=== PATIENT | female | born 1965 | race Caucasian/White ===

== ENCOUNTER 2017-07-11 16:28 | Inpatient (IN) | payer OTHER ==
[~2017-07-11] VITALS: Ht 149.9 cm; Wt 57.0 kg
[2017-07-11] MEDS ORDERED: LORAZEPAM 2 MG/ML 1 ML VIAL IM STA (17:05)
[2017-07-11] MEDS ORDERED: HALOPERIDOL LACTATE 5 MG/ML 1 ML VIAL IM STA (17:05)
[2017-07-11 18:19] LABS: HEMATOCRIT 48.8 % (37-47); HEMOGLOBIN 17.5 g/dL (12.0-16.0); MEAN CELL VOLUME 95.5 fL (80-100); MEAN CORPUSCULAR HEMOGLOBIN 34.2 pg (25-34); MEAN CORPUSCULAR HGB CONC 35.9 g/dl (32-36); MEAN PLATELET VOLUME 10.3 fL (7.4-10.4); PLATELET COUNT 168 K/uL (130-400); RED CELL DISTRIBUTION WIDTH CV 13.4 % (11.5-14.5); WHITE BLOOD COUNT 8.81 K/uL (4.8-10.8)
[2017-07-11 18:35] LABS: BLOOD UREA NITROGEN 8 mg/dl (7-18); CALCIUM 9.3 mg/dl (8.5-10.1); CARBON DIOXIDE 26 mmol/L (21-32); CREATININE 0.59 mg/dl (0.60-1.20); GLUCOSE 96 mg/dl (70-99); POTASSIUM 3.9 mmol/L (3.5-5.1); SODIUM 139 mmol/L (136-145)
[2017-07-11] MEDS ORDERED: QUET1TAB34 PO ×2 (18:37)
[2017-07-11 18:46] LABS: ALKALINE PHOSPHATASE 83 U/L (45-117); ALT/SGPT 88 U/L (12-78); AST/SGOT 80 U/L (15-37); TOTAL PROTEIN 8.6 gm/dl (6.4-8.2)
[2017-07-11] MEDS ORDERED: NURSING VERBAL MED ORDER ONE (19:15)
[2017-07-11 19:25] VITALS: O2SAT 98
[2017-07-11] MEDS ORDERED: SODIUM CHLORIDE 0.65% NA SOLN 45 ML (OCEAN) PRN (19:30)
[2017-07-11] MEDS ORDERED: BISMUTH SUBSALICYLATE PER ML OMNICELL CHARGE PO PRN (19:30)
[2017-07-11] MEDS ORDERED: ALUMINUM/MAGNESIUM SUSP 30 ML UDC PO PRN (19:30)
[2017-07-11] MEDS ORDERED: MAGNESIUM HYDROXIDE SUSP 30 ML UDC PO PRN (19:30)
[2017-07-11] MEDS ORDERED: BENZTROPINE MESYLATE 1 MG TAB PO PRN (19:30)
[2017-07-11] MEDS ORDERED: ACETAMINOPHEN 325 MG TAB PO PRN (19:30)
[2017-07-11 20:43] VITALS: BP 116/86; PULSE 88; TEMP 36.6; Ht 149.9 cm; Wt 57.0 kg
[2017-07-11] MEDS ORDERED: QUETIAPINE FUMARATE 300 MG TAB PO SCH (21:00)
--- NOTE | 2017-07-11 21:39 | EMERGENCY ROOM VISIT NOTE ---
History Report prepared by Marcelo: Librado Huizar Under the Supervision of: Dr. Julio Mooney M.D. First contact with patient: 16:31 Chief Complaint: MENTAL HEALTH EVALUATION Stated Complaint: [facility] History of Present Illness The patient is a 52 year old female who presents to the Emergency Room for constant psychosis and a mental health evaluation following a 302 petition occurring today. Per case work aide, the patient was brought in by police today following the 302 petition by her son. She notes that according to the petition , the patient was acting aggressive to and threatening her son, delusional, and agitated. She reports that the son is afraid that the patient is going to run into traffic. The patient denies any physical complaints. HPI limited secondary to altered mental status. Source of History: patient, other (case work aide) History Limited By: AMS Onset: today Position: other (global) Symptom Intensity: severe Quality: other (psychosis) Timing: constant Associated Symptoms: No headache, No chest pain, No abdominal pain Note: Per son, the patient has been aggressive, threatening, delusional, and agitated. Review of Systems ROS limited secondary to altered mental status. Past Medical & Surgical Medical Problems: (1) Hepatitis C (2) Schizoaffective disorder Family History No pertinent family history stated. Social History Smoking Status: Current Every Day Smoker Alcohol Use: none Drug Use: none Housing Status: other Current/Historical Medications Scheduled Quetiapine Fumarate (Seroquel), 200 MG PO HS Quetiapine Fumarate (Seroquel), 100 MG PO HS Allergies Coded Allergies: No Known Allergies (Unverified , 07/11/17) Physical Exam Vital Signs Date Time Temp Pulse Resp B/P (MAP) Pulse Ox O2 Delivery O2 Flow Rate FiO2 07/11/17 16:42 36.6 131 20 165/101 94 Room Air Physical Exam Constitutional: Vital signs reviewed. Eyes: Pupils are equal round reactive to light. Conjunctiva are noninjected. ENT: Pharynx is clear without erythema or exudate. Mucous membranes are moist. Neck supple without meningeal signs. Respiratory: Clear to auscultation bilaterally. Breath sounds are equal bilaterally. Cardiovascular: Regular rate and rhythm. No rubs or gallops. GI: Soft, nondistended and nontender. Bowel sounds are present. Musculoskeletal: No peripheral edema. No lower extremity tenderness. Integumentary: No cyanosis. Neurological: The patient is awake and alert. No focal deficits. Psychiatric: Delusional, flight of ideas, not redirectable. Medical Decision & Procedures Laboratory Results 07/11/17 17:28 07/11/17 17:28 Test 07/11/17 17:15 07/11/17 17:28 Urine Color YELLOW Urine Appearance CLEAR (CLEAR) Urine pH 5.0 (4.5-7.5) Urine Specific [place] 1.010 (1.000-1.030) Urine Protein NEG (NEG) Urine Glucose (UA) NEG (NEG) Urine Ketones NEG (NEG) Urine Occult Blood NEG (NEG) Urine Nitrite NEG (NEG) Urine Bilirubin NEG (NEG) Urine Urobilinogen NEG (NEG) Urine Leukocyte Esterase NEG (NEG) Urine Test NEG (NEG) Urine Opiates Screen NEG (NEG) Urine Methadone, Qualitative NEG (NEG) Urine Barbiturates NEG (NEG) Urine Phencyclidine (PCP) Level NEG (NEG) Ur Amphetamine/Methamphetamine NEG (NEG) MDMA (Ecstasy) Screen NEG (NEG) Urine Benzodiazepines Screen NEG (NEG) Urine Cocaine Metabolite NEG (NEG) Urine Marijuana (THC) NEG (NEG) Red Blood Count 5.11 M/uL (4.2-5.4) Mean Corpuscular Volume 95.5 fL (80-100) Mean Corpuscular Hemoglobin 34.2 pg (25-34) Mean Corpuscular Hemoglobin Concent 35.9 g/dl (32-36) RDW Standard Deviation 47.0 fL (36.4-46.3) RDW Coefficient of Variation 13.4 % (11.5-14.5) Mean Platelet Volume 10.3 fL (7.4-10.4) Anion Gap 9.0 mmol/L (3-11) Est Creatinine Clear Calc Drug Dose 85.8 ml/min Estimated GFR () 122.1 Estimated GFR (Non- 105.4 BUN/Creatinine Ratio 13.7 (10-20) Calcium Level 9.3 mg/dl (8.5-10.1) Total Bilirubin 0.3 mg/dl (0.2-1) Direct Bilirubin < 0.1 mg/dl (0-0.2) Aspartate Amino Transf (AST/SGOT) 80 U/L (15-37) Alanine Aminotransferase (ALT/SGPT) 88 U/L (12-78) Alkaline Phosphatase 83 U/L (45-117) Total Protein 8.6 gm/dl (6.4-8.2) Albumin 4.0 gm/dl (3.4-5.0) Thyroid Stimulating Hormone (TSH) 1.260 uIu/ml (0.300-4.500) Salicylates Level 4.9 mg/dl (2.8-20) Acetaminophen Level < 2 ug/ml (10-30) Ethyl Alcohol mg/dL < 3.0 mg/dl (0-3) Laboratory results as reviewed by me. Medications Administered Medications (Trade) Dose Ordered Sig/Seamus Route Start Time Stop Time Status Last Admin Dose Admin Haloperidol Lactate (Haldol Inj) 5 mg NOW STAT IM 07/11/17 17:05 07/11/17 17:06 DC 07/11/17 17:17 5 MG Lorazepam (Ativan Inj) 1 mg NOW STAT IM 07/11/17 17:05 07/11/17 17:06 DC 07/11/17 17:17 1 MG ED Course 1635: The patient was evaluated in room A7. A complete history and physical exam was performed. 1704: The patient is becoming aggressive and uncooperative. Security is at bedside and will give Ativan and Haldol if needed. 1705: Ativan Inj 1mg, Haldol Inj 5mg IM 1926: Upon reevaluation, the patient appears stable. I discussed the treatment plan with her and she agrees. The patient was admitted to [address] [place] [address] for further management and care. Medical Decision This is a 52-year-old female brought in for mental health evaluation under a 302 warrant. I did perform a limited focused review of portions of the patient' s old chart on the electronic medical record. The patient was last seen on May 12 of last year for psychosis and schizoaffective disorder. She was sent to [facility]. I did evaluate the patient as noted above. I did obtain history from the patient, case work aide and 302 petition. The patient has flight of ideas and is delusional. It is difficult to get any kind of cohesive history from her. According to her son and the patient has been very delusional and has been aggressive and threatening toward him and his brother. He is concerned for her safety as well. I did order and review the patient's blood work as noted in the electronic medical record. The patient was medically cleared. Patient was evaluated by 3 S. and admitted to the behavioral unit under 302 warrant. Medication Reconcilliation Current Medication List: was personally reviewed by me Blood Pressure Screening Patient's blood pressure: Normal blood pressure Blood pressure disposition: Did not require urgent referral Impression Primary Impression: Thought disorder Scribe Attestation The scribe's documentation has been prepared under my direct and personally reviewed by me in its entirety. I confirm that the note above accurately reflects all work, treatment, procedures, and medical decision making performed by me. Departure Information Dispostion Other (Admitted to [address] [place] [address]) Referrals No Doctor, Assigned (PCP) Patient Instructions My [facility]
[2017-07-12 06:56] VITALS: BP 103/74; PULSE 96; TEMP 36.6
[2017-07-12] MEDS: NICOTINE 21 MG/24 HR TDSY EXT SCH (09:29)
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
[2017-07-12] MEDS: HALOPERIDOL 5 MG TAB PO PRN (11:30)
[2017-07-12] MEDS: LORAZEPAM 2 MG TAB PO PRN (12:32)
[2017-07-12] MEDS ORDERED: QUET1TAB34 PO (13:10)
[2017-07-12] MEDS: QUETIAPINE FUMARATE 200 MG TAB PO SCH (21:23)
[2017-07-13 07:04] VITALS: BP 122/85; PULSE 80; TEMP 36.5
--- NOTE | 2017-07-13 09:16 | Psychiatric Progress Notes ---
Progress Note Date of Service Jul 13, 2017. Interval History Lisandra Barnes is a 52-year-old female with an unclear psychiatric history including a recent admission to an outside hospital behavioral health unit who was admitted on Jul 11, 2017 at 19:13 on an involuntary 302 commitment for psychosis , aggressive behavior, and threatening others. She recently moved to [place] from [place], and is utilizing [facility]. Her son was the petitioner. Chief Complaint "Fine". Subjective Patient was seen & assessed interval progress reviewed with Treatment Team. Staff report she remains hyperverbal and disorganized, talking about various topics and it is difficult to follow her train of thought. Her speech is difficult to understand, and she often closes her eyes and mumbles. She has not been able to attend or participate in groups. The social services technician attempted to meet with her, but she left abruptly, after an episode of fecal incontinence. She was able to shower and clean herself up independently. She requested Valium, stating "I don't do drugs on the outside, only in the hospital." She required staff intervention due to anxiety (focused on worry about her sons despite reassurance that staff had spoken to them and they were okay). At time she becomes very anxious, and received Haldol 5 mg and lorazepam 2 mg. Her son Ted was contacted for collateral information, and states he has guardianship paperwork, but has not yet faxed it to the unit. He stated that the patient has been mentally ill all of his life, and he has had to intervene for her safety many times. She has wandered into traffic, state outdoors when it is cold, and demonstrates poor judgment in general. She is often paranoid, disorganized and scattered, is constantly fearful, and has chronic noncompliance with oral medications. She has many delusions, and is unable to reality test them. She often sees him as "the bad shamir" because he has been the one to intervene to protect her. He also has a younger brother, Edmund, who is also mentally ill, but is able to work. Edmund was hit by a car 2 days ago, but was not injured. Ted was concerned because she has never been aggressive towards Edmund before, but was on the day of presentation. He reports that she did well on Invega Sustenna in the past when she lived in [place]. [facility] from [facility] was contacted and stated they would like the patient to be referred to [place]. My assessment today, the patient was seen with Tonio Pearson, MS 3. 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 She starts talking about Humberto, her uncle Kiel in [place], "cut my throat in 72." She says that being in the hospital has been helpful, "but I'm ready to go home now." Reviewed our treatment plan, including getting her on an appropriate medication for her psychotic symptoms, recommendations for long- acting injectable antipsychotic, and the need to refer her for outpatient mental health services. She does not feel she needs any of this, and says she could leave. She was advised of the plan for a 303 hearing tomorrow. She denies that she has a power of district attorney or guardian, and we still have not received paperwork from her son Ted. Sleep Information Total Hours of Sleep: 7.50 Meal Information Percent of Breakfast Consumed: 100 Percent of Lunch Consumed: 100 Percent of Dinner Consumed: 100 Mental Status Exam During interview pt is: cooperative, other (alert, oriented to self and place) Appearance: disheveled (hair is extremely tangled and disheveled), other ( seated crosslegged on her bed, eating breakfast and spilling food on herself) Eye contact is: fair Motor behavior is: no abnormal motor movements Speech: is pressured (hyperverbal) Affect: other (anxious, expansive, incongruent with stated mood) Mood is: other ("fine") Thought process: tangential, flight of ideas, looseness of associations, perseveration, other (extremely disorganized) Thought content: paranoid, delusions Suicidal thought are: denied Homicidal thoughts are: denied Hallucinations: denies auditory, denies visual Cognition: other (all spheres impaired due to psychosis) Intelligence estimated to be: below average Insight: severely impaired Judgement: severely impaired Summary of Past History Records from [facility] reviewed: Patient was admitted 05/12/2017 on referral from our emergency room for manic and psychotic symptoms. She was off her medications, was delusional, was hyperverbal with rapid pressured speech, flight of ideas, and was incoherent at times. She was jumping from topic to topic, and unable to answer basic questions. She reported being and 3 times, and said that she came to [place] from [place] to be with her children who live in [place]. She reported a long psychiatric history, previously following with a psychiatrist, Dr. Lomax, in [place], [place]. She reported numerous [facility], but could not give any details. She reported a history of crack cocaine use. She reported both parents were , and denied any other family members. She could not state how far she had gone in school or if she had worked in the past. She does not have any outpatient providers at the time. They diagnosed her with schizoaffective disorder bipolar type, and started her on quetiapine and lithium. 2 days later, Depakote was added. The next day, gabapentin was added for depression and anxiety. She was discharged on 05/19/2017, on Depakote 250 mg 3 times a day, gabapentin 100 mg 3 times a day, quetiapine 200 mg daily at bedtime and 100 mg twice a day, and lithium 300 mg twice a day. No aftercare was arranged. Medication Trials Invega Kady - her son, patient did well on this when living in [place]. Started on quetiapine, lithium, Depakote, and gabapentin during her [facility] hospitalization in May 2017. Other medications unknown Impression 52-year-old female who recently came to the area, has long history of psychosis , likely schizophrenia (chart mentions schizoaffective disorder, but no records to confirm), has been utilizing the local detention and hotels as she is homeless , and was admitted on a 302 involuntary commitment for worsening psychosis, aggressive behavior, and threats to others. Her sons reportedly also moved to [place] from [place] after the patient came here in response to delusions that she had relatives in the area, and states that she has been noncompliant with her oral antipsychotic, has been delusional and disorganized, with impaired judgment and inability to keep herself safe. She also became aggressive towards her sons on the day of presentation, which is out of character for her. Although she was hospitalized at [facility] in May for psychosis and alejandro , she does not have an outpatient psychiatrist, and we will need to set her up with outpatient mental health services. We are also recommending a long-acting injectable due to her history of noncompliance with oral medications. Plan (1) Schizoaffective disorder 07/12 - differential includes schizophrenia, schizoaffective disorder, bipolar disorder, and dementia or other organic causes. We will need to get information about past treatment, we'll request the records from [facility], and contact the patient's sons for collateral information. - Determine if she has an outpatient psychiatrist, leather case finisher or any other outpatient supports, and if not she will need to be set up with them. - Reported home dose of quetiapine is 300 mg daily at bedtime, and we will increase that to 400 mg daily at bedtime tonight to target psychosis and manic symptoms. If she does not improve over the next day or 2, consider switch to a more potent antipsychotic such as risperidone or olanzapine. Continue haloperidol 5 mg and lorazepam 2 mg as needed for psychosis or agitation. - Fasting labs ordered for tomorrow for monitoring on an atypical antipsychotic. 07/13 - working diagnosis for now is schizoaffective disorder, bipolar type, current episode manic with psychosis. - Records reviewed from [facility], diagnosis was schizoaffective disorder, bipolar type. - Increase quetiapine to 50mg qam and noon and 400mg qhs. Advised patient of recs for Invega Sustenna, as son reports she did well on it in the past, but she is refusing at this time. - Fasting lipid profile and glucose reviewed for monitoring on an atypical antipsychotic, all values within normal limits. - Awaiting paperwork from son to clarify whether he is indeed her guardian or POA. - Filed for 303 commitment hearing to be held tomorrow. Consider the need for an involuntary outpatient commitment given history of noncompliance. She will need a family meeting with sons when she is less psychotic. - Continue medically necessary private room for severe manic and psychotic symptoms, disorganized behavior, recent aggressive behavior, and place patient near the nurse's station for increased monitoring. (2) Hepatitis C 07/12 - LFTs elevated on admission, avoid hepatotoxic drugs and refer for outpatient care with PCP. Need to clarify whether or not she has a local physician. Visit Code E&M Code: 69428 Inventory Assets Strengths: Supportive sons, willing to take medication Needs: Housing, outpatient care, clarify diagnosis Risk Factors Assessment : Yes /single/: Yes Higher / Fall in social status: No Health problems: Yes Mental Health Diagnoses: Yes Substance use disorders: No Previous psychiatric stay: Yes Smoker: Yes Protective Factors Assessment : No Responsible for young children: No Employed: No Stable relationships: No Supportive family: Yes Good rapport with provider: No Data Vital Signs Last 24 Hrs: Date Time Temp Pulse Resp B/P (MAP) Pulse Ox O2 Delivery O2 Flow Rate FiO2 07/13/17 07:04 36.5 80 16 122/85 Meds Administered Last 24 Hrs: Meds Administered (Past 24Hrs) Medications (Trade) Dose Ordered Sig/Seamus Route Start Time Stop Time Status Last Admin Dose Admin Haloperidol Lactate (Haldol Inj) 5 mg NOW STAT IM 07/11/17 17:05 07/11/17 17:06 DC 07/11/17 17:17 5 MG Lorazepam (Ativan Inj) 1 mg NOW STAT IM 07/11/17 17:05 07/11/17 17:06 DC 07/11/17 17:17 1 MG Nicotine (Nicoderm Cq 21MG Patch) 1 patch QAM EXT 07/12/17 09:00 08/11/17 08:59 07/12/17 09:29 1 PATCH Quetiapine Fumarate (seroQUEL TAB) 300 mg HS PO 07/11/17 21:00 07/12/17 09:54 DC 07/11/17 22:58 300 MG Haloperidol (Haldol Tab) 5 mg Q4 PRN PO 07/11/17 19:30 08/10/17 19:29 07/12/17 11:30 5 MG Lorazepam (Ativan Tab) 2 mg Q4 PRN PO 07/11/17 19:30 08/10/17 19:29 07/12/17 12:32 2 MG Quetiapine Fumarate (seroQUEL TAB) 400 mg HS PO 07/12/17 22:00 08/10/17 20:59 07/12/17 21:23 400 MG Lab Results Last 24 Hrs: Last 24 Hours Test 07/13/17 08:05 Fasting Glucose 87 mg/dl Triglycerides Level 47 mg/dl Cholesterol Level 116 mg/dl HDL Cholesterol 43 mg/dl LDL Cholesterol, Calculated 64 mg/dl VLDL Cholesterol, Calculated 9 mg/dl Cholesterol/HDL Ratio 2.7
[2017-07-13] MEDS: NICOTINE 21 MG/24 HR TDSY EXT SCH (09:37)
[2017-07-13] MEDS: LORAZEPAM 2 MG TAB PO PRN (09:49)
[2017-07-13] MEDS: HALOPERIDOL 5 MG TAB PO PRN (10:31)
--- NOTE | 2017-07-13 10:42 | Medical Student: BHU Only ---
Psychiatric Progress Note SUBJECTIVE: Ms. Barnes is a 52yo female with medical history significant for hepatitis C and a prior diagnosis of schizoaffective disorder- bipolar type currently on day 2 of involuntary 302 commitment due to psychosis as well as aggressive and threatening behavior. Ms. Barnes was seen and assessed today, and progress was reviewed with nursing. The patient reports that she feels "good". Patient reports that she slept "OK" last night; noted to be for 7 hours by staff. Ms. Barnes stated that she believes that the hospital stay has been helpful; she reports that she has been mostly "eating and sleeping." Yesterday, patient talked to both of her sons, Edmund and Ted, by phone to check-in with them. Social work was able to confirm parts of Ms. Barnes's reported history with her son, Ted: she did move from [place] to [place], [place], but currently resides at "[facility]" in [place], [place]; her son, Edmund, was hit by a car , but is doing OK; Ted also reported that she did well on invega-sustenna ( paliperidone) in the past. Today, Ms. Barnes voiced a desire to leave the hospital and that her son, Ted, does not have power of youth program director. When patient was asked about invega-sustenna, she stated that she tried it in the past but did not like it. During Ms. Barnes's most recent hospitalization ( May 2017) at [facility], she was admitted for psychotic, delusional, and manic behavior. She was diagnosed with schizoaffective disorder- bipolar type and started on a medication regime of: Seroquel 100MG QAM and Noon, Seroquel 200MG QHS, Fromberg carbonate 300MG BID, Depakote (valproic acid) 250MG TID, and Neurotin 100MG TID. She was not compliant with taking these medications. ROS: Patient sleep 7hrs and has a good appetite. She is able to complete ADLs by herself. MSE: Appearance is that of a disheveled female who appears older than her stated age of 52yo. The patient is cooperative with the interview. Eye contact is fair (often closes her eyes). Motor behavior is normal. Speech: Normal volume, rapid, and slightly pressured but able to redirect. Affect: blunted. Mood: "good". Thought process: tangential, FOI, TAURUS, preservations (slavery), incoherence. Thought content: preoccupation, delusions. Perception: denies auditory and visual hallucinations. Cognition: The patient is oriented to year, month, and date as well as city and location (i.e. hospital). Scored 8/30 on MOCA. Insight is estimated to be limited. ASSESSMENT: Ms. Barnes is a 52yo female with medical history significant for hepatitis C and a prior diagnosis of schizoaffective disorder- bipolar type currently on day 2 of involuntary 302 commitment due to psychosis as well as aggressive and threatening behavior. She has improved with a total daily dose of 400MG of Seroquel as well as getting some sleep. Given the initial presentation of acute alejandro (no sleep for 304 days) with psychotic features and non-bizarre delusions, the DDx includes schizoaffective disorder- bipolar type, BPI, and schizophrenia. Psychosis NOS and dementia are a less likely possibility given Ms. Barnes's reported long history of mental illness. [place] I: DDx: schizoaffective disorder- bipolar type; BPI; schizophrenia. [place] II: no known intellectual disability or personality disorder [place] III: Hepatitis C PLAN: 1. schizoaffective disorder- bipolar type; BPI; schizophrenia a. Current medication: Seroquel 400MG QHS; halperidol 5MG and lorazepam 2MG PRN for psychosis and agitation. b. Will consider a mood stabilizer (depakote, lamotrigine, lithium carbonate) in addition to an atypical antipsychotic; will consider patient's lack of compliance with medications in determining the best choice; perhaps a depot shot. Seroquel and lamotrigine may be an option. Invega-sustenna (paliperidone ) may be an alternative to Seroquel. 2. Hepatitis C a. monitor LFTs and avoid hepatotoxic medications 3. Aftercare Planning: a. Will need to consult sons during a family meeting about suitable aftercare. Need to establish outpatient provider and plan for optimal medication compliance. Date of Service: Jul 13, 2017.
[2017-07-13] MEDS: QUETIAPINE FUMARATE 25 MG TAB PO SCH (13:31)
[2017-07-13] MEDS ORDERED: COUGH DROP (SUGAR FREE) LOZ 24 LOZ/1 BOX PO PRN (15:15)
[2017-07-13] MEDS ORDERED: FLUTICASONE PROPIONATE NA SPR 16 GM BTL PRN (15:15)
[2017-07-13] MEDS: QUETIAPINE FUMARATE 200 MG TAB PO SCH (22:18)
[2017-07-14] MEDS: HALOPERIDOL 5 MG TAB PO PRN ×2 (02:52→13:29)
[2017-07-14 07:06] VITALS: BP 101/70; PULSE 92; TEMP 36.6
[2017-07-14] MEDS: QUETIAPINE FUMARATE 25 MG TAB PO SCH ×2 (07:29→13:29)
--- NOTE | 2017-07-14 08:20 | Psychiatric Progress Notes ---
Progress Note Date of Service Jul 14, 2017. Interval History Lisandra Barnes is a 52-year-old female with an unclear psychiatric history including a recent admission to an outside hospital behavioral health unit who was admitted on Jul 11, 2017 at 19:13 on an involuntary 302 commitment for psychosis , aggressive behavior, and threatening others. She recently moved to [place] from [place], and is utilizing [facility] for the homeless. Her son was the petitioner. Chief Complaint "(rambling incoherently)". Subjective Patient was seen & assessed interval progress reviewed with Nursing. Staff report she received haloperidol and Ativan prn for psychosis and agitation, is taking quetiapine as scheduled, and is not appropriate to attend groups. She has received both Haldol and lorazepam prn's daily since admission. She is not able to tolerate excessive stimuli, is easily confused and overwhelmed. She continues to be hyperverbal with flight of ideas, but her speech is less pressured than on admission. She required redirection with respect to intrusive behavior. Her sons have still not visited or sent in guardianship paperwork, and although her son Ted told staff he would attend her 303 hearing today and bring the paperwork with him, he did not come in. Prior authorization for Invega Sustenna was submitted to her insurance company, and was denied as they claimed no documentation was provided regarding her history of noncompliance with oral medications and attempts to educate her to improve compliance. This was specifically addressed on admission, as her outpatient supports report that she is chronically noncompliant with oral medications, and that she was started on multiple psychotropic medications during her hospitalization at [facility] in May 2017, and was noncompliant with all of them after discharge. The only medication that she is taking at all is quetiapine, and she is not taking it at the prescribed dose and often misses doses. Furthermore, her son reports a long-standing history of noncompliance with oral medications, which led to her being placed on a long-acting injectable antipsychotic (Invega Sustenna) when she lived in [place], and she did well on it at that time. Today Lisandra was seen with Tonio Pearson, MS3. She attended her 303 hearing and was talking throughout, despite being repeatedly advised not to speak when others were testifying. She rambled incoherently about various topics and was mumbling, so was very difficult to understand. She is unable to participate in the discussion of treatment recommendations, as she frequently interrupts or response with unrelated information. She does continue to refuse recommendations for a long-acting injectable, but cannot verbalize her concerns. After the hearing, she was checking the unit doors, so has been placed on elopement precautions. Review of Systems Attempted review of systems, however the patient did not respond with related information. Sleep Information Total Hours of Sleep: 7.50 Meal Information Percent of Breakfast Consumed: 100 Percent of Lunch Consumed: 100 Percent of Dinner Consumed: 100 Mental Status Exam During interview pt is: cooperative, other (oriented to self and place) Appearance: disheveled (hair is extremely tangled and disheveled), other ( appears older than stated age) Eye contact is: poor (eyes closed much of the time) Motor behavior is: steady gait & station, no abnormal motor movements Speech: is pressured (hyperverbal, interrupting, mumbling) Affect: other (anxious, expansive, irritable, incongruent with stated mood) Mood is: other (swers with unrelated information) Thought process: tangential, flight of ideas, looseness of associations, other (disorganized) Thought content: preoccupation, paranoid, delusions Suicidal thought are: denied Homicidal thoughts are: denied Hallucinations: denies auditory, denies visual Cognition: other (all spheres impaired due to psychosis) Intelligence estimated to be: below average Insight: severely impaired Judgement: severely impaired Scored 8/30 on MOCA on 07/12/17. Summary of Past History Records from [facility] reviewed: Patient was admitted 05/12/2017 on referral from our emergency room for manic and psychotic symptoms. She was off her medications, was delusional, was hyperverbal with rapid pressured speech, flight of ideas, and was incoherent at times. She was jumping from topic to topic, and unable to answer basic questions. She reported being and 3 times, and said that she came to [place] from [place] to be with her children who live in [place]. She reported a long psychiatric history, previously following with a psychiatrist, Dr. Lomax, in [place], [place]. She reported numerous past psychiatric admissions in other states, but could not give any details. She reported a history of crack cocaine use. She reported both parents were , and denied any other family members. She could not state how far she had gone in school or if she had worked in the past. She does not have any outpatient providers at the time. They diagnosed her with schizoaffective disorder bipolar type, and started her on quetiapine and lithium. 2 days later, Depakote was added. The next day, gabapentin was added for depression and anxiety. She was discharged on 05/19/2017, on Depakote 250 mg 3 times a day, gabapentin 100 mg 3 times a day, quetiapine 200 mg daily at bedtime and 100 mg twice a day, and lithium 300 mg twice a day. No aftercare was arranged. Medication Trials Invega Sustenna - her son, patient did well on this when living in [place]. Started on quetiapine, lithium, Depakote, and gabapentin during her [facility] hospitalization in May 2017. Other medications unknown Impression 52-year-old female who recently came to the area, has long history of psychosis , previous diagnosis of schizoaffective disorder, bipolar type, has been utilizing the local senior living and hotels as she is homeless, and was admitted on a 302 involuntary commitment for worsening psychosis, aggressive behavior, and threats to others. She is on a 303 commitment as of 07/14/2017. Her sons reportedly also moved to [place] from [place] after the patient came here in response to delusions that she had relatives in the area, and states that she has been noncompliant with her oral antipsychotic, has been delusional and disorganized, with impaired judgment and inability to keep herself safe. She also became aggressive towards her sons on the day of presentation, which is out of character for her. Although she was hospitalized at [facility] in May for psychosis and alejandro, she was noncompliant with her psychotropic medications after discharge, and does not have any outpatient mental health services. We are also recommending a long-acting injectable due to her history of noncompliance with oral medications, and per son she previously did well on Invega Sustenna. Plan (1) Schizoaffective disorder 07/12 - differential includes schizophrenia, schizoaffective disorder, bipolar disorder, and dementia or other organic causes. We will need to get information about past treatment, we'll request the records from [facility], and contact the patient's sons for collateral information. - Determine if she has an outpatient psychiatrist, complex case manager or any other outpatient supports, and if not she will need to be set up with them. - Reported home dose of quetiapine is 300 mg daily at bedtime, and we will increase that to 400 mg daily at bedtime tonight to target psychosis and manic symptoms. If she does not improve over the next day or 2, consider switch to a more potent antipsychotic such as risperidone or olanzapine. Continue haloperidol 5 mg and lorazepam 2 mg as needed for psychosis or agitation. - Fasting labs ordered for tomorrow for monitoring on an atypical antipsychotic. 07/13 - working diagnosis for now is schizoaffective disorder, bipolar type, current episode manic with psychosis. - Records reviewed from [facility], diagnosis was schizoaffective disorder, bipolar type. - Increase quetiapine to 50mg qam and noon and 400mg qhs. Advised patient of recs for Invega Sustenna, as son reports she did well on it in the past, but she is refusing at this time. - Fasting lipid profile and glucose reviewed for monitoring on an atypical antipsychotic, all values within normal limits. - Awaiting paperwork from son to clarify whether he is indeed her guardian or POA. - Filed for 303 commitment hearing to be held tomorrow. Consider the need for an involuntary outpatient commitment given history of noncompliance. She will need a family meeting with sons when she is less psychotic. - Continue medically necessary private room for severe manic and psychotic symptoms, disorganized behavior, recent aggressive behavior, and place patient near the nurse's station for increased monitoring. 07/14 - 303 hearing held and granted; start elopement precautions as patient is checking unit doors and attempting to leave the unit. - Continue medically necessary private room due to severity of psychotic and manic symptoms. - Initiate cross taper from quetiapine to paliperidone, with a plan to get her back on Invega Sustenna given her chronic noncompliance with oral medications. Will taper slowly off of quetiapine to allow her time to readapt to the withdrawal of blocking cholinergic, histaminergic, and alpha-1 receptors. Decrease quetiapine to 300 mg daily at bedtime, and decreased by another 100 mg every 3 days (taper order written). Can continue 50 mg twice a day in the morning and afternoon for now, but can taper off of this over the next week or 2. Start paliperidone 3 mg daily. When she demonstrates tolerability and efficacy, can start Invega Sustenna. - She may require medications over objection, as she has repeatedly refused recommendations to go back on Invega Sustenna, although she cannot state her reasons. She reportedly did well on this medication in the past, and her manic and psychotic symptoms have not been well controlled with quetiapine. I don't think she is a good candidate for lithium or Depakote, as they require good compliance and willingness for regular lab work, and she has demonstrated unwillingness/inability to follow through with this. She can be seen by a second physician tomorrow for a second opinion for medications over objection if needed. (2) Hepatitis C 07/12 - LFTs elevated on admission, avoid hepatotoxic drugs and refer for outpatient care with PCP. Need to clarify whether or not she has a local physician. Visit Code E&M Code: 26997 Inventory Assets Strengths: Supportive sons, willing to take medication Needs: Housing, outpatient care, past treatment history Risk Factors Assessment : Yes /single/: Yes Higher / Fall in social status: No Health problems: Yes Mental Health Diagnoses: Yes Substance use disorders: No Previous psychiatric stay: Yes Smoker: Yes Protective Factors Assessment : No Responsible for young children: No Employed: No Stable relationships: No Supportive family: Yes Good rapport with provider: No Data Vital Signs Last 24 Hrs: Date Time Temp Pulse Resp B/P (MAP) Pulse Ox O2 Delivery O2 Flow Rate FiO2 07/14/17 07:06 36.6 92 16 101/70 Meds Administered Last 24 Hrs: Meds Administered (Past 24Hrs) Medications (Trade) Dose Ordered Sig/Seamus Route Start Time Stop Time Status Last Admin Dose Admin Nicotine (Nicoderm Cq 21MG Patch) 1 patch QAM EXT 07/12/17 09:00 08/11/17 08:59 07/13/17 09:37 1 PATCH Quetiapine Fumarate (seroQUEL TAB) 400 mg HS PO 07/12/17 22:00 08/10/17 20:59 07/13/17 22:18 400 MG Quetiapine Fumarate (seroQUEL TAB) 50 mg [id number] PO 07/13/17 14:00 08/12/17 13:59 07/14/17 07:29 50 MG Menthol (Nice Vy) 1 vy Q2H PRN PO 07/13/17 15:15 08/12/17 15:14 07/13/17 18:21 1 VY
[2017-07-14] MEDS: NICOTINE 21 MG/24 HR TDSY EXT SCH (08:34)
[2017-07-14] MEDS ORDERED: PALIPERIDONE 3 MG TABCR PO ONE (10:19)
[2017-07-14] MEDS: LORAZEPAM 2 MG TAB PO PRN (13:29)
[2017-07-14] MEDS: QUETIAPINE FUMARATE 100 MG TAB PO SCH (21:51)
[2017-07-15] MEDS: hydrOXYzine HCL 25 MG TAB PO PRN (00:35)
[2017-07-15] MEDS: FLUTICASONE PROPIONATE NA SPR 16 GM BTL PRN (00:37)
[2017-07-15 06:51] VITALS: BP_SYST 110; BP_SYST 113; BP_DIAS 74; BP_DIAS 79; PULSE 85; TEMP 36.5
[2017-07-15] MEDS ORDERED: PALIPERIDONE 3 MG TABCR PO SCH (09:00)
[2017-07-15] MEDS: NICOTINE 21 MG/24 HR TDSY EXT SCH (09:02)
[2017-07-15] MEDS: QUETIAPINE FUMARATE 25 MG TAB PO SCH ×2 (09:03→14:00)
--- NOTE | 2017-07-15 11:00 | Psychiatric Progress Notes ---
Progress Note Date of Service Jul 15, 2017. Interval History Lisandra Barnes is a 52-year-old female with an unclear psychiatric history including a recent admission to an outside hospital behavioral health unit who was admitted on Jul 11, 2017 at 19:13 on an involuntary 302 commitment for psychosis , aggressive behavior, and threatening others. She recently moved to [place] from [place], and is utilizing [facility]. Her son was the petitioner. Chief Complaint "My son was kidnapped by this girl and taken to [place].". Subjective Patient was seen & assessed interval progress reviewed with Treatment Team. The patient is resting when retrieved for the interview. She awakens to verbal is immediately hyperverbal talking about her son's, one of whom she believes to have been kidnapped, burned and cut. She rambles on and I do not understand all that she has to say due to dysarthria from no teeth. She has no insight and does not believe that her thoughts could be a function of her mental illness. She asks again to be prescribed valium "just to make me feel good for a few days". She denies aud/vis hallucinations. Denies side effects to meds. She believes that the Invega is helping and is requesting a higher dose. We discuss starting the Sustenna injections tomorrow, to which she agrees. Review of Systems Constitutional: No fever, No chills, No sweats, No weight loss, No weakness, No fatigue, No problem reported ENT: + problem reported (edentulous) Respiratory: No cough, No sputum, No wheezing, No shortness of breath, No dyspnea on exertion, No dyspnea at rest, No hemoptysis, No problem reported Cardiovascular: No chest pain, No orthopnea, No PND, No edema, No claudication , No palpitations, No problem reported Abdomen: No pain, No nausea, No vomiting, No diarrhea, No constipation, No GI bleeding, No problem reported Musculoskeletal: No joint pain, No muscle pain, No swelling, No calf pain, No problem reported Neurologic: No memory loss, No paralysis, No weakness, No numbness/tingling, No vertigo, No balance problems, No problem reported Psychiatric: + problem reported (rambling and disorganized) Integumentary: No rash, No itch, No new/changing skin lesions, No color change , No bleeding, No problem reported Sleep Information Total Hours of Sleep: 9.50 Meal Information Percent of Breakfast Consumed: 100 Percent of Lunch Consumed: 75 Percent of Dinner Consumed: 100 Mental Status Exam During interview pt is: cooperative, other (oriented to self and place) Appearance: disheveled (hair is extremely tangled and disheveled), other ( appears older than stated age) Eye contact is: fair Motor behavior is: steady gait & station, no abnormal motor movements Speech: is pressured (hyperverbal, interrupting, mumbling) Affect: other (anxious, expansive, irritable, incongruent with stated mood) Mood is: anxious Thought process: tangential, flight of ideas, looseness of associations, other (disorganized) Thought content: preoccupation, paranoid, delusions Suicidal thought are: denied Homicidal thoughts are: denied Hallucinations: denies auditory, denies visual Cognition: other (all spheres impaired due to psychosis) Intelligence estimated to be: below average Insight: severely impaired Judgement: severely impaired Scored 8/30 on MOCA on 07/12/17. Summary of Past History Records from [facility] reviewed: Patient was admitted 05/12/2017 on referral from our emergency room for manic and psychotic symptoms. She was off her medications, was delusional, was hyperverbal with rapid pressured speech, flight of ideas, and was incoherent at times. She was jumping from topic to topic, and unable to answer basic questions. She reported being and 3 times, and said that she came to [place] from [place] to be with her children who live in [place]. She reported a long psychiatric history, previously following with a psychiatrist, Dr. Lomax, in [place], [place]. She reported numerous past psychiatric admissions in other states, but could not give any details. She reported a history of crack cocaine use. She reported both parents were , and denied any other family members. She could not state how far she had gone in school or if she had worked in the past. She does not have any outpatient providers at the time. They diagnosed her with schizoaffective disorder bipolar type, and started her on quetiapine and lithium. 2 days later, Depakote was added. The next day, gabapentin was added for depression and anxiety. She was discharged on 05/19/2017, on Depakote 250 mg 3 times a day, gabapentin 100 mg 3 times a day, quetiapine 200 mg daily at bedtime and 100 mg twice a day, and lithium 300 mg twice a day. No aftercare was arranged. Medication Trials Invega Sustenna - her son, patient did well on this when living in [place]. Started on quetiapine, lithium, Depakote, and gabapentin during her [facility] hospitalization in May 2017. Other medications unknown Impression The patient has made some progress, but remains paranoid, rambling, pressured. Will increase Invega today to 6 mg. daily and if tolerated will initiate Sustenna tomorrow. 234 mg IM on 07/16 with second injection on 07/19 156 mg IM. Plan (1) Schizoaffective disorder 07/12 - differential includes schizophrenia, schizoaffective disorder, bipolar disorder, and dementia or other organic causes. We will need to get information about past treatment, we'll request the records from [facility], and contact the patient's sons for collateral information. - Determine if she has an outpatient psychiatrist, renal case manager or any other outpatient supports, and if not she will need to be set up with them. - Reported home dose of quetiapine is 300 mg daily at bedtime, and we will increase that to 400 mg daily at bedtime tonight to target psychosis and manic symptoms. If she does not improve over the next day or 2, consider switch to a more potent antipsychotic such as risperidone or olanzapine. Continue haloperidol 5 mg and lorazepam 2 mg as needed for psychosis or agitation. - Fasting labs ordered for tomorrow for monitoring on an atypical antipsychotic. 07/13 - working diagnosis for now is schizoaffective disorder, bipolar type, current episode manic with psychosis. - Records reviewed from [facility], diagnosis was schizoaffective disorder, bipolar type. - Increase quetiapine to 50mg qam and noon and 400mg qhs. Advised patient of recs for Invega Sustenna, as son reports she did well on it in the past, but she is refusing at this time. - Fasting lipid profile and glucose reviewed for monitoring on an atypical antipsychotic, all values within normal limits. - Awaiting paperwork from son to clarify whether he is indeed her guardian or POA. - Filed for 303 commitment hearing to be held tomorrow. Consider the need for an involuntary outpatient commitment given history of noncompliance. She will need a family meeting with sons when she is less psychotic. - Continue medically necessary private room for severe manic and psychotic symptoms, disorganized behavior, recent aggressive behavior, and place patient near the nurse's station for increased monitoring. 07/14 - 303 hearing held and granted; start elopement precautions as patient is checking unit doors and attempting to leave the unit. - Continue medically necessary private room due to severity of psychotic and manic symptoms. - Initiate cross taper from quetiapine to paliperidone, with a plan to get her back on Invega Sustenna given her chronic noncompliance with oral medications. Will taper slowly off of quetiapine to allow her time to readapt to the withdrawal of blocking cholinergic, histaminergic, and alpha-1 receptors. Decrease quetiapine to 300 mg daily at bedtime, and decreased by another 100 mg every 3 days (taper order written). Can continue 50 mg twice a day in the morning and afternoon for now, but can taper off of this over the next week or 2. Start paliperidone 3 mg daily. When she demonstrates tolerability and efficacy, can start Invega Sustenna. - She may require medications over objection, as she has repeatedly refused recommendations to go back on Invega Sustenna, although she cannot state her reasons. She reportedly did well on this medication in the past, and her manic and psychotic symptoms have not been well controlled with quetiapine. I don't think she is a good candidate for lithium or Depakote, as they require good compliance and willingness for regular lab work, and she has demonstrated unwillingness/inability to follow through with this. She can be seen by a second physician tomorrow for a second opinion for medications over objection if needed. 07/15 - Increase Invega to 6 mg. today - Start Sustenna tomorrow 234 mg IM with second injection on 07/19 156 mg. IM. Has been preauth'd with her insurance (2) Hepatitis C 07/12 - LFTs elevated on admission, avoid hepatotoxic drugs and refer for outpatient care with PCP. Need to clarify whether or not she has a local physician. Discharge / Aftercare Planning Primary Care Physician: Name: I don't know who, I missed my appt Camp Dishwasher: Name: "I don't need one." Visit Code E&M Code: 44241 Inventory Assets Strengths: Supportive sons, willing to take medication Needs: Housing, outpatient care, past treatment history Risk Factors Assessment : Yes /single/: Yes Higher / Fall in social status: No Health problems: Yes Mental Health Diagnoses: Yes Substance use disorders: No Previous psychiatric stay: Yes Smoker: Yes Protective Factors Assessment : No Responsible for young children: No Employed: No Stable relationships: No Supportive family: Yes Good rapport with provider: No Data Vital Signs Last 24 Hrs: Date Time Temp Pulse Resp B/P (MAP) Pulse Ox O2 Delivery O2 Flow Rate FiO2 07/15/17 06:51 36.5 85 16 110/74 113/79 Meds Administered Last 24 Hrs: Meds Administered (Past 24Hrs) Medications (Trade) Dose Ordered Sig/Seamus Route Start Time Stop Time Status Last Admin Dose Admin Quetiapine Fumarate (seroQUEL TAB) 50 mg [id number] PO 07/13/17 14:00 08/12/17 13:59 07/15/17 09:03 50 MG Menthol (Nice Vy) 1 vy Q2H PRN PO 07/13/17 15:15 08/12/17 15:14 07/13/17 18:21 1 VY Fluticasone Propionate (Flonase Nasal [place]) 2 sprays DAILY PRN NA 07/13/17 15:45 08/12/17 15:14 07/15/17 00:37 2 SPRAYS Quetiapine Fumarate (seroQUEL TAB) 300 mg Taper HS PO 07/14/17 22:00 07/26/17 21:59 07/14/17 21:51 300 MG Paliperidone (Invega) 3 mg DAILY PO 07/15/17 09:00 08/14/17 08:59 07/15/17 09:02 3 MG Paliperidone (Invega) 3 mg 1019 ONCE PO 07/14/17 10:19 07/14/17 10:23 DC 07/14/17 12:15 3 MG Lab Results Last 24 Hrs: 07/11/17 17:28 07/11/17 17:28 Test 07/11/17 17:15 07/11/17 17:28 07/13/17 08:05 Urine Color YELLOW Urine Appearance CLEAR (CLEAR) Urine pH 5.0 (4.5-7.5) Urine Specific [place] 1.010 (1.000-1.030) Urine Protein NEG (NEG) Urine Glucose (UA) NEG (NEG) Urine Ketones NEG (NEG) Urine Occult Blood NEG (NEG) Urine Nitrite NEG (NEG) Urine Bilirubin NEG (NEG) Urine Urobilinogen NEG (NEG) Urine Leukocyte Esterase NEG (NEG) Urine Test NEG (NEG) Urine Opiates Screen NEG (NEG) Urine Methadone, Qualitative NEG (NEG) Urine Barbiturates NEG (NEG) Urine Phencyclidine (PCP) Level NEG (NEG) Ur Amphetamine/Methamphetamine NEG (NEG) MDMA (Ecstasy) Screen NEG (NEG) Urine Benzodiazepines Screen NEG (NEG) Urine Cocaine Metabolite NEG (NEG) Urine Marijuana (THC) NEG (NEG) Red Blood Count 5.11 M/uL (4.2-5.4) Mean Corpuscular Volume 95.5 fL (80-100) Mean Corpuscular Hemoglobin 34.2 pg (25-34) Mean Corpuscular Hemoglobin Concent 35.9 g/dl (32-36) RDW Standard Deviation 47.0 fL (36.4-46.3) RDW Coefficient of Variation 13.4 % (11.5-14.5) Mean Platelet Volume 10.3 fL (7.4-10.4) Anion Gap 9.0 mmol/L (3-11) Est Creatinine Clear Calc Drug Dose 85.8 ml/min Estimated GFR () 122.1 Estimated GFR (Non- 105.4 BUN/Creatinine Ratio 13.7 (10-20) Calcium Level 9.3 mg/dl (8.5-10.1) Total Bilirubin 0.3 mg/dl (0.2-1) Direct Bilirubin < 0.1 mg/dl (0-0.2) Aspartate Amino Transf (AST/SGOT) 80 U/L (15-37) Alanine Aminotransferase (ALT/SGPT) 88 U/L (12-78) Alkaline Phosphatase 83 U/L (45-117) Total Protein 8.6 gm/dl (6.4-8.2) Albumin 4.0 gm/dl (3.4-5.0) Thyroid Stimulating Hormone (TSH) 1.260 uIu/ml (0.300-4.500) Salicylates Level 4.9 mg/dl (2.8-20) Acetaminophen Level < 2 ug/ml (10-30) Ethyl Alcohol mg/dL < 3.0 mg/dl (0-3) Fasting Glucose 87 mg/dl (70-99) Triglycerides Level 47 mg/dl (0-150) Cholesterol Level 116 mg/dl (0-200) HDL Cholesterol 43 mg/dl LDL Cholesterol, Calculated 64 mg/dl VLDL Cholesterol, Calculated 9 mg/dl Cholesterol/HDL Ratio 2.7
[2017-07-15] MEDS ORDERED: PALIPERIDONE 3 MG TABCR PO ONE (11:45)
[2017-07-15] MEDS: LORAZEPAM 2 MG TAB PO PRN (14:27)
[2017-07-15] MEDS: QUETIAPINE FUMARATE 100 MG TAB PO SCH (21:00)
[2017-07-16] MEDS: QUETIAPINE FUMARATE 25 MG TAB PO SCH ×2 (06:53→14:26)
[2017-07-16 07:01] VITALS: BP_SYST 116; BP_SYST 136; BP_DIAS 81; BP_DIAS 99; PULSE 72; PULSE 90; TEMP 36.6
[2017-07-16] MEDS ORDERED: INVEGA SUSTENNA 234 MG/ML 1.5 ML SYR IM SCH (09:00)
--- NOTE | 2017-07-16 09:34 | Psychiatric Progress Notes ---
Progress Note Date of Service Jul 16, 2017. Interval History Lisandra Barnes is a 52-year-old female with an unclear psychiatric history including a recent admission to an outside hospital behavioral health unit who was admitted on Jul 11, 2017 at 19:13 on an involuntary 302 commitment for psychosis , aggressive behavior, and threatening others. She recently moved to [place] from [place], and is utilizing [facility]. Her son was the petitioner. Chief Complaint "I got to get out of here or I'm going to lose my job". Subjective Patient was seen & assessed interval progress reviewed with Nursing. Tolerated increase in Invega. Did accept an Ativan prn, staff are unsure how effective it has been. Remains on MNPR as not tolerating groups well due to disorganized behavior. She seems confused due to her preoccupations on her job and coat and is frequently at the nurses station requesting things. Review of Systems Psych: denies symptoms other than stated above Constitutional: denied Cardiovascular: denied GI: denied Neurologic: denied Remainder of 10 body systems also reviewed and denied other than noted above. Sleep Information Total Hours of Sleep: 8.00 Meal Information Percent of Breakfast Consumed: 100 Percent of Lunch Consumed: 100 Percent of Dinner Consumed: 100 Mental Status Exam During interview pt is: other (oriented to self and place) Appearance: disheveled (hair is extremely tangled and disheveled), other ( appears older than stated age) Eye contact is: poor Motor behavior is: no abnormal motor movements Speech: other (poorly articulated) Affect: blunted Mood is: anxious Thought process: tangential, looseness of associations, other (disorganized) Thought content: preoccupation, paranoid Suicidal thought are: denied Homicidal thoughts are: denied Hallucinations: denies auditory, denies visual Cognition: other (all spheres impaired due to psychosis) Intelligence estimated to be: below average Insight: severely impaired Judgement: severely impaired Scored 8/30 on MOCA on 07/12/17. Summary of Past History Records from [facility] reviewed: Patient was admitted 05/12/2017 on referral from our emergency room for manic and psychotic symptoms. She was off her medications, was delusional, was hyperverbal with rapid pressured speech, flight of ideas, and was incoherent at times. She was jumping from topic to topic, and unable to answer basic questions. She reported being and 3 times, and said that she came to [place] from [place] to be with her children who live in [place]. She reported a long psychiatric history, previously following with a psychiatrist, Dr. Lomax, in [place], [place]. She reported numerous past psychiatric admissions in other states, but could not give any details. She reported a history of crack cocaine use. She reported both parents were , and denied any other family members. She could not state how far she had gone in school or if she had worked in the past. She does not have any outpatient providers at the time. They diagnosed her with schizoaffective disorder bipolar type, and started her on quetiapine and lithium. 2 days later, Depakote was added. The next day, gabapentin was added for depression and anxiety. She was discharged on 05/19/2017, on Depakote 250 mg 3 times a day, gabapentin 100 mg 3 times a day, quetiapine 200 mg daily at bedtime and 100 mg twice a day, and lithium 300 mg twice a day. No aftercare was arranged. Medication Trials Invega Kady - her son, patient did well on this when living in [place]. Started on quetiapine, lithium, Depakote, and gabapentin during her [facility] hospitalization in May 2017. Other medications unknown Impression The patient remains disorganized but less pressured with increase in Invega, 234 mg IM on 07/16 with second injection on 07/19 156 mg IM. The patient continues to lack insight and remain focussed on discharge. Plan (1) Schizoaffective disorder 07/12 - differential includes schizophrenia, schizoaffective disorder, bipolar disorder, and dementia or other organic causes. We will need to get information about past treatment, we'll request the records from [facility], and contact the patient's sons for collateral information. - Determine if she has an outpatient psychiatrist, telehealth case manager or any other outpatient supports, and if not she will need to be set up with them. - Reported home dose of quetiapine is 300 mg daily at bedtime, and we will increase that to 400 mg daily at bedtime tonight to target psychosis and manic symptoms. If she does not improve over the next day or 2, consider switch to a more potent antipsychotic such as risperidone or olanzapine. Continue haloperidol 5 mg and lorazepam 2 mg as needed for psychosis or agitation. - Fasting labs ordered for tomorrow for monitoring on an atypical antipsychotic. 07/13 - working diagnosis for now is schizoaffective disorder, bipolar type, current episode manic with psychosis. - Records reviewed from [facility], diagnosis was schizoaffective disorder, bipolar type. - Increase quetiapine to 50mg qam and noon and 400mg qhs. Advised patient of recs for Invega Sustenna, as son reports she did well on it in the past, but she is refusing at this time. - Fasting lipid profile and glucose reviewed for monitoring on an atypical antipsychotic, all values within normal limits. - Awaiting paperwork from son to clarify whether he is indeed her guardian or POA. - Filed for 303 commitment hearing to be held tomorrow. Consider the need for an involuntary outpatient commitment given history of noncompliance. She will need a family meeting with sons when she is less psychotic. - Continue medically necessary private room for severe manic and psychotic symptoms, disorganized behavior, recent aggressive behavior, and place patient near the nurse's station for increased monitoring. 07/14 - 303 hearing held and granted; start elopement precautions as patient is checking unit doors and attempting to leave the unit. - Continue medically necessary private room due to severity of psychotic and manic symptoms. - Initiate cross taper from quetiapine to paliperidone, with a plan to get her back on Invega Sustenna given her chronic noncompliance with oral medications. Will taper slowly off of quetiapine to allow her time to readapt to the withdrawal of blocking cholinergic, histaminergic, and alpha-1 receptors. Decrease quetiapine to 300 mg daily at bedtime, and decreased by another 100 mg every 3 days (taper order written). Can continue 50 mg twice a day in the morning and afternoon for now, but can taper off of this over the next week or 2. Start paliperidone 3 mg daily. When she demonstrates tolerability and efficacy, can start Invega Sustenna. - She may require medications over objection, as she has repeatedly refused recommendations to go back on Invega Sustenna, although she cannot state her reasons. She reportedly did well on this medication in the past, and her manic and psychotic symptoms have not been well controlled with quetiapine. I don't think she is a good candidate for lithium or Depakote, as they require good compliance and willingness for regular lab work, and she has demonstrated unwillingness/inability to follow through with this. She can be seen by a second physician tomorrow for a second opinion for medications over objection if needed. 07/15 - Increase Invega to 6 mg. today - Start Sustenna tomorrow 234 mg IM with second injection on 07/19 156 mg. IM. Has been preauth'd with her insurance 07/16--patient remains agreeable to injection, mainly to facilitate discharge. If she were to refuse medications, it is my medical opinion that she would decompensate further and meds over objection is best treatment to maintain her safety and restore function/dignity. I concur with Dr. Rodriguez's medical opinion. Will benefit from 304 outpatient commitment. (2) Hepatitis C 07/12 - LFTs elevated on admission, avoid hepatotoxic drugs and refer for outpatient care with PCP. Need to clarify whether or not she has a local physician. Discharge / Aftercare Planning Primary Care Physician: Name: I don't know who, I missed my appt Fire Services Plumber: Name: "I don't need one." Visit Code E&M Code: 93410 Inventory Assets Strengths: Supportive sons, willing to take medication Needs: Housing, outpatient care, past treatment history Risk Factors Assessment : Yes /single/: Yes Higher / Fall in social status: No Health problems: Yes Mental Health Diagnoses: Yes Substance use disorders: No Previous psychiatric stay: Yes Smoker: Yes Protective Factors Assessment : No Responsible for young children: No Employed: No Stable relationships: No Supportive family: Yes Good rapport with provider: No Data Vital Signs Last 24 Hrs: Date Time Temp Pulse Resp B/P (MAP) Pulse Ox O2 Delivery O2 Flow Rate FiO2 07/16/17 07:01 36.6 72 20 116/81 90 136/99 Meds Administered Last 24 Hrs: Meds Administered (Past 24Hrs) Medications (Trade) Dose Ordered Sig/Seamus Route Start Time Stop Time Status Last Admin Dose Admin Quetiapine Fumarate (seroQUEL TAB) 300 mg Taper HS PO 07/14/17 22:00 07/26/17 21:59 07/15/17 21:00 300 MG Paliperidone (Invega) 3 mg DAILY PO 07/15/17 09:00 07/15/17 11:03 DC 1/12/18 09:02 3 MG Paliperidone (Invega) 3 mg 1019 ONCE PO 07/14/17 10:19 07/14/17 10:23 DC 07/14/17 12:15 3 MG Paliperidone (Invega) 3 mg 1145 ONCE PO 07/15/17 11:45 07/15/17 11:46 DC 07/15/17 11:46 3 MG
[2017-07-16] MEDS: NICOTINE 21 MG/24 HR TDSY EXT SCH (09:51)
[2017-07-16] MEDS: PALIPERIDONE 3 MG TABCR PO SCH (09:52)
[2017-07-16] MEDS: HALOPERIDOL 5 MG TAB PO PRN (12:00)
[2017-07-16] MEDS: LORAZEPAM 2 MG TAB PO PRN (12:00)
[2017-07-16] MEDS: QUETIAPINE FUMARATE 100 MG TAB PO SCH (21:51)
[2017-07-17] MEDS: QUETIAPINE FUMARATE 25 MG TAB PO SCH ×2 (06:43→13:58)
[2017-07-17 06:52] VITALS: BP_SYST 87; BP_SYST 89; BP_DIAS 57; BP_DIAS 60; PULSE 89; PULSE 99; TEMP 36.4
[2017-07-17] MEDS: PALIPERIDONE 3 MG TABCR PO SCH (09:34)
[2017-07-17] MEDS: NICOTINE 21 MG/24 HR TDSY EXT SCH (09:34)
--- NOTE | 2017-07-17 09:59 | Psychiatric Progress Notes ---
Progress Note Date of Service Jul 17, 2017. Interval History Lisandra Barnes is a 52-year-old female with an unclear psychiatric history including a recent admission to an outside hospital behavioral health unit who was admitted on Jul 11, 2017 at 19:13 on an involuntary 302 commitment for psychosis , aggressive behavior, and threatening others. She recently moved to [place] from [place], and is utilizing [facility]. Her son was the petitioner. Chief Complaint "my son isn't right". Subjective Patient was seen & assessed interval progress reviewed with Nursing. She called 911 yesterday telling police that we are holding her hostage/making her take meds. Haldol and Ativan prns remain helpful per staff. Tolerated Invega IM. Review of Systems Psych: denies symptoms other than stated above Constitutional: denied Cardiovascular: denied GI: denied Neurologic: denied Remainder of 10 body systems also reviewed and denied other than noted above. Sleep Information Total Hours of Sleep: 6.50 Meal Information Percent of Breakfast Consumed: 100 Percent of Lunch Consumed: 100 Percent of Dinner Consumed: 75 Mental Status Exam During interview pt is: other (oriented to self and place) Appearance: disheveled (hair is extremely tangled and disheveled), other ( appears older than stated age) Eye contact is: fair Motor behavior is: no abnormal motor movements Speech: other (poorly articulated) Affect: blunted Mood is: irritable Thought process: looseness of associations, other (disorganized) Thought content: preoccupation, paranoid Suicidal thought are: denied Homicidal thoughts are: denied Hallucinations: denies auditory, denies visual Cognition: other (all spheres impaired due to psychosis) Intelligence estimated to be: below average Insight: severely impaired Judgement: severely impaired Scored 8/30 on MOCA on 07/12/17. Summary of Past History Records from [facility] reviewed: Patient was admitted 05/12/2017 on referral from our emergency room for manic and psychotic symptoms. She was off her medications, was delusional, was hyperverbal with rapid pressured speech, flight of ideas, and was incoherent at times. She was jumping from topic to topic, and unable to answer basic questions. She reported being and 3 times, and said that she came to [place] from [place] to be with her children who live in [place]. She reported a long psychiatric history, previously following with a psychiatrist, Dr. Lomax, in [place], [place]. She reported numerous past psychiatric admissions in other states, but could not give any details. She reported a history of crack cocaine use. She reported both parents were , and denied any other family members. She could not state how far she had gone in school or if she had worked in the past. She does not have any outpatient providers at the time. They diagnosed her with schizoaffective disorder bipolar type, and started her on quetiapine and lithium. 2 days later, Depakote was added. The next day, gabapentin was added for depression and anxiety. She was discharged on 05/19/2017, on Depakote 250 mg 3 times a day, gabapentin 100 mg 3 times a day, quetiapine 200 mg daily at bedtime and 100 mg twice a day, and lithium 300 mg twice a day. No aftercare was arranged. Medication Trials Invega Sustenna - her son, patient did well on this when living in [place]. Started on quetiapine, lithium, Depakote, and gabapentin during her [facility] hospitalization in May 2017. Other medications unknown Impression The patient remains disorganized but less pressured with increase in Invega, 234 mg IM on 07/16 with second injection on 07/19 156 mg IM. The patient continues to lack insight and remain focussed on discharge. Plan (1) Schizoaffective disorder 07/12 - differential includes schizophrenia, schizoaffective disorder, bipolar disorder, and dementia or other organic causes. We will need to get information about past treatment, we'll request the records from [facility], and contact the patient's sons for collateral information. - Determine if she has an outpatient psychiatrist, skilled nursing case manager or any other outpatient supports, and if not she will need to be set up with them. - Reported home dose of quetiapine is 300 mg daily at bedtime, and we will increase that to 400 mg daily at bedtime tonight to target psychosis and manic symptoms. If she does not improve over the next day or 2, consider switch to a more potent antipsychotic such as risperidone or olanzapine. Continue haloperidol 5 mg and lorazepam 2 mg as needed for psychosis or agitation. - Fasting labs ordered for tomorrow for monitoring on an atypical antipsychotic. 07/13 - working diagnosis for now is schizoaffective disorder, bipolar type, current episode manic with psychosis. - Records reviewed from [facility], diagnosis was schizoaffective disorder, bipolar type. - Increase quetiapine to 50mg qam and noon and 400mg qhs. Advised patient of recs for Invega Sustenna, as son reports she did well on it in the past, but she is refusing at this time. - Fasting lipid profile and glucose reviewed for monitoring on an atypical antipsychotic, all values within normal limits. - Awaiting paperwork from son to clarify whether he is indeed her guardian or POA. - Filed for 303 commitment hearing to be held tomorrow. Consider the need for an involuntary outpatient commitment given history of noncompliance. She will need a family meeting with sons when she is less psychotic. - Continue medically necessary private room for severe manic and psychotic symptoms, disorganized behavior, recent aggressive behavior, and place patient near the nurse's station for increased monitoring. 07/14 - 303 hearing held and granted; start elopement precautions as patient is checking unit doors and attempting to leave the unit. - Continue medically necessary private room due to severity of psychotic and manic symptoms. - Initiate cross taper from quetiapine to paliperidone, with a plan to get her back on Invega Sustenna given her chronic noncompliance with oral medications. Will taper slowly off of quetiapine to allow her time to readapt to the withdrawal of blocking cholinergic, histaminergic, and alpha-1 receptors. Decrease quetiapine to 300 mg daily at bedtime, and decreased by another 100 mg every 3 days (taper order written). Can continue 50 mg twice a day in the morning and afternoon for now, but can taper off of this over the next week or 2. Start paliperidone 3 mg daily. When she demonstrates tolerability and efficacy, can start Invega Sustenna. - She may require medications over objection, as she has repeatedly refused recommendations to go back on Invega Sustenna, although she cannot state her reasons. She reportedly did well on this medication in the past, and her manic and psychotic symptoms have not been well controlled with quetiapine. I don't think she is a good candidate for lithium or Depakote, as they require good compliance and willingness for regular lab work, and she has demonstrated unwillingness/inability to follow through with this. She can be seen by a second physician tomorrow for a second opinion for medications over objection if needed. 07/15 - Increase Invega to 6 mg. today - Start Sustenna tomorrow 234 mg IM with second injection on 07/19 156 mg. IM. Has been preauth'd with her insurance 07/16--patient remains agreeable to injection, mainly to facilitate discharge. If she were to refuse medications, it is my medical opinion that she would decompensate further and meds over objection is best treatment to maintain her safety and restore function/dignity. I concur with Dr. Rodriguez's medical opinion. Will benefit from 304 outpatient commitment. 07/17--continue PO Invega pending 2nd injection, appears to be improving but ongoing disorganization (2) Hepatitis C 07/12 - LFTs elevated on admission, avoid hepatotoxic drugs and refer for outpatient care with PCP. Need to clarify whether or not she has a local physician. Discharge / Aftercare Planning Primary Care Physician: Name: I don't know who, I missed my appt Retail Service Specialist: Name: "I don't need one." Visit Code E&M Code: 75857 Inventory Assets Strengths: Supportive sons, willing to take medication Needs: Housing, outpatient care, past treatment history Risk Factors Assessment : Yes /single/: Yes Higher / Fall in social status: No Health problems: Yes Mental Health Diagnoses: Yes Substance use disorders: No Previous psychiatric stay: Yes Smoker: Yes Protective Factors Assessment : No Responsible for young children: No Employed: No Stable relationships: No Supportive family: Yes Good rapport with provider: No Data Vital Signs Last 24 Hrs: Date Time Temp Pulse Resp B/P (MAP) Pulse Ox O2 Delivery O2 Flow Rate FiO2 07/17/17 06:52 36.4 89 20 89/57 99 87/60 Meds Administered Last 24 Hrs: Meds Administered (Past 24Hrs) Medications (Trade) Dose Ordered Sig/Seamus Route Start Time Stop Time Status Last Admin Dose Admin Paliperidone (Invega) 6 mg QAM PO 07/16/17 09:00 08/15/17 08:59 07/17/17 09:34 6 MG Paliperidone (Invega) 3 mg 1145 ONCE PO 07/15/17 11:45 07/15/17 11:46 DC 07/15/17 11:46 3 MG Paliperidone Palmitate (Invega Sustenna) 234 mg TODAY@0900 IM 07/16/17 09:00 07/16/17 12:00 DC 07/16/17 09:52 234 MG
[2017-07-17] MEDS: LORAZEPAM 2 MG TAB PO PRN ×2 (11:12→20:46)
[2017-07-17] MEDS: HALOPERIDOL 5 MG TAB PO PRN ×2 (11:12→20:46)
[2017-07-17] MEDS: FLUTICASONE PROPIONATE NA SPR 16 GM BTL PRN (19:36)
[2017-07-17] MEDS: QUETIAPINE FUMARATE 100 MG TAB PO SCH (20:47)
[2017-07-18] MEDS: QUETIAPINE FUMARATE 25 MG TAB PO SCH ×2 (06:45→13:04)
[2017-07-18 06:50] VITALS: BP_SYST 132; BP_SYST 133; BP_DIAS 81; BP_DIAS 87; PULSE 102; PULSE 103; TEMP 36.8
[2017-07-18] MEDS: PALIPERIDONE 3 MG TABCR PO SCH (07:49)
[2017-07-18] MEDS: NICOTINE 21 MG/24 HR TDSY EXT SCH (07:49)
--- NOTE | 2017-07-18 09:24 | Psychiatric Progress Notes ---
Progress Note Date of Service Jul 18, 2017. Interval History Lisandra Barnes is a 52-year-old female with an unclear psychiatric history including a recent admission to an outside hospital behavioral health unit who was admitted on Jul 11, 2017 at 19:13 on an involuntary 302 commitment for psychosis , aggressive behavior, and threatening others. She recently moved to [place] from [place], and is utilizing [facility]. Her son was the petitioner. Chief Complaint "Can I take the medicine today, so I can leave?" Subjective Patient was seen & assessed interval progress reviewed with Treatment Team. Staff report she had a visit from her son Edmund over the weekend, as he decided to return to [place] and came to say goodbye. She was initially very distraught about this, but after speaking with him felt better, and stated she also plans to return to [place] eventually, although she will be staying in the [facility] for at least a little while after discharge. She received her first Invega Sustenna loading injection on 07/16/16. She was hyperverbal, disorganized, and unable to tolerate groups. She said the only reason she is in the hospital is that her son was in car accident. She has been requesting to leave, and is unable to participate in reality testing. She received multiple doses of haloperidol 5mg and lorazepam 2mg yesterday for psychosis, and has been getting prns daily. Today she was seen with Tonio Pearson, MS3. She perseverates on wanting to get her second Invega loading injection so that she can leave the hospital [facility], saying she wants to go see her son Edmund before he leaves on the bus. She asks if she can leave the hospital today and come back later to get her next injection. She is unable to engage in discussion about her injection and treatment recommendations, just repeating that she needs to leave. She is worried about losing her job. 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 Sleep Information Total Hours of Sleep: 8.25 Meal Information Percent of Breakfast Consumed: 100 Percent of Lunch Consumed: 75 Percent of Dinner Consumed: 100 Mental Status Exam During interview pt is: alert and oriented Appearance: disheveled (hair is extremely tangled and disheveled, limited grooming), other (appears older than stated age) Eye contact is: fair Motor behavior is: steady gait & station, no abnormal motor movements Speech: is pressured, other (poorly articulated, mumbles at times, difficult to understand) Affect: blunted Mood is: irritable Thought process: looseness of associations, perseveration (on discharge), other (disorganized) Thought content: preoccupation Suicidal thought are: denied Homicidal thoughts are: denied Hallucinations: denies auditory, denies visual Cognition: other (all spheres impaired due to psychosis) Intelligence estimated to be: below average Insight: severely impaired Judgement: severely impaired Scored 8/30 on MOCA on 07/12/17. Summary of Past History Records from [facility] reviewed: Patient was admitted 05/12/2017 on referral from our emergency room for manic and psychotic symptoms. She was off her medications, was delusional, was hyperverbal with rapid pressured speech, flight of ideas, and was incoherent at times. She was jumping from topic to topic, and unable to answer basic questions. She reported being and 3 times, and said that she came to [place] from [place] to be with her children who live in [place]. She reported a long psychiatric history, previously following with a psychiatrist, Dr. Lomax, in [place], [place]. She reported numerous past psychiatric admissions in other states, but could not give any details. She reported a history of crack cocaine use. She reported both parents were , and denied any other family members. She could not state how far she had gone in school or if she had worked in the past. She does not have any outpatient providers at the time. They diagnosed her with schizoaffective disorder bipolar type, and started her on quetiapine and lithium. 2 days later, Depakote was added. The next day, gabapentin was added for depression and anxiety. She was discharged on 05/19/2017, on Depakote 250 mg 3 times a day, gabapentin 100 mg 3 times a day, quetiapine 200 mg daily at bedtime and 100 mg twice a day, and lithium 300 mg twice a day. No aftercare was arranged. Medication Trials Invega Kady - her son, patient did well on this when living in [place]. Started on quetiapine, lithium, Depakote, and gabapentin during her [facility] hospitalization in May 2017. Other medications unknown Impression The patient remains disorganized but less pressured with increase in Invega, 234 mg IM on 07/16 with second injection on 07/19 156 mg IM. The patient continues to lack insight and remain focussed on discharge. She remains unable to provide for her own basic needs without the care and assistance of others. We still have not had a meeting with her son Ted, who initially told staff he was her guardian, but he did not show up for her commitment hearing and never brought in guardianship or POA paperwork. He has not responded to staff's phone calls. She is on a 303 commitment and requires continued inpatient care due to her inability to provider for her own basic needs due to her mental illness, and we are in the process of placing her on a RAMOS antipsychotic and tapering oral meds. Plan (1) Schizoaffective disorder 07/12 - differential includes schizophrenia, schizoaffective disorder, bipolar disorder, and dementia or other organic causes. We will need to get information about past treatment, we'll request the records from [facility], and contact the patient's sons for collateral information. - Determine if she has an outpatient psychiatrist, casework supervisor or any other outpatient supports, and if not she will need to be set up with them. - Reported home dose of quetiapine is 300 mg daily at bedtime, and we will increase that to 400 mg daily at bedtime tonight to target psychosis and manic symptoms. If she does not improve over the next day or 2, consider switch to a more potent antipsychotic such as risperidone or olanzapine. Continue haloperidol 5 mg and lorazepam 2 mg as needed for psychosis or agitation. - Fasting labs ordered for tomorrow for monitoring on an atypical antipsychotic. 07/13 - working diagnosis for now is schizoaffective disorder, bipolar type, current episode manic with psychosis. - Records reviewed from [facility], diagnosis was schizoaffective disorder, bipolar type. - Increase quetiapine to 50mg qam and noon and 400mg qhs. Advised patient of recs for Invega Sustenna, as son reports she did well on it in the past, but she is refusing at this time. - Fasting lipid profile and glucose reviewed for monitoring on an atypical antipsychotic, all values within normal limits. - Awaiting paperwork from son to clarify whether he is indeed her guardian or POA. - Filed for 303 commitment hearing to be held tomorrow. Consider the need for an involuntary outpatient commitment given history of noncompliance. She will need a family meeting with sons when she is less psychotic. - Continue medically necessary private room for severe manic and psychotic symptoms, disorganized behavior, recent aggressive behavior, and place patient near the nurse's station for increased monitoring. 07/14 - 303 hearing held and granted; start elopement precautions as patient is checking unit doors and attempting to leave the unit. - Continue medically necessary private room due to severity of psychotic and manic symptoms. - Initiate cross taper from quetiapine to paliperidone, with a plan to get her back on Invega Sustenna given her chronic noncompliance with oral medications. Will taper slowly off of quetiapine to allow her time to readapt to the withdrawal of blocking cholinergic, histaminergic, and alpha-1 receptors. Decrease quetiapine to 300 mg daily at bedtime, and decreased by another 100 mg every 3 days (taper order written). Can continue 50 mg twice a day in the morning and afternoon for now, but can taper off of this over the next week or 2. Start paliperidone 3 mg daily. When she demonstrates tolerability and efficacy, can start Invega Sustenna. - She may require medications over objection, as she has repeatedly refused recommendations to go back on Invega Sustenna, although she cannot state her reasons. She reportedly did well on this medication in the past, and her manic and psychotic symptoms have not been well controlled with quetiapine. I don't think she is a good candidate for lithium or Depakote, as they require good compliance and willingness for regular lab work, and she has demonstrated unwillingness/inability to follow through with this. She can be seen by a second physician tomorrow for a second opinion for medications over objection if needed. 07/15 - Increase Invega to 6 mg. today - Start Sustenna tomorrow 234 mg IM with second injection on 07/19 156 mg. IM. Has been preauth'd with her insurance 07/16--patient remains agreeable to injection, mainly to facilitate discharge. If she were to refuse medications, it is my medical opinion that she would decompensate further and meds over objection is best treatment to maintain her safety and restore function/dignity. I concur with Dr. Rodriguez's medical opinion. Will benefit from 304 outpatient commitment. 07/17--continue PO Invega pending 2nd injection, appears to be improving but ongoing disorganization. 07/18 - continue oral paliperidone 6 mg daily, and plan for second Invega Sustenna injection tomorrow, at which point the oral medication can be discontinued. Continue quetiapine taper, and decrease prn lorazepam to 1 mg, as she is getting multiple doses daily and this will not be continued outside of the hospital. - Social work to refer her for outpatient case management and psychiatric services. - Continue to gather information and assess the need for a 304 outpatient commitment versus discharge to outpatient care. She is very anxious for discharge, and is now stating that she will follow up with outpatient providers and to get her monthly injections. It would be helpful to talk with her son Ted, but he has not responded to multiple attempts to contact him and involve him in treatment. (2) Hepatitis C 07/12 - LFTs elevated on admission, avoid hepatotoxic drugs and refer for outpatient care with PCP. Need to clarify whether or not she has a local physician. Discharge / Aftercare Planning Primary Care Physician: Name: I don't know who, I missed my appt Nurse Anesthetist: Name: "I don't need one." Visit Code E&M Code: 66013 Inventory Assets Strengths: Supportive sons, willing to take medication Needs: Housing, outpatient care, past treatment history Risk Factors Assessment : Yes /single/: Yes Higher / Fall in social status: No Access to guns: No Health problems: Yes Mental Health Diagnoses: Yes Substance use disorders: No Previous psychiatric stay: Yes Hopelessness: No Smoker: Yes Protective Factors Assessment Amish beliefs: No : No Responsible for young children: No Employed: No Stable relationships: No Supportive family: Yes Good rapport with provider: No Data Vital Signs Last 24 Hrs: Date Time Temp Pulse Resp B/P (MAP) Pulse Ox O2 Delivery O2 Flow Rate FiO2 07/18/17 06:50 36.8 102 16 132/81 103 133/87
[2017-07-18] MEDS ORDERED: LORAZEPAM 1 MG TAB PO PRN (09:30)
[2017-07-18] MEDS: HALOPERIDOL 5 MG TAB PO PRN (13:04)
--- NOTE | 2017-07-18 15:50 | Medical Student: BHU Only ---
Psychiatric Progress Note Identifying Information: Ms. Barnes is a 52yo female with medical history significant for hepatitis C and a prior diagnosis of schizoaffective disorder- bipolar type currently on day 7 of involuntary 303 commitment (Her son was the petitioner of the initial involuntary 302 commitment) due to psychosis as well as aggressive and threatening behavior. CC: "can I leave, I will come back for my shot" SUBJECTIVE: Ms. Barnes was seen and assessed today, and progress was reviewed with nursing. The patient reports that she feels "good". Patient reports that she slept more than 12hrs last night. Staff reports daily Haldol and Ativan PRNs (requested by Lisandra). Lisandra has been unable to attend groups due to disorganized speech and behavior, but she is improving. She scored a 20/30 on the MoCA today (prior score of 8/30 on 07/12/17). It was difficult to gather further information because Lisandra is preoccupied with leaving the hospital; she is intent on leaving the hospital, but states she would "come back for the shot." ROS: Patient sleep 12hrs and has a good appetite. She is able to complete ADLs by herself. MSE: Appearance is that of a disheveled female who appears older than her stated age of 52yo. The patient is cooperative with the interview. Eye contact is fair (often closes her eyes). Motor behavior is normal. Speech: Normal volume and rate; slightly pressured but able to redirect. Affect : blunted. Mood: "good". Thought process: tangential, perseveration (leaving the hospital to visit son) Thought content: preoccupation, delusions. Perception: denies auditory and visual hallucinations. Cognition: The patient is oriented to year, month, and date as well as city and location (i.e. hospital). Scored 20/30 on MOCA (scored a 8/20 on ). Insight is estimated to be limited. Judgement is poor. ASSESSMENT: Ms. Barnes is a 52yo female with medical history significant for hepatitis C and a prior diagnosis of schizoaffective disorder- bipolar type currently on day 7 of involuntary 303 commitment due to psychosis as well as aggressive and threatening behavior. Given the initial presentation of acute alejandro (no sleep for 3-4 days) with psychotic features and non-bizarre delusions, the DDx includes schizoaffective disorder- bipolar type, bipolar I disorder, and schizophrenia. Psychosis NOS and dementia are a less likely possibility given Ms. Barnes's reported long history of mental illness. The working diagnosis is still schizoaffective disorder- bipolar type, but we are lacking adequate information of her past mental health history. [place] I: schizoaffective disorder- bipolar type [place] II: no known intellectual disability or personality disorder [place] III: Hepatitis C PLAN: 1. schizoaffective disorder- bipolar a. Current medication: PO invega 6MG QAM; halperidol 5MG and lorazepam 1MG ( decreased from 1MG) PRN for psychosis and agitation. b. first Invega-sustenna (paliperidone) injection was on 07/16/17; next injection is 07/19/17 c. quetiapine taper 200MG taper QHS 2. Hepatitis C a. monitor LFTs and avoid hepatotoxic medications 3. Aftercare Planning: a. Will need to consult sons during a family meeting about suitable aftercare. Need to establish outpatient provider and plan for optimal medication compliance; 304 commitment. Date of Service: Jul 18, 2017.
[2017-07-18] MEDS: QUETIAPINE FUMARATE 100 MG TAB PO SCH (21:15)
[2017-07-18] MEDS: hydrOXYzine HCL 25 MG TAB PO PRN (23:41)
[2017-07-19 06:54] VITALS: BP_SYST 105; BP_SYST 111; BP_DIAS 73; BP_DIAS 80; PULSE 79; PULSE 91; TEMP 36.6
[2017-07-19] MEDS: QUETIAPINE FUMARATE 25 MG TAB PO SCH ×2 (08:44→13:48)
[2017-07-19] MEDS: PALIPERIDONE 3 MG TABCR PO SCH (08:44)
[2017-07-19] MEDS: NICOTINE 21 MG/24 HR TDSY EXT SCH (08:44)
[2017-07-19] MEDS ORDERED: INVEGA SUSTENNA 156 MG/ML 1 ML SYR IM SCH (09:00)
--- NOTE | 2017-07-19 10:50 | Psychiatric Progress Notes ---
Progress Note Date of Service Jul 19, 2017. Interval History Lisandra Barnes is a 52-year-old female with an unclear psychiatric history including a recent admission to an outside hospital behavioral health unit who was admitted on Jul 11, 2017 at 19:13 on an involuntary 302 commitment for psychosis , aggressive behavior, and threatening others. She recently moved to [place] from [place], and is utilizing [facility]. Her son was the petitioner. Chief Complaint "I'm excited because I'm going home.". Subjective Patient was seen & assessed interval progress reviewed with Treatment Team. Viri Mckeon PA-C observing with patient's permission. The patient is under the assumption that because she had her 2nd Sustenna injection today, that she will be discharged. She says that she is excited to get a house and a job for her family. 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 Her conversation is somewhat rambling, but much improved over the last week, able to be silent for periods of time. 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 At times her conversation diverges, talking about needles in peoples arms, drugs, not wanting to be around those people, none of which can I put together into a coherent story. She reports good sleep and appetite. Denies aud/vis hallucinations. Denies racing thoughts, but does still have "a lot" of energy. She denies side effects to meds. Nursing reports that she has been asking for a lot of prns. She rates her mood 8/10 today. Review of Systems Constitutional: No fever, No chills, No sweats, No weight loss, No weakness, No fatigue, No problem reported ENT: No hearing loss, No unusual epistaxis, No nasal symptoms, No sore throat, No tinnitus, No dental problems, No trouble swallowing, No problem reported Respiratory: No cough, No sputum, No wheezing, No shortness of breath, No dyspnea on exertion, No dyspnea at rest, No hemoptysis, No problem reported Cardiovascular: No chest pain, No orthopnea, No PND, No edema, No claudication , No palpitations, No problem reported Abdomen: No pain, No nausea, No vomiting, No diarrhea, No constipation, No GI bleeding, No problem reported Musculoskeletal: No joint pain, No muscle pain, No swelling, No calf pain, No problem reported Neurologic: No memory loss, No paralysis, No weakness, No numbness/tingling, No vertigo, No balance problems, No problem reported Psychiatric: + problem reported (elevated energy) Integumentary: No rash, No itch, No new/changing skin lesions, No color change , No bleeding, No problem reported Sleep Information Total Hours of Sleep: 8.25 Meal Information Percent of Breakfast Consumed: 100 Percent of Lunch Consumed: 100 Percent of Dinner Consumed: 100 Mental Status Exam During interview pt is: alert and oriented Appearance: disheveled (hair is extremely tangled and disheveled, limited grooming), other (appears older than stated age) Eye contact is: good Motor behavior is: steady gait & station, no abnormal motor movements Speech: other (poorly articulated, rate fast, but not pressured) Affect: blunted Mood is: other ("excited") Thought process: perseveration (on discharge), other (disorganized) Thought content: preoccupation Suicidal thought are: denied Homicidal thoughts are: denied Hallucinations: denies auditory, denies visual Cognition: other (all spheres impaired due to psychosis) Intelligence estimated to be: below average Insight: severely impaired Judgement: severely impaired Scored 8/30 on MOCA on 07/12/17. Summary of Past History Records from [facility] reviewed: Patient was admitted 05/12/2017 on referral from our emergency room for manic and psychotic symptoms. She was off her medications, was delusional, was hyperverbal with rapid pressured speech, flight of ideas, and was incoherent at times. She was jumping from topic to topic, and unable to answer basic questions. She reported being and 3 times, and said that she came to [place] from [place] to be with her children who live in [place]. She reported a long psychiatric history, previously following with a psychiatrist, Dr. Lomax, in [place], [place]. She reported numerous past psychiatric admissions in other states, but could not give any details. She reported a history of crack cocaine use. She reported both parents were , and denied any other family members. She could not state how far she had gone in school or if she had worked in the past. She does not have any outpatient providers at the time. They diagnosed her with schizoaffective disorder bipolar type, and started her on quetiapine and lithium. 2 days later, Depakote was added. The next day, gabapentin was added for depression and anxiety. She was discharged on 05/19/2017, on Depakote 250 mg 3 times a day, gabapentin 100 mg 3 times a day, quetiapine 200 mg daily at bedtime and 100 mg twice a day, and lithium 300 mg twice a day. No aftercare was arranged. Medication Trials Invega Sustenna - her son, patient did well on this when living in [place]. Started on quetiapine, lithium, Depakote, and gabapentin during her [facility] hospitalization in May 2017. Other medications unknown Impression Received second injection of Sustenna today. Overall is making progress, is less disorganized, speech slower, able to tolerate periods of silence. When son visited last, he reported she looked close to baseline. We will try to firm up discharge arrangements, including her reports that she may be able to stay at the [facility]. Plan (1) Schizoaffective disorder 07/12 - differential includes schizophrenia, schizoaffective disorder, bipolar disorder, and dementia or other organic causes. We will need to get information about past treatment, we'll request the records from [facility], and contact the patient's sons for collateral information. - Determine if she has an outpatient psychiatrist, shoe parts caser or any other outpatient supports, and if not she will need to be set up with them. - Reported home dose of quetiapine is 300 mg daily at bedtime, and we will increase that to 400 mg daily at bedtime tonight to target psychosis and manic symptoms. If she does not improve over the next day or 2, consider switch to a more potent antipsychotic such as risperidone or olanzapine. Continue haloperidol 5 mg and lorazepam 2 mg as needed for psychosis or agitation. - Fasting labs ordered for tomorrow for monitoring on an atypical antipsychotic. 07/13 - working diagnosis for now is schizoaffective disorder, bipolar type, current episode manic with psychosis. - Records reviewed from [facility], diagnosis was schizoaffective disorder, bipolar type. - Increase quetiapine to 50mg qam and noon and 400mg qhs. Advised patient of recs for Invega Sustenna, as son reports she did well on it in the past, but she is refusing at this time. - Fasting lipid profile and glucose reviewed for monitoring on an atypical antipsychotic, all values within normal limits. - Awaiting paperwork from son to clarify whether he is indeed her guardian or POA. - Filed for 303 commitment hearing to be held tomorrow. Consider the need for an involuntary outpatient commitment given history of noncompliance. She will need a family meeting with sons when she is less psychotic. - Continue medically necessary private room for severe manic and psychotic symptoms, disorganized behavior, recent aggressive behavior, and place patient near the nurse's station for increased monitoring. 07/14 - 303 hearing held and granted; start elopement precautions as patient is checking unit doors and attempting to leave the unit. - Continue medically necessary private room due to severity of psychotic and manic symptoms. - Initiate cross taper from quetiapine to paliperidone, with a plan to get her back on Invega Sustenna given her chronic noncompliance with oral medications. Will taper slowly off of quetiapine to allow her time to readapt to the withdrawal of blocking cholinergic, histaminergic, and alpha-1 receptors. Decrease quetiapine to 300 mg daily at bedtime, and decreased by another 100 mg every 3 days (taper order written). Can continue 50 mg twice a day in the morning and afternoon for now, but can taper off of this over the next week or 2. Start paliperidone 3 mg daily. When she demonstrates tolerability and efficacy, can start Invega Sustenna. - She may require medications over objection, as she has repeatedly refused recommendations to go back on Invega Sustenna, although she cannot state her reasons. She reportedly did well on this medication in the past, and her manic and psychotic symptoms have not been well controlled with quetiapine. I don't think she is a good candidate for lithium or Depakote, as they require good compliance and willingness for regular lab work, and she has demonstrated unwillingness/inability to follow through with this. She can be seen by a second physician tomorrow for a second opinion for medications over objection if needed. 07/15 - Increase Invega to 6 mg. today - Start Sustenna tomorrow 234 mg IM with second injection on 07/19 156 mg. IM. Has been preauth'd with her insurance 07/16--patient remains agreeable to injection, mainly to facilitate discharge. If she were to refuse medications, it is my medical opinion that she would decompensate further and meds over objection is best treatment to maintain her safety and restore function/dignity. I concur with Dr. Rodriguez's medical opinion. Will benefit from 304 outpatient commitment. 07/17--continue PO Invega pending 2nd injection, appears to be improving but ongoing disorganization. 07/18 - continue oral paliperidone 6 mg daily, and plan for second Invega Sustenna injection tomorrow, at which point the oral medication can be discontinued. Continue quetiapine taper, and decrease prn lorazepam to 1 mg, as she is getting multiple doses daily and this will not be continued outside of the hospital. - Social work to refer her for outpatient case management and psychiatric services. - Continue to gather information and assess the need for a 304 outpatient commitment versus discharge to outpatient care. She is very anxious for discharge, and is now stating that she will follow up with outpatient providers and to get her monthly injections. It would be helpful to talk with her son Ted, but he has not responded to multiple attempts to contact him and involve him in treatment. 07/19 -Will DC prn ativan and scheduled Invega today - Received second Sustenna shot today (2) Hepatitis C 07/12 - LFTs elevated on admission, avoid hepatotoxic drugs and refer for outpatient care with PCP. Need to clarify whether or not she has a local physician. Discharge / Aftercare Planning Primary Care Physician: Name: I don't know who, I missed my appt Psychiatrist: Name: RADHA Oliver Date of Appointment: Jul 29, 2017 Time of Appointment: 10:40 am Appointment Notes: [id number] [facility] [place] [id number] - if no show , they won't resched Therapist: Name: RADHA Sung Date of Appointment: Aug 02, 2017 Time of Appointment: 11:00 am Appointment Notes: [id number] [facility] [place] [address] - if no show, they won't resched Sanitary Aide: Name: "I don't need one." Visit Code E&M Code: 49232 (disorganized) Inventory Assets Strengths: Supportive sons, willing to take medication Needs: Housing, outpatient care, past treatment history Risk Factors Assessment : Yes /single/: Yes Higher / Fall in social status: No Access to guns: No Health problems: Yes Mental Health Diagnoses: Yes Substance use disorders: No Previous psychiatric stay: Yes Hopelessness: No Smoker: Yes Protective Factors Assessment Orthodoxy beliefs: No : No Responsible for young children: No Employed: No Stable relationships: No Supportive family: Yes Good rapport with provider: No Data Vital Signs Last 24 Hrs: Date Time Temp Pulse Resp B/P (MAP) Pulse Ox O2 Delivery O2 Flow Rate FiO2 07/19/17 06:54 36.6 79 16 105/73 91 111/80 Meds Administered Last 24 Hrs: Meds Administered (Past 24Hrs) Medications (Trade) Dose Ordered Sig/Seamus Route Start Time Stop Time Status Last Admin Dose Admin Paliperidone Palmitate (Invega Sustenna) 156 mg TODAY@0900 IM 07/19/17 09:00 07/19/17 12:00 07/19/17 09:10 156 MG Lorazepam (Ativan Tab) 1 mg Q4 PRN PO 07/18/17 09:30 08/10/17 19:29 07/18/17 13:04 1 MG Lab Results Last 24 Hrs: 07/11/17 17:28 07/11/17 17:28 Test 07/11/17 17:15 07/11/17 17:28 07/13/17 08:05 Urine Color YELLOW Urine Appearance CLEAR (CLEAR) Urine pH 5.0 (4.5-7.5) Urine Specific [place] 1.010 (1.000-1.030) Urine Protein NEG (NEG) Urine Glucose (UA) NEG (NEG) Urine Ketones NEG (NEG) Urine Occult Blood NEG (NEG) Urine Nitrite NEG (NEG) Urine Bilirubin NEG (NEG) Urine Urobilinogen NEG (NEG) Urine Leukocyte Esterase NEG (NEG) Urine Test NEG (NEG) Urine Opiates Screen NEG (NEG) Urine Methadone, Qualitative NEG (NEG) Urine Barbiturates NEG (NEG) Urine Phencyclidine (PCP) Level NEG (NEG) Ur Amphetamine/Methamphetamine NEG (NEG) MDMA (Ecstasy) Screen NEG (NEG) Urine Benzodiazepines Screen NEG (NEG) Urine Cocaine Metabolite NEG (NEG) Urine Marijuana (THC) NEG (NEG) Red Blood Count 5.11 M/uL (4.2-5.4) Mean Corpuscular Volume 95.5 fL (80-100) Mean Corpuscular Hemoglobin 34.2 pg (25-34) Mean Corpuscular Hemoglobin Concent 35.9 g/dl (32-36) RDW Standard Deviation 47.0 fL (36.4-46.3) RDW Coefficient of Variation 13.4 % (11.5-14.5) Mean Platelet Volume 10.3 fL (7.4-10.4) Anion Gap 9.0 mmol/L (3-11) Est Creatinine Clear Calc Drug Dose 85.8 ml/min Estimated GFR () 122.1 Estimated GFR (Non- 105.4 BUN/Creatinine Ratio 13.7 (10-20) Calcium Level 9.3 mg/dl (8.5-10.1) Total Bilirubin 0.3 mg/dl (0.2-1) Direct Bilirubin < 0.1 mg/dl (0-0.2) Aspartate Amino Transf (AST/SGOT) 80 U/L (15-37) Alanine Aminotransferase (ALT/SGPT) 88 U/L (12-78) Alkaline Phosphatase 83 U/L (45-117) Total Protein 8.6 gm/dl (6.4-8.2) Albumin 4.0 gm/dl (3.4-5.0) Thyroid Stimulating Hormone (TSH) 1.260 uIu/ml (0.300-4.500) Salicylates Level 4.9 mg/dl (2.8-20) Acetaminophen Level < 2 ug/ml (10-30) Ethyl Alcohol mg/dL < 3.0 mg/dl (0-3) Fasting Glucose 87 mg/dl (70-99) Triglycerides Level 47 mg/dl (0-150) Cholesterol Level 116 mg/dl (0-200) HDL Cholesterol 43 mg/dl LDL Cholesterol, Calculated 64 mg/dl VLDL Cholesterol, Calculated 9 mg/dl Cholesterol/HDL Ratio 2.7
[2017-07-19] MEDS: hydrOXYzine HCL 25 MG TAB PO PRN ×2 (13:25→23:31)
[2017-07-19] MEDS: HALOPERIDOL 5 MG TAB PO PRN (13:48)
--- NOTE | 2017-07-19 14:34 | Medical Student: BHU Only ---
Psychiatric Progress Note Identifying Information: Ms. Barnes is a 52yo female with medical history significant for hepatitis C and a prior diagnosis of schizoaffective disorder- bipolar type currently on day 7 of involuntary 303 commitment (Her son was the petitioner of the initial involuntary 302 commitment) due to psychosis as well as aggressive and threatening behavior. CC: "anxious to get out" SUBJECTIVE: Ms. Barnes was seen and assessed today, and progress was reviewed with treatment team. The patient reports that she feels "good, but anxious." When asked if she feels that she has improved during her hospital stay, Lisandra states that "there was nothing wrong when I came in." She continued to talk about how her son was hit by a car and that is why she came to the hospital. She said her son should be in the hospital and not her. 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 She went on to say that Fran was sitting in the bath, stuff that eats up the pipes, she put peanut butter on her face and went to penitentiary for that, didn't like the smell of drano. Lisandra has been unable to attend groups because her speech and behavior continue to be disorganized. Denies auditory and visual hallucinations. Denies SI/HI. ROS: Patient sleep 9hrs and has a good appetite. She is able to complete ADLs by herself. MSE: Appearance is that of a disheveled female who appears older than her stated age of 52yo. The patient is cooperative with the interview. Eye contact is good.. Motor behavior is normal. Speech: Normal volume; fast rate, but not pressured. Affect: anxious. Mood: "good". Thought process: disorganized, disjointed. FOI Thought content: delusions. Perception: denies auditory and visual hallucinations. Cognition: The patient is oriented to year, month, and date as well as city and location (i.e. hospital). Scored 20/30 on MOCA (scored a 8/20 on 07/12/17). Insight is estimated to be impaired. Judgement is poor. ASSESSMENT: Ms. Barnes is a 52yo female with medical history significant for hepatitis C and a prior diagnosis of schizoaffective disorder- bipolar type currently on day 8 of involuntary 303 commitment due to psychosis as well as aggressive and threatening behavior. Given the initial presentation of acute alejandro (no sleep for 3-4 days) with psychotic features and non-bizarre delusions, the DDx includes schizoaffective disorder- bipolar type, bipolar I disorder, and schizophrenia. Psychosis NOS and dementia are a less likely possibility given Ms. Barnes's reported long history of mental illness. The working diagnosis is still schizoaffective disorder- bipolar type, but we are lacking adequate information of her past mental health history. [place] I: schizoaffective disorder- bipolar type [place] II: no known intellectual disability or personality disorder [place] III: Hepatitis C PLAN: 1. schizoaffective disorder- bipolar 07/18 a. Current medication: PO invega 6MG QAM; halperidol 5MG and lorazepam 1MG ( decreased from 2MG) PRN for psychosis and agitation. b. first Invega-sustenna (paliperidone) injection was on 07/16/17; next injection is 07/19/17 c. quetiapine taper 200MG taper QHS 07/19 a. PO invega 6MG QAM and lorazepam 1MG d/c; halperidol 5MG and hydroxyzine PRN b. second Invega-sustenna (paliperidone) injection today c. quetiapine taper 200MG taper QHS 2. Hepatitis C a. monitor LFTs and avoid hepatotoxic medications 3. Aftercare Planning: a. Will need to consult sons during a family meeting about suitable aftercare. Need to establish outpatient provider and plan for optimal medication compliance; 304 commitment. Date of Service: Jul 19, 2017.
[2017-07-19] MEDS: QUETIAPINE FUMARATE 100 MG TAB PO SCH (21:36)
[2017-07-20 06:45] VITALS: BP_SYST 110; BP_SYST 115; BP_DIAS 64; BP_DIAS 75; PULSE 46; PULSE 80; TEMP 36.8
[2017-07-20] MEDS: QUETIAPINE FUMARATE 25 MG TAB PO SCH (06:56)
[2017-07-20] MEDS: NICOTINE 21 MG/24 HR TDSY EXT SCH (09:00)
[2017-07-20] MEDS ORDERED: QUET5TAB PO (09:22)
[2017-07-20] MEDS ORDERED: QUET1TAB34 PO (09:22)
[2017-07-20] MEDS ORDERED: PALI117I IM (09:22)
--- NOTE | 2017-07-20 09:38 | Discharge Instructions ---
Discharge Information Report Includes Report will include the: Discharge Instructions & Summary Admission Admission Date / Time: Jul 11, 2017 at 19:13 Reason for Admission: Psychosis Nos Discharge Discharge Diagnosis / Problem: Schizoaffective disorder Condition at Discharge: Fair Discharge Goals Goal(s): Increase independence, Improve disease control, Prevent Disease Progression Activity Recommendations Activity Limitations: resume your previous activity . Instructions / Follow-Up Instructions / Follow-Up . SPECIAL CARE INSTRUCTIONS: 1. Follow through with your scheduled aftercare appointments. If unable to keep an appointment, please call to reschedule. 2. Take your medication only as prescribed. Medication should not be changed or stopped without the approval of your doctor. In the event of worsening symptoms or concerns about side effects, contact your doctor immediately. 3. Utilize new healthy coping skills, anger management skills, and stress management skills learned during your hospitalization. Journal feelings and process them with a support person. Identify stressors or situations that may result in relapse, deterioration or inappropriate behaviors and develop a plan to deal with those issues. 4. If your coping skills are ineffective and you are in crisis, contact your outpatient providers for direction. If unable to reach your providers, please call the CAN HELP LINE AT or go to the closest Emergency Room. 5. Avoid alcohol and un-prescribed drugs. 6. You have been provided with the Mental Health Advance Directives Pamphlet for your review. AFTERCARE APPOINTMENTS: * Please call your insurance company prior to your scheduled appointment to confirm your aftercare providers are covered. Take your insurance information to your appointments. . Discharge / Aftercare Planning Primary Care Physician: Name: I don't know who, I missed my appt Psychiatrist: Name: RADHA Oliver Date of Appointment: Jul 29, 2017 Time of Appointment: 10:40 am Appointment Notes: [id number] [facility] [place] [id number] - if no show , they won't resched Therapist: Name Of Therapist: RADHA Sung Date of Appointment: Aug 02, 2017 Time of Appointment: 11:00 am Appointment Comments: [id number] [facility] [place] [id number] - if no show , they won't resched Coconut Boiler: Name: Laureen Talamantes if pt would agree, refused as of 07/20 . Follow-Up Care Plan for Follow-Up Care: The patient is scheduled for psychiatric care with [facility] Current Hospital Diet Patient's current hospital diet: Regular Diet Discharge Diet Recommended Diet: Regular Diet Procedures Procedures Performed: No Pending Studies Pending Studies at Discharge: No Medical Emergencies . Who to Call and When: Medical Emergencies: For questions or emergencies related to your hospital stay, please contact the Inpatient Behavioral Health Unit at [phone]. A shop hand is on-call 24/01 for the Behavioral Health Unit for emergencies At any time you feel your situation is an emergency, you may also call 911 immediately. . 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 Advance Directives Reason: Declines as Mental Health Visit. Discharge Summary Admission HPI Per the Admitting provider: According to records, the patient was brought to the emergency room yesterday by police on a 302 warrant. She was delusional and unable to engage in the assessment. She received Haldol 5 mg and Ativan 1 mg IM in the emergency room. Her son, Ted, completed the 302 petition which states that Lisandra has been "talking about random stuff," has not slept in 3-4 days, has been aggressive towards him and his brother, is delusional, and threatening people. He is concerned that she will walk in front of traffic, as she does not realize where she is or what she is doing. Emergency room staff got collateral information from Rayne at [facility]. She stated that the patient came to [place] from [place] about 2 months ago via bus based on a delusion that her grandmother lived in [place]. [place] sent her to [facility], and she has been in the [facility] since May. The patient contacted her sons in [place], who moved to [place] to be with her. One of them works at a local [employer] and the other volunteers at [facility]. She confirmed that the patient has not slept in 3-4 days. After arriving on the behavioral health unit, the patient took her bedtime dose of quetiapine, and went to sleep. Her only other episode of care at this facility was an emergency room visit on 05/12/2017, when she was dropped off at the emergency room by her son for psychosis. She was delusional, disoriented, and disorganized in her speech. She reported she had not been taking her quetiapine or haloperidol as she ran out of them, and had not been sleeping. She became agitated with staff in the emergency room, and ultimately was admitted to [facility] on a 302 involuntary commitment. On my assessment today, she is seen with Tonio Pearson, MS3. Lisandra talks rapidly and is very difficult to understand. She does not respond appropriately to questions, instead talking about someone raping and killing an 8 year old. She is not even able to stop her speech and respond to basic questions about herself (name, where she is from, etc), requiring extensive and repeated redirection. Eventually she was able to calm down and answer questions about her name, says she is from [place] and came here two months ago "for my family." She then starts talking about two uncles who were hitting someone. She later says her great grandfather lives in [place] and is retired from the railroad. She says she has been living [facility] the [facility] while looking for an apartment. She says her sons are also living in [place] [facility]. When asked why she was brought to the hospital, she says her son got hit by a car. She admits to a history of mental health problems, but can't state her diagnosis or medications. She denies that she has a psychiatrist, but says she had one in [place]. She denies feeling depressed, says her mood has been "good." She denies hallucinations. She answers most questions with unrelated information, repeatedly talking about sexual themes, child abuse. Admission Exam Per the Admitting provider: Scored 8/30 on [facility] on 07/12/17. Hospital Course (1) Schizoaffective disorder 07/12 - differential includes schizophrenia, schizoaffective disorder, bipolar disorder, and dementia or other organic causes. We will need to get information about past treatment, we'll request the records from [facility], and contact the patient's sons for collateral information. - Determine if she has an outpatient psychiatrist, case supervisor or any other outpatient supports, and if not she will need to be set up with them. - Reported home dose of quetiapine is 300 mg daily at bedtime, and we will increase that to 400 mg daily at bedtime tonight to target psychosis and manic symptoms. If she does not improve over the next day or 2, consider switch to a more potent antipsychotic such as risperidone or olanzapine. Continue haloperidol 5 mg and lorazepam 2 mg as needed for psychosis or agitation. - Fasting labs ordered for tomorrow for monitoring on an atypical antipsychotic. 07/13 - working diagnosis for now is schizoaffective disorder, bipolar type, current episode manic with psychosis. - Records reviewed from [facility], diagnosis was schizoaffective disorder, bipolar type. - Increase quetiapine to 50mg qam and noon and 400mg qhs. Advised patient of recs for Invega Sustenna, as son reports she did well on it in the past, but she is refusing at this time. - Fasting lipid profile and glucose reviewed for monitoring on an atypical antipsychotic, all values within normal limits. - Awaiting paperwork from son to clarify whether he is indeed her guardian or POA. - Filed for 303 commitment hearing to be held tomorrow. Consider the need for an involuntary outpatient commitment given history of noncompliance. She will need a family meeting with sons when she is less psychotic. - Continue medically necessary private room for severe manic and psychotic symptoms, disorganized behavior, recent aggressive behavior, and place patient near the nurse's station for increased monitoring. 07/14 - 303 hearing held and granted; start elopement precautions as patient is checking unit doors and attempting to leave the unit. - Continue medically necessary private room due to severity of psychotic and manic symptoms. - Initiate cross taper from quetiapine to paliperidone, with a plan to get her back on Invega Sustenna given her chronic noncompliance with oral medications. Will taper slowly off of quetiapine to allow her time to readapt to the withdrawal of blocking cholinergic, histaminergic, and alpha-1 receptors. Decrease quetiapine to 300 mg daily at bedtime, and decreased by another 100 mg every 3 days (taper order written). Can continue 50 mg twice a day in the morning and afternoon for now, but can taper off of this over the next week or 2. Start paliperidone 3 mg daily. When she demonstrates tolerability and efficacy, can start Invega Sustenna. - She may require medications over objection, as she has repeatedly refused recommendations to go back on Invega Sustenna, although she cannot state her reasons. She reportedly did well on this medication in the past, and her manic and psychotic symptoms have not been well controlled with quetiapine. I don't think she is a good candidate for lithium or Depakote, as they require good compliance and willingness for regular lab work, and she has demonstrated unwillingness/inability to follow through with this. She can be seen by a second physician tomorrow for a second opinion for medications over objection if needed. 07/15 - Increase Invega to 6 mg. today - Start Sustenna tomorrow 234 mg IM with second injection on 07/19 156 mg. IM. Has been preauth'd with her insurance 07/16--patient remains agreeable to injection, mainly to facilitate discharge. If she were to refuse medications, it is my medical opinion that she would decompensate further and meds over objection is best treatment to maintain her safety and restore function/dignity. I concur with Dr. Rodriguez's medical opinion. Will benefit from 304 outpatient commitment. 07/17--continue PO Invega pending 2nd injection, appears to be improving but ongoing disorganization. 07/18 - continue oral paliperidone 6 mg daily, and plan for second Invega Sustenna injection tomorrow, at which point the oral medication can be discontinued. Continue quetiapine taper, and decrease prn lorazepam to 1 mg, as she is getting multiple doses daily and this will not be continued outside of the hospital. - Social work to refer her for outpatient case management and psychiatric services. - Continue to gather information and assess the need for a 304 outpatient commitment versus discharge to outpatient care. She is very anxious for discharge, and is now stating that she will follow up with outpatient providers and to get her monthly injections. It would be helpful to talk with her son Ted, but he has not responded to multiple attempts to contact him and involve him in treatment. 07/19 -Will DC prn ativan and scheduled Invega today - Received second Sustenna shot today (2) Hepatitis C 07/12 - LFTs elevated on admission, avoid hepatotoxic drugs and refer for outpatient care with PCP. Need to clarify whether or not she has a local physician. Risk Factors Assessment : Yes /single/: Yes Higher / Fall in social status: No Access to guns: No Health problems: Yes Mental Health Diagnoses: Yes Substance use disorders: No Previous psychiatric stay: Yes Hopelessness: No Smoker: Yes Protective Factors Assessment Gnosticist beliefs: No : No Responsible for young children: No Employed: No Stable relationships: No Supportive family: Yes Good rapport with provider: No Day of Discharge Assessment COURSE OF HOSPITALIZATION: The patient has been on our unit for 9 days. She was admitted on a 302 and was further committed on a 303 involuntary commitment. We spent a great deal of time gathering data as the patient is relatively new to this area. Apparently she had been living in [place] and receiving treatment. She came to the [facility] saying that she had family members there which nobody could confirm. She was homeless and sent to the [facility] to participate in the [facility] and [facility]. She has 2 adult sons both of whom have their own mental health problems, who followed her here from [place]. 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 There was a triggering event reported that one of her sons had been hit by a car however did not sustain significant injury. This however was a theme throughout her stay when she would decompensate she would ramble on about her son having been injured in an accident. She was extremely hyperverbal and resistant to treatment on admission. She had not been taking her medications by mouth prior to admission. She had been on Seroquel however the need for a long acting injectable was obvious and so she was switched to Invega sustenna and then received 2 injections of Invega Sustenna the first on July 16, the second on July 19. She will be due for her next monthly injection on her about August 13. She took these willingly. We had some difficulty in communicating with her children. Her one son said that he was her POA and had paperwork however this paperwork never materialized. We were in contact with Rayne Blum from [facility] who agrees that the patient can continue to use their services for day programming. Her son says that he will be able to have her stay at the [facility] with him. The patient was generally poorly able to participate in group programming due to her disorganized thoughts. This improved to some degree over the course of her hospitalization, she was able to tolerate periods of silence and answer directed questions more appropriately. When stressed however she would decompensate back to rambling rapid speech that rarely made sense. [facility] cognitive testing was performed on which she initially scored an 8 out of 30, improving to a 20 out of 30 on July 19. Over the course for hospitalization she demonstrated her ability to take care of herself including showering, eating and doing her own laundry. She did have an elevated appetite throughout her stay. She denied having any auditory or visual hallucinations but did present with delusions and distorted thinking which were somewhat improved at the time of discharge. One of her sons was able to visit during her stay and felt that she looked at or very close to what he considers to be her baseline. The patient has very little insight into her illness or need for medications and remains at a relatively high risk for relapse however at this time we have mitigated his many risk factors as we can and we do not believe that further short-term inpatient stay will benefit her. DAY OF DISCHARGE ASSESSMENT: Today the patient is requesting discharge. 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 She denies suicidal or homicidal thoughts, denies auditory or visual hallucinations. Arrangements have been made for her follow-up and for someone to help her with transportation today. Today the patient is awakened for sleep and is somewhat disorganized. She is appropriately dressed. Eye contact is minimal but appropriate. Speech is still somewhat rapid but much slower than upon admission. She is able to be silent for periods of time. Affect is restricted. Thoughts are organized in response to questions. Recent and remote memory appear to be intact per conversation. Intelligence is estimated to be low average to average. Insight and judgment are improved over admission. Laboratory Test 07/11/17 17:15 07/11/17 17:28 07/13/17 08:05 Urine Color YELLOW Urine Appearance CLEAR Urine pH 5.0 Urine Specific Hurley 1.010 Urine Protein NEG Urine Glucose (UA) NEG Urine Ketones NEG Urine Occult Blood NEG Urine Nitrite NEG Urine Bilirubin NEG Urine Urobilinogen NEG Urine Leukocyte Esterase NEG Urine Test NEG Urine Opiates Screen NEG Urine Methadone, Qualitative NEG Urine Barbiturates NEG Urine Phencyclidine (PCP) Level NEG Ur Amphetamine/Methamphetamine NEG MDMA (Ecstasy) Screen NEG Urine Benzodiazepines Screen NEG Urine Cocaine Metabolite NEG Urine Marijuana (THC) NEG White Blood Count 8.81 Red Blood Count 5.11 Hemoglobin 17.5 Hematocrit 48.8 Mean Corpuscular Volume 95.5 Mean Corpuscular Hemoglobin 34.2 Mean Corpuscular Hemoglobin Concent 35.9 RDW Standard Deviation 47.0 RDW Coefficient of Variation 13.4 Platelet Count 168 Mean Platelet Volume 10.3 Sodium Level 139 Potassium Level 3.9 Chloride Level 104 Carbon Dioxide Level 26 Anion Gap 9.0 Blood Urea Nitrogen 8 Creatinine 0.59 Est Creatinine Clear Calc Drug Dose 85.8 Estimated GFR () 122.1 Estimated GFR (Non- 105.4 BUN/Creatinine Ratio 13.7 Random Glucose 96 Calcium Level 9.3 Total Bilirubin 0.3 Direct Bilirubin < 0.1 Aspartate Amino Transferase (AST) 80 Alanine Aminotransferase (ALT) 88 Alkaline Phosphatase 83 Total Protein 8.6 Albumin 4.0 Thyroid Stimulating Hormone (TSH) 1.260 Salicylates Level 4.9 Acetaminophen Level < 2 Ethyl Alcohol mg/dL < 3.0 Fasting Glucose 87 Triglycerides Level 47 Cholesterol Level 116 HDL Cholesterol 43 LDL Cholesterol, Calculated 64 VLDL Cholesterol, Calculated 9 Cholesterol/HDL Ratio 2.7 Total Time Total Time Spent (min): Greater than 30 minutes Total Time Included: examination of the patient, discharge planning, medication reconciliation, communication with other providers Tobacco Cessation at Discharge Smoking Status: Current Every Day Smoker FDA approved Prescription: declined med & out pt counseling Antipsychotic Meds Rationale The patient is on both Invega Sustenna injections as well as Seroquel. Seroquel is being tapered in favor of monotherapy with Invega Sustenna
[2017-07-20] MEDS: hydrOXYzine HCL 25 MG TAB PO PRN (09:52)
== END 2017-07-20 10:50 | disposition home or self-care (01) | DRG 885 ==
LOC: C.EDA 16:29 → C.MHU 19:13
PROVIDERS: ADMIT Psychiatry & Neurology Psychiatry; ATTEND Psychiatry & Neurology Psychiatry
DX: F25.0 Schizoaffective disorder, bipolar type (principal); B19.20 Unspecified viral hepatitis C without hepatic coma; F17.200 Nicotine dependence, unspecified, uncomplicated; Z79.899 Other long term (current) drug therapy

== ENCOUNTER 2017-07-24 15:40 | Emergency (ER) | payer OTHER ==
[~2017-07-24] VITALS: Ht 152.4 cm; Wt 58.2 kg
[~2017-07-24 15:40] MED LIST: PALI117I IM; QUET1TAB34 PO; QUET5TAB PO
[2017-07-24 15:47] VITALS: TEMP 36.8; Ht 152.4 cm; Wt 58.2 kg
--- NOTE | 2017-07-24 16:10 | EMERGENCY ROOM VISIT NOTE ---
ED Visit Note First contact with patient: 15:52 CHIEF COMPLAINT: Shoulder pain HISTORY OF PRESENT ILLNESS: This 52-year-old female patient presents to the emergency department, ambulatory, complaining of pain in the right shoulder for approximately one week. There is no limitation of motion of the arm because of the pain. The pain is moderate, constant and increases with motion of the hand and arm. The patient states the pain is constant, but worse at 4:00 in the morning and 10/10. The patient has taken one dose of Tylenol without relief of the pain. No previous significant previous shoulder disease or injury. No numbness or tingling. No neck or back pain. No chest pain or shortness of breath. No abdominal pain or nausea/vomiting. No cough. The patient denies specific injury, but states she has been caring a 70 pound bag, lifting it into and out of a van for a long time. She states she would like to see physical therapy, but has been unable to establish an appointment. She states the pain in her shoulder radiates down to her right foot. REVIEW OF SYSTEMS: A 6 system review of systems was performed with positives and pertinent negatives in the HPI. ALLERGIES: None MEDICATIONS: Seroquel, Invega PMH: Hepatitis C SOCIAL HISTORY: The patient lives locally with family. She denies drug, alcohol use. She states she does smoke approximately 1-2 packs of cigarettes per day PHYSICAL EXAM: Vital Signs: Reviewed nurse's notes, vital signs stable. GENERAL : This is a 52 year old female, in no acute distress, upright and walking around the room, well-developed, well-nourished. MUSCULOSKELETAL: There is no deformity in the contour of the right shoulder and there are no rahul deformities noted. There is no sulcus sign. There is tenderness over the superior aspect of the shoulder. The patient's range of motion is full. Supraspinatus strength 5/5. There is no clavicle tenderness. No tenderness of the humerus, elbow, wrist, or hand. Lighter strength 5/5. Radial pulse 2+. NECK: No tenderness to palpation over the cervical spine. HEART: Regular rate and rhythm without murmurs gallops or rubs. LUNGS: Clear to auscultation bilaterally without wheezes, rales or rhonchi. No accessory muscle use. No retractions. NEURO: The patient is alert and oriented to person, place, and time. Normal sensation to light and sharp touch. Capillary refill less than 2 seconds. RADIOLOGY: R SHOULDER MIN 2 VIEWS ROUTINE HISTORY: 52 years-old Female right shoulder pain acute right shoulder pain COMPARISON: None available TECHNIQUE: 3 views of the right shoulder FINDINGS: Mild degenerative changes of the right AC joint. No significant glenohumeral degenerative changes. There is no acute fracture or dislocation. Imaged lung cardenas appear clear. No opaque foreign body. IMPRESSION: Mild degenerative changes of the right AC joint without acute fracture or dislocation. The above report was generated using voice recognition software. It may contain grammatical, syntax or spelling errors. Electronically signed by: Edmund Olivas M.D. 07/24/2017 4:35 PM Dictated Date/Time: 07/24/2017 4:34 PM EMERGENCY DEPARTMENT COURSE: I examined the patient. An X-ray of the right shoulder was reviewed by myself and radiologist and shows no acute fracture, but mild degenerative change at the AC joint. The patient was given 30 mg Toradol for her pain. She did note improvement in her symptoms. She was given a prescription for Voltaren gel to use at home. Discharge instructions reviewed , and the patient was discharged home in good condition. I attest that I have personally reviewed the patient's current medication list. Patient was found to have normal blood pressure on screening and does not require follow-up. DIFFERENTIAL DIAGNOSIS: Shoulder pain, contusion, fracture, arthritic change, calcific tendinitis, malignancy, rotator cuff tear, sprain or strain, vascular, and others DIAGNOSIS: Shoulder pain Problem List Medical Problems: (1) Hepatitis C Status: Chronic (2) Schizoaffective disorder Status: Chronic Current/Historical Medications Scheduled Diclofenac Sodium (Topical) (Voltaren 1% Top Gel), 2 GM TD QID Paliperidone Palmitate (Invega Sustenna), 0.75 ML IM MONTHLY Quetiapine Fumarate (Seroquel), 100 MG PO DAILY Quetiapine Fumarate (Seroquel), 50 MG PO BID Allergies Coded Allergies: No Known Allergies (Unverified , 07/11/17) Vital Signs Date Time Temp Pulse Resp B/P (MAP) Pulse Ox O2 Delivery O2 Flow Rate FiO2 07/24/17 16:46 100 18 128/82 96 Room Air 07/24/17 15:47 36.8 116 16 116/79 95 Room Air Medications Administered Medications (Trade) Dose Ordered Sig/Seamus Route Start Time Stop Time Status Last Admin Dose Admin Ketorolac Tromethamine (Toradol Inj) 30 mg NOW STAT IM 07/24/17 16:34 07/24/17 16:35 DC 07/24/17 16:45 30 MG Departure Information Impression Primary Impression: Right shoulder pain Dispostion Home / Self-Care Condition GOOD Prescriptions Diclofenac Sodium (Topical) (VOLTAREN 1% TOP GEL) 1 % Gel 2 GM TD QID, #1 TUBE Prov: Sophie Lopes, MANDA 07/24/17 Referrals No Doctor, Assigned (PCP) Patient Instructions ED Shoulder Pain THOR, [facility] Additional Instructions You were seen in the emergency department today for shoulder pain. X-rays were unrevealing for acute fracture or other bony injury. You were prescribed Voltaren gel to be used up to 4 times per day for pain. Ibuprofen(Motrin, Advil) may be used for fever or pain. Use 600mg every six hours as needed. Take with food. Avoid using more than 2400mg in a 24 hour period. Do not use 2400mg per day for more than three consecutive days without physician direction. Prolonged inappropriate use can lead to stomach upset or ulcers. (AND/OR) Acetaminophen(Tylenol) may be used for fever or pain. Use 1000mg every six hours as needed. Avoid using more than 3000mg in a 24 hour period. *Do not take these medications without direction by your PCP or provider who manages your Hepatitis C. Use ice for 20 minutes at a time with a barrier device between the ice pack and your skin for inflammation and pain. Please follow up with your primary care provider in 2-3 days for reevaluation and ongoing pain management. As discussed, if you're having difficulty sleeping at night, you can try melatonin as directed or diffusing lavender. Return to the emergency department for significant redness, swelling, worsening pain, drainage, or other concerning symptoms. Problem Qualifiers Primary Impression: Right shoulder pain Chronicity: acute Qualified Codes: M25.511 - Pain in right shoulder
[2017-07-24] MEDS ORDERED: KETOROLAC TROMETHAMINE 30 MG/ML VIAL IM STA (16:34)
--- NOTE | 2017-07-24 16:36 | DIAGNOSTIC IMAGING REPORT ---
R SHOULDER MIN 2 VIEWS ROUTINE HISTORY: 52 years-old Female right shoulder pain acute right shoulder pain COMPARISON: None available TECHNIQUE: 3 views of the right shoulder FINDINGS: Mild degenerative changes of the right AC joint. No significant glenohumeral degenerative changes. There is no acute fracture or dislocation. Imaged lung cardenas appear clear. No opaque foreign body. IMPRESSION: Mild degenerative changes of the right AC joint without acute fracture or dislocation. The above report was generated using voice recognition software. It may contain grammatical, syntax or spelling errors. Electronically signed by: Edmund Olivas M.D. 07/24/2017 4:35 PM Dictated Date/Time: 07/24/2017 4:34 PM
[2017-07-24 16:46] VITALS: BP 128/82; PULSE 100; O2SAT 96
[2017-07-24] MEDS ORDERED: DICL1GEL12 TD (17:11)
== END 2017-07-24 17:28 | disposition home or self-care (01) ==
LOC: C.EDB 15:42 → C.EDD 17:28
DX: M25.511 Pain in right shoulder (principal); M19.011 Primary osteoarthritis, right shoulder; Z87.828 Personal history of other (healed) physical injury and trauma; B19.20 Unspecified viral hepatitis C without hepatic coma; F25.9 Schizoaffective disorder, unspecified; Z79.899 Other long term (current) drug therapy

== ENCOUNTER 2021-01-04 20:05 | Inpatient (IN) ==
[2021-01-04] MEDS ORDERED: LORazepam 2 MG/4 ML VIAL IV STA (20:26)
[2021-01-04] MEDS ORDERED: HALOPERIDOL LACTATE 5 MG/ML 1 ML VIAL IV STA (20:26)
[2021-01-04] MEDS ORDERED: SODIUM CHLORIDE 0.9% 1000ML 1,000 ML IV ONE (20:50)
[2021-01-04 21:12] LABS: Basophils # (auto) 0.02 K/uL (0-0.2); Basophils % (auto) 0.3 %; Eosinophils # (auto) 0.06 K/uL (0-0.5); Eosinophils % (auto) 0.8 %; Hematocrit (blood only) 47.4 % (37-47); Immature Granulocytes # (auto) 0.01 K/uL (0.00-0.02); Immature Granulocytes % (auto) 0.1 %; Lymphocytes # (auto) 2.17 K/uL (1.2-3.4); Lymphocytes % (auto) 29.6 %; Mean Corpuscular Hemoglobin 34.4 pg (25-34); Mean Corpuscular Hgb Conc 33.8 g/dL (32-36); Mean Corpuscular Volume 101.9 fL (80-100); Mean Platelet Volume 10.7 fL (7.4-10.4); Monocytes % (auto) 9.5 %; Neutrophils # (auto) 4.37 K/uL (1.4-6.5); Neutrophils % (auto) 59.7 %; Platelet Count 156 K/uL (130-400); RDW Coefficient of Variation 14.8 % (11.5-14.5); RDW Standard Deviation 55.8 fL (36.4-46.3); Red Blood Count 4.65 M/uL (4.2-5.4); White Blood Count 7.33 K/uL (4.8-10.8)
[2021-01-04 21:31] LABS: Appearance Urine Clear (Clear); Bilirubin Urine Negative (Negative); Blood Urine Negative (Negative); Color Urine Yellow; Glucose Urine UA Negative (Negative); Ketones Urine Negative (Negative); Leukocyte Esterase Urine Negative (Negative); Nitrite Urine Negative (Negative); Protein Urine Negative (Negative); Specific Gravity Urine 1.004 (1.000-1.030); Urobilinogen Urine Negative (Negative)
[2021-01-04 21:31] LABS: Albumin Level 3.2 gm/dl (3.4-5.0); BUN Creatinine Ratio 9.2 (10-20); Creatinine Clr Calc Pharmacy 95.5 ml/min; Est GFR (African American) 116.4 ml/min; Est GFR (Non-African American) 100.5 ml/min; Potassium 3.7 mmol/L (3.5-5.1)
[2021-01-04 21:38] LABS: Acetaminophen < 2 ug/ml (10-30); Salicylate 4.3 mg/dl (2.8-20)
[2021-01-04 21:41] LABS: Albumin Globulin Ratio 0.6 (0.9-2); Bilirubin,Total 0.4 mg/dl (0.2-1); Globulin 5.3 gm/dl (2.5-4.0); Thyroid Stimulating Hormone 3.09 uIu/ml (0.300-4.500); Total Protein 8.5 gm/dl (6.4-8.2)
[2021-01-04 22:05] LABS: Amphetamines+Metham, Urine Neg (Neg); Barbiturates, Urine Neg (Neg); Benzodiazepine, Urine Neg (Neg); Cocaine, Urine Neg (Neg); MDMA (Ecstacy), Urine Neg (Neg); Methadone, Urine Neg (Neg); Opiate, Urine Neg (Neg); Phencyclidine, Urine Neg (Neg)
[2021-01-04] MEDS: SODIUM CHLORIDE 0.9% 1000ML 1,000 ML IV SCH (22:12)
--- NOTE | 2021-01-05 00:04 | Emergency Department Note ---
History of Present Illness General Chief complaint: Mental Health Evaluation Stated complaint: MENTAL HEALTH EVAL/ETOH Time Seen by Provider: 01/04/21 20:21 Source: RN notes reviewed Mode of arrival: EMS Limitations: no limitations History of Present Illness Provider complaint: Mental health evaluation This patient is a 55-year-old female who presents emergency department with EMS with delusional thinking, multiple phone calls to police today. Patient was apparently just released from an inpatient psychiatric facility several days ago. By report she is contacted 911 multiple times this evening. Police have attempted to redirect her however this has been unsuccessful. The patient is concerned about "Gaby" putting a knife perez in her door. She is making many tangential statements, she was found to have several joshua preciado MD in her apartment. Patient is not able to answer direct questions or follow commands. Home Medications Medication Instructions Recorded Confirmed Type haloperidol 5 mg tablet 5 mg PO BID #60 tab 10/21/20 12/19/20 Rx ipratropium 20 mcg-albuterol 100 1 puff INHALATION QID PRN #4 g 10/21/20 1 Rx mcg/actuation mist for inhalation pantoprazole 40 mg tablet,delayed 40 mg PO DAILY #90 tab 10/21/20 12/19/20 Rx release ipratropium 0.5 mg-albuterol 3 mg 3 ml INHALATION QID PRN #90 ml 11/12/20 12/19/20 Rx (2.5 mg base)/3 mL nebulization soln nebulizers #1 ea 11/12/20 12/19/20 Rx quetiapine 200 mg tablet 200 mg PO HS #30 tab 11/12/20 12/19/20 Rx cyclobenzaprine 5 mg tablet 5 mg PO TID PRN #30 tab 12/19/20 12/19/20 Rx Allergies Allergy/AdvReac Type Severity Reaction Status Date / Time No Known Allergies Allergy Verified 12/19/20 14:00 Past Med/Surg History Medical History Hepatitis C Schizoaffective disorder Surgical History S/P section Family History Aunt Breast cancer Mother Myocardial infarction Grandmother (Maternal) Ovarian cancer Denies family history of Prostate cancer Colorectal cancer Social History Smoking Status: Unknown if ever smoked Tobacco Type: Cigarettes Age Started Using Tobacco: 12; packs per day: 0.5; Second Hand Exposure: No; Hx Alcohol Use: Yes Alcohol type: beer Alcohol Intake Frequency: Monthly or Less Hx Substance Use: No Preferred Language: Ethiopian Communication Ability: Impaired Radio Station Engineer Required: No Beliefs That Will Affect Care: None marital status: Single Current Living Situation: Family current occupational status: unemployed Feels Safe at Home: Yes Childhood Exposure to Second-Hand Smoke: Yes Dental Care, Regularly: No Physical Activity Frequency: Does not Exercise Seatbelt Use: always Sunscreen Use: Yes Assistive Devices: None Review of Systems Unobtainable due to mental health condition Physical Exam Vital Signs Vital Signs - 24 hr 01/04/21 20:45 01/04/21 20:49 01/04/21 21:00 Pulse Rate 110 H 108 H 105 H Pulse Rate from SpO2 Sensor Respiratory Rate 14 15 16 Respiratory Effort / Characteristics Non-Labored Spontaneous Respiratory Depth Normal Blood Pressure 81/53 L 81/53 L 81/50 L Blood Pressure Mean 62 62 60 Pulse Oximetry 93 94 95 Oxygen Delivery Method Nasal Cannula Nasal Cannula Nasal Cannula Oxygen Flow Rate 2 2 2 Sepsis Recent Fever Within 48 Hours No Sepsis New/Unexplained Change in Mental Status N/A Sepsis Action Taken by Nursing Physician Notified 01/04/21 21:38 01/04/21 22:04 01/04/21 22:39 Pulse Rate 101 H 106 H 101 H Pulse Rate from SpO2 Sensor Respiratory Rate 15 20 18 Respiratory Effort / Characteristics Respiratory Depth Blood Pressure 85/48 L 123/88 93/72 L Blood Pressure Mean 60 99 79 Pulse Oximetry 96 95 94 Oxygen Delivery Method Nasal Cannula Nasal Cannula Nasal Cannula Oxygen Flow Rate 2 2 2 Sepsis Recent Fever Within 48 Hours Sepsis New/Unexplained Change in Mental Status Sepsis Action Taken by Nursing 01/04/21 23:01 01/04/21 23:20 01/04/21 23:31 Pulse Rate 100 H 101 H 99 H Pulse Rate from SpO2 Sensor 100 H 102 H 99 H Respiratory Rate 18 22 16 Respiratory Effort / Characteristics Respiratory Depth Blood Pressure 83/63 L Blood Pressure Mean 69 Pulse Oximetry 98 97 97 Oxygen Delivery Method Nasal Cannula Nasal Cannula Room Air Oxygen Flow Rate Sepsis Recent Fever Within 48 Hours Sepsis New/Unexplained Change in Mental Status Sepsis Action Taken by Nursing 01/04/21 23:33 01/04/21 23:50 01/05/21 00:00 Pulse Rate 100 H 99 H 98 H Pulse Rate from SpO2 Sensor 99 H 99 H 98 H Respiratory Rate 17 17 17 Respiratory Effort / Characteristics Respiratory Depth Blood Pressure 107/66 Blood Pressure Mean 79 Pulse Oximetry 97 96 95 Oxygen Delivery Method Nasal Cannula Oxygen Flow Rate Sepsis Recent Fever Within 48 Hours Sepsis New/Unexplained Change in Mental Status Sepsis Action Taken by Nursing 01/05/21 00:08 Pulse Rate 96 H Pulse Rate from SpO2 Sensor 98 H Respiratory Rate 20 Respiratory Effort / Characteristics Respiratory Depth Blood Pressure 125/84 Blood Pressure Mean 97 Pulse Oximetry 96 Oxygen Delivery Method Oxygen Flow Rate Sepsis Recent Fever Within 48 Hours Sepsis New/Unexplained Change in Mental Status Sepsis Action Taken by Nursing Vital signs reviewed. General: Disheveled and anxious appearing [id number], agitated and pacing, yelling in the room. HEENT: No scleral icterus, PERRLA, neck supple. Atraumatic. Cardiovascular: Regular rate and rhythm, no extra sounds. Pulmonary: Clear to auscultation bilaterally, normal work of breathing. Abdomen: Soft, nontender, nondistended, positive bowel sounds. Musculoskeletal: Atraumatic, no peripheral edema. Neurologic: Patient awake alert but unable to give any direct answers. Unable to answer questions regarding orientation. She is unable to follow commands. Psych:. Unable to assess SI, HI but agitated, tangential and yelling. swearing at security making threats Skin: Warm, dry, no rash Course Administered Medications Sodium Chloride (Nss 1000ml) 1,000 mls @ 250 mls/hr IV .Q4H MICAH Stop: 02/03/21 22:14 Last Admin: 01/04/21 22:12 Dose: 250 mls/hr Documented by: [id number] Discontinued Medications Haloperidol Lactate (Haloperidol Lactate 5 Mg/Ml 1 Ml Vial) 5 mg IV NOW STA Stop: 01/04/21 20:27 Last Admin: 01/04/21 20:30 Dose: 5 mg Documented by: [id number] Lorazepam (Ativan) 2 mg in 4 mls @ 4 mls/min IV NOW STA Stop: 01/04/21 20:27 Last Admin: 01/04/21 20:30 Dose: 4 mls/min Documented by: [id number] Sodium Chloride (Nss 1000ml) 1,000 mls @ 999 mls/hr IV .Q1H1M ONE Stop: 01/04/21 21:50 Last Infusion: 01/04/21 22:05 Dose: 0 mls/hr Documented by: [id number] Admin: 01/04/21 20:50 Dose: 999 mls/hr Documented by: [id number] Critical Care Time Critical Care Time: Yes Total Critical Care Time: 35 I have personally spent 35 minutes of critical care time in the direct management of this patient. This was a life/limb threatening event. This 35 minutes is in excess of all separately billable procedures. Medical Decision Making Differential Diagnosis Mood disorder, infection, hypoglycemia, electrolyte abnormalities, cardiac sources, intracerebral event, toxicologic, trauma, neurologic, as well as other pathologies. Medical Records Attestation: I reviewed the patient's medical records. Home Medications Current Medication List: was personally reviewed by me Laboratory Data Attestation: I reviewed the patient's lab results. Result diagrams: 01/04/21 20:54 01/04/21 20:54 Lab Results 01/04/21 01/04/21 01/04/21 Range/Units 20:15 20:15 20:54 WBC 7.33 (4.8-10.8) K/uL RBC 4.65 (4.2-5.4) M/uL Hgb 16.0 (12.0-16.0) g/dL Hct 47.4 H (37-47) % MCV 101.9 H (80-100) fL MCH 34.4 H (25-34) pg MCHC 33.8 (32-36) g/dL RDW Std Deviation 55.8 H (36.4-46.3) fL RDW Coeff of Crispin 14.8 H (11.5-14.5) % Plt Count 156 (130-400) K/uL MPV 10.7 H (7.4-10.4) fL Immature Gran % (Auto) 0.1 % Neut % (Auto) 59.7 % Lymph % (Auto) 29.6 % Robeson % (Auto) 9.5 % Eos % (Auto) 0.8 % Baso % (Auto) 0.3 % Neut # (Auto) 4.37 (1.4-6.5) K/uL Lymph # (Auto) 2.17 (1.2-3.4) K/uL Robeson # (Auto) 0.70 H (0.11-0.59) K/uL Eos # (Auto) 0.06 (0-0.5) K/uL Baso # (Auto) 0.02 (0-0.2) K/uL Immature Gran # (Auto) 0.01 (0.00-0.02) K/uL Sodium (136-145) mmol/L Potassium (3.5-5.1) mmol/L Chloride (98-107) mmol/L Carbon Dioxide (21-32) mmol/L Anion Gap (3-11) BUN (7-18) mg/dl Creatinine (0.6-1.2) mg/dl Est Cr Clr Drug Dosing ml/min Est GFR ( Amer) ml/min Est GFR (Non-Af Amer) ml/min BUN/Creatinine Ratio (10-20) Glucose (70-99) mg/dl Calcium (8.5-10.1) mg/dl Total Bilirubin (0.2-1) mg/dl AST (15-37) U/L ALT (12-78) U/L Alkaline Phosphatase (45-117) U/L Total Protein (6.4-8.2) gm/dl Albumin (3.4-5.0) gm/dl Globulin (2.5-4.0) gm/dl Albumin/Globulin Ratio (0.9-2) TSH (0.300-4.500) uIu/ml Urine Color Yellow Urine Appearance Clear (Clear) Urine pH 5.0 (4.5-7.5) Ur Specific [place] 1.004 (1.000-1.030) Urine Protein Negative (Negative) Urine Glucose (UA) Negative (Negative) Urine Ketones Negative (Negative) Urine Blood Negative (Negative) Urine Nitrite Negative (Negative) Urine Bilirubin Negative (Negative) Urine Urobilinogen Negative (Negative) Ur Leukocyte Esterase Negative (Negative) Salicylates (2.8-20) mg/dl Urine Opiates Screen Neg (Neg) Ur Methadone, Qual Neg (Neg) Acetaminophen (10-30) ug/ml Urine Barbiturates Neg (Neg) Ur Phencyclidine (PCP) Neg (Neg) U Amphetamin/Meth Scrn Neg (Neg) MDMA (Ecstasy) Screen Neg (Neg) U Benzodiazepines Scrn Neg (Neg) Ur Cocaine Metabolite Neg (Neg) U Marijuana (THC) Screen Neg (Neg) Ethyl Alcohol mg/dL (0-3) mg/dl COVID-19 Eval Order SARS-CoV-2 (PCR) (Negative) 01/04/21 01/04/21 01/04/21 Range/Units 20:54 20:54 20:54 WBC (4.8-10.8) K/uL RBC (4.2-5.4) M/uL Hgb (12.0-16.0) g/dL Hct (37-47) % MCV (80-100) fL MCH (25-34) pg MCHC (32-36) g/dL RDW Std Deviation (36.4-46.3) fL RDW Coeff of Crispin (11.5-14.5) % Plt Count (130-400) K/uL MPV (7.4-10.4) fL Immature Gran % (Auto) % Neut % (Auto) % Lymph % (Auto) % Robeson % (Auto) % Eos % (Auto) % Baso % (Auto) % Neut # (Auto) (1.4-6.5) K/uL Lymph # (Auto) (1.2-3.4) K/uL [place] # (Auto) (0.11-0.59) K/uL Eos # (Auto) (0-0.5) K/uL Baso # (Auto) (0-0.2) K/uL Immature Gran # (Auto) (0.00-0.02) K/uL Sodium 141 (136-145) mmol/L Potassium 3.7 (3.5-5.1) mmol/L Chloride 108 H (98-107) mmol/L Carbon Dioxide 25 (21-32) mmol/L Anion Gap 8.0 (3-11) BUN 6 L (7-18) mg/dl Creatinine 0.64 (0.6-1.2) mg/dl Est Cr Clr Drug Dosing 95.5 ml/min Est GFR ( Amer) 116.4 ml/min Est GFR (Non-Af Amer) 100.5 ml/min BUN/Creatinine Ratio 9.2 L (10-20) Glucose 101 H (70-99) mg/dl Calcium 9.0 (8.5-10.1) mg/dl Total Bilirubin 0.4 (0.2-1) mg/dl AST 219 H (15-37) U/L ALT 191 H (12-78) U/L Alkaline Phosphatase 112 (45-117) U/L Total Protein 8.5 H (6.4-8.2) gm/dl Albumin 3.2 L (3.4-5.0) gm/dl Globulin 5.3 H (2.5-4.0) gm/dl Albumin/Globulin Ratio 0.6 L (0.9-2) TSH 3.090 (0.300-4.500) uIu/ml Urine Color Urine Appearance (Clear) Urine pH (4.5-7.5) Ur Specific [place] (1.000-1.030) Urine Protein (Negative) Urine Glucose (UA) (Negative) Urine Ketones (Negative) Urine Blood (Negative) Urine Nitrite (Negative) Urine Bilirubin (Negative) Urine Urobilinogen (Negative) Ur Leukocyte Esterase (Negative) Salicylates 4.3 (2.8-20) mg/dl Urine Opiates Screen (Neg) Ur Methadone, Qual (Neg) Acetaminophen < 2 L (10-30) ug/ml Urine Barbiturates (Neg) Ur Phencyclidine (PCP) (Neg) U Amphetamin/Meth Scrn (Neg) MDMA (Ecstasy) Screen (Neg) U Benzodiazepines Scrn (Neg) Ur Cocaine Metabolite (Neg) U Marijuana (THC) Screen (Neg) Ethyl Alcohol mg/dL 145.7 H (0-3) mg/dl COVID-19 Eval Order SARS-CoV-2 (PCR) (Negative) 01/04/21 01/04/21 Range/Units 21:13 21:13 WBC (4.8-10.8) K/uL RBC (4.2-5.4) M/uL Hgb (12.0-16.0) g/dL Hct (37-47) % MCV (80-100) fL MCH (25-34) pg MCHC (32-36) g/dL RDW Std Deviation (36.4-46.3) fL RDW Coeff of Crispin (11.5-14.5) % Plt Count (130-400) K/uL MPV (7.4-10.4) fL Immature Gran % (Auto) % Neut % (Auto) % Lymph % (Auto) % Robeson % (Auto) % Eos % (Auto) % Baso % (Auto) % Neut # (Auto) (1.4-6.5) K/uL Lymph # (Auto) (1.2-3.4) K/uL [place] # (Auto) (0.11-0.59) K/uL Eos # (Auto) (0-0.5) K/uL Baso # (Auto) (0-0.2) K/uL Immature Gran # (Auto) (0.00-0.02) K/uL Sodium (136-145) mmol/L Potassium (3.5-5.1) mmol/L Chloride (98-107) mmol/L Carbon Dioxide (21-32) mmol/L Anion Gap (3-11) BUN (7-18) mg/dl Creatinine (0.6-1.2) mg/dl Est Cr Clr Drug Dosing ml/min Est GFR ( Amer) ml/min Est GFR (Non-Af Amer) ml/min BUN/Creatinine Ratio (10-20) Glucose (70-99) mg/dl Calcium (8.5-10.1) mg/dl Total Bilirubin (0.2-1) mg/dl AST (15-37) U/L ALT (12-78) U/L Alkaline Phosphatase (45-117) U/L Total Protein (6.4-8.2) gm/dl Albumin (3.4-5.0) gm/dl Globulin (2.5-4.0) gm/dl Albumin/Globulin Ratio (0.9-2) TSH (0.300-4.500) uIu/ml Urine Color Urine Appearance (Clear) Urine pH (4.5-7.5) Ur Specific [place] (1.000-1.030) Urine Protein (Negative) Urine Glucose (UA) (Negative) Urine Ketones (Negative) Urine Blood (Negative) Urine Nitrite (Negative) Urine Bilirubin (Negative) Urine Urobilinogen (Negative) Ur Leukocyte Esterase (Negative) Salicylates (2.8-20) mg/dl Urine Opiates Screen (Neg) Ur Methadone, Qual (Neg) Acetaminophen (10-30) ug/ml Urine Barbiturates (Neg) Ur Phencyclidine (PCP) (Neg) U Amphetamin/Meth Scrn (Neg) MDMA (Ecstasy) Screen (Neg) U Benzodiazepines Scrn (Neg) Ur Cocaine Metabolite (Neg) U Marijuana (THC) Screen (Neg) Ethyl Alcohol mg/dL (0-3) mg/dl COVID-19 Eval Order Covid19 at [facility] SARS-CoV-2 (PCR) NEGATIVE (Negative) Imaging Data Attestation: I personally reviewed and interpreted this imaging study as follows: My Impression: Chest x-ray to my interpretation reveals no evidence of focal lung consolidation or failure. There is concern for a R shoulder sublux, left shoulder postsurgical change noted. Right shoulder x-ray to my interpretation radiology no evidence of fracture or dislocation. Blood Pressure Blood Pressure Findings: Low blood pressure Blood Pressure Disposition: elevated BP felt to be situational MDM Narrative This patient was evaluated and appeared to be agitated and unable to be redi rected. She was hyperverbal and tangential. Patient did require sedation with IV Haldol 5 mg and Ativan 2 mg. Patient's blood alcohol was reported at 154. I did reevaluate the patient several times. She had several hypotensive blood pressures documented however she was lying on her side with the blood pressure cuff up. When the patient was placed on her back and the blood pressure cuff was properly positioned, the patient had a normal blood pressure. She did receive 1 L of IV normal saline solution. Chest x-ray was performed due to a repetitive cough however to my interpretation this study significant for interstitial prominence without focal lung consolidation. There is evidence of postsurgical change in the left shoulder and possible subluxation of the right shoulder. Follow-up x-ray of the right shoulder was performed and was negative. The police have petitioned a 302. Once the patient is clear from a mental status standpoint she will be assessed by the mental health family caseworker to determine final disposition. Case has been signed out to Dr. Dominguez. Patient at the change of shift. Impression & Plan Schizoaffective disorder, Alcohol intoxication, Delirium Discharge Plan Visit Data Chief Complaint: Mental Health Evaluation Stated Complaint: MENTAL HEALTH EVAL/ETOH ED Provider: Wendy Diallo Discharge Problem: Schizoaffective disorder, Alcohol intoxication, Delirium Forms Stand Alone Forms: My [facility], Suicide Prevention Resources Prescriptions Prescriptions: No Action pantoprazole [Protonix] 40 mg tablet,delayed release (DR/EC) 40 mg PO DAILY Qty: 90 RF: 1 Combivent Respimat 20-100 mcg/actuation mist 1 puff inhalation QID PRN (Reason: shortness of breath or wheezing) Qty: 4 RF: 2 haloperidol 5 mg tablet 5 mg PO BID Qty: 60 RF: 0 cyclobenzaprine 5 mg tablet 5 mg PO TID PRN (Reason: Spasms) Qty: 30 RF: 0 quetiapine [Seroquel] 200 mg tablet 200 mg PO HS Qty: 30 RF: 2 (DME) nebulizers Misc See Rx Instructions .ROUTE .MEDSUPPLY Qty: 1 RF: 0 ipratropium-albuterol 0.5 mg-3 mg(2.5 mg base)/3 mL solution for nebulization 3 ml inhalation QID PRN (Reason: wheezing) Qty: 90 RF: 4 Discharge Problem: Schizoaffective disorder Qualifiers: Schizoaffective disorder type: unspecified Qualified Code(s): F25.9 - Schizoaffective disorder, unspecified Alcohol intoxication Qualifiers: Complication of substance-induced condition: with delirium Qualified Code(s): F10.921 - Alcohol use, unspecified with intoxication delirium
--- NOTE | 2021-01-05 01:10 | Emergency Department Note ---
ED Visit Note This case was signed out to me at change of shift. We are awaiting the patient to wake up from her sedation. At that time she will be formally evaluated and bed search will be resumed for inpatient psychiatric care placement. 0255: The patient remains asleep at this time. Nursing staff have woken her up to take vital signs but she is not awake enough to have a coherent conversation about her mental health issues. 0335: The ED psychiatric client service and consulting manager was able to wake up the patient. He described her as extremely paranoid with a tangential thought process. the delegate will come to the emergency department to initiate the bed search. 0630: The case will be signed out to Dr. Connolly at change of shift awaiting bed placement. . : Schizoaffective disorder Qualifiers: Schizoaffective disorder type: unspecified Qualified Code(s): F25.9 - Schizoaffective disorder, unspecified Alcohol intoxication Qualifiers: Complication of substance-induced condition: with delirium Qualified Code(s): F10.921 - Alcohol use, unspecified with intoxication delirium
[2021-01-05] MEDS: SODIUM CHLORIDE 0.9% 1000ML 1,000 ML IV SCH ×2 (06:42→13:08)
--- NOTE | 2021-01-05 08:19 | Emergency Department Note ---
ED Visit Note Received patient in signout. History and physical verified by me. Patient is here under 302 warrant. Patient accepted to 3 S. . : Schizoaffective disorder Qualifiers: Schizoaffective disorder type: unspecified Qualified Code(s): F25.9 - Schizoaffective disorder, unspecified Alcohol intoxication Qualifiers: Complication of substance-induced condition: with delirium Qualified Code(s): F10.921 - Alcohol use, unspecified with intoxication delirium
--- NOTE | 2021-01-05 08:50 | XRay Report ---
XR shoulder RT min 2V routine CLINICAL HISTORY: Abnormal chest x-ray. Right shoulder pain COMPARISON STUDY: Chest 01/04/2021. FINDINGS: No fracture or dislocation within the right shoulder. The right clavicle is intact. Soft ti ssues are unremarkable. IMPRESSION: No fractures within the right shoulder. ACT 112: Negative or not required by law. Electronically signed by: Efrem Corea M.D. 01/05/2021 8:48 AM
--- NOTE | 2021-01-05 09:05 | XRay Report ---
XR chest 1V portable HISTORY: Cough COMPARISON: Chest 12/20/2017. FINDINGS: There are low lung volumes. No pneumothorax. No pleural effusions. The heart is normal in s ize. Postoperative changes again noted within the proximal left humerus. No new focal lung consolidat ions to suggest pneumonia. There is mild diffuse interstitial thickening which has slightly progresse d. IMPRESSION: Mild diffuse interstitial thickening which has slightly progressed. This could be chronic or represen t mild congestive change. ACT 112: Negative or not required by law. Electronically signed by: Efrem Corea M.D. 01/05/2021 9:03 AM
[2021-01-05] MEDS ORDERED: ACETAMINOPHEN 325 MG TAB PO PRN (13:12)
[2021-01-05] MEDS ORDERED: ALUMINUM/MAGNESIUM SUSP 30 ML UDC PO PRN (13:12)
[2021-01-05] MEDS ORDERED: NICOTINE POLACRILEX 2 MG GUM MT PRN (13:12)
[2021-01-05] MEDS ORDERED: MAGNESIUM HYDROXIDE SUSP 30 ML UDC PO PRN (13:12)
[2021-01-05] MEDS ORDERED: hydrOXYzine HCl 25 MG TAB PO PRN (13:12)
[2021-01-05] MEDS ORDERED: SODIUM CHLORIDE 0.65% NA SOLN 45 ML (OCEAN) PRN (13:12)
[2021-01-05] MEDS ORDERED: BISMUTH SUBSALICYLATE LIQD 236 ML PO PRN (13:12)
[2021-01-05] MEDS ORDERED: IPRATROPIUM BROMIDE/ALBUTEROL respimat INH INH PRN (13:14)
[2021-01-05] MEDS ORDERED: CYCLOBENZAPRINE HCL 5 MG TAB PO PRN (13:14)
[2021-01-05] MEDS ORDERED: ALBUT/IPRATROP 3MG/0.5MG NEB 3 ML VIAL INH PRN (13:14)
[2021-01-05] MEDS ORDERED: haloperidoL 5 MG TAB PO PRN (13:15)
[2021-01-05] MEDS ORDERED: LORazepam 1 MG TAB PO PRN ×2 (13:15→14:27)
[2021-01-05] MEDS ORDERED: Albuterol HFA 8 GM Inhaler (Combivent Respimat P&T Subs) INH PRN (13:23)
[2021-01-05] MEDS ORDERED: Ipratropium HFA Inhaler (Combivent Respimat P&T Subs) INH PRN (13:24)
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
[2021-01-05] MEDS ORDERED: OLANZapine 5 MG TABLET PO PRN (15:07)
[2021-01-05] MEDS: LURASIDONE HCL 40 MG TAB PO SCH (17:09)
[2021-01-05] MEDS: NICOTINE 21 MG/24 HR TDSY TD SCH (17:12)
[2021-01-05] MEDS: ZOLPIDEM TARTRATE 10 MG TAB PO PRN (20:28)
[2021-01-05] MEDS ORDERED: haloperidoL 5 MG TAB PO SCH (21:00)
[2021-01-05] MEDS: hydrOXYzine HCl 25 MG TAB PO PRN (23:55)
[2021-01-06] MEDS ORDERED: cloNIDine HCL 0.1 MG TAB PO ONE (08:12)
[2021-01-06 08:53] LABS: Glucose Fasting 93 mg/dl (70-99)
[2021-01-06 08:59] LABS: Chol HDL Ratio 6; Cholesterol 116 mg/dl (0-200); HDL Cholesterol 18 mg/dl; LDL Cholesterol Calculated 78 mg/dl; Triglycerides 99 mg/dl (0-150); VLDL Cholesterol 20 mg/dl
[2021-01-06] MEDS: PANTOprazole 40 MG TAB PO SCH (09:01)
[2021-01-06] MEDS: NICOTINE 21 MG/24 HR TDSY TD SCH (09:04)
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
[2021-01-06] MEDS: ALBUTEROL HFA 8 GM INHALER INH SCH ×2 (11:24→19:23)
[2021-01-06] MEDS: guaiFENesin SUGAR FREE 200 MG/10 ML UDC PO PRN (11:24)
[2021-01-06] MEDS: COUGH DROP (SUGAR FREE) LOZ 24 LOZ/1 BOX BUCCAL PRN (16:08)
[2021-01-06] MEDS: LURASIDONE HCL 40 MG TAB PO SCH (17:24)
[2021-01-06] MEDS: ZOLPIDEM TARTRATE 10 MG TAB PO PRN (21:47)
--- NOTE | 2021-01-07 06:35 | Electrocardiogram Report ---
Test Reason : Blood Pressure : / mmHG Vent. Rate : 112 BPM Atrial Rate : 112 BPM P-R Int : 136 ms QRS Dur : 066 ms QT Int : 322 ms P-R-T Axes : 070 050 069 degrees QTc Int : 439 ms Sinus tachycardia Right atrial enlargement Borderline ECG When compared with ECG of 23-JUL-2020 22:39, No significant change was found Confirmed by Vickey Walsh ([id number]) on 01/07/2021 6:34:38 AM Referred By: REFERRED SELF Confirmed By:Vickey Walsh
[2021-01-07] MEDS: PANTOprazole 40 MG TAB PO SCH (08:43)
[2021-01-07] MEDS: ALBUTEROL HFA 8 GM INHALER INH SCH ×2 (08:48→21:08)
[2021-01-07] MEDS: NICOTINE 21 MG/24 HR TDSY TD SCH (08:48)
[2021-01-07] MEDS: guaiFENesin SUGAR FREE 200 MG/10 ML UDC PO PRN (11:10)
[2021-01-07] MEDS: COUGH DROP (SUGAR FREE) LOZ 24 LOZ/1 BOX BUCCAL PRN ×2 (12:59→21:08)
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
[2021-01-07] MEDS: LURASIDONE HCL 40 MG TAB PO SCH (17:55)
[2021-01-07] MEDS: BENZTROPINE MESYLATE 1 MG TAB PO PRN (20:06)
[2021-01-07] MEDS: QUEtiapine FUMARATE 100 MG TABLET PO PRN (20:06)
[2021-01-07] MEDS: ZOLPIDEM TARTRATE 10 MG TAB PO PRN (21:08)
[2021-01-08] MEDS: NICOTINE 21 MG/24 HR TDSY TD SCH (08:55)
[2021-01-08] MEDS: ALBUTEROL HFA 8 GM INHALER INH SCH ×2 (08:55→20:44)
[2021-01-08] MEDS: PANTOprazole 40 MG TAB PO SCH (08:56)
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
[2021-01-08] MEDS: LURASIDONE HCL 40 MG TAB PO SCH (17:20)
[2021-01-08] MEDS: QUEtiapine FUMARATE 100 MG TABLET PO PRN (19:55)
[2021-01-08] MEDS: ZOLPIDEM TARTRATE 10 MG TAB PO PRN (22:24)
[2021-01-09] MEDS: PANTOprazole 40 MG TAB PO SCH (09:32)
[2021-01-09] MEDS: ALBUTEROL HFA 8 GM INHALER INH SCH ×2 (09:34→20:20)
[2021-01-09] MEDS: NICOTINE 21 MG/24 HR TDSY TD SCH (09:38)
--- NOTE | 2021-01-09 15:09 | Psychiatric Progress Note ---
Date of Service January 09, 2021 Impression / Recommendations Impression 55 yo female with schizoaffective disorder admit with paranoid and persecutory delusions with accompanying alejandro. Some early response to restart Latuda but remains very disorganized, need for a private room and unable to care for herself outside of the hospital. (1) Schizoaffective disorder: 01/08/21--increase Latuda 80 mg with evening meal. 303 hearing 01/09/21--11 am. 01/07/21--likely increase Latuda tomorrow. Seroquel [address] of Zyprexa (patient preference), need to engage family. 303 paperwork filed. 01/06/21--continue Latuda trial. labs reviewed. manic likely cause of tachy but will rx with clonidine prn or standing beta garry for restlessness. Patient unaffected at this time. confirm last EKG. 01/05/21--The patient was admitted to the [facility] ([facility]) on q15 min checks (behavioral) for safety. The patient will participate in group, recreational, and milieu therapies and will be offered additional individual and family sessions as clinically appropriate. Risks/benefits/alternatives were reviewed re: antipsychotics for mood and/or psychosis. Discussion included but was not limited to metabolic side effects, risks of TD and suicidal thoughts. She exhibits oral dyskinesias, mild, unaware, at baseline, could appear worse due to withdrawal from antipsychotics due to noncompliance. Will minimize exposure to Haldol and will not restart and utilize Zyprexa 5 mg as prn. Resume Latuda trial, increasing to 60 mg this pm with food. Fasting glucose and lipid panel ordered for baseline monitoring. (2) Elevated LFTs: 01/05/21: persistent presumably due to hx of Hep C, has lymphoma dx with ongoing need for work up of breast lump. Staff to facilitate rescheduling of mammogram. Risk Factors Assessment Do You Have Access To A Gun?: No Protective Factors Assessment Employed: No Interval History Chief Complaint "I do not have schizophrenia I have schizophrenic symptoms". Review of Systems Sleep Information Total Hours of Sleep: 7.25 Sleep Comments: pt given vistaril per rn. pt on q-15 minute checks Meal Information Percent Meal Consumed - Breakfast: 100 Percent Meal Consumed - Lunch: 75 Percent Meal Consumed - Dinner: 100 Subjective Subjective Patient was seen & assessed and interval progress reviewed with treatment team nursing and social work. Patient states that she is not schizophrenic and does not need to be in the hospital any longer. The treatment plan was reviewed with the patient to which she expressed agreement however she did become a little bit irate during the court hearing process when her symptoms had to be read aloud to the life cycle assessment analyst. Patient was able to be calmed down although given the option will continue on a long tirade about how she is not guilty and that it is the girlfriend of her son who should be in the hospital. Patient continues to minimize her symptoms and at times speaks so tangentially that it becomes illogical. Patient reportedly slept 7 hours last night, is eating her meals fully with a strong appetite. Denies any side effects of the medication, none observed. Physical Exam Psychiatric Orientation: alert, oriented to person and oriented to place Apperance: appropriately groomed and + disheveled Eye Contact: + fair eye contact and + poor eye contact Motor Behavior: steady gait and station and + psychomotor agitation Speech: + pressured speech (less so, fast at times.); + abnormal rate/rhythm/volume of speech (hyperverbal but redirectible) Affect: + labile affect and + constricted affect Mood: + anxious mood Thought Process: + tangential thought process Thought Content: + paranoid, + delusions and + persecution Suicidal Thoughts: denies suicidal thoughts Homicidal Thoughts: denies homicidal thoughts Hallucinations: no auditory hallucinations and no visual hallucinations Cognition: + attention not intact Estimated Intelligence: + below average estimated intelligence Insight: + severely impaired insight Judgement: + severely impaired judgement Vital Signs (Past 24 Hours) Last Vital Signs Temp 36.5 C 01/09/21 06:00 Pulse 99 H 01/09/21 06:40 Resp 18 01/09/21 06:00 BP 127/87 01/09/21 06:40 Pulse Ox 96 01/07/21 18:00 Results & Data ([facility]) Current Inpatient Medications Current Inpatient Medications: Current Inpatient Medications Acetaminophen (Acetaminophen 325 Mg Tab) 650 mg PO Q4H PRN PRN Reason: Headache or Minor Fever Stop: 02/04/21 13:11 Al Hydrox/Mg Hydrox/Simethicone (Aluminum/Magnesium Susp 30 Ml Udc) 30 ml PO Q4H PRN PRN Reason: GI Upset Stop: 02/04/21 13:11 Albuterol (Albut/Ipratrop 3mg/0.5mg Neb 3 Ml Vial) 3 ml INH QID PRN PRN Reason: wheezing Stop: 02/04/21 13:13 Albuterol (Albuterol Hfa 8 Gm Inhaler (Combivent Respimat P&T Subs)) 1 puffs INH QIDR PRN PRN Reason: Shortness Of Breath Stop: 02/04/21 13:22 Albuterol (Albuterol Hfa 8 Gm Inhaler) 2 puffs INH BID MICAH Stop: 02/05/21 10:14 Last Admin: 01/09/21 09:34 Dose: 2 puffs Documented by: Benztropine Mesylate (Benztropine Mesylate 1 Mg Tab) 1 mg PO Q6H PRN PRN Reason: Muscle Spasm Stop: 02/04/21 15:06 Last Admin: 01/07/21 20:06 Dose: 1 mg Documented by: Bismuth Subsalicylate (Bismuth Subsalicylate Liqd 236 Ml) 15 ml PO PRN PRN PRN Reason: Loose Stool Stop: 02/04/21 13:11 Cyclobenzaprine HCl (Cyclobenzaprine Hcl 5 Mg Tab) 5 mg PO TID PRN PRN Reason: Spasms Stop: 02/04/21 13:13 Guaifenesin (Guaifenesin Sugar Free 200 Mg/10 Ml Udc) 200 mg PO Q6H PRN PRN Reason: Cough Stop: 02/05/21 10:11 Last Admin: 01/07/21 11:10 Dose: 200 mg Documented by: Hydroxyzine HCl (Hydroxyzine Hcl 25 Mg Tab) 50 mg PO HSZ PRN PRN Reason: Insomnia Stop: 02/04/21 13:11 Last Admin: 01/05/21 23:55 Dose: 50 mg Documented by: Hydroxyzine HCl (Hydroxyzine Hcl 25 Mg Tab) 25 mg PO Q4H PRN PRN Reason: Anxiety Stop: 02/04/21 13:11 Ipratropium [place] (Ipratropium Hfa Inhaler (Combivent Respimat P&T Subs)) 1 puffs INH QIDR PRN PRN Reason: Shortness Of Breath Stop: 02/04/21 13:23 Lorazepam (Lorazepam 1 Mg Tab) 1 mg PO Q6 PRN PRN Reason: Anxiety/Agitation Stop: 02/04/21 13:14 Lorazepam (Lorazepam 1 Mg Tab) 1 mg PO ONE PRN; Protocol PRN Reason: EtoH Withdrawal AWSS 6-10 Lurasidone HCl (Lurasidone Hcl 40 Mg Tab) 80 mg PO DAILYBD MICAH Stop: 02/07/21 17:14 Last Admin: 01/08/21 17:20 Dose: 80 mg Documented by: Magnesium Hydroxide (Magnesium Hydroxide Susp 30 Ml Udc) 30 ml PO DAILY PRN PRN Reason: Constipation Stop: 02/04/21 13:11 Menthol (Cough Drop (Sugar Free) Vy 24 Vy/1 Box) 1 vy BUCCAL Q2HWA PRN PRN Reason: Sore Throat Stop: 02/05/21 10:11 Last Admin: 01/07/21 21:08 Dose: 1 vy Documented by: Miscellaneous (Remove Nicoderm Patch) 1 ea N/A DAILY@0859 [facility] Stop: 02/05/21 08:58 Last Admin: 01/09/21 09:31 Dose: 1 ea Documented by: Nicotine (Nicotine 21 Mg/24 Hr Tdsy) 21 mg TD QAM [facility] Stop: 02/04/21 14:14 Last Admin: 01/09/21 09:38 Dose: 21 mg Documented by: Nicotine Polacrilex (Nicotine Polacrilex 2 Mg Gum) 1 piece MT PRN PRN PRN Reason: Nicotine Withdrawal Stop: 02/04/21 13:11 Pantoprazole Sodium (Pantoprazole 40 Mg Tab) 40 mg PO DAILY [facility] Stop: 02/05/21 08:59 Last Admin: 01/09/21 09:32 Dose: 40 mg Documented by: Quetiapine Fumarate (Quetiapine Fumarate 100 Mg Tablet) 100 mg PO Q8 PRN PRN Reason: Anxiety/Agitation Stop: 02/06/21 13:59 Last Admin: 01/08/21 19:55 Dose: 100 mg Documented by: Sodium Chloride (Sodium Chloride 0.65% Na Soln 45 Ml ([place])) 1 - 2 sprays NA PRN PRN PRN Reason: Nasal Dryness/Congestion Stop: 02/04/21 13:11 Last Admin: 01/07/21 14:17 Dose: 2 sprays Documented by: Zolpidem Tartrate (Zolpidem Tartrate 10 Mg Tab) 10 mg PO HS PRN PRN Reason: Sleep Stop: 02/04/21 15:06 Last Admin: 01/08/21 22:24 Dose: 10 mg Documented by: Mental Health & Subst Abuse Tx Psychiatrist Name of Psychiatrist: Angi Snider Psychiatrist's Date of Appointment with Psychiatrist: 01/19/21 Time of Appointment with Psychiatrist: 12:30pm Psychiatric Appointment Comment: [phone] Therapist Name of Therapist: Angi Therapist's Date of Therapist Appointment: 01/22/21 Time of Therapist Appointment: 1:30pm Therapy Appointment Comment: [phone] Clerical Administrator Name of Clerical Administrator: Randy Jean Post Discharge Appointments Primary Care Physician Name Of Family Doctor: VENKATA Solis Primary Care Provider Appointment Comment: [phone] [facility], [address] , [place] Contact Information Discharge Discharge Address: [address] [place] [address] (1) Schizoaffective disorder Schizoaffective disorder type: unspecified Qualified Code(s): F25.9 - Schizoaffective disorder, unspecified
[2021-01-09] MEDS: LURASIDONE HCL 40 MG TAB PO SCH (17:17)
[2021-01-09] MEDS: BENZTROPINE MESYLATE 1 MG TAB PO PRN (20:20)
[2021-01-09] MEDS: hydrOXYzine HCl 25 MG TAB PO PRN (20:20)
[2021-01-09] MEDS: QUEtiapine FUMARATE 100 MG TABLET PO PRN (20:25)
[2021-01-09] MEDS: ZOLPIDEM TARTRATE 10 MG TAB PO PRN (21:58)
[2021-01-10] MEDS: PANTOprazole 40 MG TAB PO SCH (08:46)
[2021-01-10] MEDS: NICOTINE 21 MG/24 HR TDSY TD SCH (08:46)
[2021-01-10] MEDS: ALBUTEROL HFA 8 GM INHALER INH SCH ×2 (08:47→20:28)
--- NOTE | 2021-01-10 14:47 | Psychiatric Progress Note ---
Date of Service January 10, 2021 Impression / Recommendations Impression 55 yo female with schizoaffective disorder admit with paranoid and persecutory delusions with accompanying alejandro. Some early response to restart Latuda but remains very disorganized, need for a private room and unable to care for herself outside of the hospital. (1) Schizoaffective disorder: 01/10/2021atient making incremental progress, although continues to be manic at this time 01/08/21--increase Latuda 80 mg with evening meal. 303 hearing 01/09/21--11 am. 01/07/21--likely increase Latuda tomorrow. Seroquel [address] of Zyprexa (patient preference), need to engage family. 303 paperwork filed. 01/06/21--continue Latuda trial. labs reviewed. manic likely cause of tachy but will rx with clonidine prn or standing beta garry for restlessness. Patient unaffected at this time. confirm last EKG. 01/05/21--The patient was admitted to the [facility] on q15 min checks (behavioral) for safety. The patient will participate in group, recreational, and milieu therapies and will be offered additional individual and family sessions as clinically appropriate. Risks/benefits/alternatives were reviewed re: antipsychotics for mood and/or psychosis. Discussion included but was not limited to metabolic side effects, risks of TD and suicidal thoughts. She exhibits oral dyskinesias, mild, unaware, at baseline, could appear worse due to withdrawal from antipsychotics due to noncompliance. Will minimize exposure to Haldol and will not restart and utilize Zyprexa 5 mg as prn. Resume Latuda trial, increasing to 60 mg this pm with food. Fasting glucose and lipid panel ordered for baseline monitoring. (2) Elevated LFTs: 01/05/21: persistent presumably due to hx of Hep C, has lymphoma dx with ongoing need for work up of breast lump. Staff to facilitate rescheduling of mammogram. Risk Factors Assessment Do You Have Access To A Gun?: No Protective Factors Assessment Employed: No Interval History Chief Complaint "I'm okay". Review of Systems Sleep Information Total Hours of Sleep: 6 Sleep Comments: pt given vistaril per rn. pt on q-15 minute checks Meal Information Percent Meal Consumed - Breakfast: 100 Percent Meal Consumed - Lunch: 100 Percent Meal Consumed - Dinner: 90 Subjective Subjective Patient was seen & assessed and interval progress reviewed with treatment team nursing and social work Patient endorsing a good night of sleep and a strong appetite. She is engaging in groups and interacting appropriately with peers although at times remains intrusive. Patient sometimes are still present, although she seems less distressed by them. She continues to have paranoid delusions and will speak about them incessantly when questioned. She is however compliant with medication seems to be making incremental progress I spent 30 minutes with the patient, 50% of which was dedicated to counselling and coordination of care. Physical Exam Psychiatric Orientation: alert, oriented to person and oriented to place Apperance: appropriately groomed and + disheveled Eye Contact: + fair eye contact and + poor eye contact Motor Behavior: steady gait and station and + psychomotor agitation Speech: + pressured speech (less so, fast at times.); + abnormal rate/rhythm/volume of speech (hyperverbal but redirectible) Affect: + labile affect and + constricted affect Mood: + anxious mood Thought Process: + tangential thought process Thought Content: + paranoid, + delusions and + persecution Suicidal Thoughts: denies suicidal thoughts Homicidal Thoughts: denies homicidal thoughts Hallucinations: no auditory hallucinations and no visual hallucinations Cognition: + attention not intact Estimated Intelligence: + below average estimated intelligence Insight: + severely impaired insight Judgement: + severely impaired judgement Vital Signs (Past 24 Hours) Last Vital Signs Temp 36.6 C 01/10/21 06:32 Pulse 92 H 01/10/21 06:32 Resp 16 01/10/21 06:32 BP 98/68 L 01/10/21 06:32 Pulse Ox 96 01/07/21 18:00 Results & Data ([facility]) Current Inpatient Medications Current Inpatient Medications: Current Inpatient Medications Acetaminophen (Acetaminophen 325 Mg Tab) 650 mg PO Q4H PRN PRN Reason: Headache or Minor Fever Stop: 02/04/21 13:11 Al Hydrox/Mg Hydrox/Simethicone (Aluminum/Magnesium Susp 30 Ml Udc) 30 ml PO Q4H PRN PRN Reason: GI Upset Stop: 02/04/21 13:11 Albuterol (Albut/Ipratrop 3mg/0.5mg Neb 3 Ml Vial) 3 ml INH QID PRN PRN Reason: wheezing Stop: 02/04/21 13:13 Albuterol (Albuterol Hfa 8 Gm Inhaler (Combivent Respimat P&T Subs)) 1 puffs INH QIDR PRN PRN Reason: Shortness Of Breath Stop: 02/04/21 13:22 Albuterol (Albuterol Hfa 8 Gm Inhaler) 2 puffs INH BID MICAH Stop: 02/05/21 10:14 Last Admin: 01/10/21 08:47 Dose: 2 puffs Documented by: Benztropine Mesylate (Benztropine Mesylate 1 Mg Tab) 1 mg PO Q6H PRN PRN Reason: Muscle Spasm Stop: 02/04/21 15:06 Last Admin: 01/09/21 20:20 Dose: 1 mg Documented by: Bismuth Subsalicylate (Bismuth Subsalicylate Liqd 236 Ml) 15 ml PO PRN PRN PRN Reason: Loose Stool Stop: 02/04/21 13:11 Cyclobenzaprine HCl (Cyclobenzaprine Hcl 5 Mg Tab) 5 mg PO TID PRN PRN Reason: Spasms Stop: 02/04/21 13:13 Guaifenesin (Guaifenesin Sugar Free 200 Mg/10 Ml Udc) 200 mg PO Q6H PRN PRN Reason: Cough Stop: 02/05/21 10:11 Last Admin: 01/07/21 11:10 Dose: 200 mg Documented by: Hydroxyzine HCl (Hydroxyzine Hcl 25 Mg Tab) 50 mg PO HSZ PRN PRN Reason: Insomnia Stop: 02/04/21 13:11 Last Admin: 01/09/21 20:20 Dose: 50 mg Documented by: Hydroxyzine HCl (Hydroxyzine Hcl 25 Mg Tab) 25 mg PO Q4H PRN PRN Reason: Anxiety Stop: 02/04/21 13:11 Ipratropium [place] (Ipratropium Hfa Inhaler (Combivent Respimat P&T Subs)) 1 puffs INH QIDR PRN PRN Reason: Shortness Of Breath Stop: 02/04/21 13:23 Lorazepam (Lorazepam 1 Mg Tab) 1 mg PO Q6 PRN PRN Reason: Anxiety/Agitation Stop: 02/04/21 13:14 Lorazepam (Lorazepam 1 Mg Tab) 1 mg PO ONE PRN; Protocol PRN Reason: EtoH Withdrawal AWSS 6-10 Lurasidone HCl (Lurasidone Hcl 40 Mg Tab) 80 mg PO DAILYBD [facility] Stop: 02/07/21 17:14 Last Admin: 01/09/21 17:17 Dose: 80 mg Documented by: Magnesium Hydroxide (Magnesium Hydroxide Susp 30 Ml Udc) 30 ml PO DAILY PRN PRN Reason: Constipation Stop: 02/04/21 13:11 Menthol (Cough Drop (Sugar Free) Vy 24 Vy/1 Box) 1 vy BUCCAL Q2HWA PRN PRN Reason: Sore Throat Stop: 02/05/21 10:11 Last Admin: 01/07/21 21:08 Dose: 1 vy Documented by: Miscellaneous (Remove Nicoderm Patch) 1 ea N/A DAILY@0859 [facility] Stop: 02/05/21 08:58 Last Admin: 01/10/21 08:46 Dose: 1 ea Documented by: Nicotine (Nicotine 21 Mg/24 Hr Tdsy) 21 mg TD QAM [facility] Stop: 02/04/21 14:14 Last Admin: 01/10/21 08:46 Dose: 21 mg Documented by: Nicotine Polacrilex (Nicotine Polacrilex 2 Mg Gum) 1 piece MT PRN PRN PRN Reason: Nicotine Withdrawal Stop: 02/04/21 13:11 Pantoprazole Sodium (Pantoprazole 40 Mg Tab) 40 mg PO DAILY [facility] Stop: 02/05/21 08:59 Last Admin: 01/10/21 08:46 Dose: 40 mg Documented by: Quetiapine Fumarate (Quetiapine Fumarate 100 Mg Tablet) 100 mg PO Q8 PRN PRN Reason: Anxiety/Agitation Stop: 02/06/21 13:59 Last Admin: 01/09/21 20:25 Dose: 100 mg Documented by: Sodium Chloride (Sodium Chloride 0.65% Na Soln 45 Ml ([place])) 1 - 2 sprays NA PRN PRN PRN Reason: Nasal Dryness/Congestion Stop: 02/04/21 13:11 Last Admin: 01/07/21 14:17 Dose: 2 sprays Documented by: Zolpidem Tartrate (Zolpidem Tartrate 10 Mg Tab) 10 mg PO HS PRN PRN Reason: Sleep Stop: 02/04/21 15:06 Last Admin: 01/09/21 21:58 Dose: 10 mg Documented by: Mental Health & Subst Abuse Tx Psychiatrist Name of Psychiatrist: Angi Snider Psychiatrist's Date of Appointment with Psychiatrist: 01/19/21 Time of Appointment with Psychiatrist: 12:30pm Psychiatric Appointment Comment: [phone] Therapist Name of Therapist: Angi Therapist's Date of Therapist Appointment: 01/22/21 Time of Therapist Appointment: 1:30pm Therapy Appointment Comment: [phone] Production Team Manager Name of Production Team Manager: Randy Jean Post Discharge Appointments Primary Care Physician Name Of Family Doctor: VENKATA Solis Primary Care Provider Appointment Comment: [phone] [facility], [address], [place] Name of Specialist: [facility] Date of Appointment with Specialist: 01/16/21 Time of Appointment with Specialist: 11:15 a.m. Contact Information Discharge Discharge Address: [address] [place] [address] (1) Schizoaffective disorder Schizoaffective disorder type: unspecified Qualified Code(s): F25.9 - Schizoaffective disorder, unspecified
[2021-01-10] MEDS: LURASIDONE HCL 40 MG TAB PO SCH (17:36)
[2021-01-10] MEDS: QUEtiapine FUMARATE 100 MG TABLET PO PRN (20:27)
[2021-01-10] MEDS: ZOLPIDEM TARTRATE 10 MG TAB PO PRN (21:02)
[2021-01-11] MEDS: hydrOXYzine HCl 25 MG TAB PO PRN (00:28)
[2021-01-11] MEDS: TOPIRAMATE 25 MG TAB PO SCH (09:40)
[2021-01-11] MEDS: PANTOprazole 40 MG TAB PO SCH (09:40)
[2021-01-11] MEDS: NICOTINE 21 MG/24 HR TDSY TD SCH (09:41)
[2021-01-11] MEDS: ALBUTEROL HFA 8 GM INHALER INH SCH ×2 (09:41→21:06)
--- NOTE | 2021-01-11 09:54 | Psychiatric Progress Note ---
Date of Service January 11, 2021 Impression / Recommendations Impression 55 yo female with schizoaffective disorder admit with paranoid and persecutory delusions with accompanying alejandro. Some early response to restart Latuda but remains very disorganized, need for a private room and unable to care for herself outside of the hospital. (1) Schizoaffective disorder: 01/11/2021atient making incremental progress, less manic today and appears to be returning to baseline. 01/10/2021atient making incremental progress, although continues to be manic at this time 01/08/21--increase Latuda 80 mg with evening meal. 303 hearing 01/09/21--11 am. 01/07/21--likely increase Latuda tomorrow. Seroquel [address] of Zyprexa (patient preference), need to engage family. 303 paperwork filed. 01/06/21--continue Latuda trial. labs reviewed. manic likely cause of tachy but will rx with clonidine prn or standing beta garry for restlessness. Patient unaffected at this time. confirm last EKG. 01/05/21--The patient was admitted to the [facility] ([facility] health unit) on q15 min checks (behavioral) for safety. The patient will participate in group, recreational, and milieu therapies and will be offered additional individual and family sessions as clinically appropriate. Risks/benefits/alternatives were reviewed re: antipsychotics for mood and/or psychosis. Discussion included but was not limited to metabolic side effects, risks of TD and suicidal thoughts. She exhibits oral dyskinesias, mild, unaware, at baseline, could appear worse due to withdrawal from antipsychotics due to noncompliance. Will minimize exposure to Haldol and will not restart and utilize Zyprexa 5 mg as prn. Resume Latuda trial, increasing to 60 mg this pm with food. Fasting glucose and lipid panel ordered for baseline monitoring. (2) Elevated LFTs: 01/05/21: persistent presumably due to hx of Hep C, has lymphoma dx with ongoing need for work up of breast lump. Staff to facilitate rescheduling of mammogram. Risk Factors Assessment Do You Have Access To A Gun?: No Protective Factors Assessment Employed: No Interval History Chief Complaint "I am okay". Review of Systems Sleep Information Total Hours of Sleep: 7.75 Sleep Comments: pt given vistaril per rn. pt on q-15 minute checks Meal Information Percent Meal Consumed - Breakfast: 100 Percent Meal Consumed - Lunch: 100 Percent Meal Consumed - Dinner: 100 Nutrition Comment: per meal record Subjective Subjective Patient was seen & assessed and interval progress reviewed with treatment team nursing and social work Patient denies any side effects of the medication. Reports compliance. Does endorse feeling somewhat tired this morning, but states that she appreciated the extra sleep. Patient is eating her meals well and interacting appropriately with peers. Does still remain a little bit intrusive in groups, but seems to be making some improvement. Patient does express some delusions which appear to be chronic in nature, but seems less distressed by them. Physical Exam Psychiatric Orientation: alert, oriented to person and oriented to place Apperance: appropriately groomed and + disheveled Eye Contact: + fair eye contact and + poor eye contact Motor Behavior: steady gait and station and + psychomotor agitation Speech: + pressured speech (less so, fast at times.); + abnormal rate/rhythm/volume of speech (hyperverbal but redirectible) Affect: + labile affect and + constricted affect Mood: + anxious mood Thought Process: + tangential thought process Thought Content: + paranoid, + delusions and + persecution Suicidal Thoughts: denies suicidal thoughts Homicidal Thoughts: denies homicidal thoughts Hallucinations: no auditory hallucinations and no visual hallucinations Cognition: + attention not intact Estimated Intelligence: + below average estimated intelligence Insight: + severely impaired insight Judgement: + severely impaired judgement Vital Signs (Past 24 Hours) Last Vital Signs Temp 36.6 C 01/11/21 07:17 Pulse 112 H 01/11/21 07:17 Resp 16 01/11/21 07:17 BP 119/74 01/11/21 07:17 Pulse Ox 96 01/07/21 18:00 Results & Data ([facility]) Current Inpatient Medications Current Inpatient Medications: Current Inpatient Medications Acetaminophen (Acetaminophen 325 Mg Tab) 650 mg PO Q4H PRN PRN Reason: Headache or Minor Fever Stop: 02/04/21 13:11 Al Hydrox/Mg Hydrox/Simethicone (Aluminum/Magnesium Susp 30 Ml Udc) 30 ml PO Q4H PRN PRN Reason: GI Upset Stop: 02/04/21 13:11 Albuterol (Albut/Ipratrop 3mg/0.5mg Neb 3 Ml Vial) 3 ml INH QID PRN PRN Reason: wheezing Stop: 02/04/21 13:13 Albuterol (Albuterol Hfa 8 Gm Inhaler (Combivent Respimat P&T Subs)) 1 puffs INH QIDR PRN PRN Reason: Shortness Of Breath Stop: 02/04/21 13:22 Albuterol (Albuterol Hfa 8 Gm Inhaler) 2 puffs INH BID MICAH Stop: 02/05/21 10:14 Last Admin: 01/11/21 09:41 Dose: 2 puffs Documented by: Benztropine Mesylate (Benztropine Mesylate 1 Mg Tab) 1 mg PO Q6H PRN PRN Reason: Muscle Spasm Stop: 02/04/21 15:06 Last Admin: 01/09/21 20:20 Dose: 1 mg Documented by: Bismuth Subsalicylate (Bismuth Subsalicylate Liqd 236 Ml) 15 ml PO PRN PRN PRN Reason: Loose Stool Stop: 02/04/21 13:11 Cyclobenzaprine HCl (Cyclobenzaprine Hcl 5 Mg Tab) 5 mg PO TID PRN PRN Reason: Spasms Stop: 02/04/21 13:13 Guaifenesin (Guaifenesin Sugar Free 200 Mg/10 Ml Udc) 200 mg PO Q6H PRN PRN Reason: Cough Stop: 02/05/21 10:11 Last Admin: 01/07/21 11:10 Dose: 200 mg Documented by: Hydroxyzine HCl (Hydroxyzine Hcl 25 Mg Tab) 50 mg PO HSZ PRN PRN Reason: Insomnia Stop: 02/04/21 13:11 Last Admin: 01/11/21 00:28 Dose: 50 mg Documented by: Hydroxyzine HCl (Hydroxyzine Hcl 25 Mg Tab) 25 mg PO Q4H PRN PRN Reason: Anxiety Stop: 02/04/21 13:11 Ipratropium [place] (Ipratropium Hfa Inhaler (Combivent Respimat P&T Subs)) 1 puffs INH QIDR PRN PRN Reason: Shortness Of Breath Stop: 02/04/21 13:23 Lorazepam (Lorazepam 1 Mg Tab) 1 mg PO Q6 PRN PRN Reason: Anxiety/Agitation Stop: 02/04/21 13:14 Lorazepam (Lorazepam 1 Mg Tab) 1 mg PO ONE PRN; Protocol PRN Reason: EtoH Withdrawal AWSS 6-10 Lurasidone HCl (Lurasidone Hcl 40 Mg Tab) 80 mg PO [facility]ILYBD [facility] Stop: 02/07/21 17:14 Last Admin: 01/10/21 17:36 Dose: 80 mg Documented by: Magnesium Hydroxide (Magnesium Hydroxide Susp 30 Ml Udc) 30 ml PO DAILY PRN PRN Reason: Constipation Stop: 02/04/21 13:11 Menthol (Cough Drop (Sugar Free) Vy 24 Vy/1 Box) 1 vy BUCCAL Q2HWA PRN PRN Reason: Sore Throat Stop: 02/05/21 10:11 Last Admin: 01/07/21 21:08 Dose: 1 vy Documented by: Miscellaneous (Remove Nicoderm Patch) 1 ea N/A DAILY@0859 [facility] Stop: 02/05/21 08:58 Last Admin: 01/11/21 09:42 Dose: 1 ea Documented by: Nicotine (Nicotine 21 Mg/24 Hr Tdsy) 21 mg TD QAM [facility] Stop: 02/04/21 14:14 Last Admin: 01/11/21 09:41 Dose: 21 mg Documented by: Nicotine Polacrilex (Nicotine Polacrilex 2 Mg Gum) 1 piece MT PRN PRN PRN Reason: Nicotine Withdrawal Stop: 02/04/21 13:11 Pantoprazole Sodium (Pantoprazole 40 Mg Tab) 40 mg PO DAILY [facility] Stop: 02/05/21 08:59 Last Admin: 01/11/21 09:40 Dose: 40 mg Documented by: Quetiapine Fumarate (Quetiapine Fumarate 100 Mg Tablet) 100 mg PO Q8 PRN PRN Reason: Anxiety/Agitation Stop: 02/06/21 13:59 Last Admin: 01/10/21 20:27 Dose: 100 mg Documented by: Sodium Chloride (Sodium Chloride 0.65% Na Soln 45 Ml ([place])) 1 - 2 sprays NA PRN PRN PRN Reason: Nasal Dryness/Congestion Stop: 02/04/21 13:11 Last Admin: 01/07/21 14:17 Dose: 2 sprays Documented by: Topiramate (Topiramate 25 Mg Tab) 25 mg PO QAM [facility] Stop: 02/10/21 08:59 Last Admin: 01/11/21 09:40 Dose: 25 mg Documented by: Zolpidem Tartrate (Zolpidem Tartrate 10 Mg Tab) 10 mg PO HS PRN PRN Reason: Sleep Stop: 02/04/21 15:06 Last Admin: 01/10/21 21:02 Dose: 10 mg Documented by: Mental Health & Subst Abuse Tx Psychiatrist Name of Psychiatrist: Angi Snider Psychiatrist's Date of Appointment with Psychiatrist: 01/19/21 Time of Appointment with Psychiatrist: 12:30pm Psychiatric Appointment Comment: [phone] Therapist Name of Therapist: Angi Therapist's Date of Therapist Appointment: 01/22/21 Time of Therapist Appointment: 1:30pm Therapy Appointment Comment: [phone] Care Giver Name of Care Giver: Randy Jean Post Discharge Appointments Primary Care Physician Name Of Family Doctor: VENKATA Solis Primary Care Provider Appointment Comment: [phone] [facility], [address], [place] Name of Specialist: [facility] Date of Appointment with Specialist: 01/16/21 Time of Appointment with Specialist: 11:15 a.m. Contact Information Discharge Discharge Address: [address] [place] [address] (1) Schizoaffective disorder Schizoaffective disorder type: unspecified Qualified Code(s): F25.9 - Schizoaffective disorder, unspecified
[2021-01-11] MEDS: LURASIDONE HCL 40 MG TAB PO SCH (17:31)
[2021-01-11] MEDS: QUEtiapine FUMARATE 100 MG TABLET PO PRN (21:04)
[2021-01-11] MEDS: ZOLPIDEM TARTRATE 10 MG TAB PO PRN (21:05)
[2021-01-12] MEDS: NICOTINE 21 MG/24 HR TDSY TD SCH (08:11)
[2021-01-12] MEDS: PANTOprazole 40 MG TAB PO SCH (08:11)
[2021-01-12] MEDS: TOPIRAMATE 25 MG TAB PO SCH (08:12)
[2021-01-12] MEDS: ALBUTEROL HFA 8 GM INHALER INH SCH ×2 (08:12→19:59)
--- NOTE | 2021-01-12 14:19 | Psychiatric Progress Note ---
Date of Service January 12, 2021 Impression / Recommendations Impression 55 yo female with schizoaffective disorder admit with paranoid and persecutory delusions with accompanying alejandro. Some early response to restart Latuda but remains very disorganized, need for a private room and unable to care for herself outside of the hospital. (1) Schizoaffective disorder: 01/12/2021atient continues to make progress. States she likes the addition of Lamictal medication to her regimen. Denies any overt psychosis. 01/11/2021atient making incremental progress, less manic today and appears to be returning to baseline. 01/10/2021atient making incremental progress, although continues to be manic at this time 01/08/21--increase Latuda 80 mg with evening meal. 303 hearing 01/09/21--11 am. 01/07/21--likely increase Latuda tomorrow. Seroquel [address] of Zyprexa (patient preference), need to engage family. 303 paperwork filed. 01/06/21--continue Latuda trial. labs reviewed. manic likely cause of tachy but will rx with clonidine prn or standing beta garry for restlessness. Patient unaffected at this time. confirm last EKG. 01/05/21--The patient was admitted to the [facility] ([facility] health unit) on q15 min checks (behavioral) for safety. The patient will participate in group, recreational, and milieu therapies and will be offered additional individual and family sessions as clinically appropriate. Risks/benefits/alternatives were reviewed re: antipsychotics for mood and/or psychosis. Discussion included but was not limited to metabolic side effects, risks of TD and suicidal thoughts. She exhibits oral dyskinesias, mild, unaware, at baseline, could appear worse due to withdrawal from antipsychotics due to noncompliance. Will minimize exposure to Haldol and will not restart and utilize Zyprexa 5 mg as prn. Resume Latuda trial, increasing to 60 mg this pm with food. Fasting glucose and lipid panel ordered for baseline monitoring. (2) Elevated LFTs: 01/05/21: persistent presumably due to hx of Hep C, has lymphoma dx with ongoing need for work up of breast lump. Staff to facilitate rescheduling of mammogram. Risk Factors Assessment Do You Have Access To A Gun?: No Protective Factors Assessment Employed: No Interval History Chief Complaint "My son's girlfriend is the problem". Review of Systems Sleep Information Total Hours of Sleep: 7.5 Sleep Comments: pt given vistaril per rn. pt on q-15 minute checks Meal Information Percent Meal Consumed - Breakfast: 100 Percent Meal Consumed - Lunch: 100 Percent Meal Consumed - Dinner: 100 Nutrition Comment: per meal record Subjective Subjective Patient was seen & assessed and interval progress reviewed with treatment team nursing and social work Patient was seen in the day room. She was calm and cooperative upon evaluation. She stated that she ate her meals and took her medications without any issues. No side effects reported or observed. Patient is still somewhat concerned about her son's girlfriend but states that she is less distressed by this overall. She is looking forward to her discharge tomorrow. I spent 30 minutes with the patient, 50% of which was dedicated to counselling and coordination of care. Physical Exam Psychiatric Orientation: alert, oriented to person and oriented to place Apperance: appropriately groomed and + disheveled Eye Contact: + fair eye contact and + poor eye contact Motor Behavior: steady gait and station and + psychomotor agitation Speech: + pressured speech (less so, fast at times.); + abnormal rate/rhythm/volume of speech (hyperverbal but redirectible) Affect: + labile affect and + constricted affect Mood: + anxious mood Thought Process: + tangential thought process Thought Content: + paranoid, + delusions and + persecution Suicidal Thoughts: denies suicidal thoughts Homicidal Thoughts: denies homicidal thoughts Hallucinations: no auditory hallucinations and no visual hallucinations Cognition: + attention not intact Estimated Intelligence: + below average estimated intelligence Insight: + severely impaired insight Judgement: + severely impaired judgement Vital Signs (Past 24 Hours) Last Vital Signs Temp 36.7 C 01/12/21 07:13 Pulse 98 H 01/12/21 07:13 Resp 16 01/12/21 07:13 BP 133/81 01/12/21 07:13 Pulse Ox 96 01/07/21 18:00 Results & Data ([facility]) Current Inpatient Medications Current Inpatient Medications: Current Inpatient Medications Acetaminophen (Acetaminophen 325 Mg Tab) 650 mg PO Q4H PRN PRN Reason: Headache or Minor Fever Stop: 02/04/21 13:11 Al Hydrox/Mg Hydrox/Simethicone (Aluminum/Magnesium Susp 30 Ml Udc) 30 ml PO Q4H PRN PRN Reason: GI Upset Stop: 02/04/21 13:11 Albuterol (Albut/Ipratrop 3mg/0.5mg Neb 3 Ml Vial) 3 ml INH QID PRN PRN Reason: wheezing Stop: 02/04/21 13:13 Albuterol (Albuterol Hfa 8 Gm Inhaler (Combivent Respimat P&T Subs)) 1 puffs INH QIDR PRN PRN Reason: Shortness Of Breath Stop: 02/04/21 13:22 Albuterol (Albuterol Hfa 8 Gm Inhaler) 2 puffs INH BID MICAH Stop: 02/05/21 10:14 Last Admin: 01/12/21 08:12 Dose: 2 puffs Documented by: Benztropine Mesylate (Benztropine Mesylate 1 Mg Tab) 1 mg PO Q6H PRN PRN Reason: Muscle Spasm Stop: 02/04/21 15:06 Last Admin: 01/09/21 20:20 Dose: 1 mg Documented by: Bismuth Subsalicylate (Bismuth Subsalicylate Liqd 236 Ml) 15 ml PO PRN PRN PRN Reason: Loose Stool Stop: 02/04/21 13:11 Cyclobenzaprine HCl (Cyclobenzaprine Hcl 5 Mg Tab) 5 mg PO TID PRN PRN Reason: Spasms Stop: 02/04/21 13:13 Last Admin: 01/11/21 21:05 Dose: 5 mg Documented by: Guaifenesin (Guaifenesin Sugar Free 200 Mg/10 Ml Udc) 200 mg PO Q6H PRN PRN Reason: Cough Stop: 02/05/21 10:11 Last Admin: 01/07/21 11:10 Dose: 200 mg Documented by: Hydroxyzine HCl (Hydroxyzine Hcl 25 Mg Tab) 50 mg PO HSZ PRN PRN Reason: Insomnia Stop: 02/04/21 13:11 Last Admin: 01/11/21 00:28 Dose: 50 mg Documented by: Hydroxyzine HCl (Hydroxyzine Hcl 25 Mg Tab) 25 mg PO Q4H PRN PRN Reason: Anxiety Stop: 02/04/21 13:11 Ipratropium [place] (Ipratropium Hfa Inhaler (Combivent Respimat P&T Subs)) 1 puffs INH QIDR PRN PRN Reason: Shortness Of Breath Stop: 02/04/21 13:23 Lorazepam (Lorazepam 1 Mg Tab) 1 mg PO Q6 PRN PRN Reason: Anxiety/Agitation Stop: 02/04/21 13:14 Lorazepam (Lorazepam 1 Mg Tab) 1 mg PO ONE PRN; Protocol PRN Reason: EtoH Withdrawal AWSS 6-10 Lurasidone HCl (Lurasidone Hcl 40 Mg Tab) 80 mg PO DAILYBD [facility] Stop: 02/07/21 17:14 Last Admin: 01/11/21 17:31 Dose: 80 mg Documented by: Magnesium Hydroxide (Magnesium Hydroxide Susp 30 Ml Udc) 30 ml PO DAILY PRN PRN Reason: Constipation Stop: 02/04/21 13:11 Menthol (Cough Drop (Sugar Free) Vy 24 Vy/1 Box) 1 vy BUCCAL Q2HWA PRN PRN Reason: Sore Throat Stop: 02/05/21 10:11 Last Admin: 01/07/21 21:08 Dose: 1 vy Documented by: Miscellaneous (Remove Nicoderm Patch) 1 ea N/A DAILY@0859 [facility] Stop: 02/05/21 08:58 Last Admin: 01/12/21 08:12 Dose: 1 ea Documented by: Nicotine (Nicotine 21 Mg/24 Hr Tdsy) 21 mg TD QAM [facility] Stop: 02/04/21 14:14 Last Admin: 01/12/21 08:11 Dose: 21 mg Documented by: Nicotine Polacrilex (Nicotine Polacrilex 2 Mg Gum) 1 piece MT PRN PRN PRN Reason: Nicotine Withdrawal Stop: 02/04/21 13:11 Pantoprazole Sodium (Pantoprazole 40 Mg Tab) 40 mg PO DAILY [facility] Stop: 02/05/21 08:59 Last Admin: 01/12/21 08:11 Dose: 40 mg Documented by: Quetiapine Fumarate (Quetiapine Fumarate 100 Mg Tablet) 100 mg PO Q8 PRN PRN Reason: Anxiety/Agitation Stop: 02/06/21 13:59 Last Admin: 01/11/21 21:04 Dose: 100 mg Documented by: Sodium Chloride (Sodium Chloride 0.65% Na Soln 45 Ml ([place])) 1 - 2 sprays NA PRN PRN PRN Reason: Nasal Dryness/Congestion Stop: 02/04/21 13:11 Last Admin: 01/07/21 14:17 Dose: 2 sprays Documented by: Topiramate (Topiramate 25 Mg Tab) 25 mg PO QAM [facility] Stop: 02/10/21 08:59 Last Admin: 01/12/21 08:12 Dose: 25 mg Documented by: Zolpidem Tartrate (Zolpidem Tartrate 10 Mg Tab) 10 mg PO HS PRN PRN Reason: Sleep Stop: 02/04/21 15:06 Last Admin: 01/11/21 21:05 Dose: 10 mg Documented by: Mental Health & Subst Abuse Tx Psychiatrist Name of Psychiatrist: Angi Snider Psychiatrist's Date of Appointment with Psychiatrist: 01/19/21 Time of Appointment with Psychiatrist: 12:30pm Psychiatric Appointment Comment: [facility] transportation will pick you up at 11 a.m. Therapist Name of Therapist: Angi Therapist's Date of Therapist Appointment: 01/22/21 Time of Therapist Appointment: 1:30pm Therapy Appointment Comment: [facility] transportation will pick you up at 12 p.m. Core Winder Machine Operator Name of Core Winder Machine Operator: Randy Stone) Phone Number for Core Winder Machine Operator: [phone] Date of Appointment with Core Winder Machine Operator: 01/14/21 Time of Appointment with Core Winder Machine Operator: 1:30 p.m. Case Management Appointment Comment: Will come see you Post Discharge Appointments Primary Care Physician Name Of Family Doctor: VENKATA Solis [facility] Date of Appointment with PCP: 02/18/21 Time of Appointment with PCP: 2:40 p.m. Provider Appointment Comment: [phone], [address], [place] Name of Specialist: [facility] Date of Appointment with Specialist: 01/16/21 Time of Appointment with Specialist: 11:15 a.m. Specialty Appointment Comment: [facility] will pick you up at 10:15 a.m. Contact Information Discharge Discharge Address: [address] [place] [address], [facility], [place] (1) Schizoaffective disorder Schizoaffective disorder type: unspecified Qualified Code(s): F25.9 - Schizoaffective disorder, unspecified
[2021-01-12] MEDS: LURASIDONE HCL 40 MG TAB PO SCH (17:31)
[2021-01-12] MEDS: QUEtiapine FUMARATE 100 MG TABLET PO PRN (21:43)
[2021-01-12] MEDS: ZOLPIDEM TARTRATE 10 MG TAB PO PRN (23:06)
[2021-01-13] MEDS: ALBUTEROL HFA 8 GM INHALER INH SCH (08:43)
[2021-01-13] MEDS: PANTOprazole 40 MG TAB PO SCH (08:43)
[2021-01-13] MEDS: TOPIRAMATE 25 MG TAB PO SCH (08:47)
[2021-01-13] MEDS: NICOTINE 21 MG/24 HR TDSY TD SCH (08:48)
--- NOTE | 2021-01-13 12:15 | Discharge Summary ---
Date of Service January 13, 2021 History of Present Illness Lisandra is known to me from a previous admission in March 2018 where she walked into traffic due to paranoia after stopping her meds and becoming more disorganized. This presentation she believes she is being threatened by her son's girlfriend who lives in the same apartment complex and was calling police repeatedly due to belief she was going to "kill by baby". Son reported to police that mother manic, not eating or sleeping well or taking medication and that she had in fact brandished a knife earlier in the day stating that she had it for protection. Apparently in interactions with police and on arrival to ED she was yelling profranities, implying she may hurt the catalytic case operator there due to her delusions, and received Haldol 5 mg and Ativan 2 mg. She was able to sleep for remainder of ED course and remains delusional with pressured speech but clearly in better behavioral control this am. She continues to ask repeated to call the police but responds to verbal redirection. She is now very focussed on her health stating that she doesn't want to miss a mammogram ordered for later this week. She appears to have some mouth movements but does not attribute them to Haldol. States that she hasn't been taking Haldol for weeks or longer as "makes me not want to ride the bus", seemingly attributing it as a cause of her paranoia. She was to be taking Latuda in place of Seroquel based on a note from 12/22/20 from [facility] (prescriber Evie Snider) but ran out of the 7 day supply and randomly takes Seroquel 200 mg. She had admitted at her eval with Evie to taking up to 800 mg with no improvement in sleep. Recent alcohol use is unclear. She has experienced elevated BP and P in the ED which were felt to be related to her manic presentation. With regards to her behavior of acting like a chicken, clucking and strutting in the ED she recalls this and states she was trying to make a point that the son's girlfriend treats her like an animal and police weren't listening to her. She denies belief that she is an animal. Physical Exam Psychiatric Orientation: alert, oriented to person and oriented to place Apperance: appropriately groomed Eye Contact: + fair eye contact Motor Behavior: steady gait and station Speech: normal rate/rhythm/volume of speech (hyperverbal but redirectible) Affect: euthymic affect Mood: no depressed mood and no dysphoric mood Thought Process: linear/logical thought process Thought Content: reality based without delusions Suicidal Thoughts: denies suicidal thoughts Homicidal Thoughts: denies homicidal thoughts Hallucinations: no auditory hallucinations and no visual hallucinations Cognition: + attention not intact Estimated Intelligence: + below average estimated intelligence Insight: + fair insight Judgement: + fair judgement Vital Signs (Past 24 Hours) Last Vital Signs Temp 36.6 C 01/13/21 11:40 Pulse 103 H 01/13/21 11:40 Resp 16 01/13/21 11:40 BP 145/94 H 01/13/21 11:40 Pulse Ox 96 01/13/21 11:40 Principal Diagnosis Schizoaffective disorder Psychiatric Data See daily stay summary. In short, safety was maintained, and the patient was cooperative with care. Medication changes included uptitration of latuda and they tolerated this well. A family session was held and safety plan was completed prior to discharge. Day of Discharge Assessment Today the patient voices readiness for discharge. They note improvement in mood and deny thoughts to harm self or others. Thoughts remain organized and they are improved from admission. There is no evidence of psychosis. They agree to take medications as prescribed and keep follow-up appointments. They are stable for discharge to outpatient level of care. Transition of Care Transition Of Care Record: was reviewed with the patient Advance Directives Advance Directives Information Provided: Yes Advance Directives: No Mental Health Advance Directive: No Advance Directives on File: No Living Will: No Power of Glue Sprayer: No Advance Directives Reason:: Declines as Mental Health Visit. Risk Factors Assessment Male: No : Yes Do You Have Access To A Gun?: No Mental Health Diagnoses: Yes Protective Factors Assessment Employed: No Stable Relationships: Yes Supportive Family: Yes Tobacco Cessation at Discharge Tobacco Cessation Medication Prescribed at Discharge: Offered & Prescribed Total Time Total Time Spent: Greater Than 30 Minutes Total Time Includes: Examination of the patient, Discharge Planning and Medication Reconciliation Discharge Data Lab Results 01/04/21 01/04/21 01/04/21 20:15 20:15 20:54 WBC 7.33 RBC 4.65 Hgb 16.0 Hct 47.4 H MCV 101.9 H MCH 34.4 H MCHC 33.8 RDW Std Deviation 55.8 H RDW Coeff of Crispin 14.8 H Plt Count 156 MPV 10.7 H Immature Gran % (Auto) 0.1 Neut % (Auto) 59.7 Lymph % (Auto) 29.6 [place] % (Auto) 9.5 Eos % (Auto) 0.8 Baso % (Auto) 0.3 Neut # (Auto) 4.37 Lymph # (Auto) 2.17 [place] # (Auto) 0.70 H Eos # (Auto) 0.06 Baso # (Auto) 0.02 Immature Gran # (Auto) 0.01 Sodium Potassium Chloride Carbon Dioxide Anion Gap BUN Creatinine Est Cr Clr Drug Dosing Est GFR ( Amer) Est GFR (Non-Af Amer) BUN/Creatinine Ratio Glucose Fasting Glucose Calcium Total Bilirubin AST ALT Alkaline Phosphatase Total Protein Albumin Globulin Albumin/Globulin Ratio Triglycerides Cholesterol LDL Cholesterol, Calc VLDL Cholesterol, Calc HDL Cholesterol Cholesterol/HDL Ratio TSH Urine Color Yellow Urine Appearance Clear Urine pH 5.0 Ur Specific [place] 1.004 Urine Protein Negative Urine Glucose (UA) Negative Urine Ketones Negative Urine Blood Negative Urine Nitrite Negative Urine Bilirubin Negative Urine Urobilinogen Negative Ur Leukocyte Esterase Negative Salicylates Urine Opiates Screen Neg Ur Methadone, Qual Neg Acetaminophen Urine Barbiturates Neg Ur Phencyclidine (PCP) Neg U Amphetamin/Meth Scrn Neg MDMA (Ecstasy) Screen Neg U Benzodiazepines Scrn Neg Ur Cocaine Metabolite Neg U Marijuana (THC) Screen Neg Ethyl Alcohol mg/dL COVID-19 Eval Order SARS-CoV-2 (PCR) 01/04/21 01/04/21 01/04/21 20:54 20:54 20:54 WBC RBC Hgb Hct MCV MCH MCHC RDW Std Deviation RDW Coeff of Crispin Plt Count MPV Immature Gran % (Auto) Neut % (Auto) Lymph % (Auto) [place] % (Auto) Eos % (Auto) Baso % (Auto) Neut # (Auto) Lymph # (Auto) [place] # (Auto) Eos # (Auto) Baso # (Auto) Immature Gran # (Auto) Sodium 141 Potassium 3.7 Chloride 108 H Carbon Dioxide 25 Anion Gap 8.0 BUN 6 L Creatinine 0.64 Est Cr Clr Drug Dosing 95.5 Est GFR ( Amer) 116.4 Est GFR (Non-Af Amer) 100.5 BUN/Creatinine Ratio 9.2 L Glucose 101 H Fasting Glucose Calcium 9.0 Total Bilirubin 0.4 AST 219 H ALT 191 H Alkaline Phosphatase 112 Total Protein 8.5 H Albumin 3.2 L Globulin 5.3 H Albumin/Globulin Ratio 0.6 L Triglycerides Cholesterol LDL Cholesterol, Calc VLDL Cholesterol, Calc HDL Cholesterol Cholesterol/HDL Ratio TSH 3.090 Urine Color Urine Appearance Urine pH Ur Specific [place] Urine Protein Urine Glucose (UA) Urine Ketones Urine Blood Urine Nitrite Urine Bilirubin Urine Urobilinogen Ur Leukocyte Esterase Salicylates 4.3 Urine Opiates Screen Ur Methadone, Qual Acetaminophen < 2 L Urine Barbiturates Ur Phencyclidine (PCP) U Amphetamin/Meth Scrn MDMA (Ecstasy) Screen U Benzodiazepines Scrn Ur Cocaine Metabolite U Marijuana (THC) Screen Ethyl Alcohol mg/dL 145.7 H COVID-19 Eval Order SARS-CoV-2 (PCR) 01/04/21 01/04/21 01/06/21 21:13 21:13 08:09 WBC RBC Hgb Hct MCV MCH MCHC RDW Std Deviation RDW Coeff of Crispin Plt Count MPV Immature Gran % (Auto) Neut % (Auto) Lymph % (Auto) [place] % (Auto) Eos % (Auto) Baso % (Auto) Neut # (Auto) Lymph # (Auto) [place] # (Auto) Eos # (Auto) Baso # (Auto) Immature Gran # (Auto) Sodium Potassium Chloride Carbon Dioxide Anion Gap BUN Creatinine Est Cr Clr Drug Dosing Est GFR ( Amer) Est GFR (Non-Af Amer) BUN/Creatinine Ratio Glucose Fasting Glucose 93 Calcium Total Bilirubin AST ALT Alkaline Phosphatase Total Protein Albumin Globulin Albumin/Globulin Ratio Triglycerides 99 Cholesterol 116 LDL Cholesterol, Calc 78 VLDL Cholesterol, Calc 20 HDL Cholesterol 18 Cholesterol/HDL Ratio 6 TSH Urine Color Urine Appearance Urine pH Ur Specific [place] Urine Protein Urine Glucose (UA) Urine Ketones Urine Blood Urine Nitrite Urine Bilirubin Urine Urobilinogen Ur Leukocyte Esterase Salicylates Urine Opiates Screen Ur Methadone, Qual Acetaminophen Urine Barbiturates Ur Phencyclidine (PCP) U Amphetamin/Meth Scrn MDMA (Ecstasy) Screen U Benzodiazepines Scrn Ur Cocaine Metabolite U Marijuana (THC) Screen Ethyl Alcohol mg/dL COVID-19 Eval Order Covid19 at [facility] SARS-CoV-2 (PCR) NEGATIVE Hospital Course (1) Schizoaffective disorder: 01/12/2021atient continues to make progress. States she likes the addition of Lamictal medication to her regimen. Denies any overt psychosis. 01/11/2021atient making incremental progress, less manic today and appears to be returning to baseline. 01/10/2021atient making incremental progress, although continues to be manic at this time 01/08/21--increase Latuda 80 mg with evening meal. 303 hearing 01/09/21--11 am. 01/07/21--likely increase Latuda tomorrow. Seroquel [address] of Zyprexa (patient preference), need to engage family. 303 paperwork filed. 01/06/21--continue Latuda trial. labs reviewed. manic likely cause of tachy but will rx with clonidine prn or standing beta garry for restlessness. Patient unaffected at this time. confirm last EKG. 01/05/21--The patient was admitted to the [facility] ([facility] mental health unit) on q15 min checks (behavioral) for safety. The patient will participate in group, recreational, and milieu therapies and will be offered additional individual and family sessions as clinically appropriate. Risks/benefits/alternatives were reviewed re: antipsychotics for mood and/or psychosis. Discussion included but was not limited to metabolic side effects, risks of TD and suicidal thoughts. She exhibits oral dyskinesias, mild, unaware, at baseline, could appear worse due to withdrawal from antipsychotics due to noncompliance. Will minimize exposure to Haldol and will not restart and utilize Zyprexa 5 mg as prn. Resume Latuda trial, increasing to 60 mg this pm with food. Fasting glucose and lipid panel ordered for baseline monitoring. (2) Elevated LFTs: 01/05/21: persistent presumably due to hx of Hep C, has lymphoma dx with ongoing need for work up of breast lump. Staff to facilitate rescheduling of mammogram. Mental Health & Subst Abuse Tx Psychiatrist Name of Psychiatrist: Angi Snider Psychiatrist's Date of Appointment with Psychiatrist: 01/19/21 Time of Appointment with Psychiatrist: 12:30pm Psychiatric Appointment Comment: [facility] transportation will pick you up at 11 a.m. Psychiatrist Release of Information: Obtained, Reviewed and Signed Therapist Name of Therapist: Angi Therapist's Date of Therapist Appointment: 01/22/21 Time of Therapist Appointment: 1:30pm Therapy Appointment Comment: [facility] transportation will pick you up at 12 p.m. Therapist Release of Information: Obtained, Reviewed and Signed Agricultural Education Teacher Name of Agricultural Education Teacher: [place]ab[place] Stone) Phone Number for Agricultural Education Teacher: [phone] Date of Appointment with Agricultural Education Teacher: 01/14/21 Time of Appointment with Agricultural Education Teacher: 1:30 p.m. Case Management Appointment Comment: Will come see you Agricultural Education Teacher Release of Information: Obtained, Reviewed and Signed Post Discharge Appointments Primary Care Physician Name Of Family Doctor: VENKATA [facility] Date of Appointment with PCP: 02/18/21 Time of Appointment with PCP: 2:40 p.m. Provider Appointment Comment: [address] [employer] [facility], [address], [place] [facility] Release of Information: Obtained, Reviewed and Signed Specialist Name of Specialist: [facility] Date of Appointment with Specialist: 01/16/21 Time of Appointment with Specialist: 11:15 a.m. Specialty Appointment Comment: [facility] will pick you up at 10:15 a.m. Smoking Cessation Counseling Tobacco Cessation Medication Prescribed at Discharge: Offered & Prescribed Tobacco Cessation Counseling: Offered and Refused Contact Information Discharge Discharge Address: [address] [place] [address] Discharge Plan Discharge Items Patient Disposition: Home - Self-Care Reason For Visit: SCHIZOAFFECTIVE DISORDER Discharge Diagnosis: Schizoaffective Activity: Resume your previous activity Non-emergency contact: Primary Care Provider, Psychiatrist and Therapist Call non-emergency contact if: you have any medication questions Follow-up/Referrals: Socorro Solis MD [Primary Care Provider] - Diet: Regular Addtl Attending Provider Instructions: SPECIAL CARE INSTRUCTIONS: 1. Follow through with your scheduled aftercare appointments. If unable to keep an appointment, please call to reschedule. 2. Take your medication only as prescribed. Medication should not be changed or stopped without the approval of your doctor. In the event of worsening symptoms or concerns about side effects, contact your doctor immediately. 3. Utilize new healthy coping skills, anger management skills, and stress management skills learned during your hospitalization. Journal feelings and process them with a support person. Identify stressors or situations that may result in relapse, deterioration or inappropriate behaviors and develop a plan to deal with those issues. 4. If your coping skills are ineffective and you are in crisis, contact your outpatient providers for direction. If unable to reach your providers, please call the [facility] CRISIS LINE AT , go to the [facility] walk-in center at [address], [address], [place], or go to the closest Emergency Room. 5. Avoid alcohol and un-prescribed drugs. 6. You have been provided with the Mental Health Advance Directives Pamphlet for your review. AFTERCARE APPOINTMENTS: * Please call your insurance company prior to your scheduled appointment to confirm your aftercare providers are covered. Take your insurance information to your appointments. WHO TO CALL AND WHEN: Medical Emergencies: For questions or emergencies related to your hospital stay, please contact the Inpatient Behavioral Health Unit at [phone]. A intake clinician is on-call 24/01 for the Behavioral Health Unit for emergencies At any time you feel your situation is an emergency, you may also call 911 immediately. Pending Studies at Discharge: No Stand-Alone Forms: My [facility], Smoking Cessation Medications and DC Order Prescriptions: New nicotine [Nicoderm CQ] 21 mg/24 hr Patch 24 Hour 21 mg transdermal QAM PRN (Reason: smokin cravings) 30 Days RF: 0 Latuda 40 mg Tablet 80 mg PO DAILYBD Qty: 60 RF: 0 topiramate 25 mg Tablet 25 mg PO QAM 30 Days Qty: 30 RF: 0 zolpidem [Ambien] 10 mg Tablet 10 mg PO HS PRN (Reason: insomnia) Qty: 30 RF: 0 Continued cyclobenzaprine 5 mg tablet 5 mg PO TID PRN (Reason: Spasms) Qty: 30 RF: 0 ipratropium-albuterol 0.5 mg-3 mg(2.5 mg base)/3 mL solution for nebulization 3 ml inhalation QID PRN (Reason: wheezing) Qty: 90 RF: 4 pantoprazole 40 mg Tablet,Delayed Release (Dr/Ec) 40 mg PO DAILY RF: 0 Combivent Respimat 20-100 mcg/actuation Mist 1 puff INHALATION QID PRN (Reason: Shortness Of Breath) 30 Days RF: 0 Discontinued haloperidol 5 mg tablet 5 mg PO BID Qty: 60 RF: 0 quetiapine [Seroquel] 200 mg tablet 200 mg PO HS Qty: 30 RF: 2 hydroxyzine HCl 50 mg Tablet 50 mg PO DAILY PRN (Reason: Anxiety) RF: 0 Discharge Orders: Discharge Order (Routine); Ordered 01/13/21 Ordered By: Jaret Velazquez Admission Data Admit Date/Time: 01/05/21 13:12 Attending Provider: Jaret Velazquez Admit Provider: Angelic Angeles Primary Care Provider: Socorro Solis Other Interventions: Discharge Summary Assessment (RN) Last Done: 01/13/21 11:40 PSY Interdisciplinary Discharge Planning Last Done: 01/13/21 11:32 Coding Level of Care Code 63836 D/C day mgmt > 30 min Diagnoses Schizoaffective disorder F25.9 Schizoaffective disorder type: unspecified Elevated LFTs R79.89
== END 2021-01-13 12:31 | disposition home or self-care (01) | DRG 885 ==
LOC: ED 20:05 → SUATTDRO 01-05 13:12 → 3S 01-05 13:12

== ENCOUNTER 2021-08-05 19:30 | Inpatient (IN) ==
--- NOTE | 2021-08-05 19:47 | Emergency Department Note ---
Impression & Plan Nicky, COVID-19 ADMIT ED Provider Note HPI: The patient is a 56-year-old female with history of bipolar disorder, schizoaffective disorder, she presents as a 302 by her son for erratic and psychotic type behavior over the past several days. Patient is reportedly been calling the police for no reason, she is reportedly been making threats towards other individuals including her son's girlfriend referring to a knife and referring to harming this individual. On arrival here to the ED the patient is basically incoherent, she is very tangential in history, she is unable to tell me why she is here. She is cooperative on arrival, she is otherwise hemodynamically stable. ROS: -Psychiatric: Psychotic behavior, manic type behavior *10 point review systems was conducted and is otherwise negative unless stated above *Outpatient medications and allergy history reviewed PE: General: Alert, NAD HEENT: Normocephalic, atraumatic Eyes: Extraocular eye movement is intact, no scleral erythema Pulmonary: Clear to auscultation bilaterally, no wheezing Cardio: Regular rate and rhythm GI: Abdomen is soft, nontender : No suprapubic tenderness MSK: No evidence of trauma or malformation of the extremities, no edema Skin: No evidence of rash Neuro: Alert, no focal deficits Psychiatric: Tangential thought process, patient is cooperative with exam Medical Decision Making: Patient presented to the emergency department with manic and psychotic type behavior, she is a very tangential historian, and been able to get much history from her. She reportedly has been acting erratically at home and her son filed a 302 as there was concern she may hurt the son's girlfriend that she had been making threats. Patient denies this on my exam but she is very difficult to follow. Medical clearance was initiated, patient's lab work is largely unremarkable, she is hemodynamically stable here in the ED, she is saturating well on room air. Her COVID-19 test did return positive. I do not see any evidence of acute abnormalities on her chest x-ray. She is not hypoxic. Despite this, given that the patient did test positive for Covid she will require medical admission following my discussion with case management. [facility] hospitalist service was consulted for admission. The 302 is under petition pending medical clearance for COVID diagnosis. Diagnosis: 1. Manic behavior 2. Psychosis 3. COVID-19 infection 4. Schizoaffective disorder 5. Bipolar disorder 6. Homicidal threats, 302 Disposition: Admission Babatunde Walsh DO Emergency Medicine Past Med/Surg History Medical History Anxiety and depression Arthritis Bipolar disorder Chronic obstructive pulmonary disease Eustachian tube dysfunction GERD (gastroesophageal reflux disease) Hepatitis C History of anemia Left arm pain Non-Hodgkin lymphoma Post traumatic stress disorder Restless leg syndrome Schizoaffective disorder Surgical History History of section History of esophagogastroduodenoscopy (EGD) History of open reduction and internal fixation (ORIF) procedure History of tonsillectomy and adenoidectomy History of tooth extraction Family History Aunt Breast cancer Mother Myocardial infarction Grandmother (Maternal) Ovarian cancer Other No family history of adverse response to anesthesia Denies family history of Prostate cancer Colorectal cancer Social History Smoking Status: Current every day smoker Tobacco Type: Cigarettes Age Started Using Tobacco: 12; packs per day: 0.5; Cigarettes Per Day: 20 CIG DAILY; Second Hand Exposure: No; Hx Alcohol Use: Yes Alcohol type: beer Alcohol Intake Frequency: Monthly or Less Hx Substance Use: No Preferred Language: Italian 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: No Beliefs That Will Affect Care: None marital status: Single Current Living Situation: Alone current occupational status: unemployed Feels Safe at Home: Yes Childhood Exposure to Second-Hand Smoke: Yes Dental Care, Regularly: No Physical Activity Frequency: Does not Exercise Seatbelt Use: always Sunscreen Use: Yes Assistive Devices: Denture - Upper and Glasses Allergies Allergies Allergy/AdvReac Type Severity Reaction Status Date / Time No Known Allergies Allergy Verified 06/24/21 12:29 Home Meds Home Medications Medication Instructions Recorded Confirmed guaifenesin 100 mg/5 mL oral liquid 200 mg PO Q4H PRN 03/19/21 08/05/21 guaifenesin 600 mg tablet, 600 mg PO Q12H PRN 03/19/21 08/05/21 extended release 12 hr (Mucinex) pseudoephedrine HCl 30 mg tablet 30 mg PO Q6H PRN 03/19/21 08/05/21 (Sudafed) fluticasone propionate 50 1 spray INTRANASAL DAILY 04/13/21 08/05/21 mcg/actuation nasal spray,suspension melatonin 5 mg tablet 5 - 10 mg PO HS PRN 08/05/21 08/05/21 sofosbuvir 400 mg-velpatasvir 100 1 tab PO DAILY 08/05/21 08/05/21 mg tablet Previous Rx's Medication Instructions Recorded cyclobenzaprine 5 mg tablet 5 mg PO TID PRN #30 tab 05/12/21 benzonatate 200 mg capsule 200 mg PO TID PRN #30 cap 06/09/21 famotidine 20 mg tablet 20 mg PO DAILY PRN #30 tab 06/24/21 ipratropium 0.5 mg-albuterol 3 mg 3 ml INHALATION QID PRN #90 ml 06/24/21 (2.5 mg base)/3 mL nebulization soln ipratropium 20 mcg-albuterol 100 1 puff INHALATION QID PRN 30 Days 06/24/21 mcg/actuation mist for inhalation #4 g (Combivent Respimat) omeprazole 40 mg capsule,delayed 40 mg PO DAILY #30 cap 07/21/21 release hydroxyzine HCl 50 mg tablet 50 mg PO DAILY PRN #10 tab 07/24/21 lurasidone 80 mg tablet (Latuda) 80 mg PO DAILY #30 tab 07/24/21 perphenazine 2 mg tablet 2 mg PO DAILY PRN #10 tab 07/24/21 topiramate 25 mg tablet (Topamax) 25 mg PO DAILY #30 tab 07/24/21 trazodone 150 mg tablet 150 mg PO DAILY #30 tab 08/05/21 Results & Data (ED) Vital Signs Vital Signs - 24 hr 08/05/21 19:36 Temperature 36.8 C Temperature Source Oral Pulse Rate 116 H Respiratory Rate 18 Respiratory Effort / Characteristics Non-Labored Spontaneous Respiratory Depth Normal Respiratory Pattern Regular Blood Pressure 132/83 Blood Pressure Mean 99 Pulse Oximetry 95 Oxygen Delivery Method Room Air Sepsis Recent Fever Within 48 Hours No Sepsis New/Unexplained Change in Mental Status N/A Sepsis Action Taken by Nursing No Action Required Laboratory Data Result diagrams: 08/05/21 19:57 08/05/21 19:57 Lab Results 08/05/21 08/05/21 08/05/21 Range/Units 19:57 19:57 19:57 WBC 6.99 (4.8-10.8) K/uL RBC 4.43 (4.2-5.4) M/uL Hgb 15.2 (12.0-16.0) g/dL Hct 45.4 (37-47) % MCV 102.5 H (80-100) fL MCH 34.3 H (25-34) pg MCHC 33.5 (32-36) g/dL RDW Std Deviation 51.2 H (36.4-46.3) fL RDW Coeff of Crispin 13.7 (11.5-14.5) % Plt Count 142 (130-400) K/uL MPV 10.8 H (7.4-10.4) fL Immature Gran % (Auto) 0.1 % Neut % (Auto) 50.7 % Lymph % (Auto) 37.3 % [place] % (Auto) 10.7 % Eos % (Auto) 0.9 % Baso % (Auto) 0.3 % Neut # (Auto) 3.54 (1.4-6.5) K/uL Lymph # (Auto) 2.61 (1.2-3.4) K/uL [place] # (Auto) 0.75 H (0.11-0.59) K/uL Eos # (Auto) 0.06 (0-0.5) K/uL Baso # (Auto) 0.02 (0-0.2) K/uL Immature Gran # (Auto) 0.01 (0.00-0.02) K/uL Sodium 136 (136-145) mmol/L Potassium 3.5 (3.5-5.1) mmol/L Chloride 106 (98-107) mmol/L Carbon Dioxide 24 (21-32) mmol/L Anion Gap 6 (3-11) BUN 14 (6-23) mg/dl Creatinine 0.84 (0.6-1.2) mg/dl Est Cr Clr Drug Dosing 65.2 ml/min Est GFR ( Amer) 90.0 ml/min Est GFR (Non-Af Amer) 77.7 ml/min BUN/Creatinine Ratio 16.7 (10-20) Glucose 122 H (70-99(Fasting)) mg/dl Calcium 9.4 (8.5-10.1) mg/dl Total Bilirubin 0.8 (0.2-1.0) mg/dl AST 137 H (13-39) U/L ALT 119 H (7-52) U/L Alkaline Phosphatase 76 (34-104) U/L Total Protein 8.3 (6.0-8.3) gm/dl Albumin 3.5 (3.4-5.0) gm/dl Globulin 4.8 H (2.5-4.0) gm/dl Albumin/Globulin Ratio 0.7 L (0.9-2) TSH 5.351 H (0.300-4.500) uIu/ml Free T4 1.00 (0.61-1.60) ng/dl Salicylates (3.0-30) mg/dl Acetaminophen (10-30) ug/ml Ethyl Alcohol mg/dL (<10.0) mg/dl SARS-CoV-2, RNA, NAAT (NEGATIVE) 08/05/21 08/05/21 08/05/21 Range/Units 19:57 19:57 Unknown WBC (4.8-10.8) K/uL RBC (4.2-5.4) M/uL Hgb (12.0-16.0) g/dL Hct (37-47) % MCV (80-100) fL MCH (25-34) pg MCHC (32-36) g/dL RDW Std Deviation (36.4-46.3) fL RDW Coeff of Crispin (11.5-14.5) % Plt Count (130-400) K/uL MPV (7.4-10.4) fL Immature Gran % (Auto) % Neut % (Auto) % Lymph % (Auto) % [place] % (Auto) % Eos % (Auto) % Baso % (Auto) % Neut # (Auto) (1.4-6.5) K/uL Lymph # (Auto) (1.2-3.4) K/uL [place] # (Auto) (0.11-0.59) K/uL Eos # (Auto) (0-0.5) K/uL Baso # (Auto) (0-0.2) K/uL Immature Gran # (Auto) (0.00-0.02) K/uL Sodium (136-145) mmol/L Potassium (3.5-5.1) mmol/L Chloride (98-107) mmol/L Carbon Dioxide (21-32) mmol/L Anion Gap (3-11) BUN (6-23) mg/dl Creatinine (0.6-1.2) mg/dl Est Cr Clr Drug Dosing ml/min Est GFR ( Amer) ml/min Est GFR (Non-Af Amer) ml/min BUN/Creatinine Ratio (10-20) Glucose (70-99(Fasting)) mg/dl Calcium (8.5-10.1) mg/dl Total Bilirubin (0.2-1.0) mg/dl AST (13-39) U/L ALT (7-52) U/L Alkaline Phosphatase (34-104) U/L Total Protein (6.0-8.3) gm/dl Albumin (3.4-5.0) gm/dl Globulin (2.5-4.0) gm/dl Albumin/Globulin Ratio (0.9-2) TSH (0.300-4.500) uIu/ml Free T4 (0.61-1.60) ng/dl Salicylates < 3.0 L (3.0-30) mg/dl Acetaminophen < 3 L (10-30) ug/ml Ethyl Alcohol mg/dL < 10.0 (<10.0) mg/dl SARS-CoV-2, RNA, NAAT POSITIVE A* (NEGATIVE) Discharge Plan Visit Data Chief Complaint: Mental Health Evaluation ED Provider: Babatunde Walsh Discharge Problem: Nicky, COVID-19 Forms Stand Alone Forms: [facility], Suicide Prevention Resources Prescriptions Prescriptions: No Action cyclobenzaprine 5 mg tablet 5 mg PO TID PRN (Reason: Spasms) Qty: 30 RF: 0 Latuda 80 mg tablet 80 mg PO DAILY Qty: 30 RF: 0 topiramate [Topamax] 25 mg tablet 25 mg PO DAILY Qty: 30 RF: 0 hydroxyzine HCl 50 mg tablet 50 mg PO DAILY PRN (Reason: anxiety) Qty: 10 RF: 0 perphenazine 2 mg tablet 2 mg PO DAILY PRN (Reason: MOOD) Qty: 10 RF: 0 trazodone 150 mg tablet 150 mg PO DAILY Qty: 30 RF: 2 benzonatate 200 mg capsule 200 mg PO TID PRN (Reason: cough) Qty: 30 RF: 0 famotidine 20 mg tablet 20 mg PO DAILY PRN (Reason: REFLUX) Qty: 30 RF: 5 ipratropium-albuterol 0.5 mg-3 mg(2.5 mg base)/3 mL solution for nebulization 3 ml inhalation QID PRN (Reason: wheezing) Qty: 90 RF: 4 Combivent Respimat 20-100 mcg/actuation mist 1 puff INHALATION QID PRN (Reason: Shortness Of Breath) 30 Days Qty: 4 RF: 5 omeprazole 40 mg capsule,delayed release(DR/EC) 40 mg PO DAILY Qty: 30 RF: 0 sofosbuvir-velpatasvir 400-100 mg tablet 1 tab PO DAILY RF: 0 melatonin 5 mg tablet 5 - 10 mg PO HS PRN (Reason: sleep) RF: 0 guaifenesin [Robitussin] 100 mg/5 mL Liquid 200 mg PO Q4H PRN (Reason: Cold Symptoms) RF: 0 pseudoephedrine HCl [Sudafed] 30 mg Tablet 30 mg PO Q6H PRN (Reason: Congestion) RF: 0 guaifenesin [Mucinex] 600 mg Tablet Extended Release 12hr 600 mg PO Q12H PRN (Reason: Congestion) RF: 0 fluticasone propionate [Flonase] 50 mcg/actuation [place],Suspension 1 spray INTRANASAL DAILY RF: 0 Referrals Referrals: Socorro Solis MD [Primary Care Provider] -
[2021-08-05 20:08] LABS: Basophils # (auto) 0.02 K/uL (0-0.2); Basophils % (auto) 0.3 %; Eosinophils # (auto) 0.06 K/uL (0-0.5); Eosinophils % (auto) 0.9 %; Hematocrit (blood only) 45.4 % (37-47); Hemoglobin 15.2 g/dL (12.0-16.0); Immature Granulocytes # (auto) 0.01 K/uL (0.00-0.02); Immature Granulocytes % (auto) 0.1 %; Lymphocytes # (auto) 2.61 K/uL (1.2-3.4); Lymphocytes % (auto) 37.3 %; Mean Corpuscular Hemoglobin 34.3 pg (25-34); Mean Corpuscular Hgb Conc 33.5 g/dL (32-36); Mean Corpuscular Volume 102.5 fL (80-100); Mean Platelet Volume 10.8 fL (7.4-10.4); Monocytes # (auto) 0.75 K/uL (0.11-0.59); Monocytes % (auto) 10.7 %; Neutrophils # (auto) 3.54 K/uL (1.4-6.5); Neutrophils % (auto) 50.7 %; Platelet Count 142 K/uL (130-400); RDW Coefficient of Variation 13.7 % (11.5-14.5); RDW Standard Deviation 51.2 fL (36.4-46.3); Red Blood Count 4.43 M/uL (4.2-5.4); White Blood Count 6.99 K/uL (4.8-10.8)
[2021-08-05 20:29] LABS: Albumin Globulin Ratio 0.7 (0.9-2); Albumin Level 3.5 gm/dl (3.4-5.0); BUN Creatinine Ratio 16.7 (10-20); Bilirubin,Total 0.8 mg/dl (0.2-1.0); Calcium 9.4 mg/dl (8.5-10.1); Creatinine Clr Calc Pharmacy 65.2 ml/min; Est GFR (Non-African American) 77.7 ml/min; Globulin 4.8 gm/dl (2.5-4.0); Potassium 3.5 mmol/L (3.5-5.1); Total Protein 8.3 gm/dl (6.0-8.3)
[2021-08-05 20:30] LABS: Acetaminophen < 3 ug/ml (10-30); Salicylate < 3.0 mg/dl (3.0-30)
[2021-08-05 20:46] LABS: Thyroid Stimulating Hormone 5.351 uIu/ml (0.300-4.500)
--- NOTE | 2021-08-05 21:36 | History & Physical Report ---
Date of Service August 05, 2021 Assessment & Plan (1) Nicky: Plan: Nicky/bipolar disorder/schizoaffective disorder- 302 in affect by son Continue usual psychiatric medications: Hydroxyzine, lurasidone, perphenazine, topiramate and trazodone Consult psychiatry (2) COVID-19: Plan: No active signs of infection, therefore no active treatment Patient will be placed in Covid isolation (3) COPD with chronic bronchitis: Plan: Continue usual inhalers No active symptoms (4) Chronic gastroesophageal reflux disease: Plan: Continue famotidine (5) Hepatitis C: Plan: Continue sofosbuvir-velpatasvir (6) Schizoaffective disorder: Plan: See above (7) Bipolar disorder: Plan: See above (8) Arthritis: Plan: Continue cyclobenzaprine as needed History of Present Illness Chief Complaint: The patient presents to the emergency department as a 302 by her son due to erratic and psychotic behavior over the past several days Primary Care Provider: Socorro Solis MD The patient is a 56-year-old female with a past medical history including COPD with chronic bronchitis, chronic GERD, follicular lymphoma grade 1, bipolar disorder, schizoaffective disorder and hepatitis C. She presents to the emergency department as a 302 by her son, who reports that the patient was making threats against the son's girlfriend, and erratic behavior. Testing in the emergency department included COVID-19 positive screening test. For this reason, patient was referred to medical hospitalist service for admission and for consult to psychiatry, she has had multiple admissions in the past few years. Allergies Allergy/AdvReac Type Severity Reaction Status Date / Time No Known Allergies Allergy Verified 06/24/21 12:29 Home Medications Medication Instructions Recorded Confirmed Type guaifenesin 100 mg/5 mL oral liquid 200 mg PO Q4H PRN 03/19/21 08/05/21 History guaifenesin 600 mg tablet, 600 mg PO Q12H PRN 03/19/21 08/05/21 History extended release 12 hr (Mucinex) pseudoephedrine HCl 30 mg tablet 30 mg PO Q6H PRN 03/19/21 08/05/21 History (Sudafed) fluticasone propionate 50 1 spray INTRANASAL DAILY 04/13/21 08/05/21 History mcg/actuation nasal spray,suspension cyclobenzaprine 5 mg tablet 5 mg PO TID PRN #30 tab 05/12/21 08/05/21 Rx benzonatate 200 mg capsule 200 mg PO TID PRN #30 cap 06/09/21 08/05/21 Rx famotidine 20 mg tablet 20 mg PO DAILY PRN #30 tab 06/24/21 08/05/21 Rx ipratropium 0.5 mg-albuterol 3 mg 3 ml INHALATION QID PRN #90 ml 06/24/21 08/05/21 Rx (2.5 mg base)/3 mL nebulization soln ipratropium 20 mcg-albuterol 100 1 puff INHALATION QID PRN 30 Days 06/24/21 08/05/21 Rx mcg/actuation mist for inhalation #4 g (Combivent Respimat) omeprazole 40 mg capsule,delayed 40 mg PO DAILY #30 cap 07/21/21 08/05/21 Rx release hydroxyzine HCl 50 mg tablet 50 mg PO DAILY PRN #10 tab 07/24/21 08/05/21 Rx lurasidone 80 mg tablet (Latuda) 80 mg PO DAILY #30 tab 07/24/21 08/05/21 Rx perphenazine 2 mg tablet 2 mg PO DAILY PRN #10 tab 07/24/21 08/05/21 Rx topiramate 25 mg tablet (Topamax) 25 mg PO DAILY #30 tab 07/24/21 08/05/21 Rx melatonin 5 mg tablet 5 - 10 mg PO HS PRN 08/05/21 08/05/21 History sofosbuvir 400 mg-velpatasvir 100 1 tab PO DAILY 08/05/21 08/05/21 History mg tablet trazodone 150 mg tablet 150 mg PO DAILY #30 tab 08/05/21 08/05/21 Rx Past Med/Surg History Medical History (Updated 08/05/21 @ 22:47 by Pasquale Ramirez MD) Anxiety and depression Arthritis Bipolar disorder Chronic obstructive pulmonary disease LAST USED RESCUE INHALER LAST NIGHT Eustachian tube dysfunction GERD (gastroesophageal reflux disease) Hepatitis C History of anemia Left arm pain Non-Hodgkin lymphoma BEING MONITORED (FOLLOWS WITH TX ONCOLOGY) Post traumatic stress disorder Restless leg syndrome Schizoaffective disorder Surgical History History of section X 4 History of esophagogastroduodenoscopy (EGD) History of open reduction and internal fixation (ORIF) procedure RT LEG AND LEFT ARM (HARDWARE IN PLACE) History of tonsillectomy and adenoidectomy History of tooth extraction Family History Aunt Breast cancer Mother Myocardial infarction Grandmother (Maternal) Ovarian cancer Other No family history of adverse response to anesthesia Denies family history of Prostate cancer Colorectal cancer Social History Smoking Status: Current every day smoker Tobacco Type: Cigarettes Age Started Using Tobacco: 12; packs per day: 0.5; Cigarettes Per Day: 20 CIG DAILY; Second Hand Exposure: No; Hx Alcohol Use: Yes Alcohol type: beer Alcohol Intake Frequency: Monthly or Less Hx Substance Use: No Preferred Language: Turkish 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 HEENT--PERRL, EOMI, mucous membranes and oropharynx normal Neck--supple. No JVD. No bruits. Thyroid normal, trachea midline, no adenopathy. Heart--normal S1 and S2. No murmurs, rubs or gallops. Lungs--clear bilaterally, no respiratory distress, no accessory muscle use. Abdomen--normal bowel sounds and soft. Nontender. Nondistended. Extremities--no cyanosis or clubbing. No edema. Dermatologic--normal skin turgor, normal color, no abnormal lymph nodes, no rash. Neurologic--cranial nerves II through XII grossly intact. Rheumatologic--normal range of motion. Psychiatric--exhibiting psychotic behavior. Appears to be having intermittent manic episodes Results & Data Results & Data ([facility]) Vital Signs (Past 12 Hours) Vital Signs Temp Pulse Resp BP Pulse Ox 08/05/21 19:36 36.8 C 116 H 18 132/83 95 Laboratory Results Laboratory Results WBC 6.99 K/uL (4.8-10.8) 08/05/21 19:57 RBC 4.43 M/uL (4.2-5.4) 08/05/21 19:57 Hgb 15.2 g/dL (12.0-16.0) 08/05/21 19:57 Hct 45.4 % (37-47) 08/05/21 19:57 MCV 102.5 fL (80-100) H 08/05/21 19:57 MCH 34.3 pg (25-34) H 08/05/21 19:57 MCHC 33.5 g/dL (32-36) 08/05/21 19:57 RDW Std Deviation 51.2 fL (36.4-46.3) H 08/05/21 19:57 RDW Coeff of Crispin 13.7 % (11.5-14.5) 08/05/21 19:57 Plt Count 142 K/uL (130-400) 08/05/21 19:57 MPV 10.8 fL (7.4-10.4) H 08/05/21 19:57 Immature Gran % (Auto) 0.1 % 08/05/21 19:57 Neut % (Auto) 50.7 % 08/05/21 19:57 Lymph % (Auto) 37.3 % 08/05/21 19:57 [place] % (Auto) 10.7 % 08/05/21 19:57 Eos % (Auto) 0.9 % 08/05/21 19:57 Baso % (Auto) 0.3 % 08/05/21 19:57 Neut # (Auto) 3.54 K/uL (1.4-6.5) 08/05/21 19:57 Lymph # (Auto) 2.61 K/uL (1.2-3.4) 08/05/21 19:57 [place] # (Auto) 0.75 K/uL (0.11-0.59) H 08/05/21 19:57 Eos # (Auto) 0.06 K/uL (0-0.5) 08/05/21 19:57 Baso # (Auto) 0.02 K/uL (0-0.2) 08/05/21 19:57 Immature Gran # (Auto) 0.01 K/uL (0.00-0.02) 08/05/21 19:57 Sodium 136 mmol/L (136-145) 08/05/21 19:57 Potassium 3.5 mmol/L (3.5-5.1) 08/05/21 19:57 Chloride 106 mmol/L (98-107) 08/05/21 19:57 Carbon Dioxide 24 mmol/L (21-32) 08/05/21 19:57 Anion Gap 6 (3-11) 08/05/21 19:57 BUN 14 mg/dl (6-23) 08/05/21 19:57 Creatinine 0.84 mg/dl (0.6-1.2) 08/05/21 19:57 Est Cr Clr Drug Dosing 65.2 ml/min 08/05/21 19:57 Est GFR ( Amer) 90.0 ml/min 08/05/21 19:57 Est GFR (Non-Af Amer) 77.7 ml/min 08/05/21 19:57 BUN/Creatinine Ratio 16.7 (10-20) 08/05/21 19:57 Glucose 122 mg/dl (70-99(Fasting)) H 08/05/21 19:57 Calcium 9.4 mg/dl (8.5-10.1) 08/05/21 19:57 Total Bilirubin 0.8 mg/dl (0.2-1.0) 08/05/21 19:57 AST 137 U/L (13-39) H 08/05/21 19:57 ALT 119 U/L (7-52) H 08/05/21 19:57 Alkaline Phosphatase 76 U/L (34-104) 08/05/21 19:57 Total Protein 8.3 gm/dl (6.0-8.3) 08/05/21 19:57 Albumin 3.5 gm/dl (3.4-5.0) 08/05/21 19:57 Globulin 4.8 gm/dl (2.5-4.0) H 08/05/21 19:57 Albumin/Globulin Ratio 0.7 (0.9-2) L 08/05/21 19:57 TSH 5.351 uIu/ml (0.300-4.500) H 08/05/21 19:57 Free T4 1.00 ng/dl (0.61-1.60) 08/05/21 19:57 Salicylates < 3.0 mg/dl (3.0-30) L 08/05/21 19:57 Acetaminophen < 3 ug/ml (10-30) L 08/05/21 19:57 Ethyl Alcohol mg/dL < 10.0 mg/dl (<10.0) 08/05/21 19:57 SARS-CoV-2, RNA, NAAT POSITIVE (NEGATIVE) A* 08/05/21 Unknown Code Status & VTE Plan Code Status Full code VTE Prophylaxis Plan VTE Prophylaxis will be ordered: Yes PG Care Time/CCT Total # of Minutes Spent Total Time Spent with Patient: Total time spent is greater than 50% in coordination of care (as documented) at patient's floor/unit and/or counseling patient: Coding Level of Care Code 97305 Initial Inpt Care Lvl 2 Diagnoses Nicky F30.9 COVID-19 U07.1 COPD with chronic bronchitis J44.9 Chronic gastroesophageal reflux disease K21.9 Hepatitis C B19.20 Schizoaffective disorder F25.9 Schizoaffective disorder type: unspecified Bipolar disorder F31.9 Arthritis M19.90 (1) Schizoaffective disorder Schizoaffective disorder type: unspecified Qualified Code(s): F25.9 - Schizoaffective disorder, unspecified
[2021-08-05] MEDS ORDERED: LORazepam 1 MG/2 ML VIAL IV PRN (23:02)
[2021-08-05] MEDS ORDERED: ACETAMINOPHEN 325 MG TAB PO PRN (23:02)
[2021-08-05] MEDS ORDERED: ONDANSETRON INJ 2 MG/ML 2 ML VIAL IV PRN (23:02)
[2021-08-06] MEDS ORDERED: traZODone HCL 100 MG TAB PO SCH ×2 (01:15→09:00)
--- NOTE | 2021-08-06 07:03 | XRay Report ---
XR chest 1V portable CLINICAL HISTORY: COVID pos. Difficulty breathing COMPARISON STUDY: 01/04/2021 TECHNIQUE: 1 view of the chest FINDINGS: Single frontal view of the chest demonstrates the cardiomediastinal silhouette to be within normal li mits. The lungs are clear of alveolar opacities. There is no evidence for pleural effusion. There is no evidence for vascular congestion. There is no acute osseous pathology. IMPRESSION: No acute cardiopulmonary disease. ACT 112: Negative or not required by law. Electronically signed by: Chris Desir M.D. 08/06/2021 7:01 AM
[2021-08-06] MEDS ORDERED: LURASIDONE HCL 40 MG TAB PO SCH (09:00)
[2021-08-06] MEDS: TOPIRAMATE 25 MG TAB PO SCH (09:22)
[2021-08-06] MEDS: PANTOprazole 40 MG TAB PO SCH (09:22)
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
[2021-08-06] MEDS ORDERED: OLANZapine 10 MG/2.1 ML SDV IM PRN (14:37)
--- NOTE | 2021-08-06 17:34 | Hospitalist Progress Note ---
Date of Service August 06, 2021 Assessment & Plan (1) Schizoaffective disorder: Plan: - Appears likely in the setting of med non-compliance; of note patient was recently ill with GI symptoms so may have contributed to med non-compliance - Currently on a 302 filed by her son - patient would be unable to leave until 302 is completed - Continue Lurasidone 80 mg daily, Topiramate 25 mg daily; Trazadone 150 mg HS - Zyprexa added to assist with stability/sleep; Patient dislikes Haldol - Psychiatry following -- appreciate input (2) COVID-19: Plan: - Possibly symptoms started over last 1-2 weeks but first positive test on 08/05 - CXR unremarkable and only endorses a cough; not requiring O2 and therefore no indication for COVID treatment at this time - Currently stable from a COVID perspective however remains on isolation. Given possibly symptoms x 1-2 weeks will repeat testing to see if negative and possibly can repeat x 24 hours if negative and can remove isolation and address further whether inpatient psychiatric treatment is needed (3) COPD with chronic bronchitis: Plan: - No acute exacerbation (4) Chronic gastroesophageal reflux disease: Plan: - Protonix daily (5) Hepatitis C: Plan: - Continue sofosbuvir-velpatasvir however non-formulary - would need brought in to continue Plan: Patient is currently on 302 warrant. Monitor psychiatric symptoms and currently on 1:1. Remains stable from a COVID perspective. Patient did give permission to talk to Ted as we do not have a number for her son Dickson. Update provided, Ted reports he has POA and has legal documentation. May be beneficial to have brought into the hospital. Admission and Anticipated Discharge Date Admission Date: August 05, 2021 Subjective Patient was calm and cooperative this afternoon during my visit. She is fixated on her youngest son Dickson as she is afraid he has COVID and is in danger because of this. She states he has lung issues and isn't safe. She is also fixated that her other son Ted is not safe. She does bounce from topic to topic but seems to be doing that a bit less during my visit. Again more fixated on her son Dickson and just wanting me to call Dickson to make sure he is okay. We do not have a phone number for him and she allowed me to talk to Ted to make sure Dickson is okay. Earlier in the day she did call 911 and also through her breakfast tray. She states she is hungry this afternoon and is looking forward to dinner. She was able to recall seeing her PCP for GI issues a couple weeks back. She states she probably started coughing around that time as well. However first positive test was on admission. She denies SOB. She states her GI symptoms are improved from previous. Review of Systems Review of Systems: All systems reviewed & are unremarkable except as noted in Subjective Physical Exam Physical Exam: PHYSICAL EXAM General Appearance: WDWN in NAD who is A&O x 3 (not fully grasping the situation of why she is here) HEENT: Head is normocephalic/atraumatic; Hearing grossly intact; Mucous membranes moist Neck: Supple; Trachea midline; Neg JVD Heart: RRR with no M/G/R Lungs: CTA in all lung cardenas bilaterally; Respirations unlabored; Neg accessory muscle use; + nonproductive cough Abdomen: Soft, non-tender, non-distended; Positive BS x 4 quadrants Extremities: Neg cyanosis or edema Neurological: Speech clear can occasionally mumble; Gross motor/sensory function intact; Neg focal neurologic deficits Psychiatric: Calm and cooperative but fixated on her younger son's safety; some jumping from topic to topic but seems to be less compared to other staff's notes Skin: Normal Color; Warm/Dry Results & Data Results & Data ([facility]) Vital Signs (Past 12 Hours) Vital Signs Temp Pulse Resp BP Pulse Ox 08/06/21 09:29 36.6 C 94 H 22 134/71 94 PG Care Time/CCT Total # of Minutes Spent Total Time Spent with Patient: Total time spent is greater than 50% in coordination of care (as documented) at patient's floor/unit and/or counseling patient: Coding Level of Care Code 79542 Subseq Hosp Care Lvl 3 Diagnoses COVID-19 U07.1 COPD with chronic bronchitis J44.9 Chronic gastroesophageal reflux disease K21.9 Hepatitis C B19.20 Schizoaffective disorder F25.9 Schizoaffective disorder type: unspecified (1) Schizoaffective disorder Schizoaffective disorder type: unspecified Qualified Code(s): F25.9 - Schizoaffective disorder, unspecified
[2021-08-06] MEDS: traZODone HCL 50 MG TAB PO SCH (21:27)
[2021-08-06] MEDS: OLANZapine ZYDIS 5 MG ORALLY DIS. TAB PO SCH (21:27)
[2021-08-06 23:51] LABS: Appearance Urine Clear (Clear); Bacteria Urine Automated Negative (Negative); Blood Urine Negative (Negative); Color Urine Orange; Epithelial Cell Urine Auto >30 /lpf (0-5); Glucose Urine UA Negative (Negative); Ketones Urine Trace (Negative); Leukocyte Esterase Urine Trace (Negative); Nitrite Urine Positive (Negative); Protein Urine Negative (Negative); RBC Urine Automated 0-4 /hpf (0-4); Specific Gravity Urine 1.027 (1.000-1.030); Urobilinogen Urine Negative (Negative)
[2021-08-07 00:08] LABS: Bilirubin Urine 1+ (Negative)
[2021-08-07 00:17] LABS: Amphetamines+Metham, Urine Neg (Neg); Barbiturates, Urine Neg (Neg); Benzodiazepine, Urine Neg (Neg); Cocaine, Urine Neg (Neg); MDMA (Ecstacy), Urine Pos (Neg); Methadone, Urine Neg (Neg); Opiate, Urine Neg (Neg); Phencyclidine, Urine Neg (Neg)
[2021-08-07] MEDS: TOPIRAMATE 25 MG TAB PO SCH (08:03)
[2021-08-07] MEDS: PANTOprazole 40 MG TAB PO SCH (08:03)
[2021-08-07] MEDS: OLANZapine ZYDIS 5 MG ORALLY DIS. TAB PO SCH ×2 (08:04→20:30)
[2021-08-07] MEDS: guaiFENesin 600 MG TABCR PO SCH ×2 (11:53→20:29)
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
--- NOTE | 2021-08-07 13:21 | Psychiatric Progress Note ---
Date of Service August 07, 2021 Impression / Recommendations Impression 56 yo female with schizoaffective disorder with disorganized psychosis following a reported period of med non-compliance--she was not sleeping well, calling police, and family worried she would increase in threatening behavior. 08/07/21--improving but repeat COVID test + (1) Schizoaffective disorder: 08/07/21: unable to place on a psychiatry unit given COVID+ status, continue psych meds as ordered, Zyprexa can likely be tapered or consolidated to bedtime soon. Ideally she would be transitioned to a [facility] but she has been resistant. SW planning/family meeting as may need to be discharged from the medical floor if no longer meeting commitment criteria prior to ability to place due to COvid status. 08/06/21: continue home meds (resuming consistency), latuda is generally taken in the pm with food but she is currently not eating consistently but did take this am. As likely poor absorption and active psychosis, will add another agent temporarily to assist in stabilization. She dislikes Haldol and has exhibited some oral dyskinesias during a previous hospitalization. She typically has difficult sleeping when like this so will offer Zyprexa this hs. Zyprexa could also be given IM for acute agitation. Risk Factors Assessment Do You Have Access To A Gun?: No Interval History Identifying Information Lisandra is a 56 yo female with a history of schizophrenia, known to our service from previous inpatient admissions on . She was brought to the ED on a 302 warrant and admitted to the medical floor as she tested positive for COVID. patient seen in respiratory isolation in full PPE. Chief Complaint "I really need to get my phone back". Review of Systems Notes patient is without physical compliants at this time, minimal cough Subjective Subjective Patient was seen & assessed and interval progress reviewed with treatment team. The patient will resume Latuda with evening meal this pm and is clearly less paranoid and eating and drinking better. She has complied with Zyprexa BId dosing as well for now. She does appear somewhat tired this am but is less pressured/anxious in conversation. 1-on-1 remains at bedside. Physical Exam Psychiatric Orientation: alert and oriented x 3 Apperance: + disheveled Eye Contact: + poor eye contact Motor Behavior: no abnormal motor movements Affect: + blunted affect Mood: + anxious mood Thought Process: + circumstantial thought process and + perseveration Thought Content: + paranoid (decreased); no delusions Suicidal Thoughts: denies suicidal thoughts Homicidal Thoughts: denies homicidal thoughts Hallucinations: no auditory hallucinations and no visual hallucinations Cognition: attention grossly intact and language grossly intact Estimated Intelligence: consistent with education level Insight: + limited insight Judgement: + limited judgement Vital Signs (Past 24 Hours) Last Vital Signs Temp 36.9 C 08/07/21 11:12 Pulse 81 08/07/21 11:12 Resp 18 08/07/21 11:12 BP 102/69 08/07/21 11:12 Pulse Ox 90 08/07/21 11:12 Results & Data ([facility]) Laboratory Results Laboratory Results - last 24 hr 08/06/21 08/06/21 08/06/21 23:30 23:30 23:30 Urine Color [place] Urine Appearance Clear Urine pH 5.0 Ur Specific [place] 1.027 Urine Protein Negative Urine Glucose (UA) Negative Urine Ketones Trace H Urine Blood Negative Urine Nitrite Positive A Urine Bilirubin 1+ H Urine Urobilinogen Negative Ur Leukocyte Esterase Trace H Urine WBC (Auto) 1-5 Urine RBC (Auto) 0-4 U Hyaline Cast (Auto) 5-10 H U Epithel Cells (Auto) >30 H Urine Bacteria (Auto) Negative Urine Opiates Screen Neg Ur Methadone, Qual Neg Urine Barbiturates Neg Ur Phencyclidine (PCP) Neg U Amphetamin/Meth Scrn Neg Urine MDEA Pending MDMA (Ecstasy) Screen Pos H MDMA Pending Urine MDMA Pending U Benzodiazepines Scrn Neg Ur Cocaine Metabolite Neg U Marijuana (THC) Screen Neg SARS-CoV-2, RNA, NAAT 08/07/21 08:10 Urine Color Urine Appearance Urine pH Ur Specific [place] Urine Protein Urine Glucose (UA) Urine Ketones Urine Blood Urine Nitrite Urine Bilirubin Urine Urobilinogen Ur Leukocyte Esterase Urine WBC (Auto) Urine RBC (Auto) U Hyaline Cast (Auto) U Epithel Cells (Auto) Urine Bacteria (Auto) Urine Opiates Screen Ur Methadone, Qual Urine Barbiturates Ur Phencyclidine (PCP) U Amphetamin/Meth Scrn Urine MDEA MDMA (Ecstasy) Screen MDMA Urine MDMA U Benzodiazepines Scrn Ur Cocaine Metabolite U Marijuana (THC) Screen SARS-CoV-2, RNA, NAAT POSITIVE A* Current Inpatient Medications Current Inpatient Medications: Current Inpatient Medications Acetaminophen (Acetaminophen 325 Mg Tab) 650 mg PO Q4H PRN PRN Reason: pain/fever Stop: 09/04/21 23:01 Guaifenesin (Guaifenesin 600 Mg Tabcr) 600 mg PO Q12 MICAH Stop: 09/06/21 11:29 Last Admin: 08/07/21 11:53 Dose: 600 mg Documented by: Lorazepam (Ativan) 1 mg in 2 mls @ 2 mls/min IV Q4H PRN PRN Reason: Anxiety/Agitation Stop: 09/04/21 23:01 Lurasidone HCl (Lurasidone Hcl 40 Mg Tab) 80 mg PO DAILYBD MICAH Stop: 09/06/21 16:29 Miscellaneous (Sofosbuvir-Velpatasvir 400-100 Mg - Order Awaiting Action) 1 ea N/A QS MICAH Stop: 09/05/21 07:59 Last Admin: 08/07/21 07:34 Dose: Not Given Documented by: Olanzapine (Olanzapine Zydis 5 Mg Orally Dis. Tab) 5 mg PO BID MICAH Stop: 09/05/21 20:59 Last Admin: 08/07/21 08:04 Dose: 5 mg Documented by: Olanzapine (Olanzapine 10 Mg/2.1 Ml Sdv) 5 mg IM Q6 PRN PRN Reason: Agitation Stop: 09/05/21 14:36 Ondansetron HCl (Ondansetron Inj 2 Mg/Ml 2 Ml Vial) 4 mg IV Q6H PRN PRN Reason: Nausea Stop: 09/04/21 23:01 Pantoprazole Sodium (Pantoprazole 40 Mg Tab) 40 mg PO DAILY MICAH Stop: 09/05/21 08:59 Last Admin: 08/07/21 08:03 Dose: 40 mg Documented by: Topiramate (Topiramate 25 Mg Tab) 25 mg PO DAILY MICAH Stop: 09/05/21 08:59 Last Admin: 08/07/21 08:03 Dose: 25 mg Documented by: Trazodone HCl (Trazodone Hcl 50 Mg Tab) 150 mg PO HS MICAH Stop: 09/05/21 20:59 Last Admin: 08/06/21 21:27 Dose: 150 mg Documented by: Mental Health & Subst Abuse Tx Psychiatrist Name of Psychiatrist: Emily Snider Psychiatrist's Psychiatric Appointment Comment: [address], [place] [address] Adventure Challenge Instructor Name of Adventure Challenge Instructor: Randy Talamantes- Post Discharge Appointments Primary Care Physician Name Of Family Doctor: ENDER Solis Primary Care Provider Appointment Comment: [id number], [place] [address] Contact Information Discharge Discharge Address: [address] [place] [address]. [address] [place] [address] (1) Schizoaffective disorder Schizoaffective disorder type: unspecified Qualified Code(s): F25.9 - Schizoaffective disorder, unspecified
[2021-08-07] MEDS: LURASIDONE HCL 40 MG TAB PO SCH (17:10)
[2021-08-07] MEDS: NICOTINE 14 MG/24 HR PATCH TD SCH (18:33)
[2021-08-07] MEDS: traZODone HCL 50 MG TAB PO SCH (20:29)
[2021-08-08] MEDS: TOPIRAMATE 25 MG TAB PO SCH (09:10)
[2021-08-08] MEDS: guaiFENesin 600 MG TABCR PO SCH ×2 (09:10→20:33)
[2021-08-08] MEDS: PANTOprazole 40 MG TAB PO SCH (09:10)
[2021-08-08] MEDS: OLANZapine ZYDIS 5 MG ORALLY DIS. TAB PO SCH ×2 (09:10→20:33)
[2021-08-08] MEDS: NICOTINE 14 MG/24 HR PATCH TD SCH (09:10)
[2021-08-08] MEDS ORDERED: OLANZAPINE 2.5 MG TAB PO PRN (14:28)
--- NOTE | 2021-08-08 14:30 | Psychiatric Progress Note ---
Date of Service August 08, 2021 Impression / Recommendations Impression Reviewed interim progress per Dr. Angeles: 56 yo female with schizoaffective disorder with disorganized psychosis following a reported period of med non-compliance--she was not sleeping well, calling police, and family worried she would increase in threatening behavior. On 302 status (expires 08/11/21). 08/08/21--continues to have paranoia and disorganized thought process with no ability to reality-test but more re-directable today and tolerating medications. Ultimate goal is to cross-taper to latuda but given ongoing paranoia will continue with zyprexa for now and additional prn for anxiety/agitation related to paranoia. Re-iterated 302 status and rationale for this. (1) Schizoaffective disorder: 08/08/21: Continue with zyprexa, additional prns for anxiety related to paranoia, as well as latuda and other prior to admission medications. 08/07/21: unable to place on a psychiatry unit given COVID+ status, continue psych meds as ordered, Zyprexa can likely be tapered or consolidated to bedtime soon. Ideally she would be transitioned to a [facility] but she has been resistant. SW planning/family meeting as may need to be discharged from the medical floor if no longer meeting commitment criteria prior to ability to place due to COvid status. 08/06/21: continue home meds (resuming consistency), latuda is generally taken in the pm with food but she is currently not eating consistently but did take this am. As likely poor absorption and active psychosis, will add another agent temporarily to assist in stabilization. She dislikes Haldol and has exhibited some oral dyskinesias during a previous hospitalization. She typically has difficult sleeping when like this so will offer Zyprexa this hs. Zyprexa could also be given IM for acute agitation. Risk Factors Assessment Do You Have Access To A Gun?: No Interval History Identifying Information Lisandra is a 56 yo female with a history of schizophrenia, with previous inpatient admissions on . She was brought to the ED on a 302 warrant and admitted to the medical floor as she tested positive for COVID. Chief Complaint "They are trying to mess with me". Review of Systems Notes Reports stable sleep and appetite. Denies physical complaints but heard to be coughing. Telehealth Telehealth Options: Telephone only For the duration of the visit, provider was performing the assessment from: The same facility as the patient After establishing a telemedicine visit, patient was: Patient was verified with two unique identifiers, Patient/authorized rep acknowledged consent and understanding and Gave permission to continue telehealth session Total Time Spent (minutes): 20 Subjective Subjective Patient was seen & assessed and interval progress reviewed. Today she reports ongoing concerns about her son and his girlfriend taking out money from her food stamps as well as a variety of other concerns such as "they might try to push me down the stairs because they were smiling at me from the kitchen and I saw them playing around" and that "I don't need someone messing with me". She has no ability to reality-test these concerns. Continues to focus on desire for police to be involved. Denies any concerns related to her medications though asks about having ativan. Reviewed risks of this and preference that she use zyprexa which she agrees to, additional zyprexa ordered as prn. Discussed her job at [employer] which she has been enjoying. Physical Exam Psychiatric Orientation: alert and oriented x 3 Speech: normal rate/rhythm/volume of speech (slightly rapid at times) Mood: + anxious mood Thought Process: + circumstantial thought process and + perseveration Thought Content: + paranoid and + persecution; no delusions Suicidal Thoughts: denies suicidal thoughts Homicidal Thoughts: denies homicidal thoughts Hallucinations: no auditory hallucinations and no visual hallucinations Cognition: attention grossly intact and language grossly intact Estimated Intelligence: consistent with education level Insight: + poor insight Judgement: + poor judgement Vital Signs (Past 24 Hours) Last Vital Signs Temp 36.9 C 08/08/21 06:55 Pulse 90 08/08/21 06:55 Resp 18 08/08/21 06:55 BP 133/90 08/08/21 06:55 Pulse Ox 95 08/08/21 06:55 Results & Data ([facility]) Current Inpatient Medications Current Inpatient Medications: Current Inpatient Medications Acetaminophen (Acetaminophen 325 Mg Tab) 650 mg PO Q4H PRN PRN Reason: pain/fever Stop: 09/04/21 23:01 Guaifenesin (Guaifenesin 600 Mg Tabcr) 600 mg PO Q12 MICAH Stop: 09/06/21 11:29 Last Admin: 08/08/21 09:10 Dose: 600 mg Documented by: Lorazepam (Ativan) 1 mg in 2 mls @ 2 mls/min IV Q4H PRN PRN Reason: Anxiety/Agitation Stop: 09/04/21 23:01 Lurasidone HCl (Lurasidone Hcl 40 Mg Tab) 80 mg PO DAILYBD [facility] Stop: 09/06/21 16:29 Last Admin: 08/07/21 17:10 Dose: 80 mg Documented by: Miscellaneous (Remove Nicoderm Patch) 1 ea N/A DAILY@0859 MICAH Stop: 09/07/21 08:58 Last Admin: 08/08/21 09:12 Dose: 1 ea Documented by: Nicotine (Nicotine 14 Mg/24 Hr Patch) 14 mg TD QAM MICAH Stop: 09/06/21 17:59 Last Admin: 08/08/21 09:10 Dose: 14 mg Documented by: Olanzapine (Olanzapine Zydis 5 Mg Orally Dis. Tab) 5 mg PO BID MICAH Stop: 09/05/21 20:59 Last Admin: 08/08/21 09:10 Dose: 5 mg Documented by: Olanzapine (Olanzapine 10 Mg/2.1 Ml Sdv) 5 mg IM Q6 PRN PRN Reason: Agitation Stop: 09/05/21 14:36 Olanzapine (Olanzapine 2.5 Mg Tab) 2.5 mg PO BID PRN PRN Reason: Anxiety/Agitation Stop: 09/07/21 20:59 Ondansetron HCl (Ondansetron Inj 2 Mg/Ml 2 Ml Vial) 4 mg IV Q6H PRN PRN Reason: Nausea Stop: 09/04/21 23:01 Pantoprazole Sodium (Pantoprazole 40 Mg Tab) 40 mg PO DAILY MICAH Stop: 09/05/21 08:59 Last Admin: 08/08/21 09:10 Dose: 40 mg Documented by: Topiramate (Topiramate 25 Mg Tab) 25 mg PO DAILY MICAH Stop: 09/05/21 08:59 Last Admin: 08/08/21 09:10 Dose: 25 mg Documented by: Trazodone HCl (Trazodone Hcl 50 Mg Tab) 150 mg PO HS [facility] Stop: 09/05/21 20:59 Last Admin: 08/07/21 20:29 Dose: 150 mg Documented by: Mental Health & Subst Abuse Tx Psychiatrist Name of Psychiatrist: Emily Snider Psychiatrist's Psychiatric Appointment Comment: [address], [place] [address] Salesperson [employer] Name of Salesperson [employer]: Randy Talamantes- Post Discharge Appointments Primary Care Physician Name Of Family Doctor: ENDER Solis Primary Care Provider Appointment Comment: [address], [place] [address] Contact Information Discharge Discharge Address: [address] [place] [address]. [address] [place] [address] (1) Schizoaffective disorder Schizoaffective disorder type: unspecified Qualified Code(s): F25.9 - Schizoaffective disorder, unspecified
[2021-08-08] MEDS: LURASIDONE HCL 40 MG TAB PO SCH (17:04)
--- NOTE | 2021-08-08 18:14 | Hospitalist Progress Note ---
Date of Service August 08, 2021 Assessment & Plan (1) Schizoaffective disorder: Plan: - Appears likely in the setting of med non-compliance; of note patient was recently ill with GI symptoms so may have contributed to med non-compliance - Currently on a 302 filed by her son - patient would be unable to leave until 302 is completed/dispositioned-defer to psychiatry Thought process and paranoia apparently are slightly improved as per psychiatry today with starting Zyprexa since admission-adding on a as needed dose of Zyprexa as well today - Continue Lurasidone 80 mg daily with dinner, topiramate 25 mg daily; and trazadone 150 mg HS - Zyprexa added to assist with stability/sleep; Patient dislikes Haldol - Psychiatry following -- appreciate input (2) COVID-19: Plan: - Possibly symptoms started over last 1-2 weeks but first positive test on 08/05 - CXR unremarkable and only endorses a cough; not requiring O2 and therefore no indication for COVID treatment at this time - Currently stable from a COVID perspective however remains on isolation. Repeat testing is still positive -Continue Mucinex BID Remains stable (3) COPD with chronic bronchitis: Plan: - No acute exacerbation (4) Chronic gastroesophageal reflux disease: Plan: - Protonix daily (5) Hepatitis C: Plan: With elevated AST and ALT but are improved from previous - Continue [id number]-she had it brought in from home (6) Transaminitis: Plan: As above, secondary to hepatitis C (7) Current smoker: Plan: Continue nicotine patch Plan: DVT prophylaxis-SCDs, add Lovenox given that she has active Covid and is at high risk for VTE Disposition-defer to psychiatry-from a medical standpoint, she is stable for discharge to home Patient is currently on 302 warrant. Monitor psychiatric symptoms and currently on 1:1. Remains stable from a COVID perspective. Patient did give permission to talk to Ted on 08/06. Patient states the number for her other son Dickson ([phone]). Update provided, Ted reports he has POA and has legal documentation. May be beneficial to have brought into the hospital. Admission and Anticipated Discharge Date Admission Date: August 05, 2021 Subjective Patient is rambling on and on about food stamps and calling the police and this is in response to when I asked her questions such as are you having any shortness of breath. She is insisting that people are laughing at her and trying to steal her money. When I finally was able to redirect her she did then deny chest pains or shortness of breath or pain anywhere. She is eating a little bit. She then asked if she could have Ativan and states that "I am not here in 302." Review of Systems Review of Systems: All systems reviewed & are unremarkable except as noted in HPI & below Physical Exam Constitutional: WD/WN, vitals as above Eyes: + anicteric sclerae Neck: trachea midline, no thyromegaly Respiratory: normal respiratory effort, lungs clear to auscultation Cardiovascular: RRR, no murmur, no edema Chest (Breasts): Chest: normal inspection of chest Gastrointestinal (Abdomen): normal bowel sounds, soft, nontender, no hepatosp lenomegaly Musculoskeletal: Extremities: extremities normal to inspection; no cyanosis and no clubbing Skin: no rashes, warm and dry Neurologic: moves all extremities and awake; no focal motor deficits Psychiatric: Orientation: alert, oriented to person, oriented to place and cooperative Eye Contact: + fair eye contact Speech: + pressured speech Affect: + anxious affect Thought Process: + tangential thought process and + looseness of associations Thought Content: + preoccupation and + paranoid Lymphatic: no lymphedema Results & Data Results & Data ([facility]) Vital Signs (Past 12 Hours) Vital Signs Temp Pulse Resp BP Pulse Ox 08/08/21 06:55 36.9 C 90 18 133/90 95 PG Care Time/CCT Total # of Minutes Spent Total Time Spent with Patient: Total time spent is greater than 50% in coordination of care (as documented) at patient's floor/unit and/or counseling patient: Coding Level of Care Code 57503 Subseq Hosp Care Lvl 2 Diagnoses Schizoaffective disorder F25.9 Schizoaffective disorder type: unspecified COVID-19 U07.1 COPD with chronic bronchitis J44.9 Chronic gastroesophageal reflux disease K21.9 Hepatitis C B19.20 Transaminitis R74.01 Current smoker F17.200 (1) Schizoaffective disorder Schizoaffective disorder type: unspecified Qualified Code(s): F25.9 - Schizoaffective disorder, unspecified
[2021-08-08] MEDS: traZODone HCL 50 MG TAB PO SCH (20:33)
[2021-08-09] MEDS: TOPIRAMATE 25 MG TAB PO SCH (08:19)
[2021-08-09] MEDS: PANTOprazole 40 MG TAB PO SCH (08:19)
[2021-08-09] MEDS: NICOTINE 14 MG/24 HR PATCH TD SCH (08:19)
[2021-08-09] MEDS: guaiFENesin 600 MG TABCR PO SCH ×2 (08:19→20:33)
[2021-08-09] MEDS: OLANZapine ZYDIS 5 MG ORALLY DIS. TAB PO SCH (08:19)
--- NOTE | 2021-08-09 10:41 | Psychiatric Progress Note ---
Date of Service August 09, 2021 Impression / Recommendations Impression Reviewed interim progress per Dr. nAgeles: 56 yo female with schizoaffective disorder with disorganized psychosis following a reported period of med non-compliance--she was not sleeping well, calling police, and family worried she would increase in threatening behavior. On 302 status (expires 08/11/21 at 4pm). 08/09/21--significant improvement today with normal speech, clear organized though t process and no evidence for paranoia and she's eating consistently. Ultimate goal is for antipsychotic monotherapy on latuda so will decrease zyprexa slightly given clinical improvement. (1) Schizoaffective disorder: 08/09/21: Reduce dose of zyprexa to 5mg qhs and continue with latuda and trazodone. Psych liason spoke with her son. Continue 1-on-1 due to 302 commitment status 08/08/21: Continue with zyprexa, additional prns for anxiety related to paranoia, as well as latuda and other prior to admission medications. 08/07/21: unable to place on a psychiatry unit given COVID+ status, continue psych meds as ordered, Zyprexa can likely be tapered or consolidated to bedtime soon. Ideally she would be transitioned to a [facility] but she has been resistant. SW planning/family meeting as may need to be discharged from the medical floor if no longer meeting commitment criteria prior to ability to place due to COvid status. 08/06/21: continue home meds (resuming consistency), latuda is generally taken in the pm with food but she is currently not eating consistently but did take this am. As likely poor absorption and active psychosis, will add another agent temporarily to assist in stabilization. She dislikes Haldol and has exhibited some oral dyskinesias during a previous hospitalization. She typically has difficult sleeping when like this so will offer Zyprexa this hs. Zyprexa could also be given IM for acute agitation. Risk Factors Assessment Do You Have Access To A Gun?: No Interval History Identifying Information Lisandra is a 56 yo female with a history of schizophrenia, with previous inpatient admissions on 3 . She was brought to the ED on a 302 warrant and admitted to the medical floor as she tested positive for COVID. Chief Complaint "I'm good". Review of Systems Notes see subjective Telehealth Telehealth Options: Telephone only For the duration of the visit, provider was performing the assessment from: The same facility as the patient After establishing a telemedicine visit, patient was: Patient was verified with two unique identifiers, Patient/authorized rep acknowledged consent and understanding and Gave permission to continue telehealth session Total Time Spent (minutes): 20 Subjective Subjective Patient was seen & assessed and interval progress reviewed. "I'm good". Slept well. Appetite is good. No side effects from the latuda or zyprexa. Reports anxiety is getting better. She wants to return home soon and get back to work. Wants to keep working to save money to buy new winter coats. Sees Evie Avila at [facility] in September. States she feels well supported outside the hospital "[facility]". When asked discusses some dislike toward her son Ted's girlfriend stating "she took my uber fabien off my phone" but no other evidence for paranoia today. Denies SI, HI and AH and VH. Physical Exam Psychiatric Orientation: alert and oriented x 3 Speech: normal rate/rhythm/volume of speech Mood: no depressed mood, no anxious mood and no irritable mood Thought Process: goal directed thought process and clear/coherent thought process Thought Content: reality based without delusions Suicidal Thoughts: denies suicidal thoughts Homicidal Thoughts: denies homicidal thoughts Hallucinations: no auditory hallucinations and no visual hallucinations Insight: + limited insight Judgement: + fair judgement Vital Signs (Past 24 Hours) Last Vital Signs Temp 37.1 C 08/09/21 07:08 Pulse 90 08/09/21 07:08 Resp 16 08/09/21 07:08 BP 97/67 L 08/09/21 07:17 Pulse Ox 92 08/09/21 07:08 Results & Data ([facility]) Current Inpatient Medications Current Inpatient Medications: Current Inpatient Medications Acetaminophen (Acetaminophen 325 Mg Tab) 650 mg PO Q4H PRN PRN Reason: pain/fever Stop: 09/04/21 23:01 Guaifenesin (Guaifenesin 600 Mg Tabcr) 600 mg PO Q12 [facility] Stop: 09/06/21 11:29 Last Admin: 08/09/21 08:19 Dose: 600 mg Documented by: Lorazepam (Ativan) 1 mg in 2 mls @ 2 mls/min IV Q4H PRN PRN Reason: Anxiety/Agitation Stop: 09/04/21 23:01 Lurasidone HCl (Lurasidone Hcl 40 Mg Tab) 80 mg PO DAILYBD [facility] Stop: 09/06/21 16:29 Last Admin: 08/08/21 17:04 Dose: 80 mg Documented by: Miscellaneous (Remove Nicoderm Patch) 1 ea N/A DAILY@0859 [facility] Stop: 09/07/21 08:58 Last Admin: 08/09/21 08:20 Dose: 1 ea Documented by: Nicotine (Nicotine 14 Mg/24 Hr Patch) 14 mg TD QAM [facility] Stop: 09/06/21 17:59 Last Admin: 08/09/21 08:19 Dose: 14 mg Documented by: Olanzapine (Olanzapine Zydis 5 Mg Orally Dis. Tab) 5 mg PO BID [facility] Stop: 09/05/21 20:59 Last Admin: 08/09/21 08:19 Dose: 5 mg Documented by: Olanzapine (Olanzapine 10 Mg/2.1 Ml Sdv) 5 mg IM Q6 PRN PRN Reason: Agitation Stop: 09/05/21 14:36 Olanzapine (Olanzapine 2.5 Mg Tab) 2.5 mg PO BID PRN PRN Reason: Anxiety/Agitation Stop: 09/07/21 20:59 Ondansetron HCl (Ondansetron Inj 2 Mg/Ml 2 Ml Vial) 4 mg IV Q6H PRN PRN Reason: Nausea Stop: 09/04/21 23:01 Pantoprazole Sodium (Pantoprazole 40 Mg Tab) 40 mg PO DAILY [facility] Stop: 09/05/21 08:59 Last Admin: 08/09/21 08:19 Dose: 40 mg Documented by: Topiramate (Topiramate 25 Mg Tab) 25 mg PO DAILY [facility] Stop: 09/05/21 08:59 Last Admin: 08/09/21 08:19 Dose: 25 mg Documented by: Trazodone HCl (Trazodone Hcl 50 Mg Tab) 150 mg PO HS [facility] Stop: 09/05/21 20:59 Last Admin: 08/08/21 20:33 Dose: 150 mg Documented by: Mental Health & Subst Abuse Tx Psychiatrist Name of Psychiatrist: Emily Snider Psychiatrist's Psychiatric Appointment Comment: [address], [place] [address] Art Class Model Name of Art Class Model: Randy Talamantes- Post Discharge Appointments Primary Care Physician Name Of Family Doctor: ENDER Solis Primary Care Provider Appointment Comment: Sabrina R[address], [place] [address] Contact Information Discharge Discharge Address: [address] [place] [address]. [address] [place] [address] (1) Schizoaffective disorder Schizoaffective disorder type: unspecified Qualified Code(s): F25.9 - Schizoaffective disorder, unspecified
--- NOTE | 2021-08-09 13:12 | Hospitalist Progress Note ---
Date of Service August 09, 2021 Assessment & Plan (1) Schizoaffective disorder: Plan: - Appears likely in the setting of med non-compliance; of note patient was recently ill with GI symptoms so may have contributed to med non-compliance - Currently on a 302 filed by her son - patient would be unable to leave until 302 is completed/dispositioned-defer to psychiatry-plan is most likely 302 will on Tuesday and she will be discharged to home SHe is improving - Continue Lurasidone 80 mg daily with dinner, topiramate 25 mg daily; and trazadone 150 mg HS - Zyprexa added to assist with stability/sleep; Patient dislikes Haldol - Psychiatry following -- appreciate input (2) COVID-19: Plan: - Possibly symptoms started over last 1-2 weeks but first positive test on 08/05 - CXR unremarkable and only endorses a cough; not requiring O2 and therefore no indication for COVID treatment at this time - Currently stable from a COVID perspective however remains on isolation. Repeat testing is still positive -Continue Mucinex BID Remains stable (3) COPD with chronic bronchitis: Plan: - No acute exacerbation (4) Chronic gastroesophageal reflux disease: Plan: - Protonix daily (5) Hepatitis C: Plan: With elevated AST and ALT but are improved from previous - Continue aulsqisodm-rpmwuqsdckq-nis had it brought in from home (6) Transaminitis: Plan: As above, secondary to hepatitis C (7) Current smoker: Plan: Continue nicotine patch Plan: DVT prophylaxis-SCDs, Lovenox given that she has active Covid and is at high risk for VTE Disposition-medically stable, and improving from Psych standpoint--> plan to dc to home on Tuesday when 302 expires if continues to improve Patient is currently on 302 warrant. Monitor psychiatric symptoms and currently on 1:1. Patient did give permission to talk to Ted on 08/06. Patient states the number for her other son Dickson ([phone]). Update provided, Ted reports he has POA and has legal documentation. May be beneficial to have brought into the hospital. Admission and Anticipated Discharge Date Admission Date: August 05, 2021 Subjective Was sleeping when I came in but woke up. Has a cough but denies pain or SOB. Appetite is improving. Discussed her case with the Psychiatrist Review of Systems Review of Systems: All systems reviewed & are unremarkable except as noted in HPI & below Physical Exam Constitutional: WD/WN, vitals as above Eyes: + anicteric sclerae Neck: trachea midline, no thyromegaly Respiratory: normal respiratory effort, lungs clear to auscultation Cardiovascular: RRR, no murmur, no edema Chest (Breasts): Chest: normal inspection of chest Gastrointestinal (Abdomen): normal bowel sounds, soft, nontender, no hepatosplenomegaly Musculoskeletal: Extremities: extremities normal to inspection; no cyanosis and no clubbing Skin: no rashes, warm and dry Neurologic: moves all extremities and awake; no focal motor deficits Psychiatric: Orientation: alert, oriented x 3 and cooperative Eye Contact: + fair eye contact Speech: normal rate/rhythm/volume of speech Affect: euthymic affect more clear today and with linear thought process Lymphatic: no lymphedema Results & Data Results & Data ([facility]) Vital Signs (Past 12 Hours) Vital Signs Temp Pulse Resp BP BP Pulse Ox 08/09/21 07:17 97/67 L 08/09/21 07:08 37.1 C 90 16 92/61 L 92 PG Care Time/CCT Total # of Minutes Spent Total Time Spent with Patient: Total time spent is greater than 50% in coordination of care (as documented) at patient's floor/unit and/or counseling patient: Coding Level of Care Code 29363 Subseq Hosp Care Lvl 1 Diagnoses Schizoaffective disorder F25.9 Schizoaffective disorder type: unspecified COVID-19 U07.1 COPD with chronic bronchitis J44.9 Chronic gastroesophageal reflux disease K21.9 Hepatitis C B19.20 Transaminitis R74.01 Current smoker F17.200 (1) Schizoaffective disorder Schizoaffective disorder type: unspecified Qualified Code(s): F25.9 - Schizoaffective disorder, unspecified
[2021-08-09] MEDS: LURASIDONE HCL 40 MG TAB PO SCH (15:22)
[2021-08-09] MEDS: traZODone HCL 50 MG TAB PO SCH (20:33)
[2021-08-09] MEDS ORDERED: OLANZapine ZYDIS 5 MG ORALLY DIS. TAB PO SCH (21:00)
[2021-08-10] MEDS: PANTOprazole 40 MG TAB PO SCH (08:41)
[2021-08-10] MEDS: guaiFENesin 600 MG TABCR PO SCH ×2 (08:41→22:12)
[2021-08-10] MEDS: TOPIRAMATE 25 MG TAB PO SCH (08:41)
[2021-08-10] MEDS: NICOTINE 14 MG/24 HR PATCH TD SCH (08:42)
--- NOTE | 2021-08-10 10:42 | Psychiatric Progress Note ---
Date of Service August 10, 2021 Impression / Recommendations Impression Reviewed interim progress per Dr. Angeles: 56 yo female with schizoaffective disorder with disorganized psychosis following a reported period of med non-compliance--she was not sleeping well, calling police, and family worried she would increase in threatening behavior. On 302 status (expires 08/11/21 at 4pm). 08/10/21--ongoing stable improvement today with normal speech, clear organized tho ught process and no evidence for paranoia and she's eating consistently. Responded well to tapering of olanzapine. Goal for one more week of dual therapy as she cross-tapers to monotherapy with latuda. She understands and agrees with this plan. Switching from zydis formulation to po which Lisandra consents to. Psych liason spoke with her son Edmund who remains in support of discharge once she is psychiatrically and medically stable. (1) Schizoaffective disorder: 08/10/21: continue with zyprexa 5 mg po qhs for one week then stop. Continue with latuda and trazodone. Continue 1-on-1 for 302 commitment status. 08/09/21: Reduce dose of zyprexa to 5mg qhs and continue with latuda and trazodone. Psych liason spoke with her son. Continue 1-on-1 due to 302 commi tment status 08/08/21: Continue with zyprexa, additional prns for anxiety related to paranoia, as well as latuda and other prior to admission medications. 08/07/21: unable to place on a psychiatry unit given COVID+ status, continue psych meds as ordered, Zyprexa can likely be tapered or consolidated to bedtime soon. Ideally she would be transitioned to a [facility] but she has been resistant. SW planning/family meeting as may need to be discharged from the medical floor if no longer meeting commitment criteria prior to ability to place due to COvid status. 08/06/21: continue home meds (resuming consistency), latuda is generally taken in the pm with food but she is currently not eating consistently but did take this am. As likely poor absorption and active psychosis, will add another agent temporarily to assist in stabilization. She dislikes Haldol and has exhibited some oral dyskinesias during a previous hospitalization. She typically has difficult sleeping when like this so will offer Zyprexa this hs. Zyprexa could also be given IM for acute agitation. Risk Factors Assessment Do You Have Access To A Gun?: No Interval History Identifying Information Lisandra is a 56 yo female with a history of schizophrenia, with previous inpatient admissions on . She was brought to the ED on a 302 warrant and admitted to the medical floor as she tested positive for COVID. Chief Complaint "I'm good". Review of Systems Notes see subjective Telehealth Telehealth Options: Telephone only For the duration of the visit, provider was performing the assessment from: The same facility as the patient After establishing a telemedicine visit, patient was: Patient was verified with two unique identifiers, Patient/authorized rep acknowledged consent and understanding and Gave permission to continue telehealth session Total Time Spent (minutes): 20 Subjective Subjective Patient was seen & assessed and interval progress reviewed with treatment team nursing and social work. Reviewed treatment team plan verbally. She reports her mood is "good". She reports good sleep and good appetite. She likes the idea of returning to her apartment soon and eager to return to work. She's looking forward to seeing Edmund. She isn't noticing any side effects from her latuda. Discussed plan to keep taking zyprexa at bedtime for one more week after discharge and then stop. Confirmed she has a follow-up appointment with her [facility] psychiatrist on September 03 at 10am. Discussed that her corrections caseworker is another person for support and that they check-in once per week. No SI. No HI. No AH or VH. No paranoia about her other son Ted or his girlfriend vocalized together rather when asked how she may manage being around them she stated "I don't see them that much but it will be fine". Physical Exam Psychiatric Orientation: alert, oriented x 3 and cooperative Speech: normal rate/rhythm/volume of speech Mood: no depressed mood, no anxious mood and no irritable mood Thought Process: clear/coherent thought process Thought Content: reality based without delusions; no delusions Suicidal Thoughts: denies suicidal thoughts Homicidal Thoughts: denies homicidal thoughts Hallucinations: no auditory hallucinations and no visual hallucinations Cognition: attention grossly intact and language grossly intact Estimated Intelligence: consistent with education level Insight: + fair insight Judgement: + fair judgement Vital Signs (Past 24 Hours) Last Vital Signs Temp 36.6 C 08/10/21 08:08 Pulse 83 08/10/21 08:08 Resp 14 08/10/21 08:08 BP 117/71 08/10/21 08:08 Pulse Ox 92 08/10/21 08:08 Results & Data ([facility]) Current Inpatient Medications Current Inpatient Medications: Current Inpatient Medications Acetaminophen (Acetaminophen 325 Mg Tab) 650 mg PO Q4H PRN PRN Reason: pain/fever Stop: 09/04/21 23:01 Last Admin: 08/09/21 23:23 Dose: 650 mg Documented by: Guaifenesin (Guaifenesin 600 Mg Tabcr) 600 mg PO Q12 [facility] Stop: 09/06/21 11:29 Last Admin: 08/10/21 08:41 Dose: 600 mg Documented by: Dexamethasone 6 mg/ Syringe 1.5 mls @ 1 mls/min IV Q24H [facility] Stop: 09/09/21 10:14 Lurasidone HCl (Lurasidone Hcl 40 Mg Tab) 80 mg PO DAILYBD [facility] Stop: 09/06/21 16:29 Last Admin: 08/09/21 15:22 Dose: 80 mg Documented by: Miscellaneous (Remove Nicoderm Patch) 1 ea N/A DAILY@0859 [facility] Stop: 09/07/21 08:58 Last Admin: 08/10/21 08:42 Dose: 1 ea Documented by: Nicotine (Nicotine 14 Mg/24 Hr Patch) 14 mg TD QAM [facility] Stop: 09/06/21 17:59 Last Admin: 08/10/21 08:42 Dose: 14 mg Documented by: Olanzapine (Olanzapine 10 Mg/2.1 Ml Sdv) 5 mg IM Q6 PRN PRN Reason: Agitation Stop: 09/05/21 14:36 Olanzapine (Olanzapine 2.5 Mg Tab) 2.5 mg PO BID PRN PRN Reason: Anxiety/Agitation Stop: 09/07/21 20:59 Olanzapine (Olanzapine Zydis 5 Mg Orally Dis. Tab) 5 mg PO HS [facility] Stop: 09/08/21 20:59 Last Admin: 08/09/21 20:33 Dose: 5 mg Documented by: Ondansetron HCl (Ondansetron Inj 2 Mg/Ml 2 Ml Vial) 4 mg IV Q6H PRN PRN Reason: Nausea Stop: 09/04/21 23:01 Pantoprazole Sodium (Pantoprazole 40 Mg Tab) 40 mg PO DAILY [facility] Stop: 09/05/21 08:59 Last Admin: 08/10/21 08:41 Dose: 40 mg Documented by: Topiramate (Topiramate 25 Mg Tab) 25 mg PO DAILY [facility] Stop: 09/05/21 08:59 Last Admin: 08/10/21 08:41 Dose: 25 mg Documented by: Trazodone HCl (Trazodone Hcl 50 Mg Tab) 150 mg PO HS [facility] Stop: 09/05/21 20:59 Last Admin: 08/09/21 20:33 Dose: 150 mg Documented by: Mental Health & Subst Abuse Tx Psychiatrist Name of Psychiatrist: Emily Snider Psychiatrist's Psychiatric Appointment Comment: [address], [place] [address] Chief Controller Name of Chief Controller: Randy Talamantes- Post Discharge Appointments Primary Care Physician Name Of Family Doctor: ENDER Solis Primary Care Provider Appointment Comment: [phone], [place], [place] [address] Contact Information Discharge Discharge Address: [address] [place] [address]. [address] [place] [address] (1) Schizoaffective disorder Schizoaffective disorder type: unspecified Qualified Code(s): F25.9 - Schizoaffective disorder, unspecified
--- NOTE | 2021-08-10 10:47 | XRay Report ---
XR chest 1V portable HISTORY: Covid positive. Fever. COMPARISON: Chest 03/04/2021. FINDINGS: No pneumothorax. No pleural effusions. There is S-shaped scoliosis of the thoracolumbar spi ne, unchanged. Postoperative changes again noted within the left humerus. Mild interstitial thickenin g which is likely chronic. This is similar to the prior study. No new focal lung consolidations to gabriel ggest pneumonia. No evidence for pulmonary edema. Stable 2.8 cm right apical bleb. IMPRESSION: No significant change compared to the prior study. No acute process. ACT 112: Negative or not required by law. Electronically signed by: Efrem Corea M.D. 08/10/2021 10:45 AM
[2021-08-10] MEDS: dexAMETHasone 6 MG in SYRINGE 0 ML IV SCH (11:10)
--- NOTE | 2021-08-10 17:02 | Hospitalist Progress Note ---
Date of Service August 10, 2021 Assessment & Plan (1) Schizoaffective disorder: Plan: - Appears likely in the setting of med non-compliance; of note patient was recently ill with GI symptoms so may have contributed to med non-compliance - Currently on a 302 filed by her son - patient would be unable to leave until 302 is completed/dispositioned-defer to psychiatry-plan is most likely 302 will on Tuesday and she will be discharged to home SHe is improving - Continue Lurasidone 80 mg daily with dinner, topiramate 25 mg daily; and trazadone 150 mg HS-she has all these medications at home and does not need new prescriptions - Zyprexa added to assist with stability/sleep-decreased dose down to 5 mg p.o. nightly for 1 more week and then will stop-she will need a new prescription for this - Psychiatry following -- appreciate input-stable for discharge to home on 08/11 with outpatient follow-up (2) COVID-19: Plan: - Possibly symptoms started over last 1-2 weeks but first positive test on 08/05 - CXR unremarkable and only endorses a cough -Had a low-grade fever on the evening of 08/09, pulse ox now persistently less than 94% Repeat chest x-ray and 08/10 without pneumonia -Start dexamethasone 6 mg IV once daily and can convert to p.o. for short course of 5 days upon discharge (3) COPD with chronic bronchitis: Plan: - No acute exacerbation (4) Chronic gastroesophageal reflux disease: Plan: - Protonix daily (5) Hepatitis C: Plan: With elevated AST and ALT but are improved from previous - Continue lamyzjzbds-aaynqxnxlgx-cvs had it brought in from home (6) Transaminitis: Plan: As above, secondary to hepatitis C (7) Current smoker: Plan: Continue nicotine patch Plan: DVT prophylaxis-SCDs, Lovenox given that she has active Covid and is at high risk for VTE Disposition-medically stable, and improving from Psych standpoint--> plan to dc to home on Tuesday when 302 expires if continues to improve from a mental health standpoint Patient is currently on 302 warrant. Monitor psychiatric symptoms and currently on 1:1. Patient did give permission to talk to Ted on 08/06. Patient states the number for her other son Dickson ([phone]). Update provided, Ted reports he has POA and has legal documentation. May be beneficial to have brought into the hospital. Admission and Anticipated Discharge Date Admission Date: August 05, 2021 Subjective Patient was talking on the phone when I came in the room and showed no effort to get off the phone in order for me to interview her. She later requested that I call her on the phone and after repeated attempts of the line being busy, I gave up. As per nursing reports, she is doing well except for a mild cough. She has been showering independently daily. Had a mild fever last night and pulse ox less than 94% today. Review of Systems Review of Systems: Unobtainable due to mental health condition Physical Exam Constitutional: WD/WN, vitals as above Eyes: + anicteric sclerae Neck: trachea midline, no thyromegaly Musculoskeletal: Extremities: extremities normal to inspection; no cyanosis and no clubbing Skin: no rashes, warm and dry Neurologic: moves all extremities and awake Results & Data Results & Data ([facility]) Vital Signs (Past 12 Hours) Vital Signs Temp Pulse Resp BP Pulse Ox 08/10/21 15:24 36.9 C 99 H 16 101/73 95 08/10/21 08:08 36.6 C 83 14 117/71 92 PG Care Time/CCT Total # of Minutes Spent Total Time Spent with Patient: Total time spent is greater than 50% in coordination of care (as documented) at patient's floor/unit and/or counseling patient: Coding Level of Care Code 14754 Subseq Hosp Care Lvl 1 Diagnoses Schizoaffective disorder F25.9 Schizoaffective disorder type: unspecified COVID-19 U07.1 COPD with chronic bronchitis J44.9 Chronic gastroesophageal reflux disease K21.9 Hepatitis C B19.20 Transaminitis R74.01 Current smoker F17.200 (1) Schizoaffective disorder Schizoaffective disorder type: unspecified Qualified Code(s): F25.9 - Schizoaffective disorder, unspecified
[2021-08-10] MEDS: LURASIDONE HCL 40 MG TAB PO SCH (17:11)
[2021-08-10 19:51] LABS: MDA negative; MDEA negative; MDMA (Ecstasy) Urine, Confirm negative
[2021-08-10] MEDS ORDERED: OLANZapine 5 MG TABLET PO SCH (21:00)
[2021-08-10] MEDS: traZODone HCL 50 MG TAB PO SCH (22:13)
[2021-08-11] MEDS ORDERED: MELATONIN 3 MG TAB PO STA (00:48)
[2021-08-11 07:08] VITALS: PULSE 85; TEMP 97.9; O2SAT 96
[2021-08-11] MEDS: guaiFENesin 600 MG TABCR PO SCH (09:25)
[2021-08-11] MEDS: PANTOprazole 40 MG TAB PO SCH (09:25)
[2021-08-11] MEDS: TOPIRAMATE 25 MG TAB PO SCH (09:25)
[2021-08-11] MEDS: NICOTINE 14 MG/24 HR PATCH TD SCH (09:26)
--- NOTE | 2021-08-11 09:52 | Psychiatric Progress Note ---
Date of Service August 11, 2021 Impression / Recommendations Impression 56 yo female with schizoaffective disorder with disorganized psychosis following a reported period of med non-compliance--she was not sleeping well, calling police, and family worried she would increase in threatening behavior. On 302 status (expires 08/11/21 at 4pm). 08/11/21--ongoing stable improvement with no evidence for acute psychosis nor acute alejandro. Mood is stable and she has been behaviorally appropriate for multiple days and remains adherent with her medication. No SI and no HI. No evidence for imminent risk of harm to self, harm to others nor inability to care for self. She does not require any further hospitalization for her psychiatric condition and thus is now psychiatrically stable and appropriate for discharge once medically stable. She has psychiatric follow-up scheduled. (1) Schizoaffective disorder: 08/11/21: stable for discharge from psych standpoint, 302 expires today at 4pm. Continue latuda, trazodone after discharge (she has scripts for these) and zyprexa 5mg po for 7 more days (needs new script on d/c). 08/10/21: continue with zyprexa 5 mg po qhs for one week then stop. Continue with latuda and trazodone. Continue 1-on-1 for 302 commitment status. 08/09/21: Reduce dose of zyprexa to 5mg qhs and continue with latuda and trazodone. Psych liason spoke with her son. Continue 1-on-1 due to 302 commitment status 08/08/21: Continue with zyprexa, additional prns for anxiety related to paranoia, as well as latuda and other prior to admission medications. 08/07/21: unable to place on a psychiatry unit given COVID+ status, continue psych meds as ordered, Zyprexa can likely be tapered or consolidated to bedtime soon. Ideally she would be transitioned to a RAM[facility] but she has been resistant. SW planning/family meeting as may need to be discharged from the medical floor if no longer meeting commitment criteria prior to ability to place due to COvid status. 08/06/21: continue home meds (resuming consistency), latuda is generally taken in the pm with food but she is currently not eating consistently but did take this am. As likely poor absorption and active psychosis, will add another agent temporarily to assist in stabilization. She dislikes Haldol and has exhibited some oral dyskinesias during a previous hospitalization. She typically has difficult sleeping when like this so will offer Zyprexa this hs. Zyprexa could also be given IM for acute agitation. Risk Factors Assessment Do You Have Access To A Gun?: No Interval History Identifying Information Lisandra is a 56 yo female with a history of schizophrenia, with previous inpatient admissions on 3 . She was brought to the ED on a 302 warrant and admitted to the medical floor as she tested positive for COVID. Chief Complaint "I'm doing good". Review of Systems Notes decreased sleep, stable appetite, see HPI Subjective Subjective Patient was seen & assessed and interval progress reviewed with treatment team nursing and social work. Lisandra states she is "doing good". Denies SI. Denies HI. Denies AH and VH. Says she has food at home and continues to have a good appetite. She had some trouble sleeping last night because she had to received steroids for COVID. She states she is excited to see her son and then she has doctor's appointments in September and she will go back to work in 10 days once she completes COVID quarantine. She will continue to take the latuda daily and then she states understanding of taking the zyprexa at bedtime for 7 days. Discussed that she will follow-up with Angela her case folder and has a scheduled psychiatry appointment. Physical Exam Psychiatric Orientation: alert and oriented x 3 Speech: normal rate/rhythm/volume of speech Mood: no depressed mood, no anxious mood and no irritable mood Thought Process: goal directed thought process and linear/logical thought process Thought Content: reality based without delusions Suicidal Thoughts: denies suicidal thoughts Homicidal Thoughts: denies homicidal thoughts Hallucinations: no auditory hallucinations and no visual hallucinations Insight: + fair insight Judgement: + fair judgement Vital Signs (Past 24 Hours) Last Vital Signs Temp 36.6 C 08/11/21 07:06 Pulse 85 08/11/21 07:06 Resp 18 08/11/21 07:06 BP 111/74 08/11/21 07:06 Pulse Ox 96 08/11/21 07:06 Results & Data ([facility]) Laboratory Results Laboratory Results - last 24 hr 08/06/21 23:30 Urine MDEA negative MDMA negative Urine MDMA negative Current Inpatient Medications Current Inpatient Medications: Current Inpatient Medications Acetaminophen (Acetaminophen 325 Mg Tab) 650 mg PO Q4H PRN PRN Reason: pain/fever Stop: 09/04/21 23:01 Last Admin: 08/09/21 23:23 Dose: 650 mg Documented by: Guaifenesin (Guaifenesin 600 Mg Tabcr) 600 mg PO Q12 MICAH Stop: 09/06/21 11:29 Last Admin: 08/11/21 09:25 Dose: 600 mg Documented by: Dexamethasone 6 mg/ Syringe 1.5 mls @ 1 mls/min IV Q24H [facility] Stop: 09/09/21 10:14 Last Admin: 08/10/21 11:10 Dose: 1 mls/min Documented by: Lurasidone HCl (Lurasidone Hcl 40 Mg Tab) 80 mg PO DAILYBD [facility] Stop: 09/06/21 16:29 Last Admin: 08/10/21 17:11 Dose: 80 mg Documented by: Miscellaneous (Remove Nicoderm Patch) 1 ea N/A DAILY@[id number] [facility] Stop: 09/07/21 08:58 Last Admin: 08/11/21 09:25 Dose: 1 ea Documented by: Nicotine (Nicotine 14 Mg/24 Hr Patch) 14 mg TD QAM [facility] Stop: 09/06/21 17:59 Last Admin: 08/11/21 09:26 Dose: Not Given Documented by: Olanzapine (Olanzapine 10 Mg/2.1 Ml Sdv) 5 mg IM Q6 PRN PRN Reason: Agitation Stop: 09/05/21 14:36 Olanzapine (Olanzapine 2.5 Mg Tab) 2.5 mg PO BID PRN PRN Reason: Anxiety/Agitation Stop: 09/07/21 20:59 Olanzapine (Olanzapine 5 Mg Tablet) 5 mg PO HS [facility] Stop: 09/09/21 20:59 Last Admin: 08/10/21 22:13 Dose: 5 mg Documented by: Ondansetron HCl (Ondansetron Inj 2 Mg/Ml 2 Ml Vial) 4 mg IV Q6H PRN PRN Reason: Nausea Stop: 09/04/21 23:01 Pantoprazole Sodium (Pantoprazole 40 Mg Tab) 40 mg PO DAILY MICAH Stop: 09/05/21 08:59 Last Admin: 08/11/21 09:25 Dose: 40 mg Documented by: Topiramate (Topiramate 25 Mg Tab) 25 mg PO DAILY MICAH Stop: 09/05/21 08:59 Last Admin: 08/11/21 09:25 Dose: 25 mg Documented by: Trazodone HCl (Trazodone Hcl 50 Mg Tab) 150 mg PO HS MICAH Stop: 09/05/21 20:59 Last Admin: 08/10/21 22:13 Dose: 150 mg Documented by: Mental Health & Subst Abuse Tx Psychiatrist Name of Psychiatrist: Emily Snider Psychiatrist's Date of Appointment with Psychiatrist: 09/03/21 Time of Appointment with Psychiatrist: 10am Psychiatric Appointment Comment: [id number], [place] [id number] Record Pressman Name of Record Pressman: Randy Talamantes- Post Discharge Appointments Primary Care Physician Name Of Family Doctor: ENDER Solis Primary Care Provider Appointment Comment: [address], [place] [address] Contact Information Discharge Discharge Address: [address] [place] [address]. [address] [place] [address] (1) Schizoaffective disorder Schizoaffective disorder type: unspecified Qualified Code(s): F25.9 - Schizoaffective disorder, unspecified
--- NOTE | 2021-08-11 10:59 | Discharge Summary ---
Date of Service August 11, 2021 Admission HPI Per Admitting Provider The patient is a 56-year-old female with a past medical history including COPD with chronic bronchitis, chronic GERD, follicular lymphoma grade 1, bipolar disorder, schizoaffective disorder and hepatitis C. She presents to the emergency department as a 302 by her son, who reports that the patient was making threats against the son's girlfriend, and erratic behavior. Testing in the emergency department included COVID-19 positive screening test. For this reason, patient was referred to medical hospitalist service for admission and for consult to psychiatry, she has had multiple admissions in the past few years. Principal Diagnosis COVID-19, Psychosis Discharge Exam Constitutional WD/WN, vitals as above Eyes + anicteric sclerae Neck trachea midline, no thyromegaly Respiratory normal respiratory effort, lungs clear to auscultation Cardiovascular RRR, no murmur, no edema Chest (Breasts) Chest: normal inspection of chest Gastrointestinal (Abdomen) normal bowel sounds, soft, nontender, no hepatosplenomegaly Musculoskeletal Extremities: extremities normal to inspection; no cyanosis and no clubbing Skin no rashes, warm and dry Neurologic moves all extremities and awake; no focal motor deficits Psychiatric Orientation: alert, oriented x 3 and cooperative Eye Contact: good eye contact Speech: normal rate/rhythm/volume of speech Affect: euthymic affect Thought Content: + preoccupation Lymphatic no lymphedema Discharge Data Allergies Allergy/AdvReac Type Severity Reaction Status Date / Time No Known Allergies Allergy Verified 06/24/21 12:29 Consultations 08/05/21 21:04 ED Decision to Admit Stat 08/05/21 21:34 Consult Psychiatry Routine Hospital Course (1) Schizoaffective disorder: - Appears likely in the setting of med non-compliance; of note patient was recently ill with GI symptoms so may have contributed to med non-compliance - Currently on a 302 filed by her son - patient would be unable to leave until 302 is completed/dispositioned-defer to psychiatry-plan is most likely 302 will on Tuesday and she will be discharged to home SHe is improving - Continue Lurasidone 80 mg daily with dinner, topiramate 25 mg daily; and trazadone 150 mg HS-she needed a new Rx for trazadone - Zyprexa added to assist with stability/sleep-decreased dose down to 5 mg p.o. nightly for 1 more week and then will stop--was given a new Rx for this - Psychiatry following -- appreciate input-stable for discharge to home on 08/11 with outpatient follow-up (2) COVID-19: - Possibly symptoms started over last 1-2 weeks but first positive test on 08/05 - CXR unremarkable and only endorses a cough -Had a low-grade fever on the evening of 08/09, pulse ox now persistently less than 94% Repeat chest x-ray and 08/10 without pneumonia -Started dexamethasone 6 mg IV once daily and had some worsening insomnia and anxiety. POx normalized and no further fevers--> ok to stop dexamethasone now f/u as needed as outpt if symptoms worsen (3) COPD with chronic bronchitis: - No acute exacerbation (4) Chronic gastroesophageal reflux disease: - Protonix daily (5) Hepatitis C: With elevated AST and ALT but are improved from previous - Continue uxugcovuxr-fjpktjcwtuo-now had it brought in from home (6) Transaminitis: As above, secondary to hepatitis C (7) Current smoker: Continue nicotine patch DVT prophylaxis-SCDs, Lovenox given that she has active Covid and is at high risk for VTE Disposition-medically stable, and improving from Psych standpoint--> dc to home on Tuesday Total Time Total Time Spent Total Time Spent (In Minutes): 35 min Total Time Includes: Examination of the Patient, Discharge Planning, Medication Reconciliation and Communication With Other Providers (Psychiatry) Discharge Plan Discharge Items Patient Disposition: Home - Self-Care Reason For Visit: PSYCHOSIS, COVID-19 INFECTION Discharge Diagnosis: Psychosis, COVID-19 Condition on Discharge: Fair Activity: Resume your previous activity Activity Comment: except must remain in quarantine for 4 more days Non-emergency contact: Primary Care Provider and Psychiatrist Call non-emergency contact if: you have any medication questions, your symptoms worsen and you have a fever Follow-up/Referrals: Angi [Other] - 09/03/21 10:00 am Socorro Solis MD [Primary Care Provider] - (Follow up within 1 week) Diet: Regular Addtl Attending Provider Instructions: You were admitted for worsening psychosis and this has improved. You were also found to have COVID-19 but a mild case. You were given steriods for your cough for two days but this worsened your psychosis a bit so the steroids will be stopped. Follow up with your PCP within 1 week. If you have worsening shortness of breath, chest pain, leg pain or swelling, or any other acute concerns, please return to the hospital. You will stay on the Zyprexa at bedtime for one more week and then follow up with your Psychiatrist for further instructions. Continue your other psychiatric medications as prescribed. Pending Studies at Discharge: No Stand-Alone Forms: [facility], Work/School Release, Smoking Cessation Medications and DC Order Prescriptions: New olanzapine 5 mg Tablet 5 mg PO HS Qty: 7 RF: 0 Continued cyclobenzaprine 5 mg tablet 5 mg PO TID PRN (Reason: Spasms) Qty: 30 RF: 0 Latuda 80 mg tablet 80 mg PO DAILY Qty: 30 RF: 0 topiramate [Topamax] 25 mg tablet 25 mg PO DAILY Qty: 30 RF: 0 hydroxyzine HCl 50 mg tablet 50 mg PO DAILY PRN (Reason: anxiety) Qty: 10 RF: 0 perphenazine 2 mg tablet 2 mg PO DAILY PRN (Reason: MOOD) Qty: 10 RF: 0 benzonatate 200 mg capsule 200 mg PO TID PRN (Reason: cough) Qty: 30 RF: 0 famotidine 20 mg tablet 20 mg PO DAILY PRN (Reason: REFLUX) Qty: 30 RF: 5 ipratropium-albuterol 0.5 mg-3 mg(2.5 mg base)/3 mL solution for nebulization 3 ml inhalation QID PRN (Reason: wheezing) Qty: 90 RF: 4 Combivent Respimat 20-100 mcg/actuation mist 1 puff INHALATION QID PRN (Reason: Shortness Of Breath) 30 Days Qty: 4 RF: 5 omeprazole 40 mg capsule,delayed release(DR/EC) 40 mg PO DAILY Qty: 30 RF: 0 sofosbuvir-velpatasvir 400-100 mg tablet 1 tab PO DAILY RF: 0 melatonin 5 mg tablet 5 - 10 mg PO HS PRN (Reason: sleep) RF: 0 guaifenesin [Robitussin] 100 mg/5 mL Liquid 200 mg PO Q4H PRN (Reason: Cold Symptoms) RF: 0 pseudoephedrine HCl [Sudafed] 30 mg Tablet 30 mg PO Q6H PRN (Reason: Congestion) RF: 0 guaifenesin [Mucinex] 600 mg Tablet Extended Release 12hr 600 mg PO Q12H PRN (Reason: Congestion) RF: 0 fluticasone propionate [Flonase] 50 mcg/actuation [place],Suspension 1 spray INTRANASAL DAILY RF: 0 Changed trazodone 150 mg tablet 150 mg PO HS Qty: 30 RF: 0 Discharge Orders: Discharge Order (Routine); Ordered 08/11/21 Ordered By: Karoline Mann Admission Data Admit Date/Time: 08/05/21 21:34 Attending Provider: Karoline Mann Admit Provider: Pasquale Ramirez Primary Care Provider: Socorro Solis Other Providers: Rut Guerra ; Angelic Angeles ; Agata Corey ; Jaret Velazquez ; Pasquale Ramirez Coding Level of Care Code D/C DAY MANAGEMENT >30 MINS Diagnoses Schizoaffective disorder F25.9 Schizoaffective disorder type: unspecified COVID-19 U07.1 COPD with chronic bronchitis J44.9 Chronic gastroesophageal reflux disease K21.9 Hepatitis C B19.20 Transaminitis R74.01 Current smoker F17.200
[2021-08-11 11:31] VITALS: BP 97/64
[2021-08-11] MEDS: dexAMETHasone 6 MG in SYRINGE 0 ML IV SCH (11:37)
== END 2021-08-11 11:48 | disposition home or self-care (01) | DRG 885 ==
LOC: ED 19:30 → SUATTDRO 21:34 → 3W 21:34

== ENCOUNTER 2021-10-14 22:54 | Inpatient (IN) ==
[2021-10-14] MEDS ORDERED: ONDANSETRON INJ 2 MG/ML 2 ML VIAL ONE (23:18)
--- NOTE | 2021-10-14 23:29 | Emergency Department Note ---
History of Present Illness General Chief complaint: Mental Health Evaluation Stated complaint: MENTAL HEALTH EVAL Time Seen by Provider: 10/14/21 23:04 Source: patient and RN notes reviewed Mode of arrival: other Limitations: patient cooperation History of Present Illness Provider complaint: mental Health evaluation This is a 56-year-old female who presents with a 302 petitioning statement for mental health evaluation. Patient does have a history of schizoaffective disorder and bipolar disorder per prior records. The family independence case manager and I were unable to follow the patient's description of events today which led to her coming here as her speech and thought process seem to be scattered and erratic. The CO2 petitioning statement states the patient was paranoid and aggressive. Patient used words "kidnapped", "dope", "hepatitis medication", "prostitution". Pt seen during a time of high acuity and national emergency pandemic while wearing PPE. Home Medications Medication Instructions Recorded Confirmed Type hydroxyzine HCl 50 mg tablet 50 mg PO DAILY PRN #10 tab 07/24/21 10/15/21 Rx topiramate 25 mg tablet (Topamax) 25 mg PO DAILY #30 tab 07/24/21 10/15/21 Rx melatonin 5 mg tablet 5 - 10 mg PO HS PRN 08/05/21 10/15/21 History sofosbuvir 400 mg-velpatasvir 100 1 tab PO DAILY 08/05/21 10/15/21 History mg tablet trazodone 150 mg tablet 150 mg PO HS #30 tab 08/11/21 10/15/21 Rx famotidine 20 mg tablet 20 mg PO DAILY PRN #30 tab 08/17/21 10/15/21 Rx perphenazine 2 mg tablet 2 mg PO HS PRN 10/08/21 10/15/21 History lurasidone 80 mg tablet (Latuda) 80 mg PO DAILY 10/15/21 10/15/21 History omeprazole 40 mg capsule,delayed 40 mg PO DAILY 10/15/21 10/15/21 History release Allergies Allergy/AdvReac Type Severity Reaction Status Date / Time No Known Allergies Allergy Verified 10/08/21 20:35 Past Med/Surg History Medical History Anxiety and depression Arthritis Bipolar disorder Chronic obstructive pulmonary disease LAST USED RESCUE INHALER LAST NIGHT Current smoker Eustachian tube dysfunction GERD (gastroesophageal reflux disease) Hepatitis C History of anemia Non-Hodgkin lymphoma BEING MONITORED (FOLL[facility]) Post traumatic stress disorder Restless leg syndrome Schizoaffective disorder Surgical History History of section X 4 History of esophagogastroduodenoscopy (EGD) History of open reduction and internal fixation (ORIF) procedure RT LEG AND LEFT ARM (HARDWARE IN PLACE) History of tonsillectomy and adenoidectomy History of tooth extraction Family History Aunt Breast cancer Mother Myocardial infarction Grandmother (Maternal) Ovarian cancer Other No family history of adverse response to anesthesia Denies family history of Prostate cancer Colorectal cancer Social History Smoking Status: Unknown if ever smoked Tobacco Type: Cigarettes Age Started Using Tobacco: 12; packs per day: 0.5; Cigarettes Per Day: 20 CIG DAILY; Second Hand Exposure: No; Hx Alcohol Use: No Hx Substance Use: No Preferred Language: Bangladeshi Communication Ability: Effective Professor Of Sport Management Required: No Beliefs That Will Affect Care: None marital status: Single Current Living Situation: Family Current Living Situation Comment: Son lives patient. current occupational status: unemployed How many Children do You have: 2 Feels Safe at Home: Yes Childhood Exposure to Second-Hand Smoke: Yes Dental Care, Regularly: No Physical Activity Frequency: Does not Exercise Seatbelt Use: always Sunscreen Use: Yes Assistive Devices: None Review of Systems A total of 10 systems reviewed and were otherwise negative All systems reviewed & are unremarkable except as noted in HPI & below Physical Exam Vital Signs Vital Signs - 24 hr 10/15/21 05:33 Pulse Rate [Finger] 77 Respiratory Rate 20 Respiratory Effort / Characteristics Non-Labored Spontaneous Respiratory Depth Normal Blood Pressure [Left Arm] 97/63 L Blood Pressure Mean [Left Arm] 74 Blood Pressure Position [Left Arm] Right Lateral Pulse Oximetry 91 Oxygen Delivery Method Room Air GENERAL: alert, well appearing, well nourished, no distress, non-toxic EYE EXAM: normal conjunctiva, PERRL and EOM's grossly intact, chalazion noted to the left inferior eyelid margin OROPHARYNX: no exudate, no erythema, lips, buccal mucosa, and tongue normal and mucous membranes are moist, poor dentition NECK: supple, no nuchal rigidity, no adenopathy, non-tender LUNGS: Clear but decreased to auscultation. Normal chest wall mechanics, no w/r/r HEART: no murmurs, S1 normal and S2 normal ABDOMEN: abdomen soft, non-tender, normo-active bowel sounds, no masses, no keri ound or guarding. BACK: Back is symmetrical on inspection and there is no deformity, no midline tenderness, no CVA tenderness. SKIN: no rashes and no bruising UPPER EXTREMITIES: upper extremities are grossly normal. FROM, nml pulses b/l. LOWER EXTREMITIES: No pitting edema. FROM, nml pulses b/l. NEURO EXAM: Normal sensorium, cranial nerves II-XII grossly intact, mumbles, word salad, no gross weakness of arms, no gross weakness of legs. Gross sensation intact. Course Course 510: 302 signed. Administered Medications Lurasidone HCl (Lurasidone Hcl 40 Mg Tab) 80 mg PO DAILYBD [facility] Stop: 11/14/21 17:14 Last Admin: 10/15/21 17:33 Dose: 80 mg Documented by: [id number] Sofosbuvir/Velpatasvir (Sofosbuvir/Velpatasvir 400mg/100mg Tab) 1 tab PO DAILY [facility]; Protocol Stop: 11/14/21 13:29 Last Admin: 10/15/21 13:35 Dose: 1 tab Documented by: [id number] Topiramate (Topiramate 25 Mg Tab) 25 mg PO DAILY [facility] Stop: 11/14/21 11:44 Last Admin: 10/15/21 13:36 Dose: 25 mg Documented by: [id number] Trazodone HCl (Trazodone Hcl 50 Mg Tab) 50 mg PO HS [facility] Stop: 11/14/21 21:59 Last Admin: 10/15/21 22:21 Dose: 50 mg Documented by: [id number] Discontinued Medications Lorazepam (Lorazepam 1 Mg Tab) 1 mg PO NOW STA Stop: 10/15/21 06:16 Last Admin: 10/15/21 06:20 Dose: 1 mg Documented by: [id number] Ondansetron HCl (Ondansetron Inj 2 Mg/Ml 2 Ml Vial) Confirm Administered Dose 4 mg .ROUTE .STK-MED ONE Stop: 10/14/21 23:19 Last Admin: 10/15/21 00:08 Dose: Not Given Documented by: [id number] Medical Decision Making Differential Diagnosis Differential diagnoses considered include mood disorder, infection, hy poglycemia, electrolyte abnormalities, cardiac sources, intracerebral event, toxicologic, neurologic, as well as others. Medical Records Attestation: I reviewed the patient's medical records. Home Medications Current Medication List: was personally reviewed by me Laboratory Data Attestation: I reviewed the patient's lab results. Result diagrams: 10/14/21 23:30 10/14/21 23:30 Lab Results 10/14/21 10/14/21 10/14/21 Range/Units 23:01 23:01 23:08 WBC (4.8-10.8) K/uL RBC (4.2-5.4) M/uL Hgb (12.0-16.0) g/dL Hct (37-47) % MCV (80-100) fL MCH (25-34) pg MCHC (32-36) g/dL RDW Std Deviation (36.4-46.3) fL RDW Coeff of Crispin (11.5-14.5) % Plt Count (130-400) K/uL MPV (7.4-10.4) fL Immature Gran % (Auto) % Neut % (Auto) % Lymph % (Auto) % [place] % (Auto) % Eos % (Auto) % Baso % (Auto) % Neut # (Auto) (1.4-6.5) K/uL Lymph # (Auto) (1.2-3.4) K/uL [place] # (Auto) (0.11-0.59) K/uL Eos # (Auto) (0-0.5) K/uL Baso # (Auto) (0-0.2) K/uL Immature Gran # (Auto) (0.00-0.02) K/uL Sodium (136-145) mmol/L Potassium (3.5-5.1) mmol/L Chloride (98-107) mmol/L Carbon Dioxide (21-32) mmol/L Anion Gap (3-11) BUN (6-23) mg/dl Creatinine (0.6-1.2) mg/dl Est Cr Clr Drug Dosing ml/min Est GFR ( Amer) ml/min Est GFR (Non-Af Amer) ml/min BUN/Creatinine Ratio (10-20) Glucose (70-99(Fasting)) mg/dl Calcium (8.5-10.1) mg/dl Total Bilirubin (0.2-1.0) mg/dl AST (13-39) U/L ALT (7-52) U/L Alkaline Phosphatase (34-104) U/L Total Protein (6.0-8.3) gm/dl Albumin (3.4-5.0) gm/dl Globulin (2.5-4.0) gm/dl Albumin/Globulin Ratio (0.9-2) TSH (0.300-4.500) uIu/ml Urine Color Dark Yellow Urine Appearance Clear (Clear) Urine pH 5.0 (4.5-7.5) Ur Specific [place] 1.029 (1.000-1.030) Urine Protein Negative (Negative) Urine Glucose (UA) Negative (Negative) Urine Ketones Trace H (Negative) Urine Blood Negative (Negative) Urine Nitrite Negative (Negative) Urine Bilirubin Negative (Negative) Urine Urobilinogen Negative (Negative) Ur Leukocyte Esterase Negative (Negative) Salicylates (3.0-30) mg/dl Urine Opiates Screen Neg (Neg) Ur Methadone, Qual Neg (Neg) Acetaminophen (10-30) ug/ml Urine Barbiturates Neg (Neg) Ur Phencyclidine (PCP) Neg (Neg) U Amphetamin/Meth Scrn Neg (Neg) MDMA (Ecstasy) Screen Neg (Neg) U Benzodiazepines Scrn Neg (Neg) Ur Cocaine Metabolite Neg (Neg) U Marijuana (THC) Screen Neg (Neg) Ethyl Alcohol mg/dL (<10.0) mg/dl SARS-CoV-2, RNA, NAAT NEGATIVE (NEGATIVE) 10/14/21 10/14/21 10/14/21 Range/Units 23:30 23:30 23:30 WBC 7.67 (4.8-10.8) K/uL RBC 4.74 (4.2-5.4) M/uL Hgb 16.2 H (12.0-16.0) g/dL Hct 46.2 (37-47) % MCV 97.5 (80-100) fL MCH 34.2 H (25-34) pg MCHC 35.1 (32-36) g/dL RDW Std Deviation 46.0 (36.4-46.3) fL RDW Coeff of Crispin 12.9 (11.5-14.5) % Plt Count 144 (130-400) K/uL MPV 10.5 H (7.4-10.4) fL Immature Gran % (Auto) 0.1 % Neut % (Auto) 44.2 % Lymph % (Auto) 41.7 % [place] % (Auto) 12.9 % Eos % (Auto) 0.8 % Baso % (Auto) 0.3 % Neut # (Auto) 3.39 (1.4-6.5) K/uL Lymph # (Auto) 3.20 (1.2-3.4) K/uL [place] # (Auto) 0.99 H (0.11-0.59) K/uL Eos # (Auto) 0.06 (0-0.5) K/uL Baso # (Auto) 0.02 (0-0.2) K/uL Immature Gran # (Auto) 0.01 (0.00-0.02) K/uL Sodium 139 (136-145) mmol/L Potassium 3.4 L (3.5-5.1) mmol/L Chloride 105 (98-107) mmol/L Carbon Dioxide 26 (21-32) mmol/L Anion Gap 8 (3-11) BUN 16 (6-23) mg/dl Creatinine 0.68 (0.6-1.2) mg/dl Est Cr Clr Drug Dosing 125.3 ml/min Est GFR ( Amer) 113.3 ml/min Est GFR (Non-Af Amer) 97.8 ml/min BUN/Creatinine Ratio 23.5 H (10-20) Glucose 101 H (70-99(Fasting)) mg/dl Calcium 9.5 (8.5-10.1) mg/dl Total Bilirubin 0.6 (0.2-1.0) mg/dl AST 45 H (13-39) U/L ALT 34 (7-52) U/L Alkaline Phosphatase 73 (34-104) U/L Total Protein 8.3 (6.0-8.3) gm/dl Albumin 3.8 (3.4-5.0) gm/dl Globulin 4.5 H (2.5-4.0) gm/dl Albumin/Globulin Ratio 0.8 L (0.9-2) TSH 1.609 (0.300-4.500) uIu/ml Urine Color Urine Appearance (Clear) Urine pH (4.5-7.5) Ur Specific [place] (1.000-1.030) Urine Protein (Negative) Urine Glucose (UA) (Negative) Urine Ketones (Negative) Urine Blood (Negative) Urine Nitrite (Negative) Urine Bilirubin (Negative) Urine Urobilinogen (Negative) Ur Leukocyte Esterase (Negative) Salicylates (3.0-30) mg/dl Urine Opiates Screen (Neg) Ur Methadone, Qual (Neg) Acetaminophen (10-30) ug/ml Urine Barbiturates (Neg) Ur Phencyclidine (PCP) (Neg) U Amphetamin/Meth Scrn (Neg) MDMA (Ecstasy) Screen (Neg) U Benzodiazepines Scrn (Neg) Ur Cocaine Metabolite (Neg) U Marijuana (THC) Screen (Neg) Ethyl Alcohol mg/dL (<10.0) mg/dl SARS-CoV-2, RNA, NAAT (NEGATIVE) 10/14/21 10/15/21 Range/Units 23:30 01:20 WBC (4.8-10.8) K/uL RBC (4.2-5.4) M/uL Hgb (12.0-16.0) g/dL Hct (37-47) % MCV (80-100) fL MCH (25-34) pg MCHC (32-36) g/dL RDW Std Deviation (36.4-46.3) fL RDW Coeff of Crispin (11.5-14.5) % Plt Count (130-400) K/uL MPV (7.4-10.4) fL Immature Gran % (Auto) % Neut % (Auto) % Lymph % (Auto) % [place] % (Auto) % Eos % (Auto) % Baso % (Auto) % Neut # (Auto) (1.4-6.5) K/uL Lymph # (Auto) (1.2-3.4) K/uL [place] # (Auto) (0.11-0.59) K/uL Eos # (Auto) (0-0.5) K/uL Baso # (Auto) (0-0.2) K/uL Immature Gran # (Auto) (0.00-0.02) K/uL Sodium (136-145) mmol/L Potassium (3.5-5.1) mmol/L Chloride (98-107) mmol/L Carbon Dioxide (21-32) mmol/L Anion Gap (3-11) BUN (6-23) mg/dl Creatinine (0.6-1.2) mg/dl Est Cr Clr Drug Dosing ml/min Est GFR ( Amer) ml/min Est GFR (Non-Af Amer) ml/min BUN/Creatinine Ratio (10-20) Glucose (70-99(Fasting)) mg/dl Calcium (8.5-10.1) mg/dl Total Bilirubin (0.2-1.0) mg/dl AST (13-39) U/L ALT (7-52) U/L Alkaline Phosphatase (34-104) U/L Total Protein (6.0-8.3) gm/dl Albumin (3.4-5.0) gm/dl Globulin (2.5-4.0) gm/dl Albumin/Globulin Ratio (0.9-2) TSH (0.300-4.500) uIu/ml Urine Color Urine Appearance (Clear) Urine pH (4.5-7.5) Ur Specific [place] (1.000-1.030) Urine Protein (Negative) Urine Glucose (UA) (Negative) Urine Ketones (Negative) Urine Blood (Negative) Urine Nitrite (Negative) Urine Bilirubin (Negative) Urine Urobilinogen (Negative) Ur Leukocyte Esterase (Negative) Salicylates < 3.0 L (3.0-30) mg/dl Urine Opiates Screen (Neg) Ur Methadone, Qual (Neg) Acetaminophen < 3 L (10-30) ug/ml Urine Barbiturates (Neg) Ur Phencyclidine (PCP) (Neg) U Amphetamin/Meth Scrn (Neg) MDMA (Ecstasy) Screen (Neg) U Benzodiazepines Scrn (Neg) Ur Cocaine Metabolite (Neg) U Marijuana (THC) Screen (Neg) Ethyl Alcohol mg/dL < 10.0 (<10.0) mg/dl SARS-CoV-2, RNA, NAAT (NEGATIVE) MDM Narrative This is a 56-year-old brought in as a 302 with a petitioning statement concerning for paranoia, aggressive behavior, and psychosis. Patient does have mental health history. Patient unable to provide any clear description of her symptoms or feelings during my interview with case management. She at times seem to mumble or was giving inappropriate responses to questions posed. Patient was hemodynamically stable. No significant lab abnormalities. Due to concern for psychosis given mental health history as well as prior reported noncompliance, 302 upheld. Impression & Plan Paranoia, Delusions, Noncompliance Discharge Plan Visit Data Chief Complaint: Mental Health Evaluation Stated Complaint: MENTAL HEALTH EVAL ED Provider: Kimberli Marx Discharge Problem: Paranoia, Delusions, Noncompliance Patient Disposition: Admitted As Inpatient Discharge Instructions Interventions: ED Discharge Assessment Last Done: 10/15/21 06:27
[2021-10-14 23:39] LABS: Basophils # (auto) 0.02 K/uL (0-0.2); Basophils % (auto) 0.3 %; Eosinophils # (auto) 0.06 K/uL (0-0.5); Eosinophils % (auto) 0.8 %; Hematocrit (blood only) 46.2 % (37-47); Hemoglobin 16.2 g/dL (12.0-16.0); Immature Granulocytes # (auto) 0.01 K/uL (0.00-0.02); Immature Granulocytes % (auto) 0.1 %; Lymphocytes % (auto) 41.7 %; Mean Corpuscular Hemoglobin 34.2 pg (25-34); Mean Corpuscular Hgb Conc 35.1 g/dL (32-36); Mean Corpuscular Volume 97.5 fL (80-100); Mean Platelet Volume 10.5 fL (7.4-10.4); Monocytes # (auto) 0.99 K/uL (0.11-0.59); Monocytes % (auto) 12.9 %; Neutrophils # (auto) 3.39 K/uL (1.4-6.5); Neutrophils % (auto) 44.2 %; Platelet Count 144 K/uL (130-400); RDW Coefficient of Variation 12.9 % (11.5-14.5); Red Blood Count 4.74 M/uL (4.2-5.4); White Blood Count 7.67 K/uL (4.8-10.8)
[2021-10-14 23:49] LABS: Appearance Urine Clear (Clear); Bilirubin Urine Negative (Negative); Blood Urine Negative (Negative); Color Urine Dark Yellow; Glucose Urine UA Negative (Negative); Ketones Urine Trace (Negative); Leukocyte Esterase Urine Negative (Negative); Nitrite Urine Negative (Negative); Protein Urine Negative (Negative); Specific Gravity Urine 1.029 (1.000-1.030); Urobilinogen Urine Negative (Negative)
[2021-10-15 00:02] LABS: Albumin Globulin Ratio 0.8 (0.9-2); Albumin Level 3.8 gm/dl (3.4-5.0); BUN Creatinine Ratio 23.5 (10-20); Bilirubin,Total 0.6 mg/dl (0.2-1.0); Calcium 9.5 mg/dl (8.5-10.1); Creatinine Clr Calc Pharmacy 125.3 ml/min; Est GFR (African American) 113.3 ml/min; Est GFR (Non-African American) 97.8 ml/min; Globulin 4.5 gm/dl (2.5-4.0); Potassium 3.4 mmol/L (3.5-5.1); Total Protein 8.3 gm/dl (6.0-8.3)
[2021-10-15 00:58] LABS: Amphetamines+Metham, Urine Neg (Neg); Barbiturates, Urine Neg (Neg); Benzodiazepine, Urine Neg (Neg); Cocaine, Urine Neg (Neg); MDMA (Ecstacy), Urine Neg (Neg); Methadone, Urine Neg (Neg); Opiate, Urine Neg (Neg); Phencyclidine, Urine Neg (Neg)
[2021-10-15 02:39] LABS: Acetaminophen < 3 ug/ml (10-30); Salicylate < 3.0 mg/dl (3.0-30)
[2021-10-15] MEDS ORDERED: LORazepam 1 MG TAB PO STA (06:15)
[2021-10-15] MEDS ORDERED: SODIUM CHLORIDE 0.65% NA SOLN 45 ML (OCEAN) PRN (06:35)
[2021-10-15] MEDS ORDERED: MAGNESIUM HYDROXIDE SUSP 30 ML UDC PO PRN (06:35)
[2021-10-15] MEDS ORDERED: ACETAMINOPHEN 325 MG TAB PO PRN (06:35)
[2021-10-15] MEDS ORDERED: ALUMINUM/MAGNESIUM SUSP 30 ML UDC PO PRN (06:35)
[2021-10-15] MEDS ORDERED: BISMUTH SUBSALICYLATE LIQD 236 ML PO PRN (06:35)
[2021-10-15] MEDS ORDERED: FAMOTIDINE 20 MG TAB PO PRN (11:41)
[2021-10-15] MEDS ORDERED: PANTOprazole 40 MG TAB PO SCH (11:45)
[2021-10-15] MEDS: SOFOSBUVIR/VELPATASVIR 400mg/100mg TAB PO SCH (13:35)
[2021-10-15] MEDS: TOPIRAMATE 25 MG TAB PO SCH (13:36)
--- NOTE | 2021-10-15 14:41 | History & Physical ---
Date of Service October 15, 2021 Impression / Recommendations Impression 56 yo female with thought disorganization and intermittent agitation per family, seems worse in pm (?sundown component on top of chronic psychotic do), questionable med compliance. Has repeatedly declined Haldol and RAMOS. [facility] (1) Schizoaffective disorder: Schizoaffective disorder type: unspecified Qualified Code(s): F25.9 - Schizoaffective disorder, unspecified (2) Chalazion left lower eyelid: The patient was admitted to the [facility] ([facility] unit) on q15 min checks (behavioral with suicide precautions) for safety. The patient will participate in group, recreational, and milieu therapies and will be offered additional individual and family sessions as clinically appropriate. Resume Latuda, fasting labs in am. compresses to left lower eye and assistance in reschedule optho. suicide risk assessment is moderate, denies on unit but hx of walking into traffic,etc when off meds. Inventory Assets Strengths: family support, taking PO Needs: increase insight into condition Risk Factors Assessment : Yes Do You Have Access To A Gun?: No Mental Health Diagnoses: Yes Substance Use Disorders: No Previous Attempt: Yes Previous Psychiatric Hospitalization: Yes Protective Factors Assessment Employed: No Supportive Family: Yes (to a degree) Psychiatric History Identifying Data CURTIS MEJÍA is a 56-year-old F who currently lives in [facility] in [place], has a history of previous psychiatric admission, and was admitted on 10/15/21 06:35 on a 302 involuntary commitment for disorganized behavior. Chief Complaint "I don't know why everyone wants me locked up all the time". History of Present Illness Curtis is eating breakfast this am, preoccupied with her son's upcoming social security appointment on 10/19/21, keeps repeating "we got hotel rooms and everything" as has to travel to [place]. She denies not taking medications and is mainly concerned about missing her optho appointment for f/u of stye under left eye (was seen in ED few days prior). Per ED CM: CM and Dr. Marx met with pt bedside. Pt presents via police on a 302 warrant. Pt is hyperverbal but speaks in word salad. 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 This CM is unable to work out what the pt might have been trying to express. When questioned about drug or alcohol use, CM did comprehend no. Pt is known to [facility] and has been seen and admitted for psychosis in the past. Pts prior dx are schizoaffective disorder and bipolar disorder. Petitioning statement by Dickson Beckman reads: *manic depresent paranoia, anger tendacys tanya slept in 3 day talking to herself phycotic tendacy lashing out towards others. Last seen by me in Aug 2021: At that time, Curtis's son expressed concern that his mother hasn't been taking her medications again for an unknown period of time. She repeatedly calls 911 and the police did a safety check on 08/04 and it a ppeared she was not sleeping well or caring for self. Curtis becomes disoriented and paranoid and agitated rather quickly when she is noncompliant with meds and this has precipitated her last 2 admissions to [facility]. She talks about hurting her son's girlfriend and refers to a knife, in 01/21 she had a knife. On 03/21 she was admitted on a 302 as she was standing in traffic. Past Psychiatric History Previous Psych History: Past Psychiatric History Previous Psych History: schizoaffective disorder bipolar type Outpatient Services: [facility] for med management and ?therapy, CM with [facility]. Previous Psych Admissions: [facility] as above, [facility] 11/18 and [facility] 08/24, likely others Do You Have Access To A Gun?: No History of Previous Suicide Attempt: No (not clear that standing in traffic was an attempt to harm self or disorg.) Current Psychiatric Diagnosis: Schizoaffetive D/O, MDD, Delusional D/O Do You Have Access To A Gun?: No Describe Attempts in the Past: Unable to complete assessment Past Medication Trials: Trilafon, Zyprexa, Latuda, Haldol, others. Allergies Allergy/AdvReac Type Severity Reaction Status Date / Time No Known Allergies Allergy Verified 10/08/21 20:35 Home Medications Medication Instructions Recorded Confirmed Type hydroxyzine HCl 50 mg tablet 50 mg PO DAILY PRN #10 tab 07/24/21 10/15/21 Rx topiramate 25 mg tablet (Topamax) 25 mg PO DAILY #30 tab 07/24/21 10/15/21 Rx melatonin 5 mg tablet 5 - 10 mg PO HS PRN 08/05/21 10/15/21 History sofosbuvir 400 mg-velpatasvir 100 1 tab PO DAILY 08/05/21 10/15/21 History mg tablet trazodone 150 mg tablet 150 mg PO HS #30 tab 08/11/21 10/15/21 Rx famotidine 20 mg tablet 20 mg PO DAILY PRN #30 tab 08/17/21 10/15/21 Rx perphenazine 2 mg tablet 2 mg PO HS PRN 10/08/21 10/15/21 History lurasidone 80 mg tablet (Latuda) 80 mg PO DAILY 10/15/21 10/15/21 History omeprazole 40 mg capsule,delayed 40 mg PO DAILY 10/15/21 10/15/21 History release Family History Family History of: Doesn't Know Alcohol History Hx of Alcohol Use Over the Past 12 Months: No denies Smoking Use Have You Smoked or Used Tobacco Products in the Last 30 Days: No tobacco type: cigarettes Smoking Status: Unknown if ever smoked Substance History Problems as a Result of Past Substance Use Comments: denies Personal History Living Arrangements: Home Born In: [place] Highest Grade Completed: High School Graduate Employment Status: Disabled Marital Status: Number Of Children: 2 sons Beliefs That Will Affect Care: None Hx Traumatic Life Events: Yes Patient History Medical History Anxiety and depression Arthritis Bipolar disorder Chronic obstructive pulmonary disease LAST USED RESCUE INHALER LAST NIGHT Current smoker Eustachian tube dysfunction GERD (gastroesophageal reflux disease) Hepatitis C History of anemia Non-Hodgkin lymphoma BEING MONITORED (FOLLOWS WITH [place] ONCOLOGY) Post traumatic stress disorder Restless leg syndrome Schizoaffective disorder Surgical History History of section X 4 History of esophagogastroduodenoscopy (EGD) History of open reduction and internal fixation (ORIF) procedure RT LEG AND LEFT ARM (HARDWARE IN PLACE) History of tonsillectomy and adenoidectomy History of tooth extraction Family History Aunt Breast cancer Mother Myocardial infarction Grandmother (Maternal) Ovarian cancer Other No family history of adverse response to anesthesia Denies family history of Prostate cancer Colorectal cancer Social History Smoking Status: Unknown if ever smoked Tobacco Type: Cigarettes Age Started Using Tobacco: 12; packs per day: 0.5; Cigarettes Per Day: 20 CIG DAILY; Second Hand Exposure: No; Hx Alcohol Use: No Hx Substance Use: No Preferred Language: Maori Communication Ability: Effective Leather Grader Required: No Beliefs That Will Affect Care: None marital status: Single Current Living Situation: Family Current Living Situation Comment: Son lives patient. current occupational status: unemployed How many Children do You have: 2 Feels Safe at Home: Yes Childhood Exposure to Second-Hand Smoke: Yes Dental Care, Regularly: No Physical Activity Frequency: Does not Exercise Seatbelt Use: always Sunscreen Use: Yes Assistive Devices: None Review of Systems Review of Systems: All systems reviewed & are unremarkable except as noted in HPI & below Physical Exam Psychiatric: Orientation: alert and oriented x 3 Apperance: appropriately dressed and appropriately groomed Eye Contact: + fair eye contact Motor Behavior: + abnormal motor movements (occasional oral dyskinesia but truthfully is so hyperverbal) Speech: + pressured speech Affect: + anxious affect Mood: no depressed mood Thought Process: + tangential thought process Thought Content: + paranoid and reality based without delusions Suicidal Thoughts: denies suicidal thoughts Homicidal Thoughts: denies homicidal thoughts Hallucinations: no auditory hallucinations and no visual hallucinations Cognition: language grossly intact; + attention not intact Estimated Intelligence: consistent with education level Insight: + limited insight Judgement: + limited judgement Vital Signs (Past 24 Hours): Last Vital Signs Temp 36.9 C 10/15/21 00:01 Pulse 77 10/15/21 05:33 Resp 20 10/15/21 05:33 BP 97/63 L 10/15/21 05:33 Pulse Ox 91 10/15/21 05:33 Exam Statement: A physical exam was performed in the ED by Dr. Marx for the purposes of medical clearance. I accept that physical as correct and adequate for the purposes of the inpatient physical exam. Results & Data ([facility]) Laboratory Results Laboratory Results - last 24 hr 10/14/21 10/14/21 10/14/21 23:01 23:01 23:08 WBC RBC Hgb Hct MCV MCH MCHC RDW Std Deviation RDW Coeff of Crispin Plt Count MPV Immature Gran % (Auto) Neut % (Auto) Lymph % (Auto) Crisp % (Auto) Eos % (Auto) Baso % (Auto) Neut # (Auto) Lymph # (Auto) Crisp # (Auto) Eos # (Auto) Baso # (Auto) Immature Gran # (Auto) Sodium Potassium Chloride Carbon Dioxide Anion Gap BUN Creatinine Est Cr Clr Drug Dosing Est GFR ( Amer) Est GFR (Non-Af Amer) BUN/Creatinine Ratio Glucose Calcium Total Bilirubin AST ALT Alkaline Phosphatase Total Protein Albumin Globulin Albumin/Globulin Ratio TSH Urine Color Dark Yellow Urine Appearance Clear Urine pH 5.0 Ur Specific [place] 1.029 Urine Protein Negative Urine Glucose (UA) Negative Urine Ketones Trace H Urine Blood Negative Urine Nitrite Negative Urine Bilirubin Negative Urine Urobilinogen Negative Ur Leukocyte Esterase Negative Salicylates Urine Opiates Screen Neg Ur Methadone, Qual Neg Acetaminophen Urine Barbiturates Neg Ur Phencyclidine (PCP) Neg U Amphetamin/Meth Scrn Neg MDMA (Ecstasy) Screen Neg U Benzodiazepines Scrn Neg Ur Cocaine Metabolite Neg U Marijuana (THC) Screen Neg Ethyl Alcohol mg/dL SARS-CoV-2, RNA, NAAT NEGATIVE 10/14/21 10/14/21 10/14/21 23:30 23:30 23:30 WBC 7.67 RBC 4.74 Hgb 16.2 H Hct 46.2 MCV 97.5 MCH 34.2 H MCHC 35.1 RDW Std Deviation 46.0 RDW Coeff of Crispin 12.9 Plt Count 144 MPV 10.5 H Immature Gran % (Auto) 0.1 Neut % (Auto) 44.2 Lymph % (Auto) 41.7 Crisp % (Auto) 12.9 Eos % (Auto) 0.8 Baso % (Auto) 0.3 Neut # (Auto) 3.39 Lymph # (Auto) 3.20 Crisp # (Auto) 0.99 H Eos # (Auto) 0.06 Baso # (Auto) 0.02 Immature Gran # (Auto) 0.01 Sodium 139 Potassium 3.4 L Chloride 105 Carbon Dioxide 26 Anion Gap 8 BUN 16 Creatinine 0.68 Est Cr Clr Drug Dosing 125.3 Est GFR ( Amer) 113.3 Est GFR (Non-Af Amer) 97.8 BUN/Creatinine Ratio 23.5 H Glucose 101 H Calcium 9.5 Total Bilirubin 0.6 AST 45 H ALT 34 Alkaline Phosphatase 73 Total Protein 8.3 Albumin 3.8 Globulin 4.5 H Albumin/Globulin Ratio 0.8 L TSH 1.609 Urine Color Urine Appearance Urine pH Ur Specific [place] Urine Protein Urine Glucose (UA) Urine Ketones Urine Blood Urine Nitrite Urine Bilirubin Urine Urobilinogen Ur Leukocyte Esterase Salicylates Urine Opiates Screen Ur Methadone, Qual Acetaminophen Urine Barbiturates Ur Phencyclidine (PCP) U Amphetamin/Meth Scrn MDMA (Ecstasy) Screen U Benzodiazepines Scrn Ur Cocaine Metabolite U Marijuana (THC) Screen Ethyl Alcohol mg/dL SARS-CoV-2, RNA, NAAT 10/14/21 10/15/21 23:30 01:20 WBC RBC Hgb Hct MCV MCH MCHC RDW Std Deviation RDW Coeff of Crispin Plt Count MPV Immature Gran % (Auto) Neut % (Auto) Lymph % (Auto) Crisp % (Auto) Eos % (Auto) Baso % (Auto) Neut # (Auto) Lymph # (Auto) Crisp # (Auto) Eos # (Auto) Baso # (Auto) Immature Gran # (Auto) Sodium Potassium Chloride Carbon Dioxide Anion Gap BUN Creatinine Est Cr Clr Drug Dosing Est GFR ( Amer) Est GFR (Non-Af Amer) BUN/Creatinine Ratio Glucose Calcium Total Bilirubin AST ALT Alkaline Phosphatase Total Protein Albumin Globulin Albumin/Globulin Ratio TSH Urine Color Urine Appearance Urine pH Ur Specific [place] Urine Protein Urine Glucose (UA) Urine Ketones Urine Blood Urine Nitrite Urine Bilirubin Urine Urobilinogen Ur Leukocyte Esterase Salicylates < 3.0 L Urine Opiates Screen Ur Methadone, Qual Acetaminophen < 3 L Urine Barbiturates Ur Phencyclidine (PCP) U Amphetamin/Meth Scrn MDMA (Ecstasy) Screen U Benzodiazepines Scrn Ur Cocaine Metabolite U Marijuana (THC) Screen Ethyl Alcohol mg/dL < 10.0 SARS-CoV-2, RNA, NAAT Current Inpatient Medications Current Inpatient Medications: Current Inpatient Medications Acetaminophen (Acetaminophen 325 Mg Tab) 650 mg PO Q4H PRN PRN Reason: Headache or Minor Fever Stop: 11/14/21 06:34 Al Hydrox/Mg Hydrox/Simethicone (Aluminum/Magnesium Susp 30 Ml Udc) 30 ml PO Q4H PRN PRN Reason: GI Upset Stop: 11/14/21 06:34 Bismuth Subsalicylate (Bismuth Subsalicylate Liqd 236 Ml) 15 ml PO PRN PRN PRN Reason: Loose Stool Stop: 11/14/21 06:34 Famotidine (Famotidine 20 Mg Tab) 20 mg PO DAILY PRN PRN Reason: REFLUX Stop: 11/14/21 11:40 Hydroxyzine HCl (Hydroxyzine Hcl 25 Mg Tab) 50 mg PO HSZ PRN PRN Reason: Insomnia Stop: 11/14/21 06:34 Hydroxyzine HCl (Hydroxyzine Hcl 25 Mg Tab) 25 mg PO Q4H PRN PRN Reason: Anxiety Stop: 11/14/21 06:34 Lurasidone HCl (Lurasidone Hcl 40 Mg Tab) 80 mg PO DAILYBD MICAH Stop: 11/14/21 17:14 Magnesium Hydroxide (Magnesium Hydroxide Susp 30 Ml Udc) 30 ml PO DAILY PRN PRN Reason: Constipation Stop: 11/14/21 06:34 Omeprazole (Omeprazole 20 Mg Capcr) 20 mg PO DAILY@1530 MICAH Stop: 11/15/21 15:29 Sodium Chloride (Sodium Chloride 0.65% Na Soln 45 Ml ([place])) 1 - 2 sprays NA PRN PRN PRN Reason: Nasal Dryness/Congestion Stop: 11/14/21 06:34 Sofosbuvir/Velpatasvir (Sofosbuvir/Velpatasvir 400mg/100mg Tab) 1 tab PO DAILY MICAH; Protocol Stop: 11/14/21 13:29 Last Admin: 10/15/21 13:35 Dose: 1 tab Documented by: Topiramate (Topiramate 25 Mg Tab) 25 mg PO DAILY MICAH Stop: 11/14/21 11:44 Last Admin: 10/15/21 13:36 Dose: 25 mg Documented by: Trazodone HCl (Trazodone Hcl 50 Mg Tab) 50 mg PO HS MICAH Stop: 11/14/21 21:59
[2021-10-15] MEDS: LURASIDONE HCL 40 MG TAB PO SCH (17:33)
[2021-10-15] MEDS ORDERED: traZODone HCL 50 MG TAB PO SCH (22:00)
[2021-10-15] MEDS ORDERED: haloperidoL 5 MG TAB PO SCH (22:00)
[2021-10-15] MEDS: traZODone HCL 50 MG TAB PO SCH (22:21)
[2021-10-16 08:49] LABS: Chol HDL Ratio 6.9 (0-5)
[2021-10-16] MEDS ORDERED: VELPATASVIR PO SCH (09:00)
[2021-10-16] MEDS ORDERED: SOFOSBUVIR PO SCH (09:00)
[2021-10-16] MEDS: TOPIRAMATE 25 MG TAB PO SCH (09:07)
[2021-10-16] MEDS: SOFOSBUVIR/VELPATASVIR 400mg/100mg TAB PO SCH (09:07)
[2021-10-16] MEDS: OLANZapine 5 MG TABLET PO PRN (10:13)
[2021-10-16] MEDS: LORazepam 1 MG TAB PO PRN (10:13)
[2021-10-16] MEDS: LURASIDONE HCL 40 MG TAB PO SCH (16:05)
[2021-10-16] MEDS: OMEPRAZOLE 20 MG CAPCR PO SCH (16:05)
--- NOTE | 2021-10-16 16:59 | Psychiatric Progress Note ---
Date of Service October 16, 2021 Impression / Recommendations Impression 56 yo woman with history of schizoaffective disorder admitted on 302 status (expires 10/20 at 5am) after period of medication non-adherence with thought disorganization and intermittent agitation per family. Diagnostically consistent with schizoaffective disorder, acute alejandro. Has repeatedly declined Haldol and RAMOS. The patient is deemed unstable and requires psychiatric hospitalization for diagnostic clarification, safety and stabilization, medication management and development of further coping skills. MNPR due to acute alejandro with poor boundaries and intrusive, unable to tolerate roommate. 10/16/21: Acute alejandro with tangential speech, loosening of associations, disorganized behavior. Reviewed [facility] records and med rec edited. Has been prescribed latuda 80mg for schizoaffective disorder and topimax for mood stabilization. Will continue with re-initiation trial of latuda, if ineffective may need to consider an alternative medication, RAMOS would be ideal given history of medical non-adherence. Could consider abilify which has RAMOS as she has tried invega in the past with limited benefit and declines haldol trial. For now adding olanzapine and ativan prn due to acute alejandro, unable to tolerate di scussions of risks/benefits given her level of agitation and alejandro. Discontinuing topimax as no evidence to support it's use as a mood stabilizer and increases risk for polypharmacy and medication side effects. Reviewed fasting glucose and lipid panel-all wnl with exception of very low HDL. As clinical condition improves will discuss ways to improve exercise and physical activity which can help HDL and will schedule PCP f/up. (1) Schizoaffective disorder: (2) Chalazion left lower eyelid: PCP/opth f/up 10/16/21: Continue with latuda 80mg daily with dinner, discontinuing topimax. Added Zyprexa and ativan prn for acute agitation. 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 10/15/21: [facility] on q15 min checks (behavioral with suicide precautions) for safety. The patient will participate in group, recreational, and milieu therapies and will be offered additional individual and family sessions as clinically appropriate. Resume Latuda, fasting labs in am. compresses to left lower eye and assistance in reschedule optho. Inventory Assets Strengths: family support, taking PO Needs: increase insight into condition Risk Factors Assessment : Yes Do You Have Access To A Gun?: No Mental Health Diagnoses: Yes Substance Use Disorders: No Previous Attempt: Yes Previous Psychiatric Hospitalization: Yes Protective Factors Assessment Employed: No Supportive Family: Yes (to a degree) Interval History Identifying Information CURTIS MEJÍA is a 56-year-old woman who currently lives in [facility] in [place], has a history of previous psychiatric admission, and was admitted on 10/15/21 06:35 on a 302 involuntary commitment for disorganized behavior. Chief Complaint "I need to be at the social security office on Tuesday because I paid $300 with my son and for the motel". Review of Systems Sleep Information Total Hours of Sleep: 9.75 Sleep Comments: up and requested a snack. patient was reminded of fasting lab work and agreed to wait for breakfast. Meal Information Percent Meal Consumed - Breakfast: 50 Percent Meal Consumed - Lunch: 100 Percent Meal Consumed - Dinner: 100 Subjective Subjective Patient was seen & assessed and interval progress reviewed with treatment team nursing and social work. Curtis presents as tangential with poor boundaries, rapid speech and discussing a variety of topics which are very difficult to follow. Speaks of her desire to visit an [place] SS office on Tuesday (seems unaware it is Easter and will be closed) as well as topics including her need to stay at a motel, being found with a baby and thus resulting in a 302 and her desire to exercise outside and sing "there's nothing wrong with that". Feels her son completed the 302 "because he's harassing me". No insight into her recent behavior nor current symptoms. Physical Exam Psychiatric Orientation: alert and oriented x 3 Apperance: appropriately dressed and appropriately groomed Eye Contact: + fair eye contact Motor Behavior: no abnormal motor movements and + psychomotor agitation Speech: + pressured speech (rapid) and + loud speech Affect: + anxious affect and + labile affect Mood: + anxious mood and + irritable mood; no depressed mood Thought Process: + tangential thought process and + looseness of associations Thought Content: + paranoid and + delusions Suicidal Thoughts: denies suicidal thoughts Homicidal Thoughts: denies homicidal thoughts Hallucinations: no auditory hallucinations and no visual hallucinations Cognition: remote memory grossly intact and language grossly intact; + recent memory not intact and + attention not intact Estimated Intelligence: consistent with education level Insight: + severely impaired insight Judgement: + limited judgement Vital Signs (Past 24 Hours) Last Vital Signs Temp 36.8 C 10/16/21 06:51 Pulse 73 10/16/21 06:53 Resp 18 10/16/21 06:51 BP 108/66 10/16/21 06:53 Pulse Ox 91 10/15/21 05:33 Results & Data ([facility]) Laboratory Results Laboratory Results - last 24 hr 10/16/21 08:14 Fasting Glucose 86 Triglycerides 81 Cholesterol 137 LDL Cholesterol, Calc 101 VLDL Cholesterol, Calc 16 HDL Cholesterol 20 Cholesterol/HDL Ratio 6.9 H Current Inpatient Medications Current Inpatient Medications: Current Inpatient Medications Acetaminophen (Acetaminophen 325 Mg Tab) 650 mg PO Q4H PRN PRN Reason: Headache or Minor Fever Stop: 11/14/21 06:34 Al Hydrox/Mg Hydrox/Simethicone (Aluminum/Magnesium Susp 30 Ml Udc) 30 ml PO Q4H PRN PRN Reason: GI Upset Stop: 11/14/21 06:34 Bismuth Subsalicylate (Bismuth Subsalicylate Liqd 236 Ml) 15 ml PO PRN PRN PRN Reason: Loose Stool Stop: 11/14/21 06:34 Famotidine (Famotidine 20 Mg Tab) 20 mg PO DAILY PRN PRN Reason: REFLUX Stop: 11/14/21 11:40 Hydroxyzine HCl (Hydroxyzine Hcl 25 Mg Tab) 50 mg PO HSZ PRN PRN Reason: Insomnia Stop: 11/14/21 06:34 Hydroxyzine HCl (Hydroxyzine Hcl 25 Mg Tab) 25 mg PO Q4H PRN PRN Reason: Anxiety Stop: 11/14/21 06:34 Lorazepam (Lorazepam 1 Mg Tab) 1 mg PO TID PRN PRN Reason: Anxiety/Agitation Stop: 11/15/21 09:53 Last Admin: 10/16/21 10:13 Dose: 1 mg Documented by: Lurasidone HCl (Lurasidone Hcl 40 Mg Tab) 80 mg PO DAILYBD MICAH Stop: 11/14/21 17:14 Last Admin: 10/16/21 16:05 Dose: 80 mg Documented by: Magnesium Hydroxide (Magnesium Hydroxide Susp 30 Ml Udc) 30 ml PO DAILY PRN PRN Reason: Constipation Stop: 11/14/21 06:34 Olanzapine (Olanzapine 5 Mg Tablet) 5 mg PO BID PRN PRN Reason: Anxiety/Agitation Stop: 11/15/21 09:59 Last Admin: 10/16/21 10:13 Dose: 5 mg Documented by: Omeprazole (Omeprazole 20 Mg Capcr) 20 mg PO DAILY@1530 MICAH Stop: 11/15/21 15:29 Last Admin: 10/16/21 16:05 Dose: 20 mg Documented by: Sodium Chloride (Sodium Chloride 0.65% Na Soln 45 Ml ([place])) 1 - 2 sprays NA PRN PRN PRN Reason: Nasal Dryness/Congestion Stop: 11/14/21 06:34 Sofosbuvir/Velpatasvir (Sofosbuvir/Velpatasvir 400mg/100mg Tab) 1 tab PO DAILY MICAH; Protocol Stop: 11/14/21 13:29 Last Admin: 10/16/21 09:07 Dose: 1 tab Documented by: Topiramate (Topiramate 25 Mg Tab) 25 mg PO DAILY [facility] Stop: 11/14/21 11:44 Last Admin: 10/16/21 09:07 Dose: 25 mg Documented by: Trazodone HCl (Trazodone Hcl 50 Mg Tab) 50 mg PO HS MICAH Stop: 11/14/21 21:59 Last Admin: 10/15/21 22:21 Dose: 50 mg Documented by: Mental Health & Subst Abuse Tx Psychiatrist Name of Psychiatrist: Angi Johnson Psychiatrist's Date of Appointment with Psychiatrist: 10/26/21 Time of Appointment with Psychiatrist: 9:30 a.m. Psychiatric Appointment Comment: [facility] Therapist Name of Therapist: . Shotgun Shell Assembly Machine Operator Name of Shotgun Shell Assembly Machine Operator: Randy Miller Phone Number for Shotgun Shell Assembly Machine Operator: [phone] Case Management Appointment Comment: Will follow up with you for your appt at [facility] Post Discharge Appointments Primary Care Physician Name Of Family Doctor: [facility] - Dr. Socorro Solis Primary Care Date of Appointment with PCP: 11/02/21 Time of Appointment with PCP: 1:40 p.m. Provider Appointment Comment: [id number] [facility] Contact Information Discharge Discharge Address: [address] [place] [address], [facility] [address], [place], [place] [address] (1) Schizoaffective disorder Schizoaffective disorder type: unspecified Qualified Code(s): F25.9 - Schizoaffective disorder, unspecified
[2021-10-16] MEDS: traZODone HCL 50 MG TAB PO SCH (21:22)
[2021-10-17] MEDS: SOFOSBUVIR/VELPATASVIR 400mg/100mg TAB PO SCH (08:48)
--- NOTE | 2021-10-17 08:58 | Psychiatric Progress Note ---
Date of Service October 17, 2021 Impression / Recommendations Impression 56 yo woman with history of schizoaffective disorder admitted on 302 status (expires 10/20 at 5am) after period of medication non-adherence with thought disorganization and intermittent agitation per family. Diagnostically consistent with schizoaffective disorder, acute alejandro. Has repeatedly declined Haldol and RAMOS. The patient is deemed unstable and requires psychiatric hospitalization for diagnostic clarification, safety and stabilization, medication management and development of further coping skills. MNPR due to acute alejandro with poor boundaries and intrusive, unable to tolerate roommate. 10/17/21: Acute alejandro persists. Has been taking her medications including prn olanzapine and ativan. Encouraging did sleep well last night. (1) Schizoaffective disorder: (2) Chalazion left lower eyelid: PCP/opth f/up 10/17/21: Continue medications and current tx plan. 10/16/21: Continue with latuda 80mg daily with dinner, discontinuing topimax. Added Zyprexa and ativan prn for acute agitation. Continue other REEL SYSTEM OPERATOR medications including trazodone, prilosec and Hep C tx. 10/15/21: The patient was admitted to the [facility] ([facility]) on q15 min checks (behavioral with suicide precautions) for safety. The patient will participate in group, recreational, and milieu therapies and will be offered additional individual and family sessions as clinically appropriate. Resume Latuda, fasting labs in am. compresses to left lower eye and assistance in reschedule optho. Inventory Assets Strengths: family support, taking PO Needs: increase insight into condition Risk Factors Assessment : Yes Do You Have Access To A Gun?: No Mental Health Diagnoses: Yes Substance Use Disorders: No Previous Attempt: Yes Previous Psychiatric Hospitalization: Yes Protective Factors Assessment Employed: No Supportive Family: Yes (to a degree) Interval History Identifying Information CURTIS MEJÍA is a 56-year-old woman who currently lives in [facility] in [place], has a history of previous psychiatric admission, and was admitted on 10/15/21 06:35 on a 302 involuntary commitment for disorganized behavior. Chief Complaint "The FBI is looking for [place] and I need to meet with them". Review of Systems Sleep Information Total Hours of Sleep: 6.5 Sleep Comments: up and requested a snack. patient was reminded of fasting lab work and agreed to wait for breakfast. Meal Information Percent Meal Consumed - Breakfast: 50 Percent Meal Consumed - Lunch: 100 Percent Meal Consumed - Dinner: 100 Subjective Subjective Patient was seen & assessed and interval progress reviewed with treatment team nursing and social work. Slept in the afternoon for a few hours. Can't tolerate attending any groups. Remains intrusive, disorganized with poor boundaries. Quintin ing offensive statements which she is unable to recognize even when brought to her attention. Today speaking about a variety of themes and topics in a disorganized manner that is very difficult to follow including: the FBI, [place] assassination, singing with Elizabeth Whyte and frustration with an old boss monitoring her bathroom breaks. Dancing at times in the halls. Denies any medication side effects. Physical Exam Psychiatric Orientation: alert and oriented x 3 Apperance: appropriately dressed and appropriately groomed Eye Contact: + fair eye contact (intense at times) Motor Behavior: no abnormal motor movements and + psychomotor agitation Speech: + pressured speech (rapid) and + loud speech Affect: + labile affect Mood: + anxious mood and + irritable mood; no depressed mood Thought Process: + tangential thought process and + looseness of associations Thought Content: + paranoid and + delusions (grandiose) Suicidal Thoughts: denies suicidal thoughts Homicidal Thoughts: denies homicidal thoughts Hallucinations: no auditory hallucinations and no visual hallucinations Cognition: remote memory grossly intact and language grossly intact; + recent memory not intact and + attention not intact Estimated Intelligence: consistent with education level Insight: + severely impaired insight Judgement: + severely impaired judgement Vital Signs (Past 24 Hours) Last Vital Signs Temp 36.6 C 10/17/21 06:59 Pulse 98 H 10/17/21 07:01 Resp 18 10/17/21 06:59 BP 109/76 10/17/21 07:01 Pulse Ox 91 10/15/21 05:33 Results & Data ([facility]) Current Inpatient Medications Current Inpatient Medications: Current Inpatient Medications Acetaminophen (Acetaminophen 325 Mg Tab) 650 mg PO Q4H PRN PRN Reason: Headache or Minor Fever Stop: 11/14/21 06:34 Al Hydrox/Mg Hydrox/Simethicone (Aluminum/Magnesium Susp 30 Ml Udc) 30 ml PO Q4H PRN PRN Reason: GI Upset Stop: 11/14/21 06:34 Bismuth Subsalicylate (Bismuth Subsalicylate Liqd 236 Ml) 15 ml PO PRN PRN PRN Reason: Loose Stool Stop: 11/14/21 06:34 Famotidine (Famotidine 20 Mg Tab) 20 mg PO DAILY PRN PRN Reason: REFLUX Stop: 11/14/21 11:40 Hydroxyzine HCl (Hydroxyzine Hcl 25 Mg Tab) 50 mg PO HSZ PRN PRN Reason: Insomnia Stop: 11/14/21 06:34 Hydroxyzine HCl (Hydroxyzine Hcl 25 Mg Tab) 25 mg PO Q4H PRN PRN Reason: Anxiety Stop: 11/14/21 06:34 Lorazepam (Lorazepam 1 Mg Tab) 1 mg PO TID PRN PRN Reason: Anxiety/Agitation Stop: 11/15/21 09:53 Last Admin: 10/16/21 10:13 Dose: 1 mg Documented by: Lurasidone HCl (Lurasidone Hcl 40 Mg Tab) 80 mg PO DAILYBD MICAH Stop: 11/14/21 17:14 Last Admin: 10/16/21 16:05 Dose: 80 mg Documented by: Magnesium Hydroxide (Magnesium Hydroxide Susp 30 Ml Udc) 30 ml PO DAILY PRN PRN Reason: Constipation Stop: 11/14/21 06:34 Olanzapine (Olanzapine 5 Mg Tablet) 5 mg PO BID PRN PRN Reason: Anxiety/Agitation Stop: 11/15/21 09:59 Last Admin: 10/16/21 10:13 Dose: 5 mg Documented by: Omeprazole (Omeprazole 20 Mg Capcr) 20 mg PO DAILY@1530 MICAH Stop: 11/15/21 15:29 Last Admin: 10/16/21 16:05 Dose: 20 mg Documented by: Sodium Chloride (Sodium Chloride 0.65% Na Soln 45 Ml ([place])) 1 - 2 sprays NA PRN PRN PRN Reason: Nasal Dryness/Congestion Stop: 11/14/21 06:34 Sofosbuvir/Velpatasvir (Sofosbuvir/Velpatasvir 400mg/100mg Tab) 1 tab PO DAILY MICAH; Protocol Stop: 11/14/21 13:29 Last Admin: 10/17/21 08:48 Dose: 1 tab Documented by: Trazodone HCl (Trazodone Hcl 50 Mg Tab) 50 mg PO HS MICAH Stop: 11/14/21 21:59 Last Admin: 10/16/21 21:22 Dose: 50 mg Documented by: Mental Health & Subst Abuse Tx Psychiatrist Name of Psychiatrist: Angi Johnson Psychiatrist's Date of Appointment with Psychiatrist: 10/26/21 Time of Appointment with Psychiatrist: 9:30 a.m. Psychiatric Appointment Comment: Elizabeth Therapist Name of Therapist: . Tank Truck Milk Receiver Name of Tank Truck Milk Receiver: Randy Miller Phone Number for Tank Truck Milk Receiver: [phone] Case Management Appointment Comment: Will follow up with you for your appt at [facility] Post Discharge Appointments Primary Care Physician Name Of Family Doctor: [facility] - Dr. Socorro Solis Primary Care Date of Appointment with PCP: 11/02/21 Time of Appointment with PCP: 1:40 p.m. Provider Appointment Comment: [phone] Contact Information Discharge Discharge Address: [address] [place] [address], [address] [place] [address] (1) Schizoaffective disorder Schizoaffective disorder type: unspecified Qualified Code(s): F25.9 - Schizoaffective disorder, unspecified
[2021-10-17] MEDS: LORazepam 1 MG TAB PO PRN (11:35)
[2021-10-17] MEDS: OLANZapine 5 MG TABLET PO PRN (12:45)
[2021-10-17] MEDS: OMEPRAZOLE 20 MG CAPCR PO SCH (16:15)
[2021-10-17] MEDS: LURASIDONE HCL 40 MG TAB PO SCH (17:26)
[2021-10-17] MEDS: traZODone HCL 50 MG TAB PO SCH (21:00)
--- NOTE | 2021-10-18 08:41 | Psychiatric Progress Note ---
Date of Service October 18, 2021 Impression / Recommendations Impression 56 yo woman with history of schizoaffective disorder admitted on 302 status (expires 10/20 at 5am) after period of medication non-adherence with thought disorganization and intermittent agitation per family. Diagnostically consistent with schizoaffective disorder, acute alejandro. Has repeatedly declined Haldol and RAMOS. The patient is deemed unstable and requires psychiatric hospitalization for diagnostic clarification, safety and stabilization, medication management and development of further coping skills. Acute risk of harm to self is low given denial of SI. Acute risk of harm to others is moderate given acute psychosis with alejandro, discussing themes of violence and hx of agitation/aggression and threatening behavior prior to admission per 302 petition by her son. Also continues to demonstrate decreased ability to care for herself given calling 911 repeatedly and unable to organize basic tasks such as calling her son. MNPR due to acute alejandro with poor boundaries and intrusive, unable to tolerate roommate. 10/18/21: Acute alejandro persists, rate of speech is slightly less rapid today after sleeping more yesterday but thoughts remain very disorganized and behaviorally disorganized including calling 911 and police repeatedly. Has been taking her medications including prn olanzapine and ativan. No medication changes for now, goal of allowing olanzapine and ativan to help restore sleep with hope that latuda begins to help again now that she is taking her medications again (1) Schizoaffective disorder: (2) Chalazion left lower eyelid: PCP/opth f/up 10/18/21: Continue current medications and tx plan. Will likely need to be converted to 303 status as 302 commitment expires on 10/20 at 5am. 10/17/21: Continue medications and current tx plan. 10/16/21: Continue with latuda 80mg daily with dinner, discontinuing topimax. Added Zyprexa and ativan prn for acute agitation. Continue other OLIVE GROWER medications including trazodone, prilosec and Hep C tx. 10/15/21: The patient was admitted to the [facility] ([facility] unit) on q15 min checks (behavioral with suicide precautions) for safety. The p atient will participate in group, recreational, and milieu therapies and will be offered additional individual and family sessions as clinically appropriate. Resume Latuda, fasting labs in am. compresses to left lower eye and assistance in reschedule optho. Inventory Assets Strengths: family support, taking PO Needs: increase insight into condition Risk Factors Assessment : Yes Do You Have Access To A Gun?: No Mental Health Diagnoses: Yes Substance Use Disorders: No Previous Attempt: Yes Previous Psychiatric Hospitalization: Yes Protective Factors Assessment Employed: No Supportive Family: Yes (to a degree) Interval History Identifying Information CURTIS MEJÍA is a 56-year-old woman who currently lives in [facility] in [place], has a history of previous psychiatric admission, and was admitted on 10/15/21 06:35 on a 302 involuntary commitment for disorganized behavior. Chief Complaint "That woman at [employer] is 50 and he's 30 and she needs to know that". Review of Systems Sleep Information Total Hours of Sleep: 10.5 Sleep Comments: up and requested a snack. patient was reminded of fasting lab work and agreed to wait for breakfast. Meal Information Percent Meal Consumed - Breakfast: 100 Percent Meal Consumed - Lunch: 100 Percent Meal Consumed - Dinner: 100 Subjective Subjective Patient was seen & assessed and interval progress reviewed with treatment team nursing and social work.Yesterday afternoon called 911 from the unit phone to ask why she is being kept on a 302 warrant. After getting prn olanzapine and ativan yesterday she slept all afternoon, had dinner, and then slept overnight. Up this morning and had breakfast and then went back to bed. By 10am she was out of her room and called police and 911 multiple times from the unit phone prompting the dispatcher to contact [facility]. She continues to speak in a very disorganized manner making it very difficult to follow her train of thought. Continues to discuss themes of violence including machine guns, [place] assassination, interacting with police and a car shooting in [place]. She remained focused on a desire to do her aerobic exercises today. Continues to speak about frustration with a woman who maybe works with her at [employer] or may be dating her son. She denies any medication side effects. Physical Exam Psychiatric Orientation: alert and oriented x 3 Apperance: appropriately dressed and appropriately groomed Eye Contact: + fair eye contact (intense at times) Motor Behavior: no abnormal motor movements and + psychomotor agitation Speech: + pressured speech (rapid) and + loud speech Affect: + anxious affect and + labile affect Mood: + anxious mood and + irritable mood; no depressed mood Thought Process: + tangential thought process and + looseness of associations Thought Content: + paranoid and + delusions (grandiose) Suicidal Thoughts: denies suicidal thoughts Homicidal Thoughts: denies homicidal thoughts Hallucinations: no auditory hallucinations and no visual hallucinations Cognition: remote memory grossly intact and language grossly intact; + recent memory not intact and + attention not intact Estimated Intelligence: consistent with education level Insight: + severely impaired insight Judgement: + severely impaired judgement Vital Signs (Past 24 Hours) Last Vital Signs Temp 37.0 C 10/18/21 06:35 Pulse 74 10/18/21 06:36 Resp 18 10/18/21 06:35 BP 108/73 10/18/21 06:36 Pulse Ox 91 10/15/21 05:33 Results & Data ([facility]) Current Inpatient Medications Current Inpatient Medications: Current Inpatient Medications Acetaminophen (Acetaminophen 325 Mg Tab) 650 mg PO Q4H PRN PRN Reason: Headache or Minor Fever Stop: 11/14/21 06:34 Al Hydrox/Mg Hydrox/Simethicone (Aluminum/Magnesium Susp 30 Ml Udc) 30 ml PO Q4H PRN PRN Reason: GI Upset Stop: 11/14/21 06:34 Bismuth Subsalicylate (Bismuth Subsalicylate Liqd 236 Ml) 15 ml PO PRN PRN PRN Reason: Loose Stool Stop: 11/14/21 06:34 Famotidine (Famotidine 20 Mg Tab) 20 mg PO DAILY PRN PRN Reason: REFLUX Stop: 11/14/21 11:40 Hydroxyzine HCl (Hydroxyzine Hcl 25 Mg Tab) 50 mg PO HSZ PRN PRN Reason: Insomnia Stop: 11/14/21 06:34 Hydroxyzine HCl (Hydroxyzine Hcl 25 Mg Tab) 25 mg PO Q4H PRN PRN Reason: Anxiety Stop: 11/14/21 06:34 Lorazepam (Lorazepam 1 Mg Tab) 1 mg PO TID PRN PRN Reason: Anxiety/Agitation Stop: 11/15/21 09:53 Last Admin: 10/17/21 11:35 Dose: 1 mg Documented by: Lurasidone HCl (Lurasidone Hcl 40 Mg Tab) 80 mg PO DAILYBD MICAH Stop: 11/14/21 17:14 Last Admin: 10/17/21 17:26 Dose: 80 mg Documented by: Magnesium Hydroxide (Magnesium Hydroxide Susp 30 Ml Udc) 30 ml PO DAILY PRN PRN Reason: Constipation Stop: 11/14/21 06:34 Olanzapine (Olanzapine 5 Mg Tablet) 5 mg PO BID PRN PRN Reason: Anxiety/Agitation Stop: 11/15/21 09:59 Last Admin: 10/17/21 12:45 Dose: 5 mg Documented by: Omeprazole (Omeprazole 20 Mg Capcr) 20 mg PO DAILY@1530 MICAH Stop: 11/15/21 15:29 Last Admin: 10/17/21 16:15 Dose: Not Given Documented by: Sodium Chloride (Sodium Chloride 0.65% Na Soln 45 Ml ([place])) 1 - 2 sprays NA PRN PRN PRN Reason: Nasal Dryness/Congestion Stop: 11/14/21 06:34 Sofosbuvir/Velpatasvir (Sofosbuvir/Velpatasvir 400mg/100mg Tab) 1 tab PO DAILY MICAH; Protocol Stop: 11/14/21 13:29 Last Admin: 10/17/21 08:48 Dose: 1 tab Documented by: Trazodone HCl (Trazodone Hcl 50 Mg Tab) 50 mg PO HS MICAH Stop: 11/14/21 21:59 Last Admin: 10/17/21 21:00 Dose: 50 mg Documented by: Mental Health & Subst Abuse Tx Psychiatrist Name of Psychiatrist: Angi Johnson Psychiatrist's Date of Appointment with Psychiatrist: 10/26/21 Time of Appointment with Psychiatrist: 9:30 a.m. Psychiatric Appointment Comment: Elizabeth Therapist Name of Therapist: . Materials Branch Chief Name of Materials Branch Chief: Randy Miller Phone Number for Materials Branch Chief: [phone] Case Management Appointment Comment: Will follow up with you for your appt at [facility] Post Discharge Appointments Primary Care Physician Name Of Family Doctor: [facility] - Dr. Socorro Solis Primary Care Date of Appointment with PCP: 11/02/21 Time of Appointment with PCP: 1:40 p.m. Provider Appointment Comment: [phone] Contact Information Discharge Discharge Address: [address] [place] [address], [address], [place] [address] (1) Schizoaffective disorder Schizoaffective disorder type: unspecified Qualified Code(s): F25.9 - Schizoaffective disorder, unspecified
[2021-10-18] MEDS: SOFOSBUVIR/VELPATASVIR 400mg/100mg TAB PO SCH (08:46)
[2021-10-18] MEDS: OLANZapine 5 MG TABLET PO PRN (09:37)
[2021-10-18] MEDS: LORazepam 1 MG TAB PO PRN (14:56)
[2021-10-18] MEDS: OMEPRAZOLE 20 MG CAPCR PO SCH (16:55)
[2021-10-18] MEDS: LURASIDONE HCL 40 MG TAB PO SCH (18:35)
[2021-10-18] MEDS: traZODone HCL 50 MG TAB PO SCH (20:39)
[2021-10-19] MEDS: SOFOSBUVIR/VELPATASVIR 400mg/100mg TAB PO SCH (08:40)
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
[2021-10-19] MEDS: LORazepam 1 MG TAB PO PRN ×2 (09:09→16:14)
[2021-10-19] MEDS ORDERED: OLANZapine 5 MG TABLET PO ONE (09:30)
[2021-10-19] MEDS: OMEPRAZOLE 20 MG CAPCR PO SCH (15:09)
[2021-10-19] MEDS: LURASIDONE HCL 40 MG TAB PO SCH (17:43)
[2021-10-19] MEDS: traZODone HCL 50 MG TAB PO SCH (21:19)
[2021-10-19] MEDS: OLANZapine 5 MG TABLET PO SCH (21:22)
[2021-10-20] MEDS: FAMOTIDINE 20 MG TAB PO SCH (07:53)
[2021-10-20] MEDS: OLANZapine 5 MG TABLET PO SCH (07:53)
[2021-10-20] MEDS: SOFOSBUVIR/VELPATASVIR 400mg/100mg TAB PO SCH (07:54)
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
[2021-10-20] MEDS: FLUTICASONE PROPIONATE NA SPR 16 GM BTL NAE SCH (13:27)
[2021-10-20] MEDS ORDERED: OLANZapine 10 MG/2.1 ML SDV IM PRN (14:31)
[2021-10-20] MEDS: OLANZapine 5 MG TABLET PO PRN (16:45)
[2021-10-20] MEDS: LORazepam 1 MG TAB PO PRN (16:48)
[2021-10-20] MEDS: LURASIDONE HCL 40 MG TAB PO SCH (17:10)
[2021-10-20] MEDS ORDERED: LORazepam 1 MG TAB PO STA (18:08)
[2021-10-20] MEDS: traZODone HCL 50 MG TAB PO SCH (21:17)
[2021-10-20] MEDS: OLANZapine 10 MG TAB PO SCH (21:17)
[2021-10-21] MEDS: hydrOXYzine HCl 25 MG TAB PO PRN ×3 (02:31→14:20)
[2021-10-21] MEDS: FLUTICASONE PROPIONATE NA SPR 16 GM BTL NAE SCH (08:12)
[2021-10-21] MEDS: OLANZapine 5 MG TABLET PO SCH (08:13)
[2021-10-21] MEDS: SOFOSBUVIR/VELPATASVIR 400mg/100mg TAB PO SCH (08:14)
[2021-10-21] MEDS: FAMOTIDINE 20 MG TAB PO SCH (08:14)
[2021-10-21] MEDS: LORazepam 1 MG TAB PO PRN ×3 (08:17→20:36)
--- NOTE | 2021-10-21 08:53 | Psychiatric Progress Note ---
Date of Service October 21, 2021 Impression / Recommendations Impression 56 yo woman with history of schizoaffective disorder admitted on 302 status after period of medication non-adherence with thought disorganization and intermittent agitation per family and converted to 303 status on 10/19/21. Diagnostically consistent with schizoaffective disorder, acute alejandro. Has repeatedly declined Haldol and RAMOS. The patient is deemed unstable and requires psychiatric hospitalization for diagnostic clarification, safety and stabilization, medication management and development of further coping skills. Acute risk of harm to self is low given denial of SI. Acute risk of harm to others is high given acute psychosis with alejandro, discussing themes of violence and hx of agitation/aggression and threatening behavior prior to admission per 302 petition by her son and agitation and posturing toward staff. Also continues to demonstrate decreased ability to care for herself given calling 911 repeatedly and unable to organize basic tasks such as calling her son. MNPR due to acute alejandro with poor boundaries and intrusive, periods of agitated behavior, unable to tolerate roommate. 10/21/21: Ongoing acute alejandro, slightly easier to follow today. Tolerated discussion of medications and notes she didn't do well with lithium or depakote in the past. Agrees to switch from latuda to abilify so we will try that given limited benefit so far from latuda on top of significant olanzapine to help with acute alejandro so latuda unlikely to be enough as monotherapy (eventual goal) and Abilify has benefit of RAMOS if she is open to this in the future. Reviewed side effects, limited somewhat by her inattention, of metabolic and movement (TD, NMS) side effects and she consents to starting Abilify. (1) Alejandro: (2) Schizoaffective disorder: (3) Chalazion left lower eyelid: PCP/opth f/up 10/21/21: Discontinue latuda. Start abilify 5mg qd. Continue with olanzapine and ativan for now for acute alejandro. 10/20/21: Increase olanzapine to 5 mg qAM & 10mg qhs. Continue with latuda 80mg with dinner. Continue with olanzapine and ativan prn for agitation. 10/19/21: 303 commitment granted. Schedule olanzapine 5mg BID in addition to latuda and ativan prn. 10/18/21: Continue current medications and tx plan. Will likely need to be converted to 303 status as 302 commitment expires on 10/20 at 5am. 10/17/21: Continue medications and current tx plan. 10/16/21: Continue with latuda 80mg daily with dinner, discontinuing topimax. Added Zyprexa and ativan prn for acute agitation. Continue other DEVELOPMENT EDUCATOR medications including trazodone, prilosec and Hep C tx. 10/15/21: The patient was admitted to the [facility] ([facility]) on q15 min checks (behavioral with suicide precautions) for safety. The p atient will participate in group, recreational, and milieu therapies and will be offered additional individual and family sessions as clinically appropriate. Resume Latuda, fasting labs in am. compresses to left lower eye and assistance in reschedule optho. Inventory Assets Strengths: family support, taking PO Needs: increase insight into condition Risk Factors Assessment : Yes Do You Have Access To A Gun?: No Mental Health Diagnoses: Yes Substance Use Disorders: No Previous Attempt: Yes Previous Psychiatric Hospitalization: Yes Protective Factors Assessment Employed: No Supportive Family: Yes (to a degree) Interval History Identifying Information CURTIS MEJÍA is a 56-year-old woman who currently lives in [facility] in [place], has a history of previous psychiatric admission, and was admitted on 10/15/21 06:35 on a 302 involuntary commitment for disorganized behavior, converted to 303 on 10/19/21. Chief Complaint "I'm not manicy but I do when I'm in the hospital". Review of Systems Sleep Information Total Hours of Sleep: 3.5 Sleep Comments: approached nurses station multiple times throughout the night Meal Information Percent Meal Consumed - Breakfast: 100 Percent Meal Consumed - Lunch: 100 Percent Meal Consumed - Dinner: 90 Subjective Subjective Patient was seen & assessed and interval progress reviewed with treatment team nursing and social work. Got prn zyprexa and ativan last evening while agitated and then another ativan prn with some benefit. Still with poor sleep. She is very focused today on making phone calls. She continues to talk about aggressive themes including discussing people being stabbed in the back with a fork, discussing people attempting suicide inappropriately around other peers. Continues to inappropriately use the phone but agrees to allow staff supervision to help make calls and did this appropriately today. Reports ongoing frustration with her hospitalization stating she feels she is always manic and shouldn't be here. Was able to tolerate discussion about her medications as she states she had been taking her latuda prior to admission. Physical Exam Psychiatric Orientation: alert and oriented x 3 Apperance: appropriately dressed and appropriately groomed Eye Contact: + fair eye contact Motor Behavior: no abnormal motor movements and + psychomotor agitation Speech: + pressured speech (rapid) and + loud speech Affect: + anxious affect, + labile affect and + irritable affect Mood: + irritable mood; no depressed mood and no anxious mood Thought Process: + tangential thought process and + looseness of associations Thought Content: + paranoid, reality based without delusions and + delusions (grandiose) Suicidal Thoughts: denies suicidal thoughts Homicidal Thoughts: denies homicidal thoughts (but discussing violent themes ) Hallucinations: no auditory hallucinations and no visual hallucinations Cognition: remote memory grossly intact and language grossly intact; + recent memory not intact and + attention not intact Estimated Intelligence: consistent with education level Insight: + severely impaired insight Judgement: + limited judgement Vital Signs (Past 24 Hours) Last Vital Signs Temp 36.5 C 10/20/21 20:31 Pulse 75 10/20/21 06:46 Resp 16 10/20/21 06:46 BP 115/75 10/20/21 06:46 Pulse Ox 91 10/15/21 05:33 Results & Data ([facility]) Current Inpatient Medications Current Inpatient Medications: Current Inpatient Medications Acetaminophen (Acetaminophen 325 Mg Tab) 650 mg PO Q4H PRN PRN Reason: Headache or Minor Fever Stop: 11/14/21 06:34 Al Hydrox/Mg Hydrox/Simethicone (Aluminum/Magnesium Susp 30 Ml Udc) 30 ml PO Q4H PRN PRN Reason: GI Upset Stop: 11/14/21 06:34 Bismuth Subsalicylate (Bismuth Subsalicylate Liqd 236 Ml) 15 ml PO PRN PRN PRN Reason: Loose Stool Stop: 11/14/21 06:34 Famotidine (Famotidine 20 Mg Tab) 20 mg PO DAILY MICAH Stop: 11/19/21 08:59 Last Admin: 10/21/21 08:14 Dose: 20 mg Documented by: Fluticasone Propionate (Fluticasone Propionate Na Spr 16 Gm Btl) 1 sprays MILLA DAILY MICAH Stop: 11/19/21 09:29 Last Admin: 10/21/21 08:12 Dose: 1 sprays Documented by: Hydroxyzine HCl (Hydroxyzine Hcl 25 Mg Tab) 50 mg PO HSZ PRN PRN Reason: Insomnia Stop: 11/14/21 06:34 Last Admin: 10/21/21 02:31 Dose: 50 mg Documented by: Hydroxyzine HCl (Hydroxyzine Hcl 25 Mg Tab) 25 mg PO Q4H PRN PRN Reason: Anxiety Stop: 11/14/21 06:34 Last Admin: 10/21/21 07:36 Dose: 25 mg Documented by: Lorazepam (Lorazepam 1 Mg Tab) 1 mg PO TID PRN PRN Reason: Anxiety/Agitation Stop: 11/15/21 09:53 Last Admin: 10/21/21 08:17 Dose: 1 mg Documented by: Lurasidone HCl (Lurasidone Hcl 40 Mg Tab) 80 mg PO DAILYBD MICAH Stop: 11/14/21 17:14 Last Admin: 10/20/21 17:10 Dose: 80 mg Documented by: Magnesium Hydroxide (Magnesium Hydroxide Susp 30 Ml Udc) 30 ml PO DAILY PRN PRN Reason: Constipation Stop: 11/14/21 06:34 Olanzapine (Olanzapine 10 Mg/2.1 Ml Sdv) 10 mg IM BID PRN PRN Reason: Agitation Stop: 11/19/21 20:59 Olanzapine (Olanzapine 5 Mg Tablet) 5 mg PO QAM MICAH Stop: 11/20/21 08:59 Last Admin: 10/21/21 08:13 Dose: 5 mg Documented by: Olanzapine (Olanzapine 10 Mg Tab) 10 mg PO HS MICAH Stop: 11/19/21 21:59 Last Admin: 10/20/21 21:17 Dose: 10 mg Documented by: Olanzapine (Olanzapine 5 Mg Tablet) 5 mg PO ONCE PRN PRN Reason: Agitation Stop: 11/19/21 16:11 Last Admin: 10/20/21 16:45 Dose: 5 mg Documented by: Sodium Chloride (Sodium Chloride 0.65% Na Soln 45 Ml ([place])) 1 - 2 sprays NA PRN PRN PRN Reason: Nasal Dryness/Congestion Stop: 11/14/21 06:34 Sofosbuvir/Velpatasvir (Sofosbuvir/Velpatasvir 400mg/100mg Tab) 1 tab PO DAILY MICAH; Protocol Stop: 11/14/21 13:29 Last Admin: 10/21/21 08:14 Dose: 1 tab Documented by: Trazodone HCl (Trazodone Hcl 50 Mg Tab) 50 mg PO HS MICAH Stop: 11/14/21 21:59 Last Admin: 10/20/21 21:17 Dose: 50 mg Documented by: Mental Health & Subst Abuse Tx Psychiatrist Name of Psychiatrist: Angi Johnson Psychiatrist's Date of Appointment with Psychiatrist: 10/26/21 Time of Appointment with Psychiatrist: 9:30 a.m. Psychiatric Appointment Comment: Elizabeth Therapist Name of Therapist: . Lapel Stitcher Name of Lapel Stitcher: Randy Miller Phone Number for Lapel Stitcher: [phone] Case Management Appointment Comment: Will follow up with you for your appt at [facility] Post Discharge Appointments Primary Care Physician Name Of Family Doctor: [facility] - Dr. Socorro Solis Primary Care Date of Appointment with PCP: 11/02/21 Time of Appointment with PCP: 1:40 p.m. Provider Appointment Comment: [id number] [facility] Contact Information Discharge Discharge Address: [address] [place] [address], [place] [address] (1) Schizoaffective disorder Schizoaffective disorder type: unspecified Qualified Code(s): F25.9 - Schizoaffective disorder, unspecified
[2021-10-21] MEDS: NICOTINE 14 MG/24 HR PATCH TD SCH (15:21)
[2021-10-21] MEDS: OLANZapine 5 MG TABLET PO PRN (15:23)
[2021-10-21] MEDS: OLANZapine 10 MG TAB PO SCH (20:34)
[2021-10-21] MEDS: traZODone HCL 50 MG TAB PO SCH (20:34)
[2021-10-22] MEDS: hydrOXYzine HCl 25 MG TAB PO PRN ×2 (00:43→01:38)
[2021-10-22] MEDS: OLANZapine 5 MG TABLET PO SCH (08:34)
[2021-10-22] MEDS: NICOTINE 14 MG/24 HR PATCH TD SCH (08:34)
[2021-10-22] MEDS: FLUTICASONE PROPIONATE NA SPR 16 GM BTL NAE SCH (08:35)
[2021-10-22] MEDS: FAMOTIDINE 20 MG TAB PO SCH (08:35)
[2021-10-22] MEDS: SOFOSBUVIR/VELPATASVIR 400mg/100mg TAB PO SCH (08:36)
[2021-10-22] MEDS ORDERED: ARIPiprazole 5 MG TAB PO SCH (09:00)
[2021-10-22] MEDS: LORazepam 1 MG TAB PO PRN ×2 (09:11→14:36)
--- NOTE | 2021-10-22 09:14 | Psychiatric Progress Note ---
Date of Service October 22, 2021 Impression / Recommendations Impression 56 yo woman with history of schizoaffective disorder admitted on 302 status after period of medication non-adherence with thought disorganization and intermittent agitation per family and converted to 303 status on 10/19/21. Diagnostically consistent with schizoaffective disorder, acute alejandro. Has repeatedly declined Haldol and RAMOS. The patient is deemed unstable and requires psychiatric hospitalization for diagnostic clarification, safety and stabilization, medication management and development of further coping skills. Acute risk of harm to self is low given denial of SI. Acute risk of harm to others is high given acute psychosis with alejandro, discussing themes of violence and hx of agitation/aggression and threatening behavior prior to admission per 302 petition by her son and agitation and posturing toward staff. Also continues to demonstrate decreased ability to care for herself given calling 911 repeatedly and unable to organize basic tasks such as calling her son. MNPR due to acute alejandro with poor boundaries and intrusive, periods of agitated behavior, unable to tolerate roommate. 10/22/21: Ongoing acute alejandro, slightly more redirectable but with very poor sleep last night and ongoing intrusiveness with peers and staff. Requires very frequent redirection. Tolerating medications without any side effects, agrees to increase Abilify. (1) Alejandro: (2) Schizoaffective disorder: (3) Chalazion left lower eyelid: PCP/opth f/up 10/22/21: Increase abilify to 7.5 mg qd. Continue with olanzapine 5mg qAM 1 0mg qhs and 5mg daily prn as well as ativan prn for acute alejandro. 10/21/21: Discontinue latuda. Start abilify 5mg qd. Continue with olanzapine and ativan for now for acute alejandro. 10/20/21: Increase olanzapine to 5 mg qAM & 10mg qhs. Continue with latuda 80mg with dinner. Continue with olanzapine and ativan prn for agitation. 10/19/21: 303 commitment granted. Schedule olanzapine 5mg BID in addition to latuda and ativan prn. 10/18/21: Continue current medications and tx plan. Will likely need to be converted to 303 status as 302 commitment expires on 10/20 at 5am. 10/17/21: Continue medications and current tx plan. 10/16/21: Continue with latuda 80mg daily with dinner, discontinuing topimax. Added Zyprexa and ativan prn for acute agitation. Continue other SOCIOLOGY ADJUNCT INSTRUCTOR medications including trazodone, prilosec and Hep C tx. 10/15/21: The patient was admitted to the [facility] ([facility]) on q15 min checks (behavioral with suicide precautions) for safety. The patient will participate in group, recreational, and milieu therapies and will be offered additional individual and family sessions as clinically appropriate. Resume Latuda, fasting labs in am. compresses to left lower eye and assistance in reschedule optho. Inventory Assets Strengths: family support, taking PO Needs: increase insight into condition Risk Factors Assessment : Yes Do You Have Access To A Gun?: No Mental Health Diagnoses: Yes Substance Use Disorders: No Previous Attempt: Yes Previous Psychiatric Hospitalization: Yes Protective Factors Assessment Employed: No Supportive Family: Yes (to a degree) Interval History Identifying Information CURTIS MEJÍA is a 56-year-old woman who [facility] [place], has a history of previous psychiatric admission, and was admitted on 10/15/21 06:35 on a 302 involuntary commitment for disorganized behavior, converted to 303 on 10/19/21. 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 Review of Systems Sleep Information Total Hours of Sleep: 2.5 Sleep Comments: approached nurses station multiple times throughout the night Meal Information Percent Meal Consumed - Breakfast: 100 Percent Meal Consumed - Lunch: 100 Percent Meal Consumed - Dinner: 100 Subjective Subjective Patient was seen & assessed and interval progress reviewed with treatment team nursing and social work. Only slept for 2.5 hours. Took prn ativan and prn vistaril. Attended community meeting but labile and became tearful at one point. Remains disinhibited, walking into day room this morning in disheveled, revealing clothing very poor insight. Remains very intrusive with poor ann undaries, repeatedly at the nurses station and knocking on doors of providers offices. Today came to the window of my office >10 times during the day. During interview she notes ongoing suspicion that she is being held her as part of scheme her son concocted after police were called because his radio was too loud. Remains fixated on themes involving the FBI, police, children and assassinations. She denies any side effects from the abilify nor olanzapine. Agrees to increase the abilify dose. Physical Exam Psychiatric Orientation: alert and oriented x 3 Apperance: + disheveled; + inappropriately dressed and + inappropriately groomed Eye Contact: + not good eye contact (intense) Motor Behavior: + psychomotor agitation Speech: + pressured speech (rapid) and + loud speech Affect: + labile affect and + irritable affect Mood: + irritable mood; no depressed mood Thought Process: + tangential thought process and + looseness of associations Thought Content: + paranoid, + delusions (grandiose) and + persecution Suicidal Thoughts: denies suicidal thoughts Homicidal Thoughts: denies homicidal thoughts (but discussing violent themes ) Hallucinations: no auditory hallucinations and no visual hallucinations Cognition: remote memory grossly intact and language grossly intact; + recent memory not intact and + attention not intact Estimated Intelligence: consistent with education level Insight: + severely impaired insight Judgement: + severely impaired judgement Vital Signs (Past 24 Hours) Last Vital Signs Temp 36.9 C 10/22/21 09:05 Pulse 92 H 10/22/21 09:05 Resp 16 10/22/21 09:05 BP 139/84 10/22/21 09:05 Pulse Ox 91 10/15/21 05:33 Results & Data ([facility]) Current Inpatient Medications Current Inpatient Medications: Current Inpatient Medications Acetaminophen (Acetaminophen 325 Mg Tab) 650 mg PO Q4H PRN PRN Reason: Headache or Minor Fever Stop: 11/14/21 06:34 Al Hydrox/Mg Hydrox/Simethicone (Aluminum/Magnesium Susp 30 Ml Udc) 30 ml PO Q4H PRN PRN Reason: GI Upset Stop: 11/14/21 06:34 Aripiprazole (Aripiprazole 5 Mg Tab) 5 mg PO QAM MICAH Stop: 11/21/21 08:59 Last Admin: 10/22/21 08:35 Dose: 5 mg Documented by: Bismuth Subsalicylate (Bismuth Subsalicylate Liqd 236 Ml) 15 ml PO PRN PRN PRN Reason: Loose Stool Stop: 11/14/21 06:34 Famotidine (Famotidine 20 Mg Tab) 20 mg PO DAILY MICAH Stop: 11/19/21 08:59 Last Admin: 10/22/21 08:35 Dose: 20 mg Documented by: Fluticasone Propionate (Fluticasone Propionate Na Spr 16 Gm Btl) 1 sprays MILLA DAILY [facility] Stop: 11/19/21 09:29 Last Admin: 10/22/21 08:35 Dose: 1 sprays Documented by: Hydroxyzine HCl (Hydroxyzine Hcl 25 Mg Tab) 50 mg PO HSZ PRN PRN Reason: Insomnia Stop: 11/14/21 06:34 Last Admin: 10/22/21 01:38 Dose: 50 mg Documented by: Hydroxyzine HCl (Hydroxyzine Hcl 25 Mg Tab) 25 mg PO Q4H PRN PRN Reason: Anxiety Stop: 11/14/21 06:34 Last Admin: 10/21/21 14:20 Dose: 25 mg Documented by: Lorazepam (Lorazepam 1 Mg Tab) 1 mg PO TID PRN PRN Reason: Anxiety/Agitation Stop: 11/15/21 09:53 Last Admin: 10/22/21 09:11 Dose: 1 mg Documented by: Magnesium Hydroxide (Magnesium Hydroxide Susp 30 Ml Udc) 30 ml PO DAILY PRN PRN Reason: Constipation Stop: 11/14/21 06:34 Miscellaneous (Remove Nicoderm Patch) 1 ea N/A DAILY@[id number] [facility] Stop: 11/21/21 08:58 Last Admin: 10/22/21 08:34 Dose: 1 ea Documented by: Nicotine (Nicotine 14 Mg/24 Hr Patch) 14 mg TD QAM [facility] Stop: 11/20/21 14:59 Last Admin: 10/22/21 08:34 Dose: 14 mg Documented by: Olanzapine (Olanzapine 10 Mg/2.1 Ml Sdv) 10 mg IM BID PRN PRN Reason: Agitation Stop: 11/19/21 20:59 Olanzapine (Olanzapine 5 Mg Tablet) 5 mg PO QAM MICAH Stop: 11/20/21 08:59 Last Admin: 10/22/21 08:34 Dose: 5 mg Documented by: Olanzapine (Olanzapine 10 Mg Tab) 10 mg PO HS MICAH Stop: 11/19/21 21:59 Last Admin: 10/21/21 20:34 Dose: 10 mg Documented by: Olanzapine (Olanzapine 5 Mg Tablet) 5 mg PO ONCE PRN PRN Reason: Agitation Stop: 11/19/21 16:11 Last Admin: 10/21/21 15:23 Dose: 5 mg Documented by: Sodium Chloride (Sodium Chloride 0.65% Na Soln 45 Ml ([place])) 1 - 2 sprays NA PRN PRN PRN Reason: Nasal Dryness/Congestion Stop: 11/14/21 06:34 Sofosbuvir/Velpatasvir (Sofosbuvir/Velpatasvir 400mg/100mg Tab) 1 tab PO DAILY MICAH; Protocol Stop: 11/14/21 13:29 Last Admin: 10/22/21 08:36 Dose: 1 tab Documented by: Trazodone HCl (Trazodone Hcl 50 Mg Tab) 50 mg PO HS MICAH Stop: 11/14/21 21:59 Last Admin: 10/21/21 20:34 Dose: 50 mg Documented by: Mental Health & Subst Abuse Tx Psychiatrist Name of Psychiatrist: Angi Johnson Psychiatrist's Date of Appointment with Psychiatrist: 10/26/21 Time of Appointment with Psychiatrist: 9:30 a.m. Psychiatric Appointment Comment: Elizabeth Therapist Name of Therapist: . Steel Die Press Set Up Operator Name of Steel Die Press Set Up Operator: Randy Miller Phone Number for Steel Die Press Set Up Operator: [phone] Case Management Appointment Comment: Will follow up with you for your appt at [facility] Post Discharge Appointments Primary Care Physician Name Of Family Doctor: [facility] - Dr. Socorro Solis Primary Care Date of Appointment with PCP: 11/02/21 Time of Appointment with PCP: 1:40 p.m. Provider Appointment Comment: [phone] Contact Information Discharge Discharge Address: [address] [place] [address], [place] [address] (1) Schizoaffective disorder Schizoaffective disorder type: unspecified Qualified Code(s): F25.9 - Schizoaffective disorder, unspecified
[2021-10-22] MEDS ORDERED: NICOTINE POLACRILEX 2 MG GUM MT PRN (13:18)
[2021-10-22] MEDS ORDERED: OLANZapine 5 MG TABLET PO PRN (14:42)
[2021-10-22] MEDS: traZODone HCL 50 MG TAB PO SCH (21:10)
[2021-10-22] MEDS: OLANZapine 10 MG TAB PO SCH (21:10)
[2021-10-23] MEDS: FLUTICASONE PROPIONATE NA SPR 16 GM BTL NAE SCH (08:40)
[2021-10-23] MEDS: FAMOTIDINE 20 MG TAB PO SCH (08:40)
[2021-10-23] MEDS: OLANZapine 5 MG TABLET PO SCH ×2 (08:42→21:11)
[2021-10-23] MEDS: SOFOSBUVIR/VELPATASVIR 400mg/100mg TAB PO SCH (08:42)
[2021-10-23] MEDS: NICOTINE 14 MG/24 HR PATCH TD SCH (08:43)
[2021-10-23] MEDS ORDERED: ARIPiprazole 5 MG TAB PO SCH (09:00)
[2021-10-23] MEDS ORDERED: haloperidoL 5 MG TAB PO PRN (09:53)
[2021-10-23] MEDS ORDERED: ZOLPIDEM TARTRATE 10 MG TAB PO PRN (09:55)
[2021-10-23] MEDS ORDERED: BENZTROPINE MESYLATE 1 MG TAB PO PRN (10:21)
[2021-10-23] MEDS: LORazepam 1 MG TAB PO SCH ×2 (10:23→17:07)
--- NOTE | 2021-10-23 11:25 | Psychiatric Progress Note ---
Date of Service October 23, 2021 Impression / Recommendations Impression 56 yo woman with history of schizoaffective disorder admitted on 302 status after period of medication non-adherence with thought disorganization and intermittent agitation per family and converted to 303 status on 10/19/21. Diagnostically consistent with schizoaffective disorder, acute alejandro. Currently 303 with ongoing MNPR due to acute alejandro with poor boundaries and intrusive, periods of agitated behavior, unable to tolerate roommate. 10/22/21: Ongoing acute alejandro, Requires very frequent redirection. Poor physical boundaries. Tolerating medications without any side effects, agrees to increase Abilify. (1) Alejandro: (2) Schizoaffective disorder: (3) Chalazion left lower eyelid: PCP/opth f/up 10/23/21:Increase Abilify to 10 mg daily, taper Zyprexa 5 mg BID for 2 more doses. Will add staning Ativan 1 mg am and pm meal, d/c trazodone as she doesn't feel helpful and I am hesitant to give an antidepressant for sleep when clearly manic, Ambien prn. Will offer Haldol PO 5 for acute agitation. Cogentin prn dystonia (though patient likely to refuse Haldol). She is not agreeable to discuss anything but discharge. Reviewed again need for inpatient level of care for treatment of alejandro but lacks insight. 10/22/21: Increase abilify to 7.5 mg qd. Continue with olanzapine 5mg qAM 10mg qhs and 5mg daily prn as well as ativan prn for acute alejandro. 10/21/21: Discontinue latuda. Start abilify 5mg qd. Continue with olanzapine and ativan for now for acute alejandro. 10/20/21: Increase olanzapine to 5 mg qAM & 10mg qhs. Continue with latuda 80mg with dinner. Continue with olanzapine and ativan prn for agitation. 10/19/21: 303 commitment granted. Schedule olanzapine 5mg BID in addition to latuda and ativan prn. 10/18/21: Continue current medications and tx plan. Will likely need to be converted to 303 status as 302 commitment expires on 10/20 at 5am. 10/17/21: Continue medications and current tx plan. 10/16/21: Continue with latuda 80mg daily with dinner, discontinuing topimax. Added Zyprexa and ativan prn for acute agitation. Continue other [employer] medications including trazodone, prilosec and Hep C tx. 10/15/21: [facility] ([facility] mental [facility] unit) on q15 min checks (behavioral with suicide precautions) for safety. The patient will participate in group, recreational, and milieu therapies and will be offered additional individual and family sessions as clinically appropriate. Resume Latuda, fasting labs in am. compresses to left lower eye and assistance in reschedule optho. Inventory Assets Strengths: family support, taking PO Needs: increase insight into condition Risk Factors Assessment : Yes Do You Have Access To A Gun?: No Mental Health Diagnoses: Yes Substance Use Disorders: No Previous Attempt: Yes Previous Psychiatric Hospitalization: Yes Protective Factors Assessment Employed: No Supportive Family: Yes (to a degree) Interval History Identifying Information CURTIS MEJÍA is a 56-year-old woman who currently lives in [facility] in [place], has a history of previous psychiatric admission, and was admitted on 10/15/21 06:35 on a 302 involuntary commitment for disorganized behavior, converted to 303 on 10/19/21. Chief Complaint "hey, I need to legal help as they can't keep filing complaints against me.". Review of Systems Sleep Information Total Hours of Sleep: 6 Sleep Comments: approached nurses station multiple times throughout the night Meal Information Percent Meal Consumed - Breakfast: 100 Percent Meal Consumed - Lunch: 100 Percent Meal Consumed - Dinner: 100 Subjective Subjective Patient was seen & assessed and interval progress reviewed with treatment team. Very hyperverbal, not sleeping well, more intrussive and irritable, primarily around length of stay and ongoing lack of insight into need for inpatient hospitalization. Seems worse after doses of Zyprexa. Is agreeable to [facility]. States that employees are work are harrassing her to take drugs, etc. story doesn't make sense. Physical Exam Psychiatric Orientation: alert and oriented x 3 Apperance: + disheveled Eye Contact: + fair eye contact Motor Behavior: no abnormal motor movements and + psychomotor agitation Speech: + pressured speech (rapid) and + loud speech Affect: + anxious affect and + irritable affect Mood: + angry mood Thought Process: + tangential thought process Thought Content: + paranoid and + delusions Suicidal Thoughts: denies suicidal thoughts Homicidal Thoughts: denies homicidal thoughts (but discussing violent themes ) Hallucinations: no auditory hallucinations and no visual hallucinations Cognition: language grossly intact; + attention not intact Estimated Intelligence: consistent with education level Insight: + severely impaired insight Judgement: + severely impaired judgement Vital Signs (Past 24 Hours) Last Vital Signs Temp 36.8 C 10/23/21 06:00 Pulse 82 10/23/21 06:20 Resp 16 10/23/21 06:00 BP 121/78 10/23/21 06:20 Pulse Ox 91 10/15/21 05:33 Results & Data ([facility]) Current Inpatient Medications Current Inpatient Medications: Current Inpatient Medications Acetaminophen (Acetaminophen 325 Mg Tab) 650 mg PO Q4H PRN PRN Reason: Headache or Minor Fever Stop: 11/14/21 06:34 Al Hydrox/Mg Hydrox/Simethicone (Aluminum/Magnesium Susp 30 Ml Udc) 30 ml PO Q4H PRN PRN Reason: GI Upset Stop: 11/14/21 06:34 Aripiprazole (Aripiprazole 10 Mg Tab) 10 mg PO QAM [facility] Stop: 11/23/21 08:59 Benztropine Mesylate (Benztropine Mesylate 1 Mg Tab) 1 mg PO Q6 PRN PRN Reason: dystonia Stop: 11/22/21 10:20 Bismuth Subsalicylate (Bismuth Subsalicylate Liqd 236 Ml) 15 ml PO PRN PRN PRN Reason: Loose Stool Stop: 11/14/21 06:34 Famotidine (Famotidine 20 Mg Tab) 20 mg PO DAILY [facility] Stop: 11/19/21 08:59 Last Admin: 10/23/21 08:40 Dose: 20 mg Documented by: Fluticasone Propionate (Fluticasone Propionate Na Spr 16 Gm Btl) 1 sprays MILLA DAILY [facility] Stop: 11/19/21 09:29 Last Admin: 10/23/21 08:40 Dose: 1 sprays Documented by: Haloperidol (Haloperidol 5 Mg Tab) 5 mg PO Q6 PRN PRN Reason: Agitation Stop: 11/22/21 09:52 Last Admin: 10/23/21 10:23 Dose: 5 mg Documented by: Hydroxyzine HCl (Hydroxyzine Hcl 25 Mg Tab) 50 mg PO HSZ PRN PRN Reason: Insomnia Stop: 11/14/21 06:34 Last Admin: 10/22/21 01:38 Dose: 50 mg Documented by: Hydroxyzine HCl (Hydroxyzine Hcl 25 Mg Tab) 25 mg PO Q4H PRN PRN Reason: Anxiety Stop: 11/14/21 06:34 Last Admin: 10/21/21 14:20 Dose: 25 mg Documented by: Lorazepam (Lorazepam 1 Mg Tab) 1 mg PO TID PRN PRN Reason: Anxiety/Agitation Stop: 11/15/21 09:53 Last Admin: 10/22/21 14:36 Dose: 1 mg Documented by: Lorazepam (Lorazepam 1 Mg Tab) 1 mg PO BIDM [facility] Stop: 11/22/21 09:54 Last Admin: 10/23/21 10:23 Dose: 1 mg Documented by: Magnesium Hydroxide (Magnesium Hydroxide Susp 30 Ml Udc) 30 ml PO DAILY PRN PRN Reason: Constipation Stop: 11/14/21 06:34 Miscellaneous (Remove Nicoderm Patch) 1 ea N/A DAILY@0859 [facility] Stop: 11/21/21 08:58 Last Admin: 10/23/21 08:53 Dose: 1 ea Documented by: Nicotine (Nicotine 14 Mg/24 Hr Patch) 14 mg TD QAM [facility] Stop: 11/20/21 14:59 Last Admin: 10/23/21 08:43 Dose: 14 mg Documented by: Nicotine Polacrilex (Nicotine Polacrilex 2 Mg Gum) 1 piece MT PRN PRN PRN Reason: nicotine cravings Stop: 11/21/21 13:17 Last Admin: 10/22/21 13:42 Dose: 1 piece Documented by: Olanzapine (Olanzapine 10 Mg/2.1 Ml Sdv) 10 mg IM BID PRN PRN Reason: Agitation Stop: 11/19/21 20:59 Olanzapine (Olanzapine 5 Mg Tablet) 5 mg PO BID [facility] Stop: 10/24/21 09:01 Sodium Chloride (Sodium Chloride 0.65% Na Soln 45 Ml ([facility])) 1 - 2 sprays NA PRN PRN PRN Reason: Nasal Dryness/Congestion Stop: 11/14/21 06:34 Sofosbuvir/Velpatasvir (Sofosbuvir/Velpatasvir 400mg/100mg Tab) 1 tab PO DAILY [facility]; Protocol Stop: 11/14/21 13:29 Last Admin: 10/23/21 08:42 Dose: 1 tab Documented by: Zolpidem Tartrate (Zolpidem Tartrate 10 Mg Tab) 10 mg PO HS PRN PRN Reason: Sleep Stop: 11/22/21 09:54 Mental Health & Subst Abuse Tx Psychiatrist Name of Psychiatrist: Angi Johnson Psychiatrist's Date of Appointment with Psychiatrist: 11/16/21 Time of Appointment with Psychiatrist: 10:20a.m Psychiatric Appointment Comment: [facility] Therapist Name of Therapist: . Building Services Engineer Name of Building Services Engineer: Randy Miller Phone Number for Building Services Engineer: [phone] Case Management Appointment Comment: Will follow up with you for your appt at [facility] Post Discharge Appointments Primary Care Physician Name Of Family Doctor: [facility] - Dr. Socorro Solis Primary Care Date of Appointment with PCP: 11/02/21 Time of Appointment with PCP: 1:40 p.m. Provider Appointment Comment: [phone] [facility] Contact Information Discharge Discharge Address: [address] [place] [address], [place] [address] (1) Schizoaffective disorder Schizoaffective disorder type: unspecified Qualified Code(s): F25.9 - Schizoaffective disorder, unspecified
[2021-10-23] MEDS: LORazepam 1 MG TAB PO PRN (13:26)
[2021-10-23] MEDS ORDERED: clonazePAM 1 MG TAB PO ONE ×2 (13:30→16:30)
[2021-10-24] MEDS: LORazepam 1 MG TAB PO PRN (04:20)
[2021-10-24] MEDS: OLANZapine 5 MG TABLET PO SCH (08:34)
[2021-10-24] MEDS: SOFOSBUVIR/VELPATASVIR 400mg/100mg TAB PO SCH (08:35)
[2021-10-24] MEDS: FLUTICASONE PROPIONATE NA SPR 16 GM BTL NAE SCH (08:35)
[2021-10-24] MEDS: NICOTINE 14 MG/24 HR PATCH TD SCH (08:35)
[2021-10-24] MEDS: FAMOTIDINE 20 MG TAB PO SCH (08:35)
[2021-10-24] MEDS: LORazepam 1 MG TAB PO SCH (08:36)
[2021-10-24] MEDS ORDERED: ARIPiprazole 10 MG TAB PO SCH (09:00)
--- NOTE | 2021-10-24 12:21 | Psychiatric Progress Note ---
Date of Service October 24, 2021 Impression / Recommendations Impression 56 yo woman with history of schizoaffective disorder admitted on 302 status after period of medication non-adherence with thought disorganization and intermittent agitation per family and converted to 303 status on 10/19/21. Diagnostically consistent with schizoaffective disorder, acute alejandro. Currently 303 with ongoing MNPR due to acute alejandro with poor boundaries and intrusive, periods of agitated behavior, unable to tolerate roommate. 10/24/21: slight improvement with benzodiazepines (1) Alejandro: (2) Schizoaffective disorder: 10/24/21: Titrate Abilify to 15 mg po qam as well tolerated. Patient responding better to Klonopin than Ativan so 1 mg BID Klonopin and change prn to Klonopin q8. Patient remains agreeable to Abilify, our pharmacy has aristada which requires 21 day overlap of pills. Will check on pharmacy coverage. 10/23/21: Increase Abilify to 10 mg daily, taper Zyprexa 5 mg BID for 2 more doses. Will add standing Ativan 1 mg am and pm meal, d/c trazodone as she doesn't feel helpful and I am hesitant to give an antidepressant for sleep when clearly manic, Ambien prn. Will offer Haldol PO 5 for acute agitation. Cogentin prn dystonia (though patient likely to refuse Haldol). She is not agreeable to discuss anything but discharge. Reviewed again need for inpatient level of care for treatment of alejandro but lacks insight. 10/22/21: Increase abilify to 7.5 mg qd. Continue with olanzapine 5mg qAM 10mg qhs and 5mg daily prn as well as ativan prn for acute alejandro. 10/21/21: Discontinue latuda. Start abilify 5mg qd. Continue with olanzapine and ativan for now for acute alejandro. 10/20/21: Increase olanzapine to 5 mg qAM & 10mg qhs. Continue with latuda 80mg with dinner. Continue with olanzapine and ativan prn for agitation. 10/19/21: 303 commitment granted. Schedule olanzapine 5mg BID in addition to latuda and ativan prn. 10/18/21: Continue current medications and tx plan. Will likely need to be converted to 303 status as 302 commitment expires on 10/20 at 5am. 10/17/21: Continue medications and current tx plan. 10/16/21: Continue with latuda 80mg daily with dinner, discontinuing topimax. Added Zyprexa and ativan prn for acute agitation. 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 10/15/21: The patient was admitted to the [facility] ([facility] mental health unit) on q15 min checks (behavioral with suicide precautions) for safety. The patient will participate in group, recreational, and milieu therapies and will be offered additional individual and family sessions as clinically appropriate. Resume Latuda, fasting labs in am. compresses to left lower eye and assistance in reschedule optho. Inventory Assets Strengths: family support, taking PO Needs: increase insight into condition Risk Factors Assessment : Yes Do You Have Access To A Gun?: No Mental Health Diagnoses: Yes Substance Use Disorders: No Previous Attempt: Yes Previous Psychiatric Hospitalization: Yes Protective Factors Assessment Employed: No Supportive Family: Yes (to a degree) Interval History Identifying Information CURTIS MEJÍA is a 56-year-old woman who currently lives in [facility] in [place], has a history of previous psychiatric admission, and was admitted on 10/15/21 06:35 on a 302 involuntary commitment for disorganized behavior, converted to 303 on 10/19/21. Chief Complaint "you need to stop listening to my son" Review of Systems Sleep Information Total Hours of Sleep: 8.45 Sleep Comments: Pt requested PRN at 0420 Meal Information Percent Meal Consumed - Breakfast: 100 Percent Meal Consumed - Lunch: 100 Percent Meal Consumed - Dinner: 100 Subjective Subjective Patient was seen & assessed and interval progress reviewed with nursing and social work. Curtis remains verbally intrussive but was more redirectible yesterday on evening shift. Recieved Klonopin now dose around 5 pm and was able to sleep better, woke up and requested Valium and was given prn Ativan and returned to sleep. She feels that Klonopin works better. No evidence of over sedation or unsteady gait. Curtis was focussed on getting an apartment with a second bedroom as recognizes she benefits from having a family member stay with her when she doesn't have the structure of work. Physical Exam Psychiatric Orientation: alert and oriented x 3 Apperance: + disheveled Eye Contact: + fair eye contact Motor Behavior: no abnormal motor movements Affect: + anxious affect and + labile affect Mood: no depressed mood Thought Process: + tangential thought process Thought Content: + paranoid Suicidal Thoughts: denies suicidal thoughts Homicidal Thoughts: denies homicidal thoughts Hallucinations: no auditory hallucinations and no visual hallucinations Cognition: language grossly intact; + attention not intact Insight: + limited insight Judgement: + limited judgement Vital Signs (Past 24 Hours) Last Vital Signs Temp 36.8 C 10/24/21 06:45 Pulse 99 H 10/24/21 06:46 Resp 16 10/24/21 06:45 BP 92/55 L 10/24/21 06:46 Pulse Ox 91 10/15/21 05:33 Results & Data ([facility]) Current Inpatient Medications Current Inpatient Medications: Current Inpatient Medications Acetaminophen (Acetaminophen 325 Mg Tab) 650 mg PO Q4H PRN PRN Reason: Headache or Minor Fever Stop: 11/14/21 06:34 Al Hydrox/Mg Hydrox/Simethicone (Aluminum/Magnesium Susp 30 Ml Udc) 30 ml PO Q4H PRN PRN Reason: GI Upset Stop: 11/14/21 06:34 Aripiprazole (Aripiprazole 15 Mg Tab) 15 mg PO QAM [facility] Stop: 11/24/21 08:59 Benztropine Mesylate (Benztropine Mesylate 1 Mg Tab) 1 mg PO Q6 PRN PRN Reason: dystonia Stop: 11/22/21 10:20 Bismuth Subsalicylate (Bismuth Subsalicylate Liqd 236 Ml) 15 ml PO PRN PRN PRN Reason: Loose Stool Stop: 11/14/21 06:34 Clonazepam (Clonazepam 1 Mg Tab) 1 mg PO BID [facility] Stop: 11/23/21 12:29 Famotidine (Famotidine 20 Mg Tab) 20 mg PO DAILY [facility] Stop: 11/19/21 08:59 Last Admin: 10/24/21 08:35 Dose: 20 mg Documented by: Fluticasone Propionate (Fluticasone Propionate Na Spr 16 Gm Btl) 1 sprays MILLA DAILY [facility] Stop: 11/19/21 09:29 Last Admin: 10/24/21 08:35 Dose: 1 sprays Documented by: Haloperidol (Haloperidol 5 Mg Tab) 5 mg PO Q6 PRN PRN Reason: Agitation Stop: 11/22/21 09:52 Last Admin: 10/23/21 10:23 Dose: 5 mg Documented by: Magnesium Hydroxide (Magnesium Hydroxide Susp 30 Ml Udc) 30 ml PO DAILY PRN PRN Reason: Constipation Stop: 11/14/21 06:34 Miscellaneous (Remove Nicoderm Patch) 1 ea N/A DAILY@0859 [facility] Stop: 11/21/21 08:58 Last Admin: 10/24/21 08:35 Dose: 1 ea Documented by: Nicotine (Nicotine 14 Mg/24 Hr Patch) 14 mg TD QAM [facility] Stop: 11/20/21 14:59 Last Admin: 10/24/21 08:35 Dose: 14 mg Documented by: Nicotine Polacrilex (Nicotine Polacrilex 2 Mg Gum) 1 piece MT PRN PRN PRN Reason: nicotine cravings Stop: 11/21/21 13:17 Last Admin: 10/22/21 13:42 Dose: 1 piece Documented by: Olanzapine (Olanzapine 10 Mg/2.1 Ml Sdv) 10 mg IM BID PRN PRN Reason: Agitation Stop: 11/19/21 20:59 Sodium Chloride (Sodium Chloride 0.65% Na Soln 45 Ml ([facility])) 1 - 2 sprays NA PRN PRN PRN Reason: Nasal Dryness/Congestion Stop: 11/14/21 06:34 Sofosbuvir/Velpatasvir (Sofosbuvir/Velpatasvir 400mg/100mg Tab) 1 tab PO DAILY [facility]; Protocol Stop: 11/14/21 13:29 Last Admin: 10/24/21 08:35 Dose: 1 tab Documented by: Zolpidem Tartrate (Zolpidem Tartrate 10 Mg Tab) 10 mg PO HS PRN PRN Reason: Sleep Stop: 11/22/21 09:54 Mental Health & Subst Abuse Tx Psychiatrist Name of Psychiatrist: Angi Johnson Psychiatrist's Date of Appointment with Psychiatrist: 11/16/21 Time of Appointment with Psychiatrist: 10:20a.m Psychiatric Appointment Comment: [facility] Therapist Name of Therapist: . Administration Physician Name of Administration Physician: Randy Miller Phone Number for Administration Physician: [phone] Case Management Appointment Comment: Will follow up with you for your appt at [facility] Post Discharge Appointments Primary Care Physician Name Of Family Doctor: [facility] - Dr. Socorro Solis Primary Care Date of Appointment with PCP: 11/02/21 Time of Appointment with PCP: 1:40 p.m. Provider Appointment Comment: [phone] Contact Information Discharge Discharge Address: [address] [place] [address], [facility], [place] [address] (1) Schizoaffective disorder Schizoaffective disorder type: unspecified Qualified Code(s): F25.9 - Schizoaffective disorder, unspecified
[2021-10-24] MEDS: clonazePAM 1 MG TAB PO SCH ×2 (13:11→20:32)
[2021-10-24] MEDS: clonazePAM 1 MG TAB PO PRN (16:55)
[2021-10-25] MEDS: NICOTINE 14 MG/24 HR PATCH TD SCH (07:32)
[2021-10-25] MEDS: FAMOTIDINE 20 MG TAB PO SCH (07:32)
[2021-10-25] MEDS: FLUTICASONE PROPIONATE NA SPR 16 GM BTL NAE SCH (07:33)
[2021-10-25] MEDS: SOFOSBUVIR/VELPATASVIR 400mg/100mg TAB PO SCH (07:33)
[2021-10-25] MEDS: clonazePAM 1 MG TAB PO SCH ×2 (07:37→21:27)
[2021-10-25] MEDS ORDERED: ARIPiprazole 15 MG TAB PO SCH (09:00)
[2021-10-25] MEDS ORDERED: ARIPiprazole LAUROXIL 675 MG/2.4 ML SYR IM ONE (11:01)
--- NOTE | 2021-10-25 13:36 | Psychiatric Progress Note ---
Date of Service October 25, 2021 Impression / Recommendations Impression 56 yo woman with history of schizoaffective disorder admitted on 302 status after period of medication non-adherence with thought disorganization and intermittent agitation per family and converted to 303 status on 10/19/21. Diagnostically consistent with schizoaffective disorder, acute alejandro. Currently 303 with ongoing MNPR due to acute alejandro with poor boundaries and intrusive, periods of agitated behavior, unable to tolerate roommate. 10/25/21: perseverative, continues to request discharge (1) Alejandro: (2) Schizoaffective disorder: 10/25/21: Abilify aristada is covered by insurance. If patient receives Abilify Initio dose here will not need the 21 oral overlap with Abilify and can be even coadministered with Aristada. Initially sent 662 mg to pharmacy to check coverage. Pharmacy here has 882 Aristada which would be preferred as provide coverage for up to 6-8 weeks. 10/24/21: Titrate Abilify to 15 mg po qam as well tolerated. Patient responding better to Klonopin than Ativan so 1 mg BID Klonopin and change prn to Klonopin q8. Patient remains agreeable to Abilify, our pharmacy has aristada which requires 21 day overlap of pills. Will check on pharmacy coverage. 10/23/21: Increase Abilify to 10 mg daily, taper Zyprexa 5 mg BID for 2 more doses. Will add standing Ativan 1 mg am and pm meal, d/c trazodone as she doesn't feel helpful and I am hesitant to give an antidepressant for sleep when clearly manic, Ambien prn. Will offer Haldol PO 5 for acute agitation. Cogentin prn dystonia (though patient likely to refuse Haldol). She is not agreeable to discuss anything but discharge. Reviewed again need for inpatient level of care for treatment of alejandro but lacks insight. 10/22/21: Increase abilify to 7.5 mg qd. Continue with olanzapine 5mg qAM 10mg qhs and 5mg daily prn as well as ativan prn for acute alejandro. 10/21/21: Discontinue latuda. Start abilify 5mg qd. Continue with olanzapine and ativan for now for acute alejandro. 10/20/21: Increase olanzapine to 5 mg qAM & 10mg qhs. Continue with latuda 80mg with dinner. Continue with olanzapine and ativan prn for agitation. 10/19/21: 303 commitment granted. Schedule olanzapine 5mg BID in addition to latuda and ativan prn. 10/18/21: Continue current medications and tx plan. Will likely need to be converted to 303 status as 302 commitment expires on 10/20 at 5am. 10/17/21: Continue medications and current tx plan. 10/16/21: Continue with latuda 80mg daily with dinner, discontinuing topimax. Added Zyprexa and ativan prn for acute agitation. Continue other [employer] medications including trazodone, prilosec and Hep C tx. 10/15/21: The patient was admitted to the [facility] ([facility] [place] [facility]) on q15 min checks (behavioral with suicide precautions) for safety. The patient will participate in group, recreational, and milieu therapies and will be offered additional individual and family sessions as clinically appropriate. Resume Latuda, fasting labs in am. compresses to left lower eye and assistance in reschedule optho. Inventory Assets Strengths: family support, taking PO Needs: increase insight into condition Risk Factors Assessment : Yes Do You Have Access To A Gun?: No Mental Health Diagnoses: Yes Substance Use Disorders: No Previous Attempt: Yes Previous Psychiatric Hospitalization: Yes Protective Factors Assessment Employed: No Supportive Family: Yes (to a degree) Interval History Identifying Information CURTIS MEJÍA is a 56-year-old woman who currently lives in [facility] in [place], has a history of previous psychiatric admission, and was admitted on 10/15/21 06:35 on a 302 involuntary commitment for disorganized behavior, converted to 303 on 10/19/21. Chief Complaint "I really need to get back to work." Review of Systems Sleep Information Total Hours of Sleep: 6.25 Sleep Comments: Pt requested PRN at 0420 Meal Information Percent Meal Consumed - Breakfast: 100 Percent Meal Consumed - Lunch: 100 Percent Meal Consumed - Dinner: 100 Nutrition Comment: Pt ate snack (chocolate chip cookie) in addition Subjective Subjective Patient was seen & assessed and interval progress reviewed with nursing and social work. Patient remains perseverative and intrussive but seems more related to poor memory and boredom rather than resurgence of alejandro. Slept > 6 hrs. She is not noted to be hallucinating and is attending to ADLs. Physical Exam Psychiatric Orientation: alert and oriented x 3 Apperance: + disheveled Eye Contact: good eye contact Motor Behavior: no abnormal motor movements Speech: + abnormal rate/rhythm/volume of speech (hyperverbal, can be interrupted.) Affect: + depressed affect Mood: no depressed mood Thought Process: + perseveration Thought Content: + paranoid ("that my son is making you keep me here.") Suicidal Thoughts: denies suicidal thoughts Homicidal Thoughts: denies homicidal thoughts Hallucinations: no auditory hallucinations and no visual hallucinations Cognition: language grossly intact; + attention not intact Estimated Intelligence: consistent with education level Insight: + limited insight Judgement: + limited judgement Vital Signs (Past 24 Hours) Last Vital Signs Temp 36.3 C L 10/25/21 06:24 Pulse 88 10/25/21 06:25 Resp 18 10/25/21 06:24 BP 115/80 10/25/21 06:25 Pulse Ox 91 10/15/21 05:33 Results & Data ([facility]) Current Inpatient Medications Current Inpatient Medications: Current Inpatient Medications Acetaminophen (Acetaminophen 325 Mg Tab) 650 mg PO Q4H PRN PRN Reason: Headache or Minor Fever Stop: 11/14/21 06:34 Al Hydrox/Mg Hydrox/Simethicone (Aluminum/Magnesium Susp 30 Ml Udc) 30 ml PO Q4H PRN PRN Reason: GI Upset Stop: 11/14/21 06:34 Aripiprazole Lauroxil (Aripiprazole Lauroxil 882 Mg/3.2 Ml Syr) 882 mg IM ONE ONE Stop: 10/26/21 09:01 Benztropine Mesylate (Benztropine Mesylate 1 Mg Tab) 1 mg PO Q6 PRN PRN Reason: dystonia Stop: 11/22/21 10:20 Bismuth Subsalicylate (Bismuth Subsalicylate Liqd 236 Ml) 15 ml PO PRN PRN PRN Reason: Loose Stool Stop: 11/14/21 06:34 Clonazepam (Clonazepam 1 Mg Tab) 1 mg PO BID MICAH Stop: 11/23/21 12:29 Last Admin: 10/25/21 07:37 Dose: 1 mg Documented by: Clonazepam (Clonazepam 1 Mg Tab) 1 mg PO Q8 PRN PRN Reason: Anxiety Stop: 11/23/21 12:15 Last Admin: 10/24/21 16:55 Dose: 1 mg Documented by: Famotidine (Famotidine 20 Mg Tab) 20 mg PO DAILY [facility] Stop: 11/19/21 08:59 Last Admin: 10/25/21 07:32 Dose: 20 mg Documented by: Fluticasone Propionate (Fluticasone Propionate Na Spr 16 Gm Btl) 1 sprays MILLA DAILY [facility] Stop: 11/19/21 09:29 Last Admin: 10/25/21 07:33 Dose: 1 sprays Documented by: Haloperidol (Haloperidol 5 Mg Tab) 5 mg PO Q6 PRN PRN Reason: Agitation Stop: 11/22/21 09:52 Last Admin: 10/23/21 10:23 Dose: 5 mg Documented by: Magnesium Hydroxide (Magnesium Hydroxide Susp 30 Ml Udc) 30 ml PO DAILY PRN PRN Reason: Constipation Stop: 11/14/21 06:34 Miscellaneous (Remove Nicoderm Patch) 1 ea N/A DAILY@0859 [facility] Stop: 11/21/21 08:58 Last Admin: 10/25/21 07:33 Dose: 1 ea Documented by: Nicotine (Nicotine 14 Mg/24 Hr Patch) 14 mg TD QAM [facility] Stop: 11/20/21 14:59 Last Admin: 10/25/21 07:32 Dose: 14 mg Documented by: Nicotine Polacrilex (Nicotine Polacrilex 2 Mg Gum) 1 piece MT PRN PRN PRN Reason: nicotine cravings Stop: 11/21/21 13:17 Last Admin: 10/22/21 13:42 Dose: 1 piece Documented by: Olanzapine (Olanzapine 10 Mg/2.1 Ml Sdv) 10 mg IM BID PRN PRN Reason: Agitation Stop: 11/19/21 20:59 Sodium Chloride (Sodium Chloride 0.65% Na Soln 45 Ml ([place])) 1 - 2 sprays NA PRN PRN PRN Reason: Nasal Dryness/Congestion Stop: 11/14/21 06:34 Sofosbuvir/Velpatasvir (Sofosbuvir/Velpatasvir 400mg/100mg Tab) 1 tab PO DAILY [facility]; Protocol Stop: 11/14/21 13:29 Last Admin: 10/25/21 07:33 Dose: 1 tab Documented by: Zolpidem Tartrate (Zolpidem Tartrate 10 Mg Tab) 10 mg PO HS PRN PRN Reason: Sleep Stop: 11/22/21 09:54 Mental Health & Subst Abuse Tx Psychiatrist Name of Psychiatrist: Angi Johnson Psychiatrist's Date of Appointment with Psychiatrist: 11/16/21 Time of Appointment with Psychiatrist: 10:20a.m Psychiatric Appointment Comment: [facility]ist Name of Therapist: . Range Feeder Name of Range Feeder: Randy Miller Phone Number for Range Feeder: [phone] Case Management Appointment Comment: Will follow up with you for your appt at [facility] Post Discharge Appointments Primary Care Physician Name Of Family Doctor: [facility] - Dr. Socorro Solis Primary Care Date of Appointment with PCP: 11/02/21 Time of Appointment with PCP: 1:40 p.m. Provider Appointment Comment: [id number] Contact Information Discharge Discharge Address: [address] [place] [address], [place] [address] (1) Schizoaffective disorder Schizoaffective disorder type: unspecified Qualified Code(s): F25.9 - Schizoaffective disorder, unspecified
[2021-10-25] MEDS: clonazePAM 1 MG TAB PO PRN (15:09)
[2021-10-26] MEDS: FLUTICASONE PROPIONATE NA SPR 16 GM BTL NAE SCH (07:36)
[2021-10-26] MEDS: FAMOTIDINE 20 MG TAB PO SCH (07:36)
[2021-10-26] MEDS: clonazePAM 1 MG TAB PO SCH (07:36)
[2021-10-26] MEDS: NICOTINE 14 MG/24 HR PATCH TD SCH (07:37)
[2021-10-26] MEDS: SOFOSBUVIR/VELPATASVIR 400mg/100mg TAB PO SCH (07:38)
[2021-10-26] MEDS ORDERED: ARIPiprazole LAUROXIL 882 MG/3.2 ML SYR IM ONE (09:00)
--- NOTE | 2021-10-26 11:42 | Discharge Summary ---
Date of Service October 26, 2021 History of Present Illness Lisandra is eating breakfast this am, preoccupied with her son's upcoming social security appointment on 10/19/21, keeps repeating "we got hotel rooms and everything" as has to travel to [place]. She denies not taking medications and is mainly concerned about missing her optho appointment for f/u of stye under left eye (was seen in ED few days prior). Per ED CM: CM and Dr. Marx met with pt bedside. Pt presents via police on a 302 warrant. Pt is hyperverbal but speaks in word salad. 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 This CM is unable to work out what the pt might have been trying to express. When questioned about drug or alcohol use, CM did comprehend no. Pt is known to [facility] and has been seen and admitted for psychosis in the past. Pts prior MH dx are schizoaffective disorder and bipolar disorder. Petitioning statement by Dickson Beckman reads: *manic depresent paranoia, anger tendacys hasnt slept in 3 day talking to herself phycotic tendacy lashing out towards others. Last seen by me in Aug 2021: At that time, Lisandra's son expressed concern that his mother hasn't been taking her medications again for an unknown period of time. She repeatedly calls 911 and the police did a safety check on 08/04 and it appeared she was not sleeping well or caring for self. Lisandra becomes disoriented and paranoid and agitated rather quickly when she is noncompliant with meds and this has precipitated her last 2 admissions to [facility]. She talks about hurting her son's girlfriend and refers to a knife, in 01/21 she had a knife. On 03/21 she was admitted on a 302 as she was standing in traffic. Physical Exam Psychiatric See admission H&P and DOD assessment. Vital Signs (Past 24 Hours) Last Vital Signs Temp 36.8 C 10/26/21 11:30 Pulse 77 10/26/21 11:30 Resp 16 10/26/21 11:30 BP 127/85 10/26/21 11:30 Pulse Ox 91 10/26/21 11:30 Principal Diagnosis schizoaffective disorder, bipolar type Psychiatric Data See daily stay summary. In short, safety was maintained and the patient was cooperative with care. Medication changes included restart of Zyprexa until she was agreeable to Abilify which was preferred as can be given as injection. Actually continued with poor sleep, hyperverbal, restless despite Zyprexa and had some difficult shifts due to increase in paranoia during cross taper to Abilify but responded to Klonopin. Reviewed that Klonopin is for short term use and taper can be discussed when her condition is more stable. She is aware that it is a controlled substance and should be kept locked as she frequently complains about family taking things, etc. She does not drive and agrees not to combine with ETOH or other sedating substances/fall risk. Her son was difficult to reach re: treatment but she reports speaking with him and confirms that he is aware of her discharge today. The patient remained hyperfocussed on discharge and attention seeking with staff, mainly due to perseveration and boredom than ongoing alejandro as she responded to redirection. Her memory seems poor and this should be monitored on an outpatient basis. It was decided that it would be countertherapeutic to extend her stay to pursue a 304 outpatient commitment and since she was agreeable to [facility], she no longer met criteria for involuntary inpatient level of care. PO Abilify was converted via Abilify Trinza Initio to Abilify Trinza meaning that she does not require the 21 day oral overlap. The [facility] is 100% covered by her insurance and trinza dose may last in excess of 6 weeks. Day of Discharge Assessment Today the patient voices readiness for discharge. They note improvement in mood and deny thoughts to harm self or others. Thoughts remain concrete and they are improved/more organized than at admission. Her paranoid thoughts re: family are longstanding and any residual delusions are not interfering with her ADLs. She wants to return to work. They agree to take mediations as prescribed and keep follow-up appointments. They are stable for discharge to outpatient level of care. Transition of Care Transition Of Care Record: was reviewed with the patient Advance Directives Advance Directives Information Provided: Yes Advance Directives: No Mental Health Advance Directive: No Advance Directives on File: No Living Will: No Power of Purchaser [employer]: No Advance Directives Reason:: Declines as Mental Health Visit. Risk Factors Assessment : Yes Do You Have Access To A Gun?: No Mental Health Diagnoses: Yes Substance Use Disorders: No Previous Attempt: Yes Previous Psychiatric Hospitalization: Yes Protective Factors Assessment Employed: No Supportive Family: Yes (to a degree) Tobacco Cessation at Discharge Tobacco Cessation Medication Prescribed at Discharge: Offered & Pt Refused Total Time Total Time Spent: Greater Than 30 Minutes Total Time Includes: Examination of the patient, Discharge Planning and Medication Reconciliation Discharge Data Lab Results 10/14/21 10/14/21 10/14/21 23:01 23:01 23:08 WBC RBC Hgb Hct MCV MCH MCHC RDW Std Deviation RDW Coeff of Crispin Plt Count MPV Immature Gran % (Auto) Neut % (Auto) Lymph % (Auto) Hays % (Auto) Eos % (Auto) Baso % (Auto) Neut # (Auto) Lymph # (Auto) Hays # (Auto) Eos # (Auto) Baso # (Auto) Immature Gran # (Auto) Sodium Potassium Chloride Carbon Dioxide Anion Gap BUN Creatinine Est Cr Clr Drug Dosing Est GFR ( Amer) Est GFR (Non-Af Amer) BUN/Creatinine Ratio Glucose Fasting Glucose Calcium Total Bilirubin AST ALT Alkaline Phosphatase Total Protein Albumin Globulin Albumin/Globulin Ratio Triglycerides Cholesterol LDL Cholesterol, Calc VLDL Cholesterol, Calc HDL Cholesterol Cholesterol/HDL Ratio TSH Urine Color Dark Yellow Urine Appearance Clear Urine pH 5.0 Ur Specific Riparius 1.029 Urine Protein Negative Urine Glucose (UA) Negative Urine Ketones Trace H Urine Blood Negative Urine Nitrite Negative Urine Bilirubin Negative Urine Urobilinogen Negative Ur Leukocyte Esterase Negative Salicylates Urine Opiates Screen Neg Ur Methadone, Qual Neg Acetaminophen Urine Barbiturates Neg Ur Phencyclidine (PCP) Neg U Amphetamin/Meth Scrn Neg MDMA (Ecstasy) Screen Neg U Benzodiazepines Scrn Neg Ur Cocaine Metabolite Neg U Marijuana (THC) Screen Neg Ethyl Alcohol mg/dL SARS-CoV-2, RNA, NAAT NEGATIVE 10/14/21 10/14/21 10/14/21 23:30 23:30 23:30 WBC 7.67 RBC 4.74 Hgb 16.2 H Hct 46.2 MCV 97.5 MCH 34.2 H MCHC 35.1 RDW Std Deviation 46.0 RDW Coeff of Crispin 12.9 Plt Count 144 MPV 10.5 H Immature Gran % (Auto) 0.1 Neut % (Auto) 44.2 Lymph % (Auto) 41.7 Hays % (Auto) 12.9 Eos % (Auto) 0.8 Baso % (Auto) 0.3 Neut # (Auto) 3.39 Lymph # (Auto) 3.20 Hays # (Auto) 0.99 H Eos # (Auto) 0.06 Baso # (Auto) 0.02 Immature Gran # (Auto) 0.01 Sodium 139 Potassium 3.4 L Chloride 105 Carbon Dioxide 26 Anion Gap 8 BUN 16 Creatinine 0.68 Est Cr Clr Drug Dosing 125.3 Est GFR ( Amer) 113.3 Est GFR (Non-Af Amer) 97.8 BUN/Creatinine Ratio 23.5 H Glucose 101 H Fasting Glucose Calcium 9.5 Total Bilirubin 0.6 AST 45 H ALT 34 Alkaline Phosphatase 73 Total Protein 8.3 Albumin 3.8 Globulin 4.5 H Albumin/Globulin Ratio 0.8 L Triglycerides Cholesterol LDL Cholesterol, Calc VLDL Cholesterol, Calc HDL Cholesterol Cholesterol/HDL Ratio TSH 1.609 Urine Color Urine Appearance Urine pH Ur Specific Riparius Urine Protein Urine Glucose (UA) Urine Ketones Urine Blood Urine Nitrite Urine Bilirubin Urine Urobilinogen Ur Leukocyte Esterase Salicylates Urine Opiates Screen Ur Methadone, Qual Acetaminophen Urine Barbiturates Ur Phencyclidine (PCP) U Amphetamin/Meth Scrn MDMA (Ecstasy) Screen U Benzodiazepines Scrn Ur Cocaine Metabolite U Marijuana (THC) Screen Ethyl Alcohol mg/dL SARS-CoV-2, RNA, NAAT 10/14/21 10/15/21 10/16/21 23:30 01:20 08:14 WBC RBC Hgb Hct MCV MCH MCHC RDW Std Deviation RDW Coeff of Crispin Plt Count MPV Immature Gran % (Auto) Neut % (Auto) Lymph % (Auto) Hays % (Auto) Eos % (Auto) Baso % (Auto) Neut # (Auto) Lymph # (Auto) Hays # (Auto) Eos # (Auto) Baso # (Auto) Immature Gran # (Auto) Sodium Potassium Chloride Carbon Dioxide Anion Gap BUN Creatinine Est Cr Clr Drug Dosing Est GFR ( Amer) Est GFR (Non-Af Amer) BUN/Creatinine Ratio Glucose Fasting Glucose 86 Calcium Total Bilirubin AST ALT Alkaline Phosphatase Total Protein Albumin Globulin Albumin/Globulin Ratio Triglycerides 81 Cholesterol 137 LDL Cholesterol, Calc 101 VLDL Cholesterol, Calc 16 HDL Cholesterol 20 Cholesterol/HDL Ratio 6.9 H TSH Urine Color Urine Appearance Urine pH Ur Specific Riparius Urine Protein Urine Glucose (UA) Urine Ketones Urine Blood Urine Nitrite Urine Bilirubin Urine Urobilinogen Ur Leukocyte Esterase Salicylates < 3.0 L Urine Opiates Screen Ur Methadone, Qual Acetaminophen < 3 L Urine Barbiturates Ur Phencyclidine (PCP) U Amphetamin/Meth Scrn MDMA (Ecstasy) Screen U Benzodiazepines Scrn Ur Cocaine Metabolite U Marijuana (THC) Screen Ethyl Alcohol mg/dL < 10.0 SARS-CoV-2, RNA, NAAT Hospital Course (1) Alejandro: (2) Schizoaffective disorder: 10/25/21: Abilify aristada is covered by insurance. If patient receives Abilify Initio dose here will not need the 21 oral overlap with Abilify and can be even coadministered with Aristada. Initially sent 662 mg to pharmacy to check coverage. Pharmacy here has 882 Aristada which would be preferred as provide coverage for up to 6-8 weeks. 10/24/21: Titrate Abilify to 15 mg po qam as well tolerated. Patient responding better to Klonopin than Ativan so 1 mg BID Klonopin and change prn to Klonopin q8. Patient remains agreeable to Abilify, our pharmacy has aristada which requires 21 day overlap of pills. Will check on pharmacy coverage. 10/23/21: Increase Abilify to 10 mg daily, taper Zyprexa 5 mg BID for 2 more doses. Will add standing Ativan 1 mg am and pm meal, d/c trazodone as she doesn't feel helpful and I am hesitant to give an antidepressant for sleep when clearly manic, Ambien prn. Will offer Haldol PO 5 for acute agitation. Alonso prn dystonia (though patient likely to refuse Haldol). She is not agreeable to discuss anything but discharge. Reviewed again need for inpatient level of care for treatment of alejandro but lacks insight. 10/22/21: Increase abilify to 7.5 mg qd. Continue with olanzapine 5mg qAM 10mg qhs and 5mg daily prn as well as ativan prn for acute alejandro. 10/21/21: Discontinue latuda. Start abilify 5mg qd. Continue with olanzapine and ativan for now for acute alejandro. 10/20/21: Increase olanzapine to 5 mg qAM & 10mg qhs. Continue with latuda 80mg with dinner. Continue with olanzapine and ativan prn for agitation. 10/19/21: 303 commitment granted. Schedule olanzapine 5mg BID in addition to latuda and ativan prn. 10/18/21: Continue current medications and tx plan. Will likely need to be converted to 303 status as 302 commitment expires on 10/20 at 5am. 10/17/21: Continue medications and current tx plan. 10/16/21: Continue with latuda 80mg daily with dinner, discontinuing topimax. Added Zyprexa and ativan prn for acute agitation. Continue other JUNIOR DESIGNER medications including trazodone, prilosec and Hep C tx. 10/15/21: The patient was admitted to the [facility] ([facility] mental health unit) on q15 min checks (behavioral with suicide precautions) for safety. The patient will participate in group, recreational, and milieu therapies and will be offered additional individual and family sessions as clinically appropriate. Resume Latuda, fasting labs in am. compresses to left lower eye and assistance in reschedule optho. Mental Health & Subst Abuse Tx Psychiatrist Name of Psychiatrist: Angi Johnson Psychiatrist's Date of Appointment with Psychiatrist: 11/16/21 Time of Appointment with Psychiatrist: 10:20a.m Psychiatric Appointment Comment: [facility] Psychiatrist Release of Information: Obtained, Reviewed and Signed Therapist Name of Therapist: . Personal Loan Specialist Name of Personal Loan Specialist: Randy Miller Phone Number for Personal Loan Specialist: [phone] Case Management Appointment Comment: Will follow up with you for your appt at [facility] Post Discharge Appointments Primary Care Physician Name Of Family Doctor: [facility] - Dr. Socorro Solis Primary Care Date of Appointment with PCP: 11/02/21 Time of Appointment with PCP: 1:40 p.m. Provider Appointment Comment: [facility] Primary Care Release of Information: Obtained, Reviewed and Signed Smoking Cessation Counseling Tobacco Cessation Medication Prescribed at Discharge: Offered & Pt Refused Contact Information Discharge Discharge Address: [address] [place] [address], [facility], [place] [address] Discharge Plan Discharge Items Patient Disposition: Home - Self-Care Reason For Visit: SCHIZOAFFECTIVE DISORDER Discharge Diagnosis: schizoaffective disorder, bipolar type Activity: Resume your previous activity Non-emergency contact: Primary Care Provider, Psychiatrist, Therapist and Illuminator Call non-emergency contact if: you have any medication questions and your symptoms worsen Follow-up/Referrals: Socorro Solis MD [Primary Care Provider] - Diet: Regular Addtl Attending Provider Instructions: SPECIAL CARE INSTRUCTIONS: 1. Follow through with your scheduled aftercare appointments. If unable to keep an appointment, please call to reschedule. 2. Take your medication only as prescribed. Medication should not be changed or stopped without the approval of your doctor. In the event of worsening symptoms or concerns about side effects, contact your doctor immediately. 3. Utilize new healthy coping skills, anger management skills, and stress management skills learned during your hospitalization. Journal feelings and process them with a support person. Identify stressors or situations that may result in relapse, deterioration or inappropriate behaviors and develop a plan to deal with those issues. 4. If your coping skills are ineffective and you are in crisis, contact your outpatient providers for direction. If unable to reach your providers, please call the [facility] CRISIS LINE AT , go to the [facility] walk-in center at [address], [address], [place], or go to the closest Emergency Room. 5. Avoid alcohol and un-prescribed drugs. 6. You have been provided with the Mental Health Advance Directives Pamphlet for your review. 7. Your condition is stable for discharge to outpatient level of care, but recovery is an ongoing process. Ifthoughts to harm yourself or others return, follow the safety plan developed during your stay. Planning for a safe return home includes securing weapons. Our treatment team recommends weaponsbe removed from the home until your outpatient provider reassesses your progress. In rare cases where the items themselvescannot be removed, guns and ammunitionshould be secured separatelyand keys stored by a reliable personoutside of the home. If you were admitted on an involuntary commitment, the police or other legal authorities may be involved in this process. AFTERCARE APPOINTMENTS: * Please call your insurance company prior to your scheduled appointment to confirm your aftercare providers are covered. Take your insurance information to your appointments. WHO TO CALL AND WHEN: Medical Emergencies: For questions or emergencies related to your hospital stay, please contact the Inpatient Behavioral Health Unit at [phone]. A talent acquisition partner is on-call 24/01 for the Behavioral Health Unit for emergencies At any time you feel your situation is an emergency, you may also call 911 immediately. Pending Studies at Discharge: No Stand-Alone Forms: My [facility], Smoking Cessation Medications and DC Order Prescriptions: New clonazepam 1 mg Tablet 1 mg PO BID 15 Days Qty: 30 RF: 0 Aristada 882 mg/3.2 mL suspension,extended rel syring 882 mg IM ONCE Qty: 3.2 RF: 0 Continued famotidine 20 mg tablet 20 mg PO DAILY PRN (Reason: REFLUX) Qty: 30 RF: 5 sofosbuvir-velpatasvir 400-100 mg tablet 1 tab PO DAILY RF: 0 melatonin 5 mg tablet 5 - 10 mg PO HS PRN (Reason: sleep) RF: 0 Discontinued topiramate [Topamax] 25 mg tablet 25 mg PO DAILY Qty: 30 RF: 0 hydroxyzine HCl 50 mg tablet 50 mg PO DAILY PRN (Reason: anxiety) Qty: 10 RF: 0 trazodone 150 mg tablet 150 mg PO HS Qty: 30 RF: 0 perphenazine 2 mg tablet 2 mg PO HS PRN (Reason: MOOD) RF: 0 omeprazole 40 mg capsule,delayed release(DR/EC) 40 mg PO DAILY RF: 0 Latuda 80 mg tablet 80 mg PO DAILY RF: 0 Discharge Orders: Discharge Order (Routine); Ordered 10/26/21 Ordered By: Angelic Angeles Admission Data Admit Date/Time: 10/15/21 06:35 Attending Provider: Angelic Angeles Admit Provider: Angelic Angeles Primary Care Provider: Socorro Solis Other Interventions: Discharge Summary Assessment (RN) Last Done: 10/26/21 11:30 PSY Interdisciplinary Discharge Planning Last Done: 10/26/21 11:31 Coding Level of Care Code 27210 D/C day mgmt > 30 min Diagnoses Alejandro F30.9 Schizoaffective disorder F25.9 Schizoaffective disorder type: unspecified
== END 2021-10-26 11:54 | disposition home or self-care (01) | DRG 885 ==
LOC: ED 22:54 → 3S 10-15 06:27 → SUATTDRO 10-15 06:35